=== PATIENT | female | born 1985 | race Caucasian/White ===

== ENCOUNTER 2019-12-07 12:05 | Outpatient (REF) | payer OTHER, SELFPAY ==
[2019-12-07 13:13] LABS: CDIFF Ag Negative (Negative); CDIFF Internal ctrl Dots and bkg OK (V); CDiff Toxin Negative (Negative)
[2019-12-13 00:02] LABS: Fecal Fat Qualitative Normal (Normal)
[2019-12-13 20:41] LABS: Calprotectin, Fecal <5 mcg/g
== END 2019-12-07 12:06 | disposition home or self-care (01) ==
LOC: HO.LNP 12:05
PROVIDERS: Visit Provider Internal Medicine Gastroenterology
DX: K52.9 Noninfective gastroenteritis and colitis, unspecified (principal); R19.7 Diarrhea, unspecified
CPT/HCPCS: 82705; 83993; 87045; 87046; 87324; 87449

== ENCOUNTER 2019-12-10 07:54 | Outpatient (REF) | payer OTHER, SELFPAY ==
[2019-12-11 16:12] LABS: IgA 171 mg/dL (47-310); IgG 707 mg/dL (600-1640); IgM 103 mg/dL (50-300)
[2019-12-14 17:52] LABS: Histamine Plasma <1.5 ng/mL (< OR = 1.8)
== END 2019-12-10 07:55 | disposition home or self-care (01) ==
LOC: HO.LAB 07:54
PROVIDERS: PCP Physician Assistant; Visit Provider Internal Medicine Gastroenterology
DX: K52.9 Noninfective gastroenteritis and colitis, unspecified (principal)
CPT/HCPCS: 36415; 82784; 82785; 83088; 83520; 86003

== ENCOUNTER → 2020-01-04 08:50 | Outpatient (BNVA) | payer OTHER, SELFPAY | PROVIDERS: PCP Physician Assistant; Referring Provider Nurse Practitioner Family; Visit Provider Internal Medicine Gastroenterology | DX: R19.7 Diarrhea, unspecified (principal); R68.81 Early satiety; N80.9 Endometriosis, unspecified | CPT/HCPCS: 99212 ==

== ENCOUNTER → 2020-01-15 11:49 | Outpatient (BNVA) | payer OTHER, SELFPAY | PROVIDERS: PCP Physician Assistant; Referring Provider Physician Assistant; Visit Provider Internal Medicine Gastroenterology | DX: R19.7 Diarrhea, unspecified (principal); R68.81 Early satiety; N80.9 Endometriosis, unspecified | CPT/HCPCS: 99212 ==

== ENCOUNTER 2020-01-18 09:26 | Outpatient (REF) | payer OTHER, SELFPAY | END 2020-01-18 09:27 | disposition home or self-care (01) | LOC: HO.WFDLDS 09:26 | PROVIDERS: Internal Medicine Gastroenterology; Visit Provider Internal Medicine | DX: Z20.828 Contact with and (suspected) exposure to other viral communicable diseases (principal) | CPT/HCPCS: C9803; U0003 ==

== ENCOUNTER 2020-01-22 14:06 | Outpatient (REF) | payer OTHER, SELFPAY ==
--- NOTE | 2020-01-22 | US_ITS ---
EXAMINATION: US PELVIS ULTRASOUND CLINICAL INFORMATION: Endometriosis. N80.9. Prior hysterectomy. Age 34. COMPARISON: Pelvic ultrasound 02/06/2019, CT abdomen and pelvis with contrast 12/02/2019; CT abdomen and pelvis noncontrast 10/29/2019. TECHNIQUE: Ultrasound of the pelvis is performed using both transabdominal and transvaginal transducers along with Doppler. Transvaginal imaging is performed due to inadequate visualization transabdominally. Durable Medical Equipment Technician notes significant left lower quadrant pain while scanning transabdominal and transvaginal. FINDINGS: Uterus: Surgically absent. Adnexa: Both ovaries are visualized and are normal in size. There is normal color flow to the adnexa. There is no ovarian torsion. No hyperemia. No visible vascular pelvic congestion. There is no pelvic ascites or fluid collection. Right ovary measures 3.2 x 1.7 x 2.5 cm. Volume 5.3 mL. There is a dominant follicle measuring 1.4 x 1.2 cm. There is a nonspecific exophytic nodule on ultrasound. Surface measuring only 0.6 x 0.6 cm and showing no associated color flow. There is no correlate on CT and finding is of doubtful significance. Otherwise no right adnexal mass or fluid collection. Left ovary measures 2.6 x 1.2 x 1.4 cm. Volume 2.3 mL. No left adnexal mass or fluid collection. US/US transvaginal IMPRESSION: 1. Uterus: Surgically absent. 2. Ovaries: Normal in size. Small nonspecific exophytic nodule on right, under 1 cm, without correlate on recent CT, doubtful significance. No fluid collection or ascites.
--- NOTE | 2020-01-22 14:13 | US_ITS ---
EXAMINATION: US PELVIS ULTRASOUND CLINICAL INFORMATION: Endometriosis. N80.9. Prior hysterectomy. Age 34. COMPARISON: Pelvic ultrasound 02/06/2019, CT abdomen and pelvis with contrast 12/02/2019; CT abdomen and pelvis noncontrast 10/29/2019. TECHNIQUE: Ultrasound of the pelvis is performed using both transabdominal and transvaginal transducers along with Doppler. Transvaginal imaging is performed due to inadequate visualization transabdominally. Brass Finisher notes significant left lower quadrant pain while scanning transabdominal and transvaginal. FINDINGS: Uterus: Surgically absent. Adnexa: Both ovaries are visualized and are normal in size. There is normal color flow to the adnexa. There is no ovarian torsion. No hyperemia. No visible vascular pelvic congestion. There is no pelvic ascites or fluid collection. Right ovary measures 3.2 x 1.7 x 2.5 cm. Volume 5.3 mL. There is a dominant follicle measuring 1.4 x 1.2 cm. There is a nonspecific exophytic nodule on ultrasound. Surface measuring only 0.6 x 0.6 cm and showing no associated color flow. There is no correlate on CT and finding is of doubtful significance. Otherwise no right adnexal mass or fluid collection. Left ovary measures 2.6 x 1.2 x 1.4 cm. Volume 2.3 mL. No left adnexal mass or fluid collection. US/US pelvic complete IMPRESSION: 1. Uterus: Surgically absent. 2. Ovaries: Normal in size. Small nonspecific exophytic nodule on right, under 1 cm, without correlate on recent CT, doubtful significance. No fluid collection or ascites.
[2020-01-25 04:07] LABS: Calcitonin <2 pg/mL (<=5)
== END 2020-01-22 14:07 | disposition home or self-care (01) ==
LOC: HO.US 14:06
PROVIDERS: PCP Internal Medicine; Visit Provider Internal Medicine Gastroenterology
DX: N80.9 Endometriosis, unspecified (principal); R19.7 Diarrhea, unspecified; R68.81 Early satiety; Z90.710 Acquired absence of both cervix and uterus
CPT/HCPCS: 76830; 76856; 82308; 82943; 84307; 84586

== ENCOUNTER → 2020-02-26 07:59 | Outpatient (REF) | payer OTHER, SELFPAY ==
--- NOTE | 2020-02-26 08:02 | NM_ITS ---
EXAMINATION: RADIONUCLIDE SOLID FOOD GASTRIC EMPTYING 4-HOUR STUDY CLINICAL INFORMATION: Early satiety. COMPARISON: No previous gastric emptying study is available for comparison. TECHNIQUE: A standard meal consisting of 4 oz of Egg Beaters brand tagged with 850 microcuries Tc-99m Sulfur Colloid, 8 oz water and 2 slices of toast with jelly was administered orally to the patient. Images were obtained using a dual head gamma camera in the anterior and posterior projections over of the stomach immediately post ingestion and at hourly intervals up to 3 hours post ingestion. Images were not obtained at 4 hours due to the minimal retention at 3 hours. The anterior and posterior counts at each time interval were averaged using the geometric mean and expressed as percentage of the immediate post ingestion counts. FINDINGS: There is good visualization of activity in the stomach immediately post ingestion. As the study progresses, there is good clearance of activity from the stomach and visualization of progressively increasing small bowel activity. By the end of the study, there is almost no retention noted in the stomach. Retention in the stomach at each time interval was: 1 hour 25% (normal 37%-90%) 2 hours 5% (normal 30%-60%) 3 hours 3% 4 hours (Not Obtained) (normal 0%-10%) NM/NM gastric emptying study IMPRESSION: No abnormal retention of solid food is present. Gastric emptying of solid food is more rapid than normal, a finding of uncertain clinical significance.
== END ==
LOC: HO.NUCMED 07:59
PROVIDERS: PCP Internal Medicine; Visit Provider Internal Medicine Gastroenterology
DX: R68.81 Early satiety (principal); R19.7 Diarrhea, unspecified
CPT/HCPCS: 78264; A9541

== ENCOUNTER 2020-03-04 08:08 | Emergency (ER) | payer OTHER, SELFPAY ==
[2020-03-04 08:37] VITALS: BP 150/87; PULSE 98; RESP 18; TEMP 36.8; O2SAT 98; BMI 30.9
[2020-03-04 11:52] LABS: Basophils Percent Auto 0.3 % (0-2); Eosinophils Absolute Auto 0.1 X10*3/uL (0.0-0.4); Eosinophils Percent Auto 0.8 % (0-4); Hematocrit 40.7 % (37-47); Hemoglobin 14.1 g/dl (12.0-16.0); Imm Gran Abs Auto 0.02 X10*3/uL (0.00-0.03); Imm Gran Pct Auto 0.2 % (0.0-0.4); Lymphocytes Absolute Auto 3.4 X10*3/uL (1.2-4.9); Lymphocytes Percent Auto 37.2 % (20-40); Mean Corpuscular HGB Conc 34.6 g/dl (31.0-35.0); Mean Corpuscular Hemoglobin 30.9 pg (27.0-33.0); Mean Corpuscular Volume 89.3 fL (80-98); Mean Platelet Volume 9.3 fL (9.4-12.3); Monocytes Absolute Auto 0.5 X10*3/uL (0.1-1.2); Monocytes Percent Auto 5.8 % (2-11); Neutrophils Absolute Auto 5.1 X10*3/uL (2.0-8.3); Neutrophils Percent Auto 55.7 % (45-73); Platelet Count 269 X10*3/uL (160-400); Red Blood Count 4.56 X10*6/uL (4.20-5.50); Red Cell Distribution Width 14.4 % (11.0-16.0); White Blood Count 9.1 X10*3/uL (4.8-10.8)
[2020-03-04 11:53] LABS: MANUAL DIFF FLAG NO
[2020-03-04 12:22] LABS: Alanine Aminotransferase 67 U/L (0-31); Albumin Level 4.5 g/dL (3.5-5.0); Alkaline Phosphatase 101 U/L (39-117); Anion Gap 17 (12-20); Aspartate Amino Transferase 75 U/L (5-31); Bilirubin Total 0.9 mg/dL (0.0-1.0); Blood Urea Nitrogen 8 mg/dL (9-16); Calcium 8.7 mg/dL (8.4-10.2); Carbon Dioxide 20 mmol/L (22-29); Chloride 105 mmol/L (96-108); Creatinine Clr Calc Pharmacy 119.8; Estimated Glomerular Filt Rate > 60; Glucose Random 92 mg/dL (60-115); Sodium 138 mmol/L (135-145); Total Protein 7.2 g/dL (6.5-8.0)
--- NOTE | 2020-03-04 14:21 | ED.ABDPAIN ---
HPI - Abdominal Pain General Chief Complaint: Abdominal Pain Stated Complaint: abd pain Time Seen by Provider: 03/04/20 14:06 History of Present Illness HPI narrative: Patient with prior history of colitis comes here complaining of 4 days of copious diarrhea abdominal pain nausea and crampy intermittent abdominal pain relieved with a bowel movement. It she has not been eating as it upsets her stomach but she has been able to drink fluids She is not dizzy or weak she has had no blood or black tarry stools, no fever no chills Related Data Previous Rx's Medication Instructions Recorded ciprofloxacin HCl 500 mg tablet 500 mg PO BID 14 Days #28 tab 01/15/20 hyoscyamine sulfate 0.125 mg 0.125 mg SUBLINGUAL BID-QID PRN 01/15/20 sublingual tablet #30 tab ondansetron 4 mg disintegrating 4 mg PO Q8H PRN #30 tab 01/22/20 tablet colesevelam 625 mg tablet 1,250 mg PO BID #60 tab 02/06/20 diphenoxylate-atropine 2.5 1 tab PO TID #30 tab 03/03/20 mg-0.025 mg tablet levofloxacin 500 mg PO DAILY 7 Days #7 tab 03/04/20 metronidazole [Flagyl] 500 mg PO BID 7 Days #14 tab 03/04/20 oxycodone-acetaminophen [Percocet] 1 tab PO Q6H PRN #20 tab 03/04/20 Allergies Allergy/AdvReac Type Severity Reaction Status Date / Time NSAIDS (Non-Steroidal Allergy Severe BRONCHOSPAS Unverified 11/22/19 15:34 Anti-Inflamma M [NSAIDS (NON-STEROIDAL ANTI-INFLAMMA] aspirin [ASA] Allergy Unknown SHORTNESS Unverified 11/22/19 15:34 OF BREATH ketorolac [From TORADOL] Allergy Unknown BRONCIAL Unverified 11/22/19 15:34 SPASM vancomycin [VANCOMYCIN] Allergy Unknown RASH Unverified 11/22/19 15:34 gabapentin [From NEURONTIN] AdvReac Unknown TINGLING Unverified 11/22/19 15:34 IN L ARM Bencort Allergy Unknown Uncoded 10/31/19 00:00 NSAIDS Allergy Unknown ASTHMA Uncoded 10/01/19 00:00 TORADAL Allergy Unknown Uncoded 10/31/19 00:00 Toradol Allergy Unknown bronchospas Uncoded 10/01/19 00:00 m Review of Systems Review of Systems Positive for abdominal pain nausea and copious diarrhea No fever no chills no dizziness no weakness no headache no neck pain no chest pain no shortness of breath no vomiting no bloody stool no black tarry stool no leg swelling no calf pain or swelling no rashes Yes all other systems are reviewed and are negative Physical Exam Vital Signs: Vital Signs: Last Vital Signs Temp 98.5 F 03/04/20 14:58 Pulse 85 03/04/20 16:33 Resp 18 03/04/20 16:33 BP 140/87 H 03/04/20 16:33 Pulse Ox 98 03/04/20 16:33 Body Mass Index 30.9 Patient is A&O x3, cooperative, uncomfortable The eyes are not pale or yellow The pharynx mucous membranes are moist Neck is supple Chest is clear to auscultation bilaterally with full symmetric equal breath sounds The heart rate and rhythm regular no murmurs The abdomen was nontender no rebound no guarding Extremities no edema no calf tenderness or swelling Skin no rash Neuro no focal deficit Course Course Course Narrative: Patient was hydrated and treated with analgesics and nausea medicine and felt very improved The case was discussed with her quality assurance representative Dr. Grijalva who has her scheduled for an MRI tomorrow for further evaluation of her abdomen, he agreed with the plan that if patient tolerates p.o. afebrile pain controlled that we could start antibiotics and she is suitable for discharge The patient was discharged feeling significantly improved and antibiotics were started MDM - Abdominal Pain Lab Data Attestation: I reviewed the patient's lab results. Result diagrams: 03/04/20 11:34 03/04/20 11:34 Labs: Lab Results 03/04/20 03/04/20 03/04/20 Range/Units 11:34 11:34 11:34 WBC 9.1 (4.8-10.8) X10*3/uL RBC 4.56 (4.20-5.50) X10*6/uL Hgb 14.1 (12.0-16.0) g/dl Hct 40.7 (37-47) % MCV 89.3 (80-98) fL MCH 30.9 (27.0-33.0) pg MCHC 34.6 (31.0-35.0) g/dl RDW 14.4 (11.0-16.0) % Plt Count 269 (160-400) X10*3/uL MPV 9.3 L (9.4-12.3) fL Immature Gran % (Auto) 0.2 (0.0-0.4) % Neut % (Auto) 55.7 (45-73) % Lymph % (Auto) 37.2 (20-40) % Boyd % (Auto) 5.8 (2-11) % Eos % (Auto) 0.8 (0-4) % Baso % (Auto) 0.3 (0-2) % Lymph # (Auto) 3.4 (1.2-4.9) X10*3/uL Boyd # (Auto) 0.5 (0.1-1.2) X10*3/uL Eos # (Auto) 0.1 (0.0-0.4) X10*3/uL Baso # (Auto) 0.0 (0.0-0.2) X10*3/uL Abs Immat Gran (auto) 0.02 (0.00-0.03) X10*3/uL Absolute Neuts (auto) 5.1 (2.0-8.3) X10*3/uL Absolute Nucleated RBC 0.000 (0.0-0.012) X10*3/uL Nucleated RBC % (auto) 0.0 (0.0-0.2) /100WBC ESR (0-20) MM/HR Hold Blue Top SEE NOTE Sodium 138 (135-145) mmol/L Potassium 4.0 (3.3-5.1) mmol/l Chloride 105 (96-108) mmol/L Carbon Dioxide 20 L (22-29) mmol/L Anion Gap 17 (12-20) BUN 8 L (9-16) mg/dL Creatinine 0.66 (0.5-1.4) mg/dL Estim Creat Clear Calc 119.8 Estimated GFR > 60 Random Glucose 92 (60-115) mg/dL Calcium 8.7 (8.4-10.2) mg/dL Total Bilirubin 0.9 (0.0-1.0) mg/dL AST 75 H (5-31) U/L ALT 67 H (0-31) U/L Alkaline Phosphatase 101 (39-117) U/L C-Reactive Protein 0.02 (< or = 0.50) mg/dL Total Protein 7.2 (6.5-8.0) g/dL Albumin 4.5 (3.5-5.0) g/dL 03/04/20 Range/Units 15:07 WBC (4.8-10.8) X10*3/uL RBC (4.20-5.50) X10*6/uL Hgb (12.0-16.0) g/dl Hct (37-47) % MCV (80-98) fL MCH (27.0-33.0) pg MCHC (31.0-35.0) g/dl RDW (11.0-16.0) % Plt Count (160-400) X10*3/uL MPV (9.4-12.3) fL Immature Gran % (Auto) (0.0-0.4) % Neut % (Auto) (45-73) % Lymph % (Auto) (20-40) % Boyd % (Auto) (2-11) % Eos % (Auto) (0-4) % Baso % (Auto) (0-2) % Lymph # (Auto) (1.2-4.9) X10*3/uL Boyd # (Auto) (0.1-1.2) X10*3/uL Eos # (Auto) (0.0-0.4) X10*3/uL Baso # (Auto) (0.0-0.2) X10*3/uL Abs Immat Gran (auto) (0.00-0.03) X10*3/uL Absolute Neuts (auto) (2.0-8.3) X10*3/uL Absolute Nucleated RBC (0.0-0.012) X10*3/uL Nucleated RBC % (auto) (0.0-0.2) /100WBC ESR 2 (0-20) MM/HR Hold Blue Top Sodium (135-145) mmol/L Potassium (3.3-5.1) mmol/l Chloride (96-108) mmol/L Carbon Dioxide (22-29) mmol/L Anion Gap (12-20) BUN (9-16) mg/dL Creatinine (0.5-1.4) mg/dL Estim Creat Clear Calc Estimated GFR Random Glucose (60-115) mg/dL Calcium (8.4-10.2) mg/dL Total Bilirubin (0.0-1.0) mg/dL AST (5-31) U/L ALT (0-31) U/L Alkaline Phosphatase (39-117) U/L C-Reactive Protein (< or = 0.50) mg/dL Total Protein (6.5-8.0) g/dL Albumin (3.5-5.0) g/dL Discharge Plan Discharge Clinical Impression: Colitis Patient Disposition: Home, Self-Care Additional Instructions: We are starting antibiotics for colitis We spoke to Dr. Delong in who agrees with the plan and expect you to get the MRI as scheduled tomorrow Follow with him and his office Return to ER any worse condition any concerns Prescriptions: New levofloxacin 500 mg tablet 500 mg PO DAILY 7 Days Qty: 7 RF: 0 metronidazole [Flagyl] 500 mg tablet 500 mg PO BID 7 Days Qty: 14 RF: 0 oxycodone-acetaminophen [Percocet] 5-325 mg tablet 1 tab PO Q6H PRN (Reason: pain) Qty: 20 RF: 0 No Action ondansetron 4 mg tablet,disintegrating 4 mg PO Q8H PRN (Reason: nausea and vomiting) Qty: 30 RF: 1 colesevelam [WelChol] 625 mg tablet 1,250 mg PO BID Qty: 60 RF: 3 hyoscyamine sulfate [Levsin/SL] 0.125 mg tablet, sublingual 0.125 mg sublingual BID-QID PRN (Reason: dyspepsia) Qty: 30 RF: 2 ciprofloxacin HCl 500 mg tablet 500 mg PO BID 14 Days Qty: 28 RF: 0 diphenoxylate-atropine [Lomotil] 2.5-0.025 mg tablet 1 tab PO TID Qty: 30 RF: 0 Stand Alone Forms: Work/School Release [facility] Past Medical History Attestation statement: The following information was validated with the patient. [facility] Narrative: Patient has history of multiple episodes of colitis and is followed by GI Dr. Sierra Surgical History History of appendectomy History of colonoscopy History of hysterectomy Hx of endoscopy Family History Family History (Updated 01/04/20 @ 08:54 by Katie Gagnon CMA) Father No problems noted. Mother No problems noted. Social History Social History (Updated 01/04/20 @ 08:54 by Katie Gagnon CMA) Alcohol intake: current Alcohol intake frequency: holidays/special occasions only Smoking Status: Current every day smoker Tobacco Type: Cigarette Cigarettes Per Day: 5 Advance Directives: No Advance Directives Information Provided: Yes
[2020-03-04 14:57] VITALS: RESP 18
[2020-03-04] MEDS: Morphine Sulfate 4 MG/ML CARTRIDGE IVPUSH ×2 (14:57→16:37)
[2020-03-04] MEDS: ondansetron HCL 4 MG/2 ML VIAL IVPUSH ×2 (14:57)
[2020-03-04] MEDS: Famotidine/PF 20 MG/2 ML VIAL IVPUSH (14:57)
[2020-03-04 14:58] VITALS: BP 145/85; PULSE 97; RESP 18; TEMP 36.9; O2SAT 97
[2020-03-04] MEDS: 0.9 % Sodium Chloride 1,000 ML 999 ML IVCONT (14:58)
[2020-03-04 15:20] LABS: C Reactive Protein 0.02 mg/dL (< or = 0.50)
[2020-03-04] MEDS: metroNIDAZOLE 500 MG TABLET PO (15:27)
[2020-03-04] MEDS: levoFLOXacin 500 MG TABLET PO (15:28)
[2020-03-04 15:57] LABS: Erythrocyte Sedimentation Rate 2 MM/HR (0-20)
[2020-03-04 16:33] VITALS: BP 140/87; PULSE 85; RESP 18; O2SAT 98
== END 2020-03-04 16:57 | disposition home or self-care (01) ==
PROVIDERS: Physician Assistant Medical; Emergency Provider Emergency Medicine Emergency Medical Services; PCP Physician Assistant
DX: K52.9 Noninfective gastroenteritis and colitis, unspecified (principal); F17.210 Nicotine dependence, cigarettes, uncomplicated; Z71.6 Tobacco abuse counseling; Z79.899 Other long term (current) drug therapy
CPT/HCPCS: 36415; 80053; 85025; 85652; 86140; 96361; 96374; 96375; 96376; 99284; J2270; J2405

== ENCOUNTER 2020-03-05 08:54 | Outpatient (REF) | payer OTHER, SELFPAY ==
--- NOTE | 2020-03-05 10:18 | MR_ITS ---
EXAMINATION: MR ABDOMEN WITHOUT AND WITH CONTRAST MR PELVIS WITHOUT AND WITH CONTRAST CLINICAL INFORMATION: R19.7 - Diarrhea, unspecified; assess for Crohn's COMPARISON: Radionuclide gastric emptying study 02/26/2020, ultrasound pelvis 01/22/2020, CT abdomen and pelvis with contrast 12/02/2019 and 11/09/2019. TECHNIQUE: MR abdomen and MR pelvis are performed without and with use of 8.5 mL intravenous Gadavist gadolinium contrast. Imaging is performed in 3 planes. Patient had 1.5 L of oral Breeza prior to imaging. FINDINGS: LUNG BASES: The visualized lung bases are unremarkable. LIVER, GALLBLADDER, AND BILIARY TREE: The liver is normal in size and smooth in contour. The parenchyma areas homogeneous in signal. There is mild signal loss on out of phase imaging consistent with mild hepatic steatosis. There is no focal hepatic parenchymal lesion or intrahepatic ductal dilatation. The gallbladder is unremarkable with no evidence of gallbladder wall thickening, or obvious pericholecystic inflammatory changes. PANCREAS: Unremarkable. SPLEEN: Normal. ADRENAL GLANDS: Normal. KIDNEYS AND URETERS: The kidneys are normal in size, shape, and enhance symmetrically. No hydronephrosis. No perinephric stranding. GASTROINTESTINAL TRACT: There is no bowel obstruction or focal inflammatory changes in the bowel or adjacent mesentery. There is been prior appendectomy. There is no bowel wall thickening, bowel wall T2 signal, or abnormal enhancement. There is no ascites or fluid collection. ABDOMINAL WALL: No significant hernia is appreciated. LYMPH NODES: No lymphadenopathy. VASCULAR: Unremarkable. PELVIS: Prior hysterectomy. There is incidental dominant follicle left ovary measuring 1.6 cm. No pelvic ascites. OSSEOUS STRUCTURES: Normal marrow signal. No sacroiliitis. MR/MR abdomen wo/w con IMPRESSION: 1. No inflammatory changes in bowel or mesentery. No bowel wall thickening or abnormal enhancement. 2. Mild hepatic steatosis.
== END 2020-03-05 08:55 | disposition home or self-care (01) ==
LOC: HO.MRI 08:54
PROVIDERS: Visit Provider Internal Medicine Gastroenterology
DX: K52.9 Noninfective gastroenteritis and colitis, unspecified (principal); R19.7 Diarrhea, unspecified; R10.9 Unspecified abdominal pain
CPT/HCPCS: 72197; 74183; A9585

== ENCOUNTER → 2020-06-30 08:33 | Outpatient (BNVA) | payer OTHER, SELFPAY | PROVIDERS: PCP Physician Assistant; Visit Provider Internal Medicine Gastroenterology ==

== ENCOUNTER 2020-06-30 15:00 | Emergency (ER) | payer OTHER, SELFPAY ==
[2020-06-30 15:15] VITALS: BP 116/68; PULSE 102; RESP 18; TEMP 37.2; O2SAT 96; BMI 31.8
== END 2020-06-30 17:00 | disposition left against medical advice (07) ==
PROVIDERS: Emergency Provider Emergency Medicine; PCP Physician Assistant
DX: K52.9 Noninfective gastroenteritis and colitis, unspecified (principal)
CPT/HCPCS: 99282

== ENCOUNTER → 2020-07-21 08:26 | Outpatient (BNVA) | payer OTHER, SELFPAY | PROVIDERS: PCP Physician Assistant; Visit Provider Internal Medicine Gastroenterology ==

== ENCOUNTER 2020-07-24 17:01 | Inpatient (IN) | payer OTHER, SELFPAY ==
[2020-07-24 17:04] VITALS: BP 144/82; PULSE 115; RESP 18; TEMP 36.7; O2SAT 97; BMI 31.8
[2020-07-24 17:39] VITALS: BP 134/81; PULSE 105; RESP 17; TEMP 36.9; O2SAT 98
--- NOTE | 2020-07-24 17:43 | ED_ITS ---
HPI - Abdominal Pain General Chief Complaint: Abdominal Pain Stated Complaint: Abdominal pain Time Seen by Provider: 07/24/20 21:10 Source: patient Mode of arrival: ambulatory Limitations: no limitations History of Present Illness HPI narrative: [age] year female past medical history of recently diagnosed Crohn's presents with abdominal pain, and anal leakage. States that she was seen at [facility] [address] scan show Crohn's exacerbation with colitis. She was seen by Gastroenterology, , was diagnosed with Crohn's last week and had a capsule endoscopy 4 days ago. She has had multiple visits to the emergency department over the past month for abdominal pain, cramping and diarrhea she does not report any chest pain or pressure, palpitations, shortness of breath, no fevers, chills, nausea, vomiting, constipation, dysuria, hematuria, melena, hematochezia, edema, sick contacts, or any other concerning symptoms. She has not started any medications for her Crohn's diagnosis. MD elicited complaint: abdominal pain Pertinent past history: other (Crohn's) Onset (ago): day(s) (Several) Pain Consistency: constant Location: diffuse Severity: severe Quality: cramping, stabbing and aching Exacerbating factors: eating, bowel movement and movement Relieving factors: nothing Context: history of similar episodes Associated symptoms: nausea, vomiting, diarrhea and other (Anal leakage) Related Data Patient : No Home Medications Medication Instructions Recorded Confirmed budesonide 3 cap PO DAILY 07/24/20 07/24/20 dextroamphetamine-amphetamine 1 cap PO QAM 07/24/20 07/24/20 dextroamphetamine-amphetamine 10 mg PO DAILY 07/24/20 07/24/20 prednisone 1 tab PO BID 07/24/20 07/24/20 Allergies Allergy/AdvReac Type Severity Reaction Status Date / Time NSAIDS (Non-Steroidal Allergy Severe BRONCHOSPAS Verified 06/30/20 15:15 Anti-Inflamma M [NSAIDS (NON-STEROIDAL ANTI-INFLAMMA] aspirin [ASA] Allergy Unknown SHORTNESS Verified 06/30/20 15:15 OF BREATH ketorolac [From TORADOL] Allergy Unknown BRONCIAL Verified 06/30/20 15:15 SPASM vancomycin [VANCOMYCIN] Allergy Unknown RASH Verified 06/30/20 15:15 gabapentin [From NEURONTIN] AdvReac Unknown TINGLING Verified 06/30/20 15:15 IN L ARM Denny Allergy Unknown unknown Uncoded 05/19/20 11:33 Review of Systems Review of Systems Constitutional: No Weight loss, No Fever, No Chills, No Night Sweats, No Fatigue, No Malaise ENT/Mouth: No Hearing loss, No Ear Pain, No Nasal Congestion, No Sinus Pain, No Hoarseness, No sore throat, No Rhinorrhea, No Swallowing Difficulty Eyes: No Eye Pain, No Swelling, No Redness, No Foreign Body, No Discharge, No Vision Changes Cardiovascular: No Chest Pain, No SOB, No Dyspnea on Exertion, No Orthopnea, No Edema, No Palpitations Respiratory: No Cough, No Sputum, No Wheezing, No Smoke Exposure, No Dyspnea Gastrointestinal: Positive Nausea, no Vomiting, positive anal leakage, positive abdominal Pain, No Hematochezia, No Melena Genitourinary: no irregular bleeding, No Dysuria, No Urinary Frequency, No Hematuria, No Urinary Incontinence, No Urgency, No Flank Pain, No Urinary Flow Changes, No Hesitancy Musculoskeletal: No joint pain, No Myalgias, No Joint Swelling Skin: No Skin Lesions, No rash Neuro: No Weakness, No Numbness, No Paresthesias, No Loss of Consciousness, No Dizziness, No Headache Psych: No Anxiety/Panic, No Depression, No SI/HI/AH/VH, No Social Issues Heme/Lymph: No Bruising, No Bleeding,No Lymphadenopathy Endocrine: No Polyuria, No Polydipsia, No Temperature Intolerance Yes all other systems are reviewed and are negative Physical Exam Vital Signs: Vital Signs: Last Vital Signs Temp 98.5 F 07/24/20 17:39 Pulse 77 07/24/20 23:51 Resp 16 07/24/20 23:51 BP 144/79 H 07/24/20 23:51 Pulse Ox 99 07/24/20 23:51 Body Mass Index 31.8 Appearance: Alert. Oriented X3. Moderate distress. Eyes: Pupils equal, round and reactive to light. ENT: Pharynx normal. Neck: Normal inspection. Neck supple. CVS: Normal heart rate and rhythm. Pulses normal. Respiratory: No respiratory distress. Breath sounds normal. Abdomen: Soft and diffusely tender. Skin: Skin warm and dry. Normal skin color. Normal skin turgor. Extremities: Moves all extremities against resistance, gait well balanced and well coordinated. Neuro: No motor deficit. No sensory deficit. Cranial nerves 2-12 intact. No focal neural deficits. Course Course Course Narrative: 35-year-old female presents with Crohn's flare. I did start ceftriaxone and Flagyl, 4 mg of morphine, and a L of 9 [address] saline[address] Had a CT scan of the abdomen 2 days ago which indicated mild diffuse colonic wall thickening with mucosal hyperemia and mild surrounding fat stranding, no evidence of obstruction perforation or abscess. There are areas of intramural fat deposition in the colon, similar to prior exams. Mildly prominent fluid- filled loops of the jejunum in the left upper quadrant measuring up to 3 cm in diameter but without wall thickening or adjacent fat stranding. This may be due to reactive ileus, it is improved in appearance from prior study. Impression findings for acute on chronic colitis the appearance is similar to the prior study no evidence of obstruction abscess or perforation. Do not have access to prior studies, patient did bring in CT scan documentation from [facility] which was extraordinarily helpful. Patient does not want a repeat CT scan due to unnecessary radiation exposure. I did discuss this case with Dr. Devlin, he suggest starting p.o. steroids. Patient is unable to tolerate p.o. steroids, states that every time she takes them she has severe joint pain and swelling. Discussion with hospitalist regarding plan of care, plan is to admit for Crohn's flare, referral to Dr. Sierra/GI. Patient verbalized understanding of and agrees to plan of care to admit. Consultations Consultation #1: Teofilo MDM - Abdominal Pain Differential Diagnosis Differential diagnosis: Likely abdominal pain Differential diagnosis narrative:: Colitis, Crohn's flare Medical Records Attestation: I reviewed the patient's medical records. Lab Data Attestation: I reviewed the patient's lab results. Result diagrams: 07/24/20 18:44 07/24/20 18:44 Labs: Lab Results 07/24/20 07/24/20 07/24/20 Range/Units 18:44 18:44 18:44 WBC 8.4 (4.8-10.8) X10*3/uL RBC 4.20 (4.20-5.50) X10*6/uL Hgb 12.9 (12.0-16.0) g/dl Hct 37.4 (37-47) % MCV 89.0 (80-98) fL MCH 30.7 (27.0-33.0) pg MCHC 34.5 (31.0-35.0) g/dl RDW 13.2 (11.0-16.0) % Plt Count 299 (160-400) X10*3/uL MPV 9.4 (9.4-12.3) fL Immature Gran % (Auto) 0.1 (0.0-0.4) % Neut % (Auto) 72.7 (45-73) % Lymph % (Auto) 21.9 (20-40) % [place] % (Auto) 4.6 (2-11) % Eos % (Auto) 0.5 (0-4) % Baso % (Auto) 0.2 (0-2) % Lymph # (Auto) 1.8 (1.2-4.9) X10*3/uL [place] # (Auto) 0.4 (0.1-1.2) X10*3/uL Eos # (Auto) 0.0 (0.0-0.4) X10*3/uL Baso # (Auto) 0.0 (0.0-0.2) X10*3/uL Abs Immat Gran (auto) 0.01 (0.00-0.03) X10*3/uL Absolute Neuts (auto) 6.1 (2.0-8.3) X10*3/uL Absolute Nucleated RBC 0.000 (0.0-0.012) X10*3/uL Nucleated RBC % (auto) 0.0 (0.0-0.2) /100WBC PT 10.1 L (10.8-13.0) SEC INR 0.9 (0.9-1.1) APTT 31.6 (24.1-38.0) SEC Sodium 140 (135-145) mmol/L Potassium 4.1 (3.3-5.1) mmol/L Chloride 109 H (96-108) mmol/L Carbon Dioxide 21 L (22-29) mmol/L Anion Gap 14 (12-20) BUN 4 L (9-16) mg/dL Creatinine 0.75 (0.5-1.4) mg/dL Estim Creat Clear Calc 105.9 Estimated GFR > 60 Random Glucose 101 (60-115) mg/dL Lactic Acid (0.5-2.0) mmol/L Calcium 9.3 D (8.4-10.2) mg/dL Total Bilirubin 0.2 (0.0-1.0) mg/dL Direct Bilirubin < 0.2 (0.0-0.5) mg/dL AST 38 H D (5-31) U/L ALT 31 (0-31) U/L Alkaline Phosphatase 101 (39-117) U/L Total Protein 6.9 (6.5-8.0) g/dL Albumin 4.4 (3.5-5.0) g/dL Lipase 21 (8-78) U/L COVID-19 (ROGELIO) (Negative) COVID-19 Clin Com 07/24/20 07/24/20 Range/Units 18:44 22:22 WBC (4.8-10.8) X10*3/uL RBC (4.20-5.50) X10*6/uL Hgb (12.0-16.0) g/dl Hct (37-47) % MCV (80-98) fL MCH (27.0-33.0) pg MCHC (31.0-35.0) g/dl RDW (11.0-16.0) % Plt Count (160-400) X10*3/uL MPV (9.4-12.3) fL Immature Gran % (Auto) (0.0-0.4) % Neut % (Auto) (45-73) % Lymph % (Auto) (20-40) % [place] % (Auto) (2-11) % Eos % (Auto) (0-4) % Baso % (Auto) (0-2) % Lymph # (Auto) (1.2-4.9) X10*3/uL [place] # (Auto) (0.1-1.2) X10*3/uL Eos # (Auto) (0.0-0.4) X10*3/uL Baso # (Auto) (0.0-0.2) X10*3/uL Abs Immat Gran (auto) (0.00-0.03) X10*3/uL Absolute Neuts (auto) (2.0-8.3) X10*3/uL Absolute Nucleated RBC (0.0-0.012) X10*3/uL Nucleated RBC % (auto) (0.0-0.2) /100WBC PT (10.8-13.0) SEC INR (0.9-1.1) APTT (24.1-38.0) SEC Sodium (135-145) mmol/L Potassium (3.3-5.1) mmol/L Chloride (96-108) mmol/L Carbon Dioxide (22-29) mmol/L Anion Gap (12-20) BUN (9-16) mg/dL Creatinine (0.5-1.4) mg/dL Estim Creat Clear Calc Estimated GFR Random Glucose (60-115) mg/dL Lactic Acid 1.5 (0.5-2.0) mmol/L Calcium (8.4-10.2) mg/dL Total Bilirubin (0.0-1.0) mg/dL Direct Bilirubin (0.0-0.5) mg/dL AST (5-31) U/L ALT (0-31) U/L Alkaline Phosphatase (39-117) U/L Total Protein (6.5-8.0) g/dL Albumin (3.5-5.0) g/dL Lipase (8-78) U/L COVID-19 (ROGELIO) Negative (Negative) COVID-19 Clin Com See Note Critical Care Time Critical Care Time Critical Care Time: Yes Total Critical Care Time: 45 Attestation: I have personally provided critical care time exclusive of time spent on separ ately billable procedures. Time includes review of laboratory data, radiology results, discussion with consultants, and monitoring for potential decompensation. Interventions were performed as documented. Discharge Plan Discharge Clinical Impression: Crohn's colitis Qualifiers: Digestive disease complication type: without complication Qualified Code(s): K50.10 - Crohn's disease of large intestine without complications Patient Disposition: Admitted As Inpatient [facility] Past Medical History Attestation statement: The following information was validated with the patient. Source: unable to obtain Medical History Acute Crohn's disease Surgical History History of appendectomy History of colonoscopy History of hysterectomy Hx of endoscopy Family History Family History Father No problems noted. Mother Thyroid cancer Stomach cancer Family/Other Diabetes Social History Social History Alcohol intake: current Alcohol intake frequency: holidays/special occasions only Smoking Status: Current every day smoker Tobacco Type: Cigarette Cigarettes Per Day: 5 Advance Directives: No Advance Directives Information Provided: No Patient : No
[2020-07-24 18:52] LABS: MANUAL DIFF FLAG NO
[2020-07-24 18:53] LABS: Basophils Percent Auto 0.2 % (0-2); Eosinophils Percent Auto 0.5 % (0-4); Hematocrit 37.4 % (37-47); Hemoglobin 12.9 g/dl (12.0-16.0); Imm Gran Abs Auto 0.01 X10*3/uL (0.00-0.03); Imm Gran Pct Auto 0.1 % (0.0-0.4); Lymphocytes Absolute Auto 1.8 X10*3/uL (1.2-4.9); Lymphocytes Percent Auto 21.9 % (20-40); Mean Corpuscular HGB Conc 34.5 g/dl (31.0-35.0); Mean Corpuscular Hemoglobin 30.7 pg (27.0-33.0); Mean Platelet Volume 9.4 fL (9.4-12.3); Monocytes Absolute Auto 0.4 X10*3/uL (0.1-1.2); Monocytes Percent Auto 4.6 % (2-11); Neutrophils Absolute Auto 6.1 X10*3/uL (2.0-8.3); Neutrophils Percent Auto 72.7 % (45-73); Platelet Count 299 X10*3/uL (160-400); Red Cell Distribution Width 13.2 % (11.0-16.0); White Blood Count 8.4 X10*3/uL (4.8-10.8)
[2020-07-24 19:03] LABS: INTERNATIONAL NORM RATIO 0.9 (0.9-1.1); Prothrombin Time 10.1 SEC (10.8-13.0)
[2020-07-24 19:05] LABS: Partial Thromboplastin Time 31.6 SEC (24.1-38.0)
[2020-07-24 19:13] LABS: Lactic Acid 1.5 mmol/L (0.5-2.0)
[2020-07-24 19:20] LABS: Alanine Aminotransferase 31 U/L (0-31); Albumin Level 4.4 g/dL (3.5-5.0); Alkaline Phosphatase 101 U/L (39-117); Anion Gap 14 (12-20); Aspartate Amino Transferase 38 U/L (5-31); Bilirubin Direct < 0.2 mg/dL (0.0-0.5); Bilirubin Total 0.2 mg/dL (0.0-1.0); Blood Urea Nitrogen 4 mg/dL (9-16); Calcium 9.3 mg/dL (8.4-10.2); Carbon Dioxide 21 mmol/L (22-29); Chloride 109 mmol/L (96-108); Creatinine Clr Calc Pharmacy 105.9; Estimated Glomerular Filt Rate > 60; Glucose Random 101 mg/dL (60-115); Lipase 21 U/L (8-78); Potassium 4.1 mmol/L (3.3-5.1); Sodium 140 mmol/L (135-145); Total Protein 6.9 g/dL (6.5-8.0)
[2020-07-24 20:48] VITALS: BP 137/83; PULSE 95; RESP 16; O2SAT 97
[2020-07-24] MEDS: 0.9 % Sodium Chloride 1,000 ML 999 ML IV (20:52)
[2020-07-24] MEDS: Morphine Sulfate 4 MG/ML CARTRIDGE IVPUSH ×2 (20:52→23:34)
[2020-07-24] MEDS: ondansetron HCL 4 MG/2 ML VIAL IVPUSH (20:52)
[2020-07-24] MEDS: cefTRIAXone sodium 1 GM in 0.9 % Sodium Chloride 50 ML IV (20:52)
[2020-07-24] MEDS: metroNIDAZOLE/NS 500 MG/100 ML PIGGYBACK 100 MG IV (20:53)
[2020-07-24 22:41] LABS: COVID-19 Test Negative (Negative)
--- NOTE | 2020-07-24 23:32 | P.HPHOSP_ITS ---
History of Present Illness Date of Service: 07/24/20 Chief Complaint: abdominal pain, diarrhea This is a 35-year-old female with a recently diagnosed Crohn's disease, who presents to the hospital with complaints of persistent abdominal pain, and diarrhea. Patient reports that she has been having diarrhea as well as abdominal pain for the past month, has been following up with the die maker trim Dr. Sierra, and was recently diagnosed with Crohn's disease about a week ago. Patient reports that she was started on a steroid this morning but only took 1 dose but her symptoms were so severe that she had to come to the ED. She reports constant watery diarrhea all day long, abdominal cramping that is mostly left lower quadrant, 8/10, nonradiating, associated with nausea with no vomiting. She has no fever or chills, no chest pain, no shortness of breath, no cough, no headache or change in vision. No dizziness. No urinary symptoms and no lower extremity edema.denies any blood in her watery diarrhea, On arrival to the ED patient hemodynamically stable with no significant abnormal vitals except for heart rate of 115 that normalized. Satting 97% on room air labs are significant for WBC count 8.4, hemoglobin of 12.9, CMP significant for elevated AST of 38 otherwise unremarkable, COVID-19 negative. Past medical history as below and confirmed as patient Review of Systems Review of Systems: Yes all other systems are reviewed and are negative [facility] Medical History Acute Crohn's disease Family History Father No problems noted. Mother Thyroid cancer Stomach cancer Family/Other Diabetes Surgical History History of appendectomy History of colonoscopy History of hysterectomy Hx of endoscopy Social History Household Members: None Housing: Condominium Do you presently have visiting nurse or other home services: No Alcohol intake: current Alcohol intake frequency: holidays/special occasions only Smoking Status: Current every day smoker Tobacco Type: Cigarette Cigarettes Per Day: 4 Years Smoked: 20 Smoked in Last 30 Days: Yes Patient Interested in Nicotine Replacement: No Patient Given Instructions on How to Stop Smoking: No Second Hand Smoke Exposure: No Use of substances other than those prescribed or required for medical reasons: No Currently Displaying Signs/Symptoms of Drug Intoxication Withdrawal: No Any prior treatment program specific to substance use: No Have you been hit, kicked, punched, or otherwise hurt by someone within the past year? If so, by whom?: No Do you feel safe in your current relationship?: No Is there a partner from a previous relationship who is making you feel unsafe now?: No Are you made to feel afraid or neglected: No Advance Directives: No Advance Directives Information Provided: No Do you have thoughts of harming others: None Do you have a plan to hurt others: No Plan Recently lost weight without trying: No Nutrition Risks: No Nutritional Risk Patient : No : No Poor oral hygiene: No Meds Allergies Allergy/AdvReac Type Severity Reaction Status Date / Time NSAIDS (Non-Steroidal Allergy Severe BRONCHOSPAS Verified 06/30/20 15:15 Anti-Inflamma M [NSAIDS (NON-STEROIDAL ANTI-INFLAMMA] aspirin [ASA] Allergy Unknown SHORTNESS Verified 06/30/20 15:15 OF BREATH ketorolac [From TORADOL] Allergy Unknown BRONCIAL Verified 06/30/20 15:15 SPASM vancomycin [VANCOMYCIN] Allergy Unknown RASH Verified 06/30/20 15:15 gabapentin [From NEURONTIN] AdvReac Unknown TINGLING Verified 06/30/20 15:15 IN L ARM Bencort Allergy Unknown unknown Uncoded 05/19/20 11:33 Home Medications Medication Instructions Recorded Confirmed Last Taken Type budesonide 3 cap PO DAILY 07/24/20 07/24/20 Unknown History dextroamphetamine-amphetamine 1 cap PO QAM 07/24/20 07/24/20 Unknown History dextroamphetamine-amphetamine 10 mg PO DAILY 07/24/20 07/24/20 Unknown History prednisone 1 tab PO BID 07/24/20 07/24/20 Unknown History Physical Exam Vital Signs and Narrative: Vital Signs: Last Vital Signs Temp 98.5 F 07/24/20 17:39 Pulse 95 07/24/20 20:48 Resp 16 07/24/20 20:48 BP 137/83 07/24/20 20:48 Pulse Ox 97 07/24/20 20:48 Body Mass Index 31.8 Const: General: cooperative and no acute distress Orientation/consciousness: patient oriented x3 Eyes: General: appearance normal, both eyes and all related structures Pupils: Equal, round and reactive pupils present Resp: Effort & Inspection: normal respiratory effort and able to speak in complete sentences Cardio: Rate: regular rate Rhythm: regular rhythm GI: Other: abdominal tenderness, no rebound of guarding Palpation (GI): Soft to palpation Auscultation: normal bowel sounds Skin: General skin exam: no rashes or lesions noted Neuro: General: patient oriented x3 Cranial nerves: Yes Equal, round and r eactive pupils present Cognition (Neuro): normal cognition Extrem: General: Yes normal to inspection and Yes no pedal edema Results Labs CBC and Chem 7: 07/24/20 18:44 07/24/20 18:44 Labs: Laboratory Results - last 24 hr 07/24/20 07/24/20 07/24/20 18:44 18:44 18:44 MCV 89.0 MCH 30.7 MCHC 34.5 RDW 13.2 Plt Count 299 MPV 9.4 Immature Gran % (Auto) 0.1 Neut % (Auto) 72.7 Lymph % (Auto) 21.9 [place] % (Auto) 4.6 Eos % (Auto) 0.5 Baso % (Auto) 0.2 Lymph # (Auto) 1.8 [place] # (Auto) 0.4 Eos # (Auto) 0.0 Baso # (Auto) 0.0 Abs Immat Gran (auto) 0.01 Absolute Neuts (auto) 6.1 Absolute Nucleated RBC 0.000 Nucleated RBC % (auto) 0.0 PT 10.1 L INR 0.9 APTT 31.6 Anion Gap 14 Estim Creat Clear Calc 105.9 Estimated GFR > 60 Random Glucose 101 Lactic Acid Calcium 9.3 D Total Bilirubin 0.2 Direct Bilirubin < 0.2 AST 38 H D ALT 31 Alkaline Phosphatase 101 Total Protein 6.9 Albumin 4.4 Lipase 21 COVID-19 (ROGELIO) COVID-19 Clin Com 07/24/20 07/24/20 18:44 22:22 MCV MCH MCHC RDW Plt Count MPV Immature Gran % (Auto) Neut % (Auto) Lymph % (Auto) [place] % (Auto) Eos % (Auto) Baso % (Auto) Lymph # (Auto) [place] # (Auto) Eos # (Auto) Baso # (Auto) Abs Immat Gran (auto) Absolute Neuts (auto) Absolute Nucleated RBC Nucleated RBC % (auto) PT INR APTT Anion Gap Estim Creat Clear Calc Estimated GFR Random Glucose Lactic Acid 1.5 Calcium Total Bilirubin Direct Bilirubin AST ALT Alkaline Phosphatase Total Protein Albumin Lipase COVID-19 (ROGELIO) Negative COVID-19 Clin Com See Note Assessment and Plan (1) Crohn's colitis: Qualifiers: Digestive disease complication type: without complication Qualified Code(s): K50.10 - Crohn's disease of large intestine without complications Status: Acute (2) Diarrhea: Status: Acute This is a 35-year-old female who was recently diagnosed with Crohn's disease presents to the hospital with worsening symptoms # diarrhea - secondary to Crohn's colitis - patient was started on producing night but only had a chance to take 1 dose with her symptoms being persistent - no evidence of dehydration - will treat underlying Crohn's flare with Solu-Medrol -IV fluids # Crohn's colitis - underwent workup by Dr. Sierra and found to have Crohn's colitis - at this times having a flare - will start her on IV Solu-Medrol - consult GI DVT prophylaxis: lovenox
[2020-07-24] MEDS: methylPREDNISolone Sod Succ 1,000 MG in 0.9 % Sodium Chloride 50 ML 66 MG IV (23:34)
[2020-07-24 23:51] VITALS: BP 144/79; PULSE 77; RESP 16; O2SAT 99
--- NOTE | 2020-07-25 02:29 | PC.NURSE ---
report given to rn, pt ready for transport.
[2020-07-25 03:24] VITALS: BP 138/63; PULSE 87; RESP 18; TEMP 36.9; O2SAT 97
[2020-07-25] MEDS: 0.9 % Sodium Chloride Flush 3 ML SYRINGE IVFLUSH ×4 (03:42→22:48)
[2020-07-25] MEDS: Morphine Sulfate 4 MG/ML CARTRIDGE IVPUSH ×4 (05:00→22:48)
[2020-07-25 06:17] LABS: Basophils Percent Auto 0.1 % (0-2); Hematocrit 37.4 % (37-47); Hemoglobin 12.5 g/dl (12.0-16.0); Imm Gran Abs Auto 0.06 X10*3/uL (0.00-0.03); Imm Gran Pct Auto 0.5 % (0.0-0.4); Lymphocytes Absolute Auto 0.9 X10*3/uL (1.2-4.9); Lymphocytes Percent Auto 7.5 % (20-40); MANUAL DIFF FLAG SCAN; Mean Corpuscular HGB Conc 33.4 g/dl (31.0-35.0); Mean Corpuscular Hemoglobin 30.3 pg (27.0-33.0); Mean Corpuscular Volume 90.8 fL (80-98); Monocytes Absolute Auto 0.1 X10*3/uL (0.1-1.2); Monocytes Percent Auto 0.9 % (2-11); Neutrophils Absolute Auto 10.3 X10*3/uL (2.0-8.3); Platelet Count 283 X10*3/uL (160-400); Red Blood Count 4.12 X10*6/uL (4.20-5.50); Red Cell Distribution Width 13.3 % (11.0-16.0); SCAN SMEAR FLAG 1; White Blood Count 11.3 X10*3/uL (4.8-10.8)
[2020-07-25 06:39] LABS: SLIDE REVIEW VERIFIED
[2020-07-25 06:46] LABS: Anion Gap 14 (12-20); Blood Urea Nitrogen 7 mg/dL (9-16); Calcium 9.1 mg/dL (8.4-10.2); Carbon Dioxide 21 mmol/L (22-29); Chloride 108 mmol/L (96-108); Creatinine Clr Calc Pharmacy 113.5; Estimated Glomerular Filt Rate > 60; Glucose Random 151 mg/dL (60-115); Potassium 4.4 mmol/L (3.3-5.1); Sodium 139 mmol/L (135-145)
[2020-07-25 07:57] VITALS: BP 141/83; PULSE 72; RESP 20; TEMP 36.3; O2SAT 97
--- NOTE | 2020-07-25 09:08 | MHC.CM.PN ---
PT REPORTS SHE LIVES ALONE AND IS INDEPENDENT WITH ALL CARE, PT WORKS AND DRIVES. PT HAS NO SERVICES AND NO DME. PT CONFIRMS HER PCP IS YOUSUF GUZMAN AND SHE COMPLETED A HCP TODAY NAMING HER MOTHER, AMY AMARO, HER AGENT. CURRENT DC PLAN IS HOME WITH ON SERVICES PTS CAR IS IN THE LOT, SHE WILL DRIVE HERSELF HOME AT DC
[2020-07-25 11:34] VITALS: BP 140/90; PULSE 73; RESP 20; TEMP 36.7; O2SAT 98
[2020-07-25] MEDS: methylPREDNISolone Sod Succ 40 MG/ML VIAL IVPUSH (11:55)
--- NOTE | 2020-07-25 13:08 | P.CNGI_ITS ---
History of Present Illness Data of Consult Service Date: 07/25/20 Requesting physician: Coreen Red Primary Care Provider: Kike Irby PA-C HPI Reason for consult: crohns flare 35-year-old female w hx of endometriosis, ADHD with suspected Crohn's disease, who I am seeing for assessment for abdominal pain. She has been having recurring attacks on and off for a long while of diarrhea with diffuse abdominal pain with several presentations to ED dept at [facility] and [facility] Current attack has been ongoing for 1 month with constant watery diarrhea all day long, abdominal cramping in left lower quadrant, 8/10 in severity, nonradiating, associated with nausea but no vomiting. I had tried her on pred 40 mg for 1 week and she was also on abx from [place] after Ct there revealed acute on chronic colitis, suspicious IBD, fluid filled loops of jejunum LUQ I then switched her to budesonide with plan for entyvio which is pending, she was developing fluid retention with prednisone which she didn't like She has no fever or chills, no chest pain, no shortness of breath, no cough, no headache or change in vision. No dizziness. No urinary symptoms and no lower extremity edema.denies any blood in her watery diarrhea, OTHER DATA: LABS: tryptase,histamine neg, Ig were nml, new onset anemia (hysterectomy), no periods celiac neg stools incl calprotectin, c diff , neg, neg gastrin level Endoscopy: Colonoscopy done--tubular adeoma removed, duodenitis noted capsule endoscopy--normal, but rapid emptying noted IMaging: CT scan 10/29/19 ---Chronic changes of the ascending colon demonstrating submucosal fat--unchanged since prior CAT scan of 2015. nonspecific however, can be seen as sequela of prior inflammatory bowel disease. 01/24--pelvic us--small ovary cyst, hysterectomy GES 02/23--rapid gastric emptying Mre--no small bowel inflammation, mild fatty liver Review of Systems Review of Systems: Constitutional: No Weight loss, No Fever, No Chills, No Night Sweats, No Fatigue, No Malaise ENT/Mouth: No Hearing loss, No Ear Pain, No Nasal Congestion, No Sinus Pain, No Hoarseness, No sore throat, No Rhinorrhea, No Swallowing Difficulty Eyes: No Eye Pain, No Swelling, No Redness, No Foreign Body, No Discharge, No Vision Changes Cardiovascular: No Chest Pain, No SOB, No Dyspnea on Exertion, No Orthopnea, No Edema, No Palpitations Respiratory: No Cough, No Sputum, No Wheezing, No Smoke Exposure, No Dyspnea Gastrointestinal: Positive Nausea, no Vomiting, positive anal leakage, positive abdominal Pain, No Hematochezia, No Melena Genitourinary: no irregular bleeding, No Dysuria, No Urinary Frequency, No Hematuria, No Urinary Incontinence, No Urgency, No Flank Pain, No Urinary Flow Changes, No Hesitancy Musculoskeletal: No joint pain, No Myalgias, No Joint Swelling Skin: No Skin Lesions, No rash Neuro: No Weakness, No Numbness, No Paresthesias, No Loss of Consciousness, No Dizziness, No Headache Psych: No Anxiety/Panic, No Depression, No SI/HI/AH/VH, No Social Issues Heme/Lymph: No Bruising, No Bleeding,No Lymphadenopathy Endocrine: No Polyuria, No Polydipsia, No Temperature Intolerance Yes all other systems are reviewed and are negative [facility] Past Medical History Medical History Acute Crohn's disease Family History Family History Father No problems noted. Mother Thyroid cancer Stomach cancer Family/Other Diabetes Surgical History Surgical History History of appendectomy History of colonoscopy History of hysterectomy Hx of endoscopy Social History Social History Household Members: None Housing: Condominium Do you presently have visiting nurse or other home services: No Alcohol intake: current Alcohol intake frequency: holidays/special occasions only Smoking Status: Current every day smoker Tobacco Type: Cigarette Cigarettes Per Day: 4 Years Smoked: 20 Smoked in Last 30 Days: Yes Patient Interested in Nicotine Replacement: No Patient Given Instructions on How to Stop Smoking: No Second Hand Smoke Exposure: No Use of substances other than those prescribed or required for medical reasons: No Currently Displaying Signs/Symptoms of Drug Intoxication Withdrawal: No Any prior treatment program specific to substance use: No Have you been hit, kicked, punched, or otherwise hurt by someone within the past year? If so, by whom?: No Do you feel safe in your current relationship?: No Is there a partner from a previous relationship who is making you feel unsafe n ow?: No Are you made to feel afraid or neglected: No Advance Directives: No Advance Directives Information Provided: No Do you have thoughts of harming others: None Do you have a plan to hurt others: No Plan Recently lost weight without trying: No Nutrition Risks: No Nutritional Risk Patient : No : No Poor oral hygiene: No service: No Current occupational status: employed Meds Allergies Allergy/AdvReac Type Severity Reaction Status Date / Time NSAIDS (Non-Steroidal Allergy Severe BRONCHOSPAS Verified 06/30/20 15:15 Anti-Inflamma M [NSAIDS (NON-STEROIDAL ANTI-INFLAMMA] aspirin [ASA] Allergy Unknown SHORTNESS Verified 06/30/20 15:15 OF BREATH ketorolac [From TORADOL] Allergy Unknown BRONCIAL Verified 06/30/20 15:15 SPASM vancomycin [VANCOMYCIN] Allergy Unknown RASH Verified 06/30/20 15:15 gabapentin [From NEURONTIN] AdvReac Unknown TINGLING Verified 06/30/20 15:15 IN L ARM Bencort Allergy Unknown unknown Uncoded 05/19/20 11:33 Active Medications: Current Medications Generic Name Dose Route Start Last Admin Trade Name Freq PRN Reason Stop Dose Admin Acetaminophen 650 mg 07/25/20 03:29 Acetaminophen 325 Mg Tablet PO Q6H PRN Pain, Mild (Pain Scale 1-3) Methylprednisolone Sodium Succinate 40 mg 07/25/20 11:00 07/25/20 11:55 Methylprednisolone Sod Succ 40 Mg/Ml Vial IVPUSH 40 mg Q12H BRADY Administration Morphine Sulfate 4 mg 07/25/20 04:07 07/25/20 11:55 Morphine Sulfate 4 Mg/Ml Cartridge IVPUSH 4 mg Q6H PRN Administration Pain, Severe (Pain Scale 7-10) Ondansetron HCl 4 mg 07/25/20 03:29 Ondansetron Hcl 4 Mg/2 Ml Vial IVPUSH Q8H PRN Nausea and Vomiting Sodium Chloride 3 ml 07/25/20 03:29 07/25/20 07:40 0.9 % Sodium Chloride Flush 3 Ml Syringe IVFLUSH 3 ml QSHIFT RBADY Administration Home Medications Medication Instructions Recorded Confirmed Last Taken Type budesonide 3 cap PO DAILY 07/24/20 07/24/20 Unknown History dextroamphetamine-amphetamine 1 cap PO QAM 07/24/20 07/24/20 Unknown History dextroamphetamine-amphetamine 10 mg PO DAILY 07/24/20 07/24/20 Unknown History prednisone 1 tab PO BID 07/24/20 07/24/20 Unknown History hydroxyzine HCl 1 tab PO Q8H PRN 07/25/20 07/25/20 Unknown History Physical Exam Vital Signs: Vital Signs: Last Vital Signs Temp 98.0 F 07/25/20 11:34 Pulse 73 07/25/20 11:34 Resp 20 07/25/20 11:34 BP 140/90 H 07/25/20 11:34 Pulse Ox 98 07/25/20 11:34 Body Mass Index 31.8 Const: General: cooperative and no acute distress Orientatio n/consciousness: patient oriented x3 Eyes: General: appearance normal, both eyes and all related structures Pupils: Equal, round and reactive pupils present Resp: Effort & Inspection: normal respiratory effort and able to speak in complete sentences Cardio: Rate: regular rate Rhythm: regular rhythm GI: Other: abdominal tenderness, no rebound of guarding Palpation (GI): Soft to palpation Auscultation: normal bowel sounds Skin: General skin exam: no rashes or lesions noted Neuro: General: patient oriented x3 Cranial nerves: Yes Equal, round and reactive pupils present Cognition (Neuro): normal cognition Extrem: General: Yes normal to inspection and Yes no pedal edema Psych: Appearance: grossly normal Results Labs CBC & Chem 7: 07/25/20 05:32 07/25/20 05:32 Labs: Short CBC 07/24/20 07/25/20 Range/Units 18:44 05:32 WBC 8.4 11.3 H (4.8-10.8) X10*3/uL Hgb 12.9 12.5 (12.0-16.0) g/dl Hct 37.4 37.4 (37-47) % Plt Count 299 283 (160-400) X10*3/uL BMP 07/24/20 07/25/20 18:44 05:32 Sodium 140 139 Potassium 4.1 4.4 Chloride 109 H 108 Carbon Dioxide 21 L 21 L BUN 4 L 7 L D Creatinine 0.75 0.70 Calcium 9.3 D 9.1 Liver Function 07/24/20 Range/Units 18:44 Total Bilirubin 0.2 (0.0-1.0) mg/dL Direct Bilirubin < 0.2 (0.0-0.5) mg/dL AST 38 H D (5-31) U/L ALT 31 (0-31) U/L Alkaline Phosphatase 101 (39-117) U/L Albumin 4.4 (3.5-5.0) g/dL Assessment and Plan (1) IBD (inflammatory bowel disease): Status: Acute (2) Crohn's colitis: Qualifiers: Digestive disease complication type: without complication Qualified Code(s): K50.10 - Crohn's disease of large intestine without complications Status: Acute 1/ appears to have relapsing and remitting crohns disease, with different areas of inflammation in time and space involving both small bowel and large bowel. She has rapid emptying and motility which limited the capsule study. PLAN: 1/ Cont solumderol 20 mg q8h for 48 hrs, then transition to PO prednisone 40 mg with long taper over 2-4 weeks 2/ in meantime my office if working on getting entyvio 3/ add low dose lasix due to fluid retention 4/ recheck c diff 5/ check TB spot and hep serologies (I placed the orders) Procedures Date of Service Date of Service: 07/25/20
[2020-07-25 15:58] VITALS: BP 131/83; PULSE 88; RESP 19; TEMP 36.4; O2SAT 98
[2020-07-25 16:37] LABS: C Reactive Protein 0.14 mg/dL (< or = 0.50)
--- NOTE | 2020-07-25 16:47 | PC.NURSE ---
pt reports severe abdominal pain, was slightly diaophoretic. She was medicated with PRN medication, reports relief and is resting quietly. She states pain was severe after her meal, she had eaten late lunch
--- NOTE | 2020-07-25 18:13 | HO.PM.IMPN ---
Subjective Subjective Date of Service: 07/25/20 Interval History: Crohn disease flare Review of Systems patient still has abdominal pain and diarrhea but seems improving as per patient Physical Exam Vital Signs: Vital Signs: Last Vital Signs Temp 97.6 F 07/25/20 15:58 Pulse 88 07/25/20 15:58 Resp 19 07/25/20 15:58 BP 131/83 07/25/20 15:58 Pulse Ox 98 07/25/20 15:58 Body Mass Index 31.8 physical exam: Cvs: [id number], [id number] , no murmur res: clear to auscultation ,no rhonchii or wheezing abd: no rebound or guarding ,somewhat mild difuse tenderness, bs present. ext pulses present , no cyanosis neuro: axo3 , nonfocal. Objective Data Current Medications Generic Name Dose Route Start Last Admin Trade Name Freq PRN Reason Stop Dose Admin Acetaminophen 650 mg 07/25/20 03:29 Acetaminophen 325 Mg Tablet PO Q6H PRN Pain, Mild (Pain Scale 1-3) Methylprednisolone Sodium Succinate 40 mg 07/25/20 11:00 07/25/20 11:55 Methylprednisolone Sod Succ 40 Mg/Ml Vial IVPUSH 40 mg Q12H BRADY Administration Morphine Sulfate 4 mg 07/25/20 04:07 07/25/20 15:42 Morphine Sulfate 4 Mg/Ml Cartridge IVPUSH 4 mg Q6H PRN Administration Pain, Severe (Pain Scale 7-10) Ondansetron HCl 4 mg 07/25/20 03:29 Ondansetron Hcl 4 Mg/2 Ml Vial IVPUSH Q8H PRN Nausea and Vomiting Sodium Chloride 3 ml 07/25/20 03:29 07/25/20 15:43 0.9 % Sodium Chloride Flush 3 Ml Syringe IVFLUSH 3 ml QSHIFT BRADY Administration Labs CBC & Chem 7: 07/25/20 05:32 07/25/20 05:32 Assessment and Plan (1) Crohn's colitis: Status: Acute Assessment and Plan: 35-year-old female who was recently diagnosed with Crohn's disease presents to the hospital with worsening symptoms 1. Crohn disease flare:: Still has abdominal pain anddiarrhea - secondary to Crohn's colitis - patient was started on producing night but only had a chance to take 1 dose with her symptoms being persistent continue IV Solu-Medrol, will moniter 1-2 days p.o. prednisone alsos 2. Crohn's colitis - underwent workup by Dr. Sierra and found to have Crohn's colitis - at this times having a flare - will start her on IV Solu-Medrol d/w Dr Sierra
[2020-07-25] MEDS: methylPREDNISolone Sod Succ 40 MG/ML VIAL 20 MG IVPUSH (18:36)
[2020-07-25 19:25] VITALS: BP 140/72; PULSE 97; RESP 20; TEMP 36.4; O2SAT 96
[2020-07-25 23:23] VITALS: BP 121/66; PULSE 96; RESP 18; TEMP 36.2; O2SAT 97
[2020-07-26] VITALS (9 sets, daily range): BP systolic 138–168; BP diastolic 66–89; PULSE 58–89; RESP 18–20; TEMP 36.2–36.8; O2SAT 95–98
[2020-07-26] MEDS: methylPREDNISolone Sod Succ 40 MG/ML VIAL 20 MG IVPUSH ×3 (04:23→17:47)
[2020-07-26] MEDS: Morphine Sulfate 4 MG/ML CARTRIDGE IVPUSH ×4 (04:52→23:35)
--- NOTE | 2020-07-26 08:31 | HO.PM.IMPN ---
Subjective Subjective Date of Service: 07/26/20 Interval History: crohn dis flare Review of Systems Patient says abdominal pain seems to be much improving, also diarrhea also improving Denies denies any nausea vomiting or fever chills Physical Exam Vital Signs: Vital Signs: Last Vital Signs Temp 98.0 F 07/26/20 03:38 Pulse 83 07/26/20 03:38 Resp 18 07/26/20 04:52 BP 138/66 07/26/20 03:38 Pulse Ox 97 07/26/20 03:38 Body Mass Index 31.8 Physical exam: Cvs: [id number], [id number] , no murmur res: clear to auscultation ,no rhonchii or wheezing abd: no rebound or guarding ,nt, bs present. ext pulses present , no cyanosis neuro: axo3 , nonfocal. Objective Data Current Medications Generic Name Dose Route Start Last Admin Trade Name Freq PRN Reason Stop Dose Admin Acetaminophen 650 mg 07/25/20 03:29 Acetaminophen 325 Mg Tablet PO Q6H PRN Pain, Mild (Pain Scale 1-3) Methylprednisolone Sodium Succinate 20 mg 07/25/20 18:16 07/26/20 04:23 Methylprednisolone Sod Succ 40 Mg/Ml Vial IVPUSH 20 mg Q8H BRADY Administration Morphine Sulfate 4 mg 07/25/20 04:07 07/26/20 04:52 Morphine Sulfate 4 Mg/Ml Cartridge IVPUSH 4 mg Q6H PRN Administration Pain, Severe (Pain Scale 7-10) Ondansetron HCl 4 mg 07/25/20 03:29 Ondansetron Hcl 4 Mg/2 Ml Vial IVPUSH Q8H PRN Nausea and Vomiting Sodium Chloride 3 ml 07/25/20 03:29 07/25/20 22:48 0.9 % Sodium Chloride Flush 3 Ml Syringe IVFLUSH 3 ml QSHIFT BRADY Administration Labs CBC & Chem 7: 07/25/20 05:32 07/25/20 05:32 Microbiology Microbiology Results: Microbiology 07/24/20 18:44 Blood - Venous Blood Culture - Preliminary No growth after 24 hours. 07/24/20 18:44 Blood - Venous Blood Culture - Preliminary No growth after 24 hours. Assessment and Plan (1) Diarrhea: Status: Acute (2) Crohn's colitis: Status: Acute Assessment and Plan: 35-year-old female who was recently diagnosed with Crohn's disease presents to the hospital with worsening symptoms 1. Crohn disease flare:: Still has abdominal pain anddiarrhea - secondary to Crohn's colitis - patient was started on producing night but only had a chance to take 1 dose with her symptoms being persistent continue IV Solu-Medrol, moniter 1 more day, switch p.o. prednisone taper for 3 weeks upon discharge. 2. Crohn's colitis - underwent workup by Dr. Sierra and found to have Crohn's colitis - at this times having a flare - will start her on IV Solu-Medrol d/w Dr Sierra
[2020-07-26] MEDS: 0.9 % Sodium Chloride Flush 3 ML SYRINGE IVFLUSH ×3 (09:50→23:35)
[2020-07-26 11:57] LABS: CDIFF Ag Positive (Negative); CDIFF Internal ctrl Dots and bkg OK (V); CDiff Toxin Negative (Negative)
[2020-07-26 12:26] LABS: CDiff Gene PCR NEGATIVE (Negative)
[2020-07-26] MEDS: ondansetron HCL 4 MG/2 ML VIAL IVPUSH (17:44)
[2020-07-27 03:47] VITALS: BP 124/71; PULSE 75; RESP 18; TEMP 36.9; O2SAT 98
[2020-07-27] MEDS: methylPREDNISolone Sod Succ 40 MG/ML VIAL 20 MG IVPUSH (03:55)
[2020-07-27 06:49] VITALS: RESP 20
[2020-07-27] MEDS: Morphine Sulfate 4 MG/ML CARTRIDGE IVPUSH (06:49)
[2020-07-27 08:00] VITALS: BP 141/93; PULSE 92; RESP 20; TEMP 37.1; O2SAT 98
[2020-07-27] MEDS: Furosemide 20 MG/2 ML VIAL IVPUSH (11:31)
[2020-07-27] MEDS: 0.9 % Sodium Chloride Flush 3 ML SYRINGE IVFLUSH (11:32)
--- NOTE | 2020-07-27 13:46 | PM.GIPN ---
Subjective Subjective Date of Service: 07/27/20 Interval History: patient has no abdo pain, nausea and vomiting resolved, now main c/o fluid retention and achiness due to that no fevers Critical Care Time (minutes): 15 Physical Exam Vital Signs: Vital Signs: Last Vital Signs Temp 98.7 F 07/27/20 08:00 Pulse 92 07/27/20 08:00 Resp 20 07/27/20 08:00 BP 141/93 H 07/27/20 08:00 Pulse Ox 98 07/27/20 08:00 Body Mass Index 31.8 EXAM: GENERAL: The patient is weepy VITAL SIGNS:see workflow HEENT: Nonicteric sclerae, PERRLA, EOMI. Oropharynx clear. Moist mucous membranes. Conjunctivae appear well perfused. No thyroid mass. CHEST: Chest wall is nontender. HEART: Regular rate and rhythm without murmurs. LUNGS: Clear to auscultation bilaterally. ABDOMEN: Soft, positive bowel sounds, nontender, no organomegaly.no flank tenderness SKIN: No rash, no excessive bruising, petechiae, or purpura. some swelling of arms and legs NEUROLOGIC: Cranial nerves II-XII intact without motor/sensory deficit. Psych: Speech and movement: Psychomotor agitation in speech present Objective Data Labs CBC & Chem 7: 07/25/20 05:32 07/25/20 05:32 Microbiology Microbiology Results: Microbiology 07/24/20 18:44 Blood - Venous Blood Culture - Preliminary No growth after 48 hours. 07/24/20 18:44 Blood - Venous Blood Culture - Preliminary No growth after 48 hours. Progress Note: A&P Assessment and plan (1) Crohn's colitis: Status: Acute (2) Acute Crohn's disease: Status: Acute (3) IBD (inflammatory bowel disease): Status: Acute Assessment and Plan: 1/ stop IV solumedrol and give lasix 40 mg, if sympomts persist then stop prednisonde and change to budeosnide which she already has at home otherwise taper down on prednisone, can consider sending her on low dose diuretic if e reponds well Fall Risk Details Current Medications: Current Medications Generic Name Dose Route Start Last Admin Trade Name Freq PRN Reason Stop Dose Admin Acetaminophen 650 mg 07/25/20 03:29 Acetaminophen 325 Mg Tablet PO Q6H PRN Pain, Mild (Pain Scale 1-3) Methylprednisolone Sodium Succinate 20 mg 07/25/20 18:16 07/27/20 11:32 Methylprednisolone Sod Succ 40 Mg/Ml Vial IVPUSH Not Given Q8H BRADY Morphine Sulfate 4 mg 07/25/20 04:07 07/27/20 06:49 Morphine Sulfate 4 Mg/Ml Cartridge IVPUSH 4 mg Q6H PRN Administration Pain, Severe (Pain Scale 7-10) Ondansetron HCl 4 mg 07/25/20 03:29 07/26/20 17:44 Ondansetron Hcl 4 Mg/2 Ml Vial IVPUSH 4 mg Q8H PRN Administration Nausea and Vomiting Sodium Chloride 3 ml 07/25/20 03:29 07/27/20 11:32 0.9 % Sodium Chloride Flush 3 Ml Syringe IVFLUSH 3 ml QSHIFT BRADY Administration Time Spent With Patient Time: Total time spent is greater than 50% in coordination of care (as documented) at patient's floor/unit and/or counseling patient: Time with patient: 15 - 24 minutes Procedures Date of Service Date of Service: 07/27/20
--- NOTE | 2020-07-27 13:56 | P.DS_ITS ---
DS: Providers Provider Date of Service: 07/27/20 Date of admission: 07/24/20 23:17 Primary care physician: Kike Irby PA-C Consults: 07/25/20 03:29 Consult to Gastroenterology Routine Consulting Provider: Marin Devlin Reason for consultation: Crohn flare Has provider been notified: No DS: Diagnosis Discharge Diagnosis (1) Diarrhea: Status: Acute (2) Crohn's colitis: Status: Acute DS: Medications Discharge Medications Home Medications: Home Medications Medication Instructions Recorded Confirmed budesonide 3 cap PO DAILY 07/24/20 07/24/20 dextroamphetamine-amphetamine 1 cap PO QAM 07/24/20 07/24/20 dextroamphetamine-amphetamine 10 mg PO DAILY 07/24/20 07/24/20 prednisone 1 tab PO BID 07/24/20 07/24/20 hydroxyzine HCl 1 tab PO Q8H PRN 07/25/20 07/25/20 Previous Rx's Medication Instructions Recorded furosemide [Lasix] 20 mg PO .daily PRN #30 tab 07/27/20 DS: Summary Hospital Course Hospital Course: History of presenting illness Chief Complaint: abdominal pain, diarrhea This is a 35-year-old female with a recently diagnosed Crohn's disease, who presents to the hospital with complaints of persistent abdominal pain, and diarrhea. Patient reports that she has been having diarrhea as well as abdominal pain for the past month, has been following up with the [employer] supervisor Dr. Sierra, and was recently diagnosed with Crohn's disease about a week ago. Patient reports that she was started on a steroid this morning but only took 1 dose but her symptoms were so severe that she had to come to the ED. She reports constant watery diarrhea all day long, abdominal cramping that is mostly left lower quadrant, 8/10, nonradiating, associated with nausea with no vomiting. She has no fever or chills, no chest pain, no shortness of breath, no cough, no headache or change in vision. No dizziness. No urinary symptoms and no lower extremity edema.denies any blood in her watery diarrhea, On arrival to the ED patient hemodynamically stable with no significant abnormal vitals except for heart rate of 115 that normalized. Satting 97% on room air labs are significant for WBC count 8.4, hemoglobin of 12.9, CMP significant for elevated AST of 38 otherwise unremarkable, COVID-19 negative. Hospital course 35-year-old female recently diagnosed with Crohn's disease presents to the hospital with worsening symptoms of abdominal pain and diarrhea being followed by Gastroenterology And diagnosed to have relapsing and remitting Crohn's disease with different areas or inflammation involving small and large bowel patient treated with IV Solu Medrol for 2 days Her abdominal pain and diarrhea has improved, patient now transition to prednisone 40 mg daily with 4 weeks tapering dose, but patient complained of lower extremity discomfort after use of steroids therefore be given Lasix with concern for fluid overload, patient's symptoms improved but however she is concerned about recurrent episodes of lower extremity pain with steroid, Recommended patient to use Lasix 20 mg daily if noted to have fluid retention and leg discomfort on as needed basis, and if she remains intolerant of prednisone she has been recommended to use by mouth budesonide , GI is arranging for Entyvio, T spot and hepatitis panel is pending, patient recommended to follow up with Gastroenterology in next 1-2 weeks Time Spent with Patient Time attestation: Total time spent providing and/or coordinating discharge services: Discharge coordination time: Greater than 30 minutes Quality: Stroke Does the patient have a stroke diagnosis?: No Physical Exam Vital Signs: Vital Signs: Last Vital Signs Temp 98.7 F 07/27/20 08:00 Pulse 92 07/27/20 08:00 Resp 20 07/27/20 08:00 BP 141/93 H 07/27/20 08:00 Pulse Ox 98 07/27/20 08:00 Body Mass Index 31.8 General resting comfortably no acute distress. Neck supple no JVD. CVS regular rate rhythm, Respiratory lungs clear to auscultation, no respiratory distress Gastrointestinal abdomen soft, nontender, bowel sounds audible, no guarding , no rigidity. Extremities no pitting edema. Good range of motion both ankles and knees, no redness no swelling noted. Neuro nonfocal Skin no rash DS: Data Data Completed and Pending Labs on day of discharge: Preliminary micro results at discharge 07/24/20 18:44 Blood Culture - Preliminary Blood - Venous No growth after 48 hours. 07/24/20 18:44 Blood Culture - Preliminary Blood - Venous No growth after 48 hours. Discharge Plan Discharge Patient Disposition: Home, Self-Care Discharge Diagnosis: Crohn's colitis Referrals: Kike Irby PA-C [Primary Care Provider] - 1 Week Discharge Medications: New furosemide [Lasix] 20 mg tablet 20 mg PO .daily PRN Qty: 30 RF: 0 Continued prednisone 20 mg tablet 1 tab PO BID RF: 0 dextroamphetamine-amphetamine 10 mg tablet 10 mg PO DAILY RF: 0 dextroamphetamine-amphetamine 20 mg capsule,extended release 24hr 1 cap PO QAM RF: 0 budesonide 3 mg capsule,delayed,extend.release 3 cap PO DAILY RF: 0 hydroxyzine HCl 10 mg tablet 1 tab PO Q8H PRN (Reason: anxiety) RF: 0 Discharge Orders: Discharge Order (Routine); Ordered 07/27/20 Ordered By: Todd Key Diet: low fat, low cholesterol Activity on Discharge: As tolerated Stand Alone Forms: Patient Portal Discharge page Other Ambulatory Orders: Basic Metabolic Panel (Routine) Timeframe: [id number] Facility: [facility] - Location: Laboratory Ordered By: Todd Key Care Plan Goals: Follow diet as previously tolerated for Crohn's disease, take prednisone as directed and if unable to tolerate prednisone take budesonide. Take Lasix once a day 20 mg for bloating or fluid retention.check bmp in 1 week. Health Concerns: Crohn's colitis, take prednisone 40 mg daily for 1 week, then take prednisone 30 mg daily for 1 week,than 20mg daily for 1 week, than 10mg daily for 1 week, if you can not tolerate prednisone then take budesonide as previously prescribed, if you noted to have bloating or fluid retention then take Lasix 20 mg daily as needed with any questions call Dr. Grijalva, you have prescriptions for both prednisone and budesonide. Plan of Treatment: Outpatient follow-up with Gastroenterology in 1-2 weeks, outpatient follow-up with PCP in 1 week Assessment: As per discharge summary
--- NOTE | 2020-07-27 14:10 | MHC.CM.PN ---
PT CLEARED FOR DC HOME TODAY WITH NO SERVICES. PT WILL DRIVE HERSELF HOME, CAR [facility]
[2020-07-28 08:44] LABS: Hepatitis B Surface Antigen Negative (Negative)
[2020-07-28 08:49] LABS: HBS Num1 170.58 mIU/mL (0-7.99); HBc Num1 0.04 S/CO (0.00-0.79); Hepatitis B Core Antibody Nonreactive (Nonreactive); ~HepC Num1 0.07 S/CO (0.00-0.79); ~Hepatitis B Surface Antibody REACTIVE (Nonreactive); ~Hepatitis C Antibody Nonreactive (Nonreactive)
[2020-07-28 16:51] LABS: TS Negative Control Passed; TS Panel A 1; TS Panel B 0; TS Positive Control Passed; TSpotTB Negative (SeeBelow)
== END 2020-07-27 14:52 | disposition home or self-care (01) | DRG 245 ==
LOC: HO.ED 21:33 → HO.EDOVER 23:27 → HO.IMC 07-25 00:31
PROVIDERS: Internal Medicine Gastroenterology; Nurse Practitioner Family; Admitting Provider Internal Medicine; Emergency Provider Emergency Medicine; PCP Physician Assistant; Visit Provider Hospitalist
DX: K50.10 Crohn's disease of large intestine without complications (principal); F17.210 Nicotine dependence, cigarettes, uncomplicated; F90.9 Attention-deficit hyperactivity disorder, unspecified type; Z71.6 Tobacco abuse counseling; Z20.822 Contact with and (suspected) exposure to COVID-19; Z88.6 Allergy status to analgesic agent; Z79.52 Long term (current) use of systemic steroids; Z79.899 Other long term (current) drug therapy
CPT/HCPCS: 36415; 80048; 80053; 80076; 83605; 83690; 85025; 85610; 85730; 86140; 86481; 86704; 86706; 86803; 87040; 87324; 87340; 87449; 87493; 87635; 96365; 96367; 96368; 96375; 99285; 99291; J0696; J1940; J2270; J2405; J2920; J2930

== ENCOUNTER 2020-08-05 18:41 | Emergency (ER) | payer OTHER, SELFPAY ==
[2020-08-05 18:48] VITALS: BP 153/90; PULSE 136; RESP 22; TEMP 35.9; O2SAT 99; BMI 32.9
--- NOTE | 2020-08-05 21:19 | ED.GENADULT ---
HPI - General Adult General Chief complaint: Allergic Reaction Stated complaint: allergic reaction to meds Time Seen by Provider: 08/05/20 21:05 Source: patient Mode of arrival: ambulatory Limitations: no limitations History of Present Illness HPI narrative: Patient comes emergency room complaining of bilateral knee and ankles pain. Patient states that she was discharged on July 27 from this hospital after being treated for a consistent survey white. One day prior to discharge, patient started complaining joint pain in her knees and ankles with no swelling, erythema, or history of trauma. Patient refused to get any prednisone, therefore she was treated with oral budesonide. For joint pain she was prescribed Lasix 20 mg daily for the concern of fluid retention. Patient states that the pain has been getting worse. Related Data Home Medications Medication Instructions Recorded Confirmed budesonide 3 cap PO DAILY 07/24/20 07/24/20 dextroamphetamine-amphetamine 1 cap PO QAM 07/24/20 07/24/20 dextroamphetamine-amphetamine 10 mg PO DAILY 07/24/20 07/24/20 prednisone 1 tab PO BID 07/24/20 07/24/20 hydroxyzine HCl 1 tab PO Q8H PRN 07/25/20 07/25/20 Previous Rx's Medication Instructions Recorded furosemide [Lasix] 20 mg PO .daily PRN #30 tab 07/27/20 vedolizumab 300 mg intravenous 300 mg IV DIRECTED 14 Days #1 ea 07/30/20 solution tramadol 50 mg PO TID PRN #10 tab 08/05/20 Allergies Allergy/AdvReac Type Severity Reaction Status Date / Time NSAIDS (Non-Steroidal Allergy Severe BRONCHOSPAS Verified 08/05/20 18:47 Anti-Inflamma M [NSAIDS (NON-STEROIDAL ANTI-INFLAMMA] aspirin [ASA] Allergy Unknown SHORTNESS Verified 08/05/20 18:47 OF BREATH ketorolac [From TORADOL] Allergy Unknown BRONCIAL Verified 08/05/20 18:47 SPASM vancomycin [VANCOMYCIN] Allergy Unknown RASH Verified 08/05/20 18:47 gabapentin [From NEURONTIN] AdvReac Unknown TINGLING Verified 08/05/20 18:47 IN L ARM budesonide AdvReac Muscle Pain Verified 08/05/20 18:48 Bencort Allergy Unknown unknown Uncoded 05/19/20 11:33 Review of Systems Review of Systems: Constitutional : No Weight loss, No Fever, No Chills, No Night Sweats, No Fatigue, No Malaise ENT/Mouth : No Hearing loss, No Ear Pain, No Nasal Congestion, No Sinus Pain, No Hoarseness, No sore throat, No Rhinorrhea, No Swallowing Difficulty Eyes: No Eye Pain, No Swelling, No Redness, No Foreign Body, No Discharge, No Vision Changes Cardiovascular : No Chest Pain, No SOB, No Dyspnea on Exertion, No Orthopnea, No Edema, No Palpitations Respiratory : No Cough, No Sputum, No Wheezing, No Smoke Exposure, No Dyspnea Gastrointestinal : No Nausea, No Vomiting, No Diarrhea, No Constipation, No abdominal Pain, No Hematochezia, No Melena Genitourinary : no irregular bleeding, No Dysuria, No Urinary Frequency, No Hematuria, No Urinary Incontinence, No Urgency, No Flank Pain, No Urinary Flow Changes, No Hesitancy Musculoskeletal : Complaining of knee pain and ankle pain bilaterally No Myalgias, No Joint Swelling Skin : No Skin Lesions, No rash Neuro : No Weakness, No Numbness, No Paresthesias, No Loss of Consciousness, No Dizziness, No Headache Psych : No Anxiety/Panic, No Depression, No SI/HI/AH/VH, No Social Issues, Heme/Lymph: No Bruising, No Bleeding,No Lymphadenopathy Endocrine : No Polyuria, No Polydipsia, No Temperature Intolerance [facility] Past Medical History Medical History Acute Crohn's disease Surgical History History of appendectomy History of colonoscopy History of hysterectomy Hx of endoscopy Family History Family History Father No problems noted. Mother Thyroid cancer Stomach cancer Family/Other Diabetes Social History Social History Household Members: None Housing: Condominium Do you presently have visiting nurse or other home services: No Alcohol intake: current Alcohol intake frequency: holidays/special occasions only Cigarettes Per Day: 4 Years Smoked: 20 Second Hand Smoke Exposure: No Advance Directives: No Advance Directives Information Provided: Yes Patient : No service: No Current occupational status: employed Physical Exam Vital Signs: Vital Signs: Last Vital Signs Temp 98 F 08/05/20 21:38 Pulse 100 08/05/20 21:38 Resp 16 08/05/20 22:03 BP 130/89 08/05/20 21:38 Pulse Ox 97 08/05/20 21:38 Body Mass Index 32.9 Appearance: Alert. Oriented X3. No acute distress. Eyes: Pupils equal, round and reactive to light. ENT: Pharynx normal. Neck: Normal inspection. Neck supple. No lymph nodes noted. No crepitus CVS: Normal heart rate and rhythm. Pulses normal. Normal S1 and S2 Respiratory: No respiratory distress. Breath sounds normal. No Wheezing. No rales Abdomen: Soft and nontender. No rigidity. No distention. good BS x4 Skin: Skin warm and dry. Normal skin color. Normal skin turgor. Extremities: No lower extremity edema. Patient is able to flex and extend ankles and knees. Patient states it hurts. Patient has no erythema, no swelling, no signs of joint effusions. Patient is ambulatory Neuro: Oriented X 3. No motor deficit. No sensory deficit. Moving all extermities. No slurred speech. Course Course Course Narrative: Patient's white blood cell count is 11.6, expected to be elevated secondary to continued use of budesonide p.o. ESR and CRP are within normal limits Unfortunately, patient is allergic to NSAIDs, Toradol. I discussed with the patient that she will likely benefit from a rheumatology consult. Patient states that after the morphine she started feeling better, she still has residual pain. Patient has an order for blood work tomorrow, patient states that her industrial psychology teacher Dr. Sierra will see her in the next couple of weeks. Medical Decision Making Lab Data Result diagrams: 08/05/20 22:02 08/05/20 22:02 Labs: Lab Results 08/05/20 08/05/20 08/05/20 Range/Units 22:02 22:02 22:02 WBC 11.6 H (4.8-10.8) X10*3/uL RBC 4.46 (4.20-5.50) X10*6/uL Hgb 13.5 (12.0-16.0) g/dl Hct 39.1 (37-47) % MCV 87.7 (80-98) fL MCH 30.3 (27.0-33.0) pg MCHC 34.5 (31.0-35.0) g/dl RDW 14.2 (11.0-16.0) % Plt Count 326 (160-400) X10*3/uL MPV 9.0 L (9.4-12.3) fL Immature Gran % (Auto) 0.3 (0.0-0.4) % Neut % (Auto) 45.0 (45-73) % Lymph % (Auto) 48.8 H (20-40) % [place] % (Auto) 4.7 (2-11) % Eos % (Auto) 0.9 (0-4) % Baso % (Auto) 0.3 (0-2) % Lymph # (Auto) 5.7 H (1.2-4.9) X10*3/uL [place] # (Auto) 0.5 (0.1-1.2) X10*3/uL Eos # (Auto) 0.1 (0.0-0.4) X10*3/uL Baso # (Auto) 0.0 (0.0-0.2) X10*3/uL Abs Immat Gran (auto) 0.03 (0.00-0.03) X10*3/uL Absolute Neuts (auto) 5.2 (2.0-8.3) X10*3/uL Absolute Nucleated RBC 0.000 (0.0-0.012) X10*3/uL Nucleated RBC % (auto) 0.0 (0.0-0.2) /100WBC Smear Tech's Comments VERIFIED ESR 2 (0-20) MM/HR Sodium 142 (135-145) mmol/L Potassium 3.8 (3.3-5.1) mmol/L Chloride 107 (96-108) mmol/L Carbon Dioxide 22 (22-29) mmol/L Anion Gap 17 (12-20) BUN 5 L (9-16) mg/dL Creatinine 0.69 (0.5-1.4) mg/dL Estim Creat Clear Calc 112.6 Estimated GFR > 60 Random Glucose 96 D (60-115) mg/dL Calcium 9.2 (8.4-10.2) mg/dL Total Bilirubin 0.4 (0.0-1.0) mg/dL Direct Bilirubin 0.2 (0.0-0.5) mg/dL AST 97 H (5-31) U/L ALT 66 H (0-31) U/L Alkaline Phosphatase 105 (39-117) U/L C-Reactive Protein 0.46 (< or = 0.50) mg/dL Total Protein 6.9 (6.5-8.0) g/dL Albumin 4.3 (3.5-5.0) g/dL Discharge Plan Discharge Clinical Impression: Joint pain Qualifiers: Joint pain location: unspecified Qualified Code(s): M25.50 - Pain in unspecified joint Patient Disposition: Home, Self-Care Instructions: Arthralgia (ED) Additional Instructions: Please follow-up with your primary care physician tomorrow. If you have any worsening or new symptoms, please return to the emergency room or call 911 Prescriptions: New tramadol 50 mg tablet 50 mg PO TID PRN (Reason: pain) Qty: 10 RF: 0 No Action Entyvio 300 mg recon soln 300 mg IV DIRECTED 14 Days Qty: 1 RF: 9 prednisone 20 mg tablet 1 tab PO BID RF: 0 dextroamphetamine-amphetamine 10 mg tablet 10 mg PO DAILY RF: 0 dextroamphetamine-amphetamine 20 mg capsule,extended release 24hr 1 cap PO QAM RF: 0 budesonide 3 mg capsule,delayed,extend.release 3 cap PO DAILY RF: 0 hydroxyzine HCl 10 mg tablet 1 tab PO Q8H PRN (Reason: anxiety) RF: 0 furosemide [Lasix] 20 mg tablet 20 mg PO .daily PRN Qty: 30 RF: 0
[2020-08-05 21:38] VITALS: BP 130/89; PULSE 100; RESP 20; TEMP 36.6; O2SAT 97
[2020-08-05 22:03] VITALS: RESP 16
[2020-08-05] MEDS: Morphine Sulfate 4 MG/ML CARTRIDGE IVPUSH (22:03)
[2020-08-05 22:09] LABS: Basophils Percent Auto 0.3 % (0-2); Eosinophils Absolute Auto 0.1 X10*3/uL (0.0-0.4); Eosinophils Percent Auto 0.9 % (0-4); Hematocrit 39.1 % (37-47); Hemoglobin 13.5 g/dl (12.0-16.0); Imm Gran Abs Auto 0.03 X10*3/uL (0.00-0.03); Imm Gran Pct Auto 0.3 % (0.0-0.4); Lymphocytes Absolute Auto 5.7 X10*3/uL (1.2-4.9); Lymphocytes Percent Auto 48.8 % (20-40); MANUAL DIFF FLAG SCAN; Mean Corpuscular HGB Conc 34.5 g/dl (31.0-35.0); Mean Corpuscular Hemoglobin 30.3 pg (27.0-33.0); Mean Corpuscular Volume 87.7 fL (80-98); Monocytes Absolute Auto 0.5 X10*3/uL (0.1-1.2); Monocytes Percent Auto 4.7 % (2-11); Neutrophils Absolute Auto 5.2 X10*3/uL (2.0-8.3); Platelet Count 326 X10*3/uL (160-400); Red Blood Count 4.46 X10*6/uL (4.20-5.50); Red Cell Distribution Width 14.2 % (11.0-16.0); SCAN SMEAR FLAG 1; White Blood Count 11.6 X10*3/uL (4.8-10.8)
[2020-08-05 22:26] LABS: SLIDE REVIEW VERIFIED
[2020-08-05 22:46] LABS: Alanine Aminotransferase 66 U/L (0-31); Albumin Level 4.3 g/dL (3.5-5.0); Alkaline Phosphatase 105 U/L (39-117); Anion Gap 17 (12-20); Aspartate Amino Transferase 97 U/L (5-31); Bilirubin Direct 0.2 mg/dL (0.0-0.5); Bilirubin Total 0.4 mg/dL (0.0-1.0); Blood Urea Nitrogen 5 mg/dL (9-16); C Reactive Protein 0.46 mg/dL (< or = 0.50); Calcium 9.2 mg/dL (8.4-10.2); Carbon Dioxide 22 mmol/L (22-29); Chloride 107 mmol/L (96-108); Creatinine Clr Calc Pharmacy 112.6; Estimated Glomerular Filt Rate > 60; Glucose Random 96 mg/dL (60-115); Potassium 3.8 mmol/L (3.3-5.1); Sodium 142 mmol/L (135-145); Total Protein 6.9 g/dL (6.5-8.0)
[2020-08-05 22:47] LABS: Erythrocyte Sedimentation Rate 2 MM/HR (0-20)
== END 2020-08-05 23:20 | disposition home or self-care (01) ==
PROVIDERS: Emergency Provider Emergency Medicine; PCP Physician Assistant
DX: M25.562 Pain in left knee (principal); M25.561 Pain in right knee; M25.50 Pain in unspecified joint; M25.572 Pain in left ankle and joints of left foot; M25.571 Pain in right ankle and joints of right foot; F17.210 Nicotine dependence, cigarettes, uncomplicated; Z71.6 Tobacco abuse counseling; Z79.899 Other long term (current) drug therapy
CPT/HCPCS: 36415; 80048; 80076; 85025; 85652; 86140; 96374; 99284; J2270

== ENCOUNTER 2020-08-18 13:33 | Outpatient (REF) | payer OTHER, SELFPAY | END 2020-08-18 13:34 | disposition home or self-care (01) | LOC: HO.MDS 13:33 | PROVIDERS: PCP Physician Assistant; Visit Provider Internal Medicine Gastroenterology | DX: K50.10 Crohn's disease of large intestine without complications (principal) | CPT/HCPCS: 96365; J3380 ==

== ENCOUNTER 2020-08-29 10:19 | Inpatient (IN) | payer OTHER, SELFPAY ==
[2020-08-29] VITALS (7 sets, daily range): BP systolic 134–153; BP diastolic 73–91; PULSE 85–114; RESP 16–20; TEMP 36.4–37; O2SAT 96–99; BMI 32.9
--- NOTE | ~2020-08-29 | CT_ITS ---
EXAMINATION: CT ABDOMEN AND PELVIS WITH CONTRAST CLINICAL INFORMATION: History of Crohn's disease. Nausea and vomiting and abdominal pain. COMPARISON: Previous CT of the abdomen and pelvis November 2019 and MR of the abdomen and pelvis February 2020 TECHNIQUE: Multidetector volumetric images were obtained from the superior aspect of the liver through the pubic symphysis following administration 85 mL of Omnipaque 350 intravenous contrast. Sagittal and coronal reformatted images were obtained on the technologist's workstation. Oral contrast: Yes This CT examination was performed using dose optimization techniques as appropriate, variously including the following: *Automated exposure control *Adjustment of mA and/or kV according to patient size (this includes techniques or standardized protocols for targeted exams where dose is matched to indication/reason for exam; i.e. extremities or head) *Use of iterative reconstruction technique DLP: 705 mGy-cm FINDINGS: LUNG BASES: The visualized lung bases are unremarkable. LIVER, GALLBLADDER, AND BILIARY TREE: The liver is slightly low in attenuation probably representing fatty infiltration. Liver is upper normal in size, right lobe measuring 18 cm in length. No focal hepatic lesion or biliary ductal dilatation is present. The gallbladder is unremarkable with no evidence of radiopaque gallstones, gallbladder wall thickening, or obvious pericholecystic inflammatory changes. PANCREAS: Unremarkable. SPLEEN: Unremarkable. ADRENAL GLANDS: Unremarkable. KIDNEYS AND URETERS: The kidneys are normal in size, shape, and attenuation. No hydronephrosis, hydroureter, or calculi seen. No perinephric stranding. BLADDER: Not optimally distended GASTROINTESTINAL TRACT: There is fatty infiltration of the wall of the colon. This is a nonspecific finding but can be seen with old inflammatory colitis. No evidence of acute or active colitis or enteritis is seen. The small and large bowel is otherwise normal. The appendix has been removed. The stomach is normal. ABDOMINAL WALL: There is a small umbilical hernia containing fat. LYMPH NODES: Normal. VASCULAR: Unremarkable. PELVIC VISCERA: The uterus is been removed. No pelvic mass is seen. OSSEOUS STRUCTURES: Unremarkable. CT/CT abdomen pelvis w con IMPRESSION: Fatty infiltration of the wall of the colon similar to previous exam, question sequela of old inflammatory colitis. No evidence of active colitis or enteritis.
[2020-08-29] MEDS: 0.9 % Sodium Chloride 1,000 ML 999 ML IVCONT (10:51)
[2020-08-29] MEDS: ondansetron HCL 4 MG/2 ML VIAL IVPUSH (10:51)
[2020-08-29] MEDS: Morphine Sulfate 4 MG/ML CARTRIDGE IVPUSH ×2 (10:57→13:50)
--- NOTE | 2020-08-29 11:13 | ED.ABDPAIN ---
HPI - Abdominal Pain General Chief Complaint: Abdominal Pain Stated Complaint: nausea Time Seen by Provider: 08/29/20 10:26 Source: patient Mode of arrival: ambulatory Limitations: no limitations History of Present Illness HPI narrative: 35-year-old female with a past medical history of Crohn's disease, IBS, endometriosis, fatty liver disease on alcoholic, ADHD and anxiety presenting to the ED with complaints of nausea/vomiting/diarrhea with left lower quadrant abdominal pain over the past few days worse today. Reports she cannot take steroids due to she has an adverse reaction to it. She recently had her vedolizumab dose. Denies any fevers, headaches, chest pain, shortness of breath, radiation of the abdominal pain, hematuria, dysuria, bloody emesis, black or bloody stools, constipation, recent travel or sick contacts or possible bad food exposure or any other symptoms complaints or concerns at this time. MD elicited complaint: abdominal pain Pertinent past history: other (Crohn's disease) Onset (ago): day(s) (Past few days worse today) Pain Consistency: constant Location: LLQ Severity: severe Pain scale (0-10): 10 Quality: aching Radiation: none Migration to: no migration Exacerbating factors: nothing Relieving factors: nothing Associated symptoms: nausea, vomiting and diarrhea Related Data Home Medications Medication Instructions Recorded Confirmed dextroamphetamine-amphetamine 10 mg PO DAILY 07/24/20 08/29/20 hydroxyzine HCl 1 tab PO Q8H PRN 07/25/20 08/29/20 furosemide [Lasix] 20 mg PO DAILY PRN 08/29/20 08/29/20 tramadol 1 tab PO DAILY PRN 08/29/20 08/29/20 vedolizumab [Entyvio] 300 mg IV Q8W 08/29/20 08/29/20 Previous Rx's Medication Instructions Recorded dextroamphetamine-amphetamine ER 1 cap PO QAM 30 Days #30 cap 08/11/20 20 mg 24hr capsule,extend release budesonide 3 mg 9 mg PO DAILY #90 cap 08/18/20 capsule,delayed,extended release oxycodone 5 mg tablet 5 mg PO Q8H PRN 4 Days #12 tab 08/25/20 Allergies Allergy/AdvReac Type Severity Reaction Status Date / Time NSAIDS (Non-Steroidal Allergy Severe BRONCHOSPAS Verified 08/19/20 13:06 Anti-Inflamma M [NSAIDS (NON-STEROIDAL ANTI-INFLAMMA] aspirin [ASA] Allergy Unknown SHORTNESS Verified 08/19/20 13:06 OF BREATH ketorolac [From TORADOL] Allergy Unknown BRONCIAL Verified 08/19/20 13:06 SPASM vancomycin [VANCOMYCIN] Allergy Unknown RASH Verified 08/19/20 13:06 gabapentin [From NEURONTIN] AdvReac Unknown TINGLING Verified 08/19/20 13:06 IN L ARM budesonide AdvReac Muscle Pain Verified 08/19/20 13:06 Bencort Allergy Unknown unknown Uncoded 05/19/20 11:33 Review of Systems Review of Systems Constitutional : No Weight loss, No Fever, No Chills, No Night Sweats, No Fatigue, NoMalaise ENT/Mouth: No ear pain, No sore throat, No Difficulty swallowing Cardiovascular : No Chest Pain, No SOB, No Dyspnea on Exertion, No Orthopnea, NoEdema, No Palpitations Respiratory : No Cough, No Sputum, No Wheezing, No Dyspnea Gastrointestinal : Positive nausea/vomiting/diarrhea/abdominal pain in the left lower quadrant, No blood streaked emesis, No coffee-ground emesis, No gross hematemesis, No blood streak stool, No gross hematochezia, No Melena Genitourinary : No irregular bleeding, No Dysuria, No Urinary Frequency, No Hematuria,No Urinary Incontinence, No Urgency, No Flank Pain Musculoskeletal : No joint pain, No Myalgias, No Joint Swelling Skin : No Skin Lesions, No rash Neuro : No Weakness, No Numbness, No Paresthesias, No Loss of Consciousness, NoDizziness, No Headache Psych : No Social Issues, Heme/Lymph: No Bruising, No Bleeding,No Lymphadenopathy Endocrine : No Polyuria, No Polydipsia, No Temperature Intolerance Yes all other systems are reviewed and are negative Physical Exam Vital Signs: Vital Signs: Last Vital Signs Pulse 88 08/29/20 14:04 Resp 17 08/29/20 14:04 BP 134/78 08/29/20 14:04 Pulse Ox 98 08/29/20 14:04 Body Mass Index 32.9 vital signs have been reviewed as normal and appeared to be correct. Blood pressure normal. Heart rate tachycardic at 114. Respiration rate normal. Temperature normal. Oxygen saturation normal. Appearance: Alert. Oriented X3. No acute distress. Head: Normal external exam. Normocephalic. Eyes: PERRLA. EOMI. Conjunctiva and sclera normal. Eyelids normal. ENT: Pharynx normal. Uvula midline. Moist mucous membranes. Neck: Normal inspection. Neck supple. FROM. No adenopathy. No meningeal signs. CVS: Normal heart rate and rhythm. Heart sound normal. No murmurs noted. Pulses normal throughout. Respiratory: No respiratory distress. Painless inspiration. Breath sounds normal. No wheezes/rales/rhonchi noted. Chest nontender. No accessory muscle usage noted or decreased air movement noted. Abdomen: Soft and moderate tenderness to palpation to left mid abdomen/left lower quadrant with guarding. Nondistended. No rigidity. Bowel sounds normal in all 4 quadrants. No distention noted. No organomegaly noted. No visible injury noted. No rebound tenderness. Negative Rovsing sign. Negative obturator's sign. Negative psoas sign. Negative Lerma sign. Back: No CVA tenderness. Full range of motion noted. Skin: Skin warm and dry. Normal skin color. Normal skin turgor. No rashes/lesions/lacerations noted. Extremities: Extremities exhibit normal range of motion. Extremities nontender. Neuro: Oriented X 3. No motor deficit. No sensory deficit. Reflexes normal. Normal steady gait. Course Course Course Narrative: 10:30am - 35-year-old female with a past medical history of Crohn's disease, IBS, endometriosis, fatty liver disease on alcoholic, ADHD and anxiety presenting to the ED with complaints of nausea/vomiting/diarrhea with left lower quadrant abdominal pain over the past few days worse today. Reports she cannot take steroids due to she has an adverse reaction to it. She recently had her vedolizumab dose. Plan: Labs, blood cultures, lactic acid, UA. Provide a L of IV fluids, 4 mg of Zofran and 4 mg of morphine then re-evaluate. Reevaluation(s) Reevaluation #1: - patient had an elevated lactic acid at 3.3. AST/ALT mildly 41/41 although improved when compared to prior otherwise all other labs are within normal limits. And 2 hour follow-up lactic acid went to 1.9 after the 30mg/kg for ideal body weight of IV fluids. - UA within normal limits no evidence of UTI. Patient negative for COVID. - CT scan abdomen pelvis with IV contrast reveals chronic changes no acute processes were noted. - although will admit for pain management/nausea vomiting. I spoke to Dr. Owen and he is admitting at this time. Patient also understands agrees with this plan. Time: 14:50 [facility] - Abdominal Pain Medical Records Attestation: I reviewed the patient's medical records. Lab Data Attestation: I reviewed the patient's lab results. Result diagrams: 08/29/20 10:37 08/29/20 10:37 Labs: Lab Results 08/29/20 08/29/20 08/29/20 Range/Units 10:37 10:37 10:37 WBC 6.2 (4.8-10.8) X10*3/uL RBC 4.42 (4.20-5.50) X10*6/uL Hgb 13.3 (12.0-16.0) g/dl Hct 39.2 (37-47) % MCV 88.7 (80-98) fL MCH 30.1 (27.0-33.0) pg MCHC 33.9 (31.0-35.0) g/dl RDW 13.6 (11.0-16.0) % Plt Count 368 (160-400) X10*3/uL MPV 9.4 (9.4-12.3) fL Immature Gran % (Auto) 0.3 (0.0-0.4) % Neut % (Auto) 48.4 (45-73) % Lymph % (Auto) 42.1 H (20-40) % [place] % (Auto) 7.4 (2-11) % Eos % (Auto) 1.3 (0-4) % Baso % (Auto) 0.5 (0-2) % Lymph # (Auto) 2.6 (1.2-4.9) X10*3/uL [place] # (Auto) 0.5 (0.1-1.2) X10*3/uL Eos # (Auto) 0.1 (0.0-0.4) X10*3/uL Baso # (Auto) 0.0 (0.0-0.2) X10*3/uL Abs Immat Gran (auto) 0.02 (0.00-0.03) X10*3/uL Absolute Neuts (auto) 3.0 (2.0-8.3) X10*3/uL Absolute Nucleated RBC 0.000 (0.0-0.012) X10*3/uL Nucleated RBC % (auto) 0.0 (0.0-0.2) /100WBC PT 11.7 (10.8-13.0) SEC INR 1.0 (0.9-1.1) Sodium (135-145) mmol/L Potassium (3.3-5.1) mmol/L Chloride (96-108) mmol/L Carbon Dioxide (22-29) mmol/L Anion Gap (12-20) BUN (9-16) mg/dL Creatinine (0.5-1.4) mg/dL Estim Creat Clear Calc Estimated GFR Random Glucose (60-115) mg/dL Lactic Acid (0.5-2.0) mmol/L Lactic Acid Fup @ 2Hr (0.5-2.0) mmol/L Calcium (8.4-10.2) mg/dL Magnesium (1.6-2.6) mg/dL Total Bilirubin (0.0-1.0) mg/dL AST (5-31) U/L ALT (0-31) U/L Alkaline Phosphatase (39-117) U/L Total Protein (6.5-8.0) g/dL Albumin (3.5-5.0) g/dL Beta HCG, Quant mIU/mL Urine Color Urine Appearance Urine pH (5.0-8.0) Ur Specific [place] (1.005-1.025) Urine Protein (NEG-TRACE) MG/DL Urine Glucose (UA) (NEG) MG/DL Urine Ketones (NEG) MG/DL Urine Blood (NEG) Urine Nitrite (NEG) Ur Leukocyte Esterase (NEG) Urine RBC (0) /HPF Urine WBC (0-4) /HPF Ur Squamous Epith Cells /LPF Urine Bacteria /LPF Urine Mucus /LPF COVID-19 (ROGELIO) Negative (Negative) COVID-19 Clin Com See Note 08/29/20 08/29/20 08/29/20 Range/Units 10:37 10:37 10:54 WBC (4.8-10.8) X10*3/uL RBC (4.20-5.50) X10*6/uL Hgb (12.0-16.0) g/dl Hct (37-47) % MCV (80-98) fL MCH (27.0-33.0) pg MCHC (31.0-35.0) g/dl RDW (11.0-16.0) % Plt Count (160-400) X10*3/uL MPV (9.4-12.3) fL Immature Gran % (Auto) (0.0-0.4) % Neut % (Auto) (45-73) % Lymph % (Auto) (20-40) % [place] % (Auto) (2-11) % Eos % (Auto) (0-4) % Baso % (Auto) (0-2) % Lymph # (Auto) (1.2-4.9) X10*3/uL [place] # (Auto) (0.1-1.2) X10*3/uL Eos # (Auto) (0.0-0.4) X10*3/uL Baso # (Auto) (0.0-0.2) X10*3/uL Abs Immat Gran (auto) (0.00-0.03) X10*3/uL Absolute Neuts (auto) (2.0-8.3) X10*3/uL Absolute Nucleated RBC (0.0-0.012) X10*3/uL Nucleated RBC % (auto) (0.0-0.2) /100WBC PT (10.8-13.0) SEC INR (0.9-1.1) Sodium 141 (135-145) mmol/L Potassium 3.8 (3.3-5.1) mmol/L Chloride 109 H (96-108) mmol/L Carbon Dioxide 23 (22-29) mmol/L Anion Gap 13 (12-20) BUN 6 L (9-16) mg/dL Creatinine 0.68 (0.5-1.4) mg/dL Estim Creat Clear Calc 114.3 Estimated GFR > 60 Random Glucose 86 (60-115) mg/dL Lactic Acid 3.3 H* (0.5-2.0) mmol/L Lactic Acid Fup @ 2Hr (0.5-2.0) mmol/L Calcium 8.9 (8.4-10.2) mg/dL Magnesium 1.8 (1.6-2.6) mg/dL Total Bilirubin 0.4 (0.0-1.0) mg/dL AST 41 H D (5-31) U/L ALT 41 H (0-31) U/L Alkaline Phosphatase 110 (39-117) U/L Total Protein 6.5 (6.5-8.0) g/dL Albumin 4.2 (3.5-5.0) g/dL Beta HCG, Quant < 2 mIU/mL Urine Color YELLOW Urine Appearance CLEAR Urine pH 6.0 (5.0-8.0) Ur Specific [place] >= 1.030 H (1.005-1.025) Urine Protein NEG (NEG-TRACE) MG/DL Urine Glucose (UA) NEG (NEG) MG/DL Urine Ketones NEG (NEG) MG/DL Urine Blood 1+ H (NEG) Urine Nitrite NEG (NEG) Ur Leukocyte Esterase NEG (NEG) Urine RBC 1-4 (0) /HPF Urine WBC 0 (0-4) /HPF Ur Squamous Epith Cells TRACE /LPF Urine Bacteria NONE /LPF Urine Mucus 2+ /LPF COVID-19 (ROGELIO) (Negative) COVID-19 Clin Com 08/29/20 Range/Units 13:41 WBC (4.8-10.8) X10*3/uL RBC (4.20-5.50) X10*6/uL Hgb (12.0-16.0) g/dl Hct (37-47) % MCV (80-98) fL MCH (27.0-33.0) pg MCHC (31.0-35.0) g/dl RDW (11.0-16.0) % Plt Count (160-400) X10*3/uL MPV (9.4-12.3) fL Immature Gran % (Auto) (0.0-0.4) % Neut % (Auto) (45-73) % Lymph % (Auto) (20-40) % [place] % (Auto) (2-11) % Eos % (Auto) (0-4) % Baso % (Auto) (0-2) % Lymph # (Auto) (1.2-4.9) X10*3/uL [place] # (Auto) (0.1-1.2) X10*3/uL Eos # (Auto) (0.0-0.4) X10*3/uL Baso # (Auto) (0.0-0.2) X10*3/uL Abs Immat Gran (auto) (0.00-0.03) X10*3/uL Absolute Neuts (auto) (2.0-8.3) X10*3/uL Absolute Nucleated RBC (0.0-0.012) X10*3/uL Nucleated RBC % (auto) (0.0-0.2) /100WBC PT (10.8-13.0) SEC INR (0.9-1.1) Sodium (135-145) mmol/L Potassium (3.3-5.1) mmol/L Chloride (96-108) mmol/L Carbon Dioxide (22-29) mmol/L Anion Gap (12-20) BUN (9-16) mg/dL Creatinine (0.5-1.4) mg/dL Estim Creat Clear Calc Estimated GFR Random Glucose (60-115) mg/dL Lactic Acid (0.5-2.0) mmol/L Lactic Acid Fup @ 2Hr 1.9 (0.5-2.0) mmol/L Calcium (8.4-10.2) mg/dL Magnesium (1.6-2.6) mg/dL Total Bilirubin (0.0-1.0) mg/dL AST (5-31) U/L ALT (0-31) U/L Alkaline Phosphatase (39-117) U/L Total Protein (6.5-8.0) g/dL Albumin (3.5-5.0) g/dL Beta HCG, Quant mIU/mL Urine Color Urine Appearance Urine pH (5.0-8.0) Ur Specific [place] (1.005-1.025) Urine Protein (NEG-TRACE) MG/DL Urine Glucose (UA) (NEG) MG/DL Urine Ketones (NEG) MG/DL Urine Blood (NEG) Urine Nitrite (NEG) Ur Leukocyte Esterase (NEG) Urine RBC (0) /HPF Urine WBC (0-4) /HPF Ur Squamous Epith Cells /LPF Urine Bacteria /LPF Urine Mucus /LPF COVID-19 (ROGELIO) (Negative) COVID-19 Clin Com Imaging Data CT scan abdomen pelvis with IV contrast: Attestation: I personally reviewed and interpreted this imaging study as follows: Radiologist's impression: FINDINGS: LUNG BASES: The visualized lung bases are unremarkable. LIVER, GALLBLADDER, AND BILIARY TREE: The liver is slightly low in attenuation probably representing fatty infiltration. Liver is upper normal in size, right lobe measuring 18 cm in length. No focal hepatic lesion or biliary ductal dilatation is present. The gallbladder is unremarkable with no evidence of radiopaque gallstones, gallbladder wall thickening, or obvious pericholecystic inflammatory changes. PANCREAS: Unremarkable. SPLEEN: Unremarkable. ADRENAL GLANDS: Unremarkable. KIDNEYS AND URETERS: The kidneys are normal in size, shape, and attenuation. No hydronephrosis, hydroureter, or calculi seen. No perinephric stranding. BLADDER: Not optimally distended GASTROINTESTINAL TRACT: There is fatty infiltration of the wall of the colon. This is a nonspecific finding but can be seen with old inflammatory colitis. No evidence of acute or active colitis or enteritis is seen. The small and large bowel is otherwise normal. The appendix has been removed. The stomach is normal. ABDOMINAL WALL: There is a small umbilical hernia containing fat. LYMPH NODES: Normal. VASCULAR: Unremarkable. PELVIC VISCERA: The uterus is been removed. No pelvic mass is seen. OSSEOUS STRUCTURES: Unremarkable. CT/CT abdomen pelvis w con IMPRESSION: Fatty infiltration of the wall of the colon similar to previous exam, question sequela of old inflammatory colitis. No evidence of active colitis or enteritis. Discharge Plan Discharge Clinical Impression: Nausea & vomiting, Abdominal pain, Diarrhea Patient Disposition: Admitted As Inpatient Prescriptions: No Action dextroamphetamine-amphetamine 20 mg capsule,extended release 24hr 1 cap PO QAM 30 Days Qty: 30 RF: 0 budesonide 3 mg capsule,delayed,extend.release 9 mg PO DAILY Qty: 90 RF: 1 oxycodone 5 mg tablet 5 mg PO Q8H PRN (Reason: pain) 4 Days Qty: 12 RF: 0 dextroamphetamine-amphetamine 10 mg tablet 10 mg PO DAILY RF: 0 hydroxyzine HCl 10 mg tablet 1 tab PO Q8H PRN (Reason: anxiety) RF: 0 tramadol 100 mg tablet extended release 24 hr 1 tab PO DAILY PRN (Reason: Pain) RF: 0 furosemide [Lasix] 20 mg tablet 20 mg PO DAILY PRN (Reason: EDEMA) RF: 0 Entyvio 300 mg recon soln 300 mg IV Q8W RF: 0 PMFSH Past Medical History Attestation statement: The following information was validated with the patient. Medical History Acute Crohn's disease Asthma Crohn's colitis Diarrhea Screening for diabetes mellitus (DM) Screening for hypothyroidism Screening for hypothyroidism TMJ (dislocation of temporomandibular joint) Surgical History History of appendectomy History of colonoscopy History of hysterectomy Hx of endoscopy Family History Family History Father No problems noted. Mother Thyroid cancer Stomach cancer Family/Other Diabetes Social History Social History Household Members: None Housing: Condominium Do you presently have visiting nurse or other home services: No Alcohol intake: current Alcohol intake frequency: a few times a week Patient Tobacco Use Status: Current everyday Tobacco user Cigarettes Per Day: 4 Years Smoked: 20 Second Hand Smoke Exposure: Yes Use of substances other than those prescribed or required for medical reasons: No Advance Directives: Yes Advance Directives Information Provided: Yes Advance Directives on File: No Patient : No service: No Current occupational status: employed
[2020-08-29 11:20] LABS: MANUAL DIFF FLAG NO
[2020-08-29 11:28] LABS: Basophils Percent Auto 0.5 % (0-2); Eosinophils Absolute Auto 0.1 X10*3/uL (0.0-0.4); Eosinophils Percent Auto 1.3 % (0-4); Hematocrit 39.2 % (37-47); Hemoglobin 13.3 g/dl (12.0-16.0); Imm Gran Abs Auto 0.02 X10*3/uL (0.00-0.03); Imm Gran Pct Auto 0.3 % (0.0-0.4); Lymphocytes Absolute Auto 2.6 X10*3/uL (1.2-4.9); Lymphocytes Percent Auto 42.1 % (20-40); Mean Corpuscular HGB Conc 33.9 g/dl (31.0-35.0); Mean Corpuscular Hemoglobin 30.1 pg (27.0-33.0); Mean Corpuscular Volume 88.7 fL (80-98); Mean Platelet Volume 9.4 fL (9.4-12.3); Monocytes Absolute Auto 0.5 X10*3/uL (0.1-1.2); Monocytes Percent Auto 7.4 % (2-11); Neutrophils Percent Auto 48.4 % (45-73); Platelet Count 368 X10*3/uL (160-400); Red Blood Count 4.42 X10*6/uL (4.20-5.50); Red Cell Distribution Width 13.6 % (11.0-16.0); White Blood Count 6.2 X10*3/uL (4.8-10.8)
[2020-08-29 11:30] LABS: Prothrombin Time 11.7 SEC (10.8-13.0)
[2020-08-29 11:47] LABS: Lactic Acid 3.3 mmol/L (0.5-2.0)
[2020-08-29 11:49] LABS: COVID-19 Test Negative (Negative); IDNOW Serial# 9DD0AD1C
[2020-08-29 11:51] LABS: Alanine Aminotransferase 41 U/L (0-31); Albumin Level 4.2 g/dL (3.5-5.0); Alkaline Phosphatase 110 U/L (39-117); Anion Gap 13 (12-20); Aspartate Amino Transferase 41 U/L (5-31); Bilirubin Total 0.4 mg/dL (0.0-1.0); Blood Urea Nitrogen 6 mg/dL (9-16); Calcium 8.9 mg/dL (8.4-10.2); Carbon Dioxide 23 mmol/L (22-29); Chloride 109 mmol/L (96-108); Creatinine Clr Calc Pharmacy 114.3; Estimated Glomerular Filt Rate > 60; Glucose Random 86 mg/dL (60-115); Magnesium 1.8 mg/dL (1.6-2.6); Potassium 3.8 mmol/L (3.3-5.1); Sodium 141 mmol/L (135-145); Total Protein 6.5 g/dL (6.5-8.0)
[2020-08-29 11:58] LABS: HCG Quantitative < 2 mIU/mL
[2020-08-29] MEDS: Piperacillin Sodium/Tazobactam 3.375 GM in 0.9 % Sodium Chloride 50 ML IV (12:23)
[2020-08-29 12:36] LABS: Glucose Urine UA NEG (NEG); Leukocyte Esterase Urine NEG (NEG); Nitrite Urine NEG (NEG); Specific Gravity - Urine >= 1.030 (1.005-1.025); Urine Blood 1+ (NEG); Urine Ketones NEG (NEG); Urine Protein NEG (NEG-TRACE)
[2020-08-29 12:37] LABS: Appearance Urine CLEAR; Color Urine YELLOW
[2020-08-29 12:50] LABS: Mucus Urine 2+ /LPF; Squamous Epithelial Cell Urine TRACE /LPF; WBC Urine 0 /HPF (0-4)
[2020-08-29] MEDS: iohexoL 350 MG/ML 100 ML INFUS..BTL IV (12:52)
[2020-08-29 13:18] LABS: Reflex Lactate? Lactic Acid Added
--- NOTE | 2020-08-29 14:05 | PC.NURSE ---
nad, watching show, pain 06/14
[2020-08-29 14:14] LABS: ~Lactic Acid-LAB USE ONLY 1.9 mmol/L (0.5-2.0)
--- NOTE | 2020-08-29 14:45 | P.HPHOSP_ITS ---
History of Present Illness Date of Service: 08/29/20 Chief Complaint: llq pain 35F presented with 2 days LLQ pain and diarrhea. Patient was recently diagnosed with Crohn's disease on entyvio, she reports occasional flares over the past year. denies fever, chills, blood in stool. she reports joint swelling and art hralgias with prior steroid use. in ED CT showed Fatty infiltration of the wall of the colon similar to previous exam (2019), question sequela of old inflammatory colitis. No evidence of active colitis or enteritis. Review of Systems Review of Systems: Constitutional: Denies fever, denies Chills Eyes: denies blurry vision ENT: denies sore throat CVS: denies chest pain Respiratory: Denies dyspnea GI:abdominal pain : denies dysuria MSK: denies neck pain Skin: denies rash Neuro: denies specific motor weakness Psych: denies suicidal ideation Endocrine: denies heat/cold intoleratnce Hematologic: denies easy bleeding Allergy: denies hives [facility] Medical History Acute Crohn's disease Asthma Crohn's colitis Diarrhea Screening for diabetes mellitus (DM) Screening for hypothyroidism Screening for hypothyroidism TMJ (dislocation of temporomandibular joint) Family History Father No problems noted. Mother Thyroid cancer Stomach cancer Family/Other Diabetes Family history: reviewed and not pertinent Surgical History History of appendectomy History of colonoscopy History of hysterectomy Hx of endoscopy Social History Household Members: None Housing: Condominium Do you presently have visiting nurse or other home services: No Alcohol intake: current Alcohol intake frequency: a few times a week Patient Tobacco Use Status: Current everyday Tobacco user Cigarettes Per Day: 4 Years Smoked: 20 Second Hand Smoke Exposure: Yes Use of substances other than those prescribed or required for medical reasons: No Advance Directives: Yes Advance Directives Information Provided: Yes Advance Directives on File: No Patient : No service: No Current occupational status: employed Meds Allergies Allergy/AdvReac Type Severity Reaction Status Date / Time NSAIDS (Non-Steroidal Allergy Severe BRONCHOSPAS Verified 08/19/20 13:06 Anti-Inflamma M [NSAIDS (NON-STEROIDAL ANTI-INFLAMMA] aspirin [ASA] Allergy Unknown SHORTNESS Verified 08/19/20 13:06 OF BREATH ketorolac [From TORADOL] Allergy Unknown BRONCIAL Verified 08/19/20 13:06 SPASM vancomycin [VANCOMYCIN] Allergy Unknown RASH Verified 08/19/20 13:06 gabapentin [From NEURONTIN] AdvReac Unknown TINGLING Verified 08/19/20 13:06 IN L ARM budesonide AdvReac Muscle Pain Verified 08/19/20 13:06 Bencort Allergy Unknown unknown Uncoded 05/19/20 11:33 Active Medications: Current Medications Generic Name Dose Route Start Last Admin Trade Name Freq PRN Reason Stop Dose Admin Pharmacy Consult 1 each 08/29/20 14:25 Consult Rx Perform Med Rec MISCELLANE ONCE PRN Consult order Home Medications Medication Instructions Recorded Confirmed Last Taken Type dextroamphetamine-amphetamine 10 mg PO DAILY 07/24/20 08/29/20 Unknown History hydroxyzine HCl 1 tab PO Q8H PRN 07/25/20 08/29/20 Unknown History vedolizumab [Entyvio] 300 mg IV Q8W 08/29/20 08/29/20 Unknown History Physical Exam Vital Signs and Narrative: Vital Signs: Last Vital Signs Pulse 88 08/29/20 14:04 Resp 17 08/29/20 14:04 BP 134/78 08/29/20 14:04 Pulse Ox 98 08/29/20 14:04 Body Mass Index 32.9 General: no acute distress HEENT: atraumatic Neck: normal to visual inspection CVS: S1, S2, RRR Resp: CTA bilateral Chest: non tender GI: soft, llq tender, non distended : no CVA tenderness Skin: no rashes Extremities: no edema Neuro: Oriented X3, grossly intact Psych: cooperative Results Labs CBC and Chem 7: 08/29/20 10:37 08/29/20 10:37 Labs: Laboratory Results - last 24 hr 08/29/20 08/29/20 08/29/20 10:37 10:37 10:37 MCV 88.7 MCH 30.1 MCHC 33.9 RDW 13.6 Plt Count 368 MPV 9.4 Immature Gran % (Auto) 0.3 Neut % (Auto) 48.4 Lymph % (Auto) 42.1 H [place] % (Auto) 7.4 Eos % (Auto) 1.3 Baso % (Auto) 0.5 Lymph # (Auto) 2.6 [place] # (Auto) 0.5 Eos # (Auto) 0.1 Baso # (Auto) 0.0 Abs Immat Gran (auto) 0.02 Absolute Neuts (auto) 3.0 Absolute Nucleated RBC 0.000 Nucleated RBC % (auto) 0.0 PT 11.7 INR 1.0 Anion Gap Estim Creat Clear Calc Estimated GFR Random Glucose Lactic Acid Lactic Acid Fup @ 2Hr Calcium Magnesium Total Bilirubin AST ALT Alkaline Phosphatase Total Protein Albumin Beta HCG, Quant Urine Color Urine Appearance Urine pH Ur Specific [place] Urine Protein Urine Glucose (UA) Urine Ketones Urine Blood Urine Nitrite Ur Leukocyte Esterase Urine RBC Urine WBC Ur Squamous Epith Cells Urine Bacteria Urine Mucus COVID-19 (ROGELIO) Negative COVID-19 Clin Com See Note 08/29/20 08/29/20 08/29/20 10:37 10:37 10:54 MCV MCH MCHC RDW Plt Count MPV Immature Gran % (Auto) Neut % (Auto) Lymph % (Auto) [place] % (Auto) Eos % (Auto) Baso % (Auto) Lymph # (Auto) [place] # (Auto) Eos # (Auto) Baso # (Auto) Abs Immat Gran (auto) Absolute Neuts (auto) Absolute Nucleated RBC Nucleated RBC % (auto) PT INR Anion Gap 13 Estim Creat Clear Calc 114.3 Estimated GFR > 60 Random Glucose 86 Lactic Acid 3.3 H* Lactic Acid Fup @ 2Hr Calcium 8.9 Magnesium 1.8 Total Bilirubin 0.4 AST 41 H D ALT 41 H Alkaline Phosphatase 110 Total Protein 6.5 Albumin 4.2 Beta HCG, Quant < 2 Urine Color YELLOW Urine Appearance CLEAR Urine pH 6.0 Ur Specific [place] >= 1.030 H Urine Protein NEG Urine Glucose (UA) NEG Urine Ketones NEG Urine Blood 1+ H Urine Nitrite NEG Ur Leukocyte Esterase NEG Urine RBC 1-4 Urine WBC 0 Ur Squamous Epith Cells TRACE Urine Bacteria NONE Urine Mucus 2+ COVID-19 (ROGELIO) COVID-19 Clin Com 08/29/20 13:41 MCV MCH MCHC RDW Plt Count MPV Immature Gran % (Auto) Neut % (Auto) Lymph % (Auto) [place] % (Auto) Eos % (Auto) Baso % (Auto) Lymph # (Auto) [place] # (Auto) Eos # (Auto) Baso # (Auto) Abs Immat Gran (auto) Absolute Neuts (auto) Absolute Nucleated RBC Nucleated RBC % (auto) PT INR Anion Gap Estim Creat Clear Calc Estimated GFR Random Glucose Lactic Acid Lactic Acid Fup @ 2Hr 1.9 Calcium Magnesium Total Bilirubin AST ALT Alkaline Phosphatase Total Protein Albumin Beta HCG, Quant Urine Color Urine Appearance Urine pH Ur Specific [place] Urine Protein Urine Glucose (UA) Urine Ketones Urine Blood Urine Nitrite Ur Leukocyte Esterase Urine RBC Urine WBC Ur Squamous Epith Cells Urine Bacteria Urine Mucus COVID-19 (ROGELIO) COVID-19 Clin Com Imaging Radiologist's Impressions: Impressions Abdomen/Pelvis CT 08/29/20 10:30 IMPRESSION: Fatty infiltration of the wall of the colon similar to previous exam, question sequela of old inflammatory colitis. No evidence of active colitis or enteritis. Assessment and Plan (1) Abdominal pain: Status: Acute 35F presented with abdominal pain crohns flare pain control gi eval steatohepatitis weight loss ADHD adderal Quality Stroke Does the patient have a stroke diagnosis?: No VTE Prior VTE?: No VTE Risk Level:: Medical - low VTE Device Contraindication: N/A - Device Ordered VTE Drug Contraindication: N/A - Med Ordered
--- NOTE | 2020-08-29 14:53 | PHA.MEDREC ---
Pharmacy Consult ? Medication Reconciliation Pharmacy has completed the medication reconciliation. No remarkable issues requiring a provider's attention. Amanda Peña, ShiamD
[2020-08-29] MEDS: Morphine Sulfate 2 MG/ML CARTRIDGE IVPUSH ×2 (17:57→21:12)
[2020-08-29] MEDS: Sodium Chloride 0.45 % 1,000 ML 80 ML IVCONT (18:00)
[2020-08-29] MEDS: hydrOXYzine HCL 10 MG TABLET PO (21:12)
[2020-08-30] MEDS: Morphine Sulfate 2 MG/ML CARTRIDGE IVPUSH ×7 (01:09→23:46)
[2020-08-30] MEDS: Sodium Chloride 0.45 % 1,000 ML 80 ML IVCONT ×2 (04:40→15:19)
[2020-08-30 07:06] LABS: Hematocrit 34.3 % (37-47); Hemoglobin 11.4 g/dl (12.0-16.0); Mean Corpuscular HGB Conc 33.2 g/dl (31.0-35.0); Mean Corpuscular Hemoglobin 30.1 pg (27.0-33.0); Mean Corpuscular Volume 90.5 fL (80-98); Mean Platelet Volume 9.5 fL (9.4-12.3); Platelet Count 267 X10*3/uL (160-400); Red Blood Count 3.79 X10*6/uL (4.20-5.50); Red Cell Distribution Width 13.6 % (11.0-16.0); White Blood Count 6.6 X10*3/uL (4.8-10.8)
[2020-08-30 07:26] LABS: Anion Gap 12 (12-20); Blood Urea Nitrogen 4 mg/dL (9-16); Carbon Dioxide 19 mmol/L (22-29); Chloride 109 mmol/L (96-108); Creatinine Clr Calc Pharmacy 129.5; Estimated Glomerular Filt Rate > 60; Glucose Random 89 mg/dL (60-115); Potassium 3.4 mmol/L (3.3-5.1); Sodium 137 mmol/L (135-145)
[2020-08-30 07:33] LABS: C Reactive Protein 0.26 mg/dL (< or = 0.50)
[2020-08-30 07:41] VITALS: BP 122/79; PULSE 95; RESP 18; TEMP 36.7; O2SAT 97
[2020-08-30] MEDS: Amphetamine Mixed Salts 10 MG TABLET PO (08:07)
--- NOTE | 2020-08-30 10:00 | P.PNIM_ITS ---
Subjective Subjective Date of Service: 08/30/20 Interval History: still with pain and diarrhea, not tolerating breakfast, had sandwich for dinner yesterday Cardiovascular Cardiovascular: Reports no additional cardiovascular complaints Gastrointestinal Gastrointestinal: Reports no additional gastrointestinal complaints Physical Exam Vital Signs: Vital Signs: Last Vital Signs Temp 98.0 F 08/30/20 07:41 Pulse 95 08/30/20 07:41 Resp 18 08/30/20 07:41 BP 122/79 08/30/20 07:41 Pulse Ox 97 08/30/20 07:41 Body Mass Index 32.9 General: AO X 3, no acute distress Resp: CTA bilateral CVS: S1,S2,RRR GI: soft, LLQ tender, non distended Neuro: motor grossly intact Psych: appropriate affect Objective Data Current Medications Generic Name Dose Route Start Last Admin Trade Name Freq PRN Reason Stop Dose Admin Amphetamine/Dextroamphetamine 10 mg 08/30/20 09:00 08/30/20 08:07 Amphetamine Mixed Salts 10 Mg Tablet PO 10 mg DAILY BRADY Administration Furosemide 20 mg 08/29/20 17:28 Furosemide 20 Mg Tablet PO DAILY PRN Edema Protocol Hydroxyzine HCl 10 mg 08/29/20 17:28 08/29/20 21:12 Hydroxyzine Hcl 10 Mg Tablet PO 10 mg Q8H PRN Administration anxiety Sodium Chloride 1,000 mls @ 80 mls/hr 08/29/20 17:28 08/30/20 04:40 IVCONT 80 mls/hr .[id number] BRADY Administration Morphine Sulfate 2 mg 08/29/20 17:28 08/30/20 08:08 Morphine Sulfate 2 Mg/Ml Cartridge IVPUSH 2 mg Q3H PRN Administration pain Non-Formulary Medication 9 mg 08/30/20 09:00 Budesonide PO DAILY BRADY Non-Formulary Medication 1 cap 08/30/20 09:00 Dextroamphetamine-Amphetamine PO DAILY BRADY Oxycodone HCl 5 mg 08/29/20 17:28 Oxycodone Hcl Immed Release 5 Mg Tablet PO Q8H PRN pain Pharmacy Consult 1 each 08/29/20 14:25 Consult Rx Perform Med Rec MISCELLANE ONCE PRN Consult order Sodium Chloride 3 ml 08/29/20 17:28 08/30/20 08:12 0.9 % Sodium Chloride Flush 3 Ml Syringe IVFLUSH Not Given QSHIFT [facility] Vedolizumab 300 mg 08/29/20 17:28 Vedolizumab 300 Mg/5 Ml Vial IV Q8W [facility] Labs CBC & Chem 7: 08/30/20 06:41 08/30/20 06:41 Labs: Laboratory Results - last 24 hr 08/29/20 08/29/20 08/29/20 10:37 10:37 10:37 WBC 6.2 RBC 4.42 Hgb 13.3 Hct 39.2 MCV 88.7 MCH 30.1 MCHC 33.9 RDW 13.6 Plt Count 368 MPV 9.4 Immature Gran % (Auto) 0.3 Neut % (Auto) 48.4 Lymph % (Auto) 42.1 H [place] % (Auto) 7.4 Eos % (Auto) 1.3 Baso % (Auto) 0.5 Lymph # (Auto) 2.6 [place] # (Auto) 0.5 Eos # (Auto) 0.1 Baso # (Auto) 0.0 Abs Immat Gran (auto) 0.02 Absolute Neuts (auto) 3.0 Absolute Nucleated RBC 0.000 Nucleated RBC % (auto) 0.0 PT 11.7 INR 1.0 Sodium Potassium Chloride Carbon Dioxide Anion Gap BUN Creatinine Estim Creat Clear Calc Estimated GFR Random Glucose Lactic Acid Lactic Acid Fup @ 2Hr Calcium Magnesium Total Bilirubin AST ALT Alkaline Phosphatase C-Reactive Protein Total Protein Albumin Beta HCG, Quant Urine Color Urine Appearance Urine pH Ur Specific [place] Urine Protein Urine Glucose (UA) Urine Ketones Urine Blood Urine Nitrite Ur Leukocyte Esterase Urine RBC Urine WBC Ur Squamous Epith Cells Urine Bacteria Urine Mucus COVID-19 (ROGELIO) Negative COVID-19 Clin Com See Note 08/29/20 08/29/20 08/29/20 10:37 10:37 10:54 WBC RBC Hgb Hct MCV MCH MCHC RDW Plt Count MPV Immature Gran % (Auto) Neut % (Auto) Lymph % (Auto) [place] % (Auto) Eos % (Auto) Baso % (Auto) Lymph # (Auto) [place] # (Auto) Eos # (Auto) Baso # (Auto) Abs Immat Gran (auto) Absolute Neuts (auto) Absolute Nucleated RBC Nucleated RBC % (auto) PT INR Sodium 141 Potassium 3.8 Chloride 109 H Carbon Dioxide 23 Anion Gap 13 BUN 6 L Creatinine 0.68 Estim Creat Clear Calc 114.3 Estimated GFR > 60 Random Glucose 86 Lactic Acid 3.3 H* Lactic Acid Fup @ 2Hr Calcium 8.9 Magnesium 1.8 Total Bilirubin 0.4 AST 41 H D ALT 41 H Alkaline Phosphatase 110 C-Reactive Protein Total Protein 6.5 Albumin 4.2 Beta HCG, Quant < 2 Urine Color YELLOW Urine Appearance CLEAR Urine pH 6.0 Ur Specific [place] >= 1.030 H Urine Protein NEG Urine Glucose (UA) NEG Urine Ketones NEG Urine Blood 1+ H Urine Nitrite NEG Ur Leukocyte Esterase NEG Urine RBC 1-4 Urine WBC 0 Ur Squamous Epith Cells TRACE Urine Bacteria NONE Urine Mucus 2+ COVID-19 (ROGELIO) COVID-19 [employer] Com 08/29/20 08/30/20 08/30/20 13:41 06:41 06:41 WBC 6.6 RBC 3.79 L Hgb 11.4 L Hct 34.3 L MCV 90.5 MCH 30.1 MCHC 33.2 RDW 13.6 Plt Count 267 D MPV 9.5 Immature Gran % (Auto) Neut % (Auto) Lymph % (Auto) [place] % (Auto) Eos % (Auto) Baso % (Auto) Lymph # (Auto) [place] # (Auto) Eos # (Auto) Baso # (Auto) Abs Immat Gran (auto) Absolute Neuts (auto) Absolute Nucleated RBC 0.000 Nucleated RBC % (auto) 0.0 PT INR Sodium 137 Potassium 3.4 Chloride 109 H Carbon Dioxide 19 L Anion Gap 12 BUN 4 L Creatinine 0.60 Estim Creat Clear Calc 129.5 Estimated GFR > 60 Random Glucose 89 Lactic Acid Lactic Acid Fup @ 2Hr 1.9 Calcium 8.0 L D Magnesium Total Bilirubin AST ALT Alkaline Phosphatase C-Reactive Protein Total Protein Albumin Beta HCG, Quant Urine Color Urine Appearance Urine pH Ur Specific [place] Urine Protein Urine Glucose (UA) Urine Ketones Urine Blood Urine Nitrite Ur Leukocyte Esterase Urine RBC Urine WBC Ur Squamous Epith Cells Urine Bacteria Urine Mucus COVID-19 (ROGELIO) COVID-19 [employer] Com 08/30/20 06:41 WBC RBC Hgb Hct MCV MCH MCHC RDW Plt Count MPV Immature Gran % (Auto) Neut % (Auto) Lymph % (Auto) [place] % (Auto) Eos % (Auto) Baso % (Auto) Lymph # (Auto) [place] # (Auto) Eos # (Auto) Baso # (Auto) Abs Immat Gran (auto) Absolute Neuts (auto) Absolute Nucleated RBC Nucleated RBC % (auto) PT INR Sodium Potassium Chloride Carbon Dioxide Anion Gap BUN Creatinine Estim Creat Clear Calc Estimated GFR Random Glucose Lactic Acid Lactic Acid Fup @ 2Hr Calcium Magnesium Total Bilirubin AST ALT Alkaline Phosphatase C-Reactive Protein 0.26 Total Protein Albumin Beta HCG, Quant Urine Color Urine Appearance Urine pH Ur Specific [place] Urine Protein Urine Glucose (UA) Urine Ketones Urine Blood Urine Nitrite Ur Leukocyte Esterase Urine RBC Urine WBC Ur Squamous Epith Cells Urine Bacteria Urine Mucus COVID-19 (ROGELIO) COVID-19 Clin Com Quality Stroke Does the patient have a stroke diagnosis?: No VTE Prior VTE?: No VTE Risk Level:: Medical - low VTE Device Contraindication: Treatment Not Indicated VTE Drug Contraindication: Treatment Not Indicated Assessment and Plan (1) Abdominal pain: Status: Acute Assessment and Plan: 35F presented with abdominal pain crohns flare still with pain and diarrhea continue morphine gi eval steatohepatitis weight loss ADHD adderal
--- NOTE | 2020-08-30 11:36 | MHC.CM.PN ---
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 i offered make referral to cares team and she declined at this time . she reported her pcp cesario bundy is prescribing her adhd and anxiety medications and she is followed by [facility] services she has just received her first doae of entyvno and will have scheduled dose on Tuesday at the gi physicians office. she has not received any covid vaccinations nor has she had covid she denies any financial difficulties in obtaining any of her medications and uses the [facility] on [address] she is independent in all adls and mobility , she has no vna /no dme servcies in the home discharge plan home no services pcp cesario bundy patient to call for post hospital discharge follow up follow up with [facility] gi physician 'transportation family/friends has health care proxy copy requested
--- NOTE | 2020-08-30 14:18 | CONS_ITS ---
DATE OF SERVICE: 08/30/2020 REFERRING PHYSICIAN: Ruben Steele MD REASON FOR CONSULTATION: Crohn disease. HISTORY OF PRESENT ILLNESS: The patient is a pleasant 35-year-old woman, who was admitted to the hospital after presenting to the emergency room yesterday with complaints of abdominal pain. She has a history of ibd, crohn, disease. Records from her outpatient gi provider are unavailable. She had been on prednisone, but this was stopped because of side effects of lower extremity swelling and pain. She was previously evaluated with upper endoscopy and colonoscopy in November of 2019. Colonoscopy showed a small tubular adenoma, but no colitis and stomach biopsies showed inactive duodenitis and no H pylori. She has also had a capsule endoscopy, but those records are not available for review today. PAST MEDICAL HISTORY: 1. Asthma. 2. TMJ problems. 3. ADHD. 4. Endometriosis. 5. Endoscopy and colonoscopy as above. 6. Capsule endoscopy described as normal in previous consultation notes. CURRENT MEDICATIONS: Her current medication list is reviewed in the chart. ALLERGIES: THERE ARE MULTIPLE MEDICATION ALLERGIES REVIEWED. FAMILY HISTORY: This is reviewed with the patient and is noncontributory. SOCIAL HISTORY: There is no current substance abuse. REVIEW OF SYSTEMS: SKIN: No pruritus. HEENT: Negative. CARDIOPULMONARY: She denies shortness of breath or chest pain. GASTROINTESTINAL: As above. GENITOURINARY: Negative. NEUROPSYCHIATRIC: Negative. PHYSICAL EXAMINATION: GENERAL: Shows a pleasant female, who is tearful. VITAL SIGNS: Reviewed in the electronic medical record and are stable. SKIN: Anicteric. HEENT: Shows no scleral icterus. NECK: Without lymphadenopathy or thyromegaly. LUNGS: Clear. HEART: Shows regular rate and rhythm. S1, S2. No murmur. ABDOMEN: Soft without focal masses. There is some mild tenderness to palpation along the left side, where she has been having some cramping recently. EXTREMITIES: Without edema. LABORATORY DATA: Reviewed and shows a white count of 6.6. IMPRESSION: Abdominal pain with diarrhea in the setting of diagnosis of Crohn disease. At this point, I would recommend obtaining stool studies for further evaluation. If these are negative, she can use antidiarrheals to slow down her stool frequency. For her complaints of left-sided abdominal pain, I have prescribed dicyclomine to see if this helps her symptoms. I did discuss with her IV steroids, which she would like to avoid based on her previous side effects including lower extremity pain and edema. Thanks for asking me to see her. I will follow her in the hospital with you. MD TREVOR Parham/JULIETTE / [id number] MTDD
[2020-08-30 15:31] VITALS: BP 148/86; PULSE 78; RESP 20; TEMP 36.1; O2SAT 98
[2020-08-30] MEDS: Dicyclomine HCl 10 MG CAPSULE PO (16:25)
[2020-08-30 19:12] LABS: Leukocytes Stool Qualitative NEGATIVE (NEGATIVE)
[2020-08-30 19:47] LABS: CDiff Gene PCR NEGATIVE (Negative)
[2020-08-30] MEDS: hydrOXYzine HCL 10 MG TABLET PO (20:47)
[2020-08-30 23:55] VITALS: BP 138/98; PULSE 74; RESP 18; TEMP 36.5; O2SAT 97
--- NOTE | 2020-08-31 01:45 | P.EN_ITS ---
Event Note Date of Service: 08/31/20 Event Note: Bacteremia: blood Cx growing GNR; pending final results; s/w Ceftr iaxone
[2020-08-31] MEDS: cefTRIAXone sodium 1 GM in 0.9 % Sodium Chloride 50 ML IV ×2 (02:25→20:47)
[2020-08-31] MEDS: Morphine Sulfate 2 MG/ML CARTRIDGE IVPUSH ×6 (02:55→23:52)
[2020-08-31] MEDS: Sodium Chloride 0.45 % 1,000 ML 80 ML IVCONT (02:55)
[2020-08-31] MEDS: Dicyclomine HCl 10 MG CAPSULE PO ×3 (07:54→16:25)
[2020-08-31] MEDS: Loperamide HCl 2 MG CAPSULE PO ×3 (07:54→23:52)
[2020-08-31] MEDS: Amphetamine Mixed Salts 10 MG TABLET PO (07:55)
[2020-08-31 08:00] VITALS: BP 147/90; PULSE 109; RESP 18; TEMP 36.2; O2SAT 99
--- NOTE | 2020-08-31 08:44 | P.PNIM_ITS ---
Subjective Subjective Date of Service: 08/31/20 Interval History: abd pain, diarrhea Cardiovascular Cardiovascular: Reports no additional cardiovascular complaints Gastrointestinal Gastrointestinal: Reports no additional gastrointestinal complaints Physical Exam Vital Signs: Vital Signs: Last Vital Signs Temp 97.1 F 08/31/20 08:00 Pulse 109 H 08/31/20 08:00 Resp 18 08/31/20 08:00 BP 147/90 H 08/31/20 08:00 Pulse Ox 99 08/31/20 08:00 Body Mass Index 32.9 General: AO X 3, no acute distress Resp: CTA bilateral CVS: S1,S2,RRR GI: soft, LLQ tender, non distended Neuro: motor grossly intact Psych: appropriate affect Objective Data Current Medications Generic Name Dose Route Start Last Admin Trade Name Freq PRN Reason Stop Dose Admin Amphetamine/Dextroamphetamine 10 mg 08/30/20 09:00 08/31/20 07:55 Amphetamine Mixed Salts 10 Mg Tablet PO 10 mg DAILY BRADY Administration Dicyclomine HCl 10 mg 08/30/20 16:30 08/31/20 07:54 Dicyclomine Hcl 10 Mg Capsule PO 10 mg TIDAC BRADY Administration Furosemide 20 mg 08/29/20 17:28 Furosemide 20 Mg Tablet PO DAILY PRN Edema Protocol Hydroxyzine HCl 10 mg 08/29/20 17:28 08/30/20 20:47 Hydroxyzine Hcl 10 Mg Tablet PO 10 mg Q8H PRN Administration anxiety Sodium Chloride 1,000 mls @ 80 mls/hr 08/29/20 17:28 08/31/20 02:55 IVCONT 80 mls/hr .[id number] BRADY Administration Ceftriaxone Sodium 1 gm/ 50 mls @ 100 mls/hr 08/31/20 22:00 Sodium Chloride IV Q24H BRADY Loperamide HCl 2 mg 08/31/20 07:18 08/31/20 07:54 Loperamide Hcl 2 Mg Capsule PO 2 mg Q6H PRN Administration diarrhea Morphine Sulfate 2 mg 08/29/20 17:28 08/31/20 06:31 Morphine Sulfate 2 Mg/Ml Cartridge IVPUSH 2 mg Q3H PRN Administration pain Non-Formulary Medication 9 mg 08/30/20 09:00 Budesonide PO DAILY BRADY Non-Formulary Medication 1 cap 08/30/20 09:00 Dextroamphetamine-Amphetamine PO DAILY BRADY Oxycodone HCl 5 mg 08/29/20 17:28 Oxycodone Hcl Immed Release 5 Mg Tablet PO Q8H PRN pain Pharmacy Consult 1 each 08/29/20 14:25 Consult Rx Perform Med Rec MISCELLANE ONCE PRN Consult order Sodium Chloride 3 ml 08/29/20 17:28 08/31/20 07:55 0.9 % Sodium Chloride Flush 3 Ml Syringe IVFLUSH Not Given QSHIFT [facility] Vedolizumab 300 mg 08/29/20 17:28 Vedolizumab 300 Mg/5 Ml Vial IV Q8W [facility] Labs CBC & Chem 7: 08/30/20 06:41 08/30/20 06:41 Labs: Laboratory Results - last 24 hr 08/30/20 08/30/20 16:25 16:25 Stool Leukocytes, Qual NEGATIVE C. difficile Tox B Gene NEGATIVE Microbiology Microbiology Results: Microbiology 08/30/20 16:25 Stool Culture - Preliminary Stool Culture in progress. 08/29/20 10:54 Blood Culture - Preliminary Blood - Venous 08/29/20 10:54 Blood Culture - Preliminary Blood - Venous No growth after 24 hours. Quality Stroke Does the patient have a stroke diagnosis?: No VTE Prior VTE?: No VTE Risk Level:: Medical - low VTE Device Contraindication: Treatment Not Indicated VTE Drug Contraindication: Treatment Not Indicated Assessment and Plan (1) Abdominal pain: Status: Acute Assessment and Plan: 35F presented with abdominal pain, now with gnr in blood crohns flare with GNR bacteremia ceftriaxone follow up cultures cdif negative - imodium continue morphine gi following steatohepatitis weight loss ADHD adderal
[2020-08-31] MEDS: hydrOXYzine HCL 10 MG TABLET PO (11:22)
[2020-08-31] MEDS: ondansetron HCL 4 MG/2 ML VIAL IVPUSH (11:37)
--- NOTE | 2020-08-31 15:18 | MHC.CM.PN ---
NURSE REVIT DRAFTER NOTE ELECTRONIC MEDICAL RECORD REVIEWED ALONG WITH CASE DISCUSSED WITH STAFF NURSE , PATIENT ADMITTED WITH DIAGNOSIS OF CHRONS FLARE AND NOW FOUND TO HAVE GRAM NEGATIVE BACTREMIA PER DOCUMENTATION PLAN OF CARE CONTINUE TO FOLLOW THE CULTURES ,AND ALL LABS, C-DIFF REPORTED NEGATIVE AND GIVE IMODIUM FOR DIARRHEA. IV [facility] GASTROENTEROLOGY FOLLOWING DISCHARGE PLAN HOME NO SERVICES AT THIS TIME
[2020-08-31 15:23] VITALS: BP 140/88; PULSE 83; RESP 20; TEMP 36.1; O2SAT 99
[2020-08-31] MEDS: 0.9 % Sodium Chloride Flush 3 ML SYRINGE IVFLUSH ×2 (16:25→23:42)
[2020-08-31] MEDS: oxyCODONE HCl Immed Release 5 MG TABLET PO (16:33)
[2020-08-31 23:57] VITALS: BP 142/98; PULSE 77; RESP 18; TEMP 36.1; O2SAT 99
[2020-09-01] VITALS (7 sets, daily range): BP systolic 129–143; BP diastolic 78–99; PULSE 72–95; RESP 18–20; TEMP 36.1–36.3; O2SAT 97–98
[2020-09-01] MEDS: Morphine Sulfate 2 MG/ML CARTRIDGE IVPUSH ×4 (06:36→18:29)
[2020-09-01 07:42] LABS: Hematocrit 34.2 % (37-47); Hemoglobin 11.6 g/dl (12.0-16.0); Mean Corpuscular HGB Conc 33.9 g/dl (31.0-35.0); Mean Corpuscular Hemoglobin 30.4 pg (27.0-33.0); Mean Corpuscular Volume 89.8 fL (80-98); Mean Platelet Volume 9.7 fL (9.4-12.3); Platelet Count 266 X10*3/uL (160-400); Red Blood Count 3.81 X10*6/uL (4.20-5.50); Red Cell Distribution Width 13.3 % (11.0-16.0); White Blood Count 6.8 X10*3/uL (4.8-10.8)
[2020-09-01] MEDS: 0.9 % Sodium Chloride Flush 3 ML SYRINGE IVFLUSH ×3 (08:25→22:01)
[2020-09-01] MEDS: Dicyclomine HCl 10 MG CAPSULE PO ×3 (08:25→16:17)
[2020-09-01] MEDS: Amphetamine Mixed Salts 10 MG TABLET PO (08:25)
[2020-09-01] MEDS: Loperamide HCl 2 MG CAPSULE PO ×2 (08:28→14:39)
[2020-09-01 08:50] LABS: Blood Urea Nitrogen 7 mg/dL (9-16); Calcium 8.5 mg/dL (8.4-10.2); Creatinine Clr Calc Pharmacy 127.4; Estimated Glomerular Filt Rate > 60; Glucose Fasting 86 mg/dL (60-99)
[2020-09-01 09:15] LABS: Anion Gap 11 (12-20); Carbon Dioxide 24 mmol/L (22-29); Chloride 108 mmol/L (96-108); Potassium 4.2 mmol/L (3.3-5.1); Sodium 139 mmol/L (135-145)
--- NOTE | 2020-09-01 11:55 | P.PNIM_ITS ---
Subjective Subjective Date of Service: 09/01/20 Interval History: still with diarrhea Cardiovascular Cardiovascular: Reports no additional cardiovascular complaints Gastrointestinal Gastrointestinal: Reports no additional gastrointestinal complaints Physical Exam Vital Signs: Vital Signs: Last Vital Signs Temp 97.3 F 09/01/20 07:59 Pulse 95 09/01/20 07:59 Resp 18 09/01/20 07:59 BP 129/78 09/01/20 07:59 Pulse Ox 98 09/01/20 07:59 Body Mass Index 32.9 General: AO X 3, no acute distress Resp: CTA bilateral CVS: S1,S2,RRR GI: soft, non tender, non distended Neuro: motor grossly intact Psych: appropriate affect Objective Data Current Medications Generic Name Dose Route Start Last Admin Trade Name Freq PRN Reason Stop Dose Admin Amphetamine/Dextroamphetamine 10 mg 08/30/20 09:00 09/01/20 08:25 Amphetamine Mixed Salts 10 Mg Tablet PO 10 mg DAILY BRADY Administration Dicyclomine HCl 10 mg 08/30/20 16:30 09/01/20 08:25 Dicyclomine Hcl 10 Mg Capsule PO 10 mg TIDAC BRADY Administration Furosemide 20 mg 08/29/20 17:28 Furosemide 20 Mg Tablet PO DAILY PRN Edema Protocol Hydroxyzine HCl 10 mg 08/29/20 17:28 08/31/20 11:22 Hydroxyzine Hcl 10 Mg Tablet PO 10 mg Q8H PRN Administration anxiety Ceftriaxone Sodium 1 gm/ 50 mls @ 100 mls/hr 08/31/20 22:00 08/31/20 21:44 Sodium Chloride IV Infused Q24H BRADY Infusion Loperamide HCl 2 mg 08/31/20 07:18 09/01/20 08:28 Loperamide Hcl 2 Mg Capsule PO 2 mg Q6H PRN Administration diarrhea Morphine Sulfate 2 mg 08/29/20 17:28 09/01/20 10:31 Morphine Sulfate 2 Mg/Ml Cartridge IVPUSH 2 mg Q3H PRN Administration pain Non-Formulary Medication 9 mg 08/30/20 09:00 Budesonide PO DAILY BRADY Non-Formulary Medication 1 cap 08/30/20 09:00 Dextroamphetamine-Amphetamine PO DAILY BRADY Ondansetron HCl 4 mg 08/31/20 11:28 08/31/20 11:37 Ondansetron Hcl 4 Mg/2 Ml Vial IVPUSH 4 mg Q6H PRN Administration nausea Oxycodone HCl 5 mg 08/29/20 17:28 08/31/20 16:33 Oxycodone Hcl Immed Release 5 Mg Tablet PO 5 mg Q8H PRN Administration pain Pharmacy Consult 1 each 08/29/20 14:25 Consult Rx Perform Med Rec MISCELLANE ONCE PRN Consult order Sodium Chloride 3 ml 08/29/20 17:28 09/01/20 08:25 0.9 % Sodium Chloride Flush 3 Ml Syringe IVFLUSH 3 ml QSHIFT BRADY Administration Vedolizumab 300 mg 08/29/20 17:28 Vedolizumab 300 Mg/5 Ml Vial IV Q8W [facility] Labs CBC & Chem 7: 09/01/20 07:00 09/01/20 07:00 Labs: Laboratory Results - last 24 hr 09/01/20 09/01/20 07:00 07:00 WBC 6.8 RBC 3.81 L Hgb 11.6 L Hct 34.2 L MCV 89.8 MCH 30.4 MCHC 33.9 RDW 13.3 Plt Count 266 MPV 9.7 Absolute Nucleated RBC 0.000 Nucleated RBC % (auto) 0.0 Sodium 139 Potassium 4.2 D Chloride 108 Carbon Dioxide 24 Anion Gap 11 L BUN 7 L D Creatinine 0.61 Estim Creat Clear Calc 127.4 Estimated GFR > 60 Fasting Glucose 86 Calcium 8.5 D Microbiology Microbiology Results: Microbiology 08/29/20 10:54 Blood Culture - Preliminary Blood - Venous Gram negative fernanda 08/30/20 16:25 Stool Culture - Preliminary Stool Normal so far. 08/29/20 10:54 Blood Culture - Preliminary Blood - Venous No growth after 48 hours. Quality Stroke Does the patient have a stroke diagnosis?: No VTE Prior VTE?: No VTE Risk Level:: Medical - low VTE Device Contraindication: Treatment Not Indicated VTE Drug Contraindication: Treatment Not Indicated Assessment and Plan (1) Abdominal pain: Status: Acute Assessment and Plan: 35F presented with abdominal pain, now with gnr in blood crohns flare with GNR bacteremia ceftriaxone follow up cultures, ID cdif negative - imodium continue morphine gi following hold off on entyvio for now steatohepatitis weight loss ADHD adderal
--- NOTE | 2020-09-01 12:14 | P.PNGI_ITS ---
Subjective Subjective Date of Service: 09/01/20 Interval History: seems more relaxed today abdomen soft but occ pain left lwoer side no vomiting passing gas BC x 1 pos for GNR c/o diarrhea Critical Care Time (minutes): 15 Physical Exam Vital Signs: Vital Signs: Last Vital Signs Temp 97.3 F 09/01/20 07:59 Pulse 95 09/01/20 07:59 Resp 18 09/01/20 07:59 BP 129/78 09/01/20 07:59 Pulse Ox 98 09/01/20 07:59 Body Mass Index 32.9 EXAM: GENERAL: The patient is well developed and nontoxic, obese VITAL SIGNS:see workflow HEENT: Nonicteric sclerae, PERRLA, EOMI. Oropharynx clear. Moist mucous membranes. Conjunctivae appear well perfused. No thyroid mass. CHEST: Chest wall is nontender. HEART: Regular rate and rhythm without murmurs. LUNGS: Clear to auscultation bilaterally. ABDOMEN: Soft, positive bowel sounds, nontender, no organomegaly.no flank tenderness SKIN: No rash, no excessive bruising, petechiae, or purpura. NEUROLOGIC: Cranial nerves II-XII intact without motor/sensory deficit. Psych--appropriate affect Objective Data Labs CBC & Chem 7: 09/01/20 07:00 09/01/20 07:00 Labs: Laboratory Results - last 24 hr 09/01/20 09/01/20 07:00 07:00 WBC 6.8 RBC 3.81 L Hgb 11.6 L Hct 34.2 L MCV 89.8 MCH 30.4 MCHC 33.9 RDW 13.3 Plt Count 266 MPV 9.7 Absolute Nucleated RBC 0.000 Nucleated RBC % (auto) 0.0 Sodium 139 Potassium 4.2 D Chloride 108 Carbon Dioxide 24 Anion Gap 11 L BUN 7 L D Creatinine 0.61 Estim Creat Clear Calc 127.4 Estimated GFR > 60 Fasting Glucose 86 Calcium 8.5 D Microbiology Microbiology Results: Microbiology 08/29/20 10:54 Blood - Venous Blood Culture - Preliminary Gram negative fernanda 08/30/20 16:25 Stool Stool Culture - Preliminary Normal so far. 08/29/20 10:54 Blood - Venous Blood Culture - Preliminary No growth after 48 hours. Progress Note: A&P Assessment and plan (1) IBD (inflammatory bowel disease): Status: Acute Assessment and Plan: 1/ Chronic recurrent abdominal pain with prior imaging revealing different areas of bowel inflammation with presumptive dx of remitting and relapsing crohns disease. She just commenced enyvio and now presented again with abdo pain and BC with GNR. She has ongoing diarrhea, intolerant to steroids PLAN: 1/ Await culture results, will hold on entyvio for 1-2 weeks. Entyvio can increase risk of enteric infections so maybe related to this presentation 2/ meantime can use lomotil or imodium for diarrhea symptoms. Fall Risk Details Current Medications: Current Medications Generic Name Dose Route Start Last Admin Trade Name Freq PRN Reason Stop Dose Admin Amphetamine/Dextroamphetamine 10 mg 08/30/20 09:00 09/01/20 08:25 Amphetamine Mixed Salts 10 Mg Tablet PO 10 mg DAILY BRADY Administration Dicyclomine HCl 10 mg 08/30/20 16:30 09/01/20 08:25 Dicyclomine Hcl 10 Mg Capsule PO 10 mg TIDAC BRADY Administration Furosemide 20 mg 08/29/20 17:28 Furosemide 20 Mg Tablet PO DAILY PRN Edema Protocol Hydroxyzine HCl 10 mg 08/29/20 17:28 08/31/20 11:22 Hydroxyzine Hcl 10 Mg Tablet PO 10 mg Q8H PRN Administration anxiety Ceftriaxone Sodium 1 gm/ 50 mls @ 100 mls/hr 08/31/20 22:00 08/31/20 21:44 Sodium Chloride IV Infused Q24H BRADY Infusion Loperamide HCl 2 mg 08/31/20 07:18 09/01/20 08:28 Loperamide Hcl 2 Mg Capsule PO 2 mg Q6H PRN Administration diarrhea Morphine Sulfate 2 mg 08/29/20 17:28 09/01/20 10:31 Morphine Sulfate 2 Mg/Ml Cartridge IVPUSH 2 mg Q3H PRN Administration pain Non-Formulary Medication 9 mg 08/30/20 09:00 Budesonide PO DAILY BRADY Non-Formulary Medication 1 cap 08/30/20 09:00 Dextroamphetamine-Amphetamine PO DAILY BRADY Ondansetron HCl 4 mg 08/31/20 11:28 08/31/20 11:37 Ondansetron Hcl 4 Mg/2 Ml Vial IVPUSH 4 mg Q6H PRN Administration nausea Oxycodone HCl 5 mg 08/29/20 17:28 08/31/20 16:33 Oxycodone Hcl Immed Release 5 Mg Tablet PO 5 mg Q8H PRN Administration pain Pharmacy Consult 1 each 08/29/20 14:25 Consult Rx Perform Med Rec MISCELLANE ONCE PRN Consult order Sodium Chloride 3 ml 08/29/20 17:28 09/01/20 08:25 0.9 % Sodium Chloride Flush 3 Ml Syringe IVFLUSH 3 ml QSHIFT BRADY Administration Vedolizumab 300 mg 08/29/20 17:28 Vedolizumab 300 Mg/5 Ml Vial IV Q8W [facility] Time Spent With Patient Time: Total time spent is greater than 50% in coordination of care (as documented) at patient's floor/unit and/or counseling patient: Time with patient: 15 - 24 minutes Procedures Date of Service Date of Service: 09/01/20 Quality Stroke Does the patient have a stroke diagnosis?: No VTE Prior VTE?: No VTE Risk Level:: Medical - low VTE Device Contraindication: Treatment Not Indicated VTE Drug Contraindication: Treatment Not Indicated
[2020-09-01] MEDS: oxyCODONE HCl Immed Release 5 MG TABLET PO ×2 (12:19→22:00)
--- NOTE | 2020-09-01 12:26 | W.PM.IDCN ---
History of Present Illness Data of Consult Service Date: 09/01/20 Requesting physician: Ruben Steele Primary Care Provider: JONATHAN Pineda Reason for consult: bacteremia She presents with LLQ pain 7/10 as well as cramps and diarrhea for three days. She has Crohns disease and feels like exacerbation She is concerned about Entyvio restart,wants to. Review of Systems Review of Systems: Yes all other systems are reviewed and are negative PMFSH Past Medical History Medical History Acute Crohn's disease Asthma Crohn's colitis Diarrhea Screening for diabetes mellitus (DM) Screening for hypothyroidism Screening for hypothyroidism TMJ (dislocation of temporomandibular joint) Family History Family History Father No problems noted. Mother Thyroid cancer Stomach cancer Family/Other Diabetes Family history: reviewed and not pertinent Surgical History Surgical History History of appendectomy History of colonoscopy History of hysterectomy Hx of endoscopy Social History Social History Household Members: None Housing: Condominium Do you presently have visiting nurse or other home services: No Alcohol intake: current Alcohol intake frequency: a few times a week Patient Tobacco Use Status: Current everyday Tobacco user Tobacco use type: Cigarette Cigarettes Per Day: 1 Years Smoked: 20 Smoked in Last 30 Days: Yes e-Cigarette/Vaping Use: Currently Using Patient Interested in Nicotine Replacement: No Patient Given Instructions on How to Stop Smoking: Yes Date Education Initiated: 08/29/20 Second Hand Smoke Exposure: No Use of substances other than those prescribed or required for medical reasons: No Currently Displaying Signs/Symptoms of Drug Intoxication Withdrawal: No Have you been hit, kicked, punched, or otherwise hurt by someone within the past year? If so, by whom?: No Do you feel safe in your current relationship?: No Current Relationship Is there a partner from a previous relationship who is making you feel unsafe now?: No Are you made to feel afraid or neglected: No Advance Directives: Yes Advance Directives Information Provided: Yes Advance Directives on File: No Advance Directives Date on File: 08/29/20 Do you have thoughts of harming others: None Do you have a plan to hurt others: No Plan Recently lost weight without trying: No How much weight loss: Not applicable Eating poorly because of decreased appetite: No Nutrition screen score: 0 Nutrition Risks: No Nutritional Risk Patient : No : No Poor oral hygiene: No service: No Current occupational status: employed Meds Allergies Allergy/AdvReac Type Severity Reaction Status Date / Time NSAIDS (Non-Steroidal Allergy Severe BRONCHOSPAS Verified 08/19/20 13:06 Anti-Inflamma M [NSAIDS (NON-STEROIDAL ANTI-INFLAMMA] aspirin [ASA] Allergy Unknown SHORTNESS Verified 08/19/20 13:06 OF BREATH ketorolac [From TORADOL] Allergy Unknown BRONCIAL Verified 08/19/20 13:06 SPASM vancomycin [VANCOMYCIN] Allergy Unknown RASH Verified 08/19/20 13:06 gabapentin [From NEURONTIN] AdvReac Unknown TINGLING Verified 08/19/20 13:06 IN L ARM budesonide AdvReac Muscle Pain Verified 08/19/20 13:06 Bencort Allergy Unknown unknown Uncoded 05/19/20 11:33 Active Medications: Current Medications Generic Name Dose Route Start Last Admin Trade Name Freq PRN Reason Stop Dose Admin Amphetamine/Dextroamphetamine 10 mg 08/30/20 09:00 09/01/20 08:25 Amphetamine Mixed Salts 10 Mg Tablet PO 10 mg DAILY BRADY Administration Dicyclomine HCl 10 mg 08/30/20 16:30 09/01/20 12:14 Dicyclomine Hcl 10 Mg Capsule PO 10 mg TIDAC BRADY Administration Furosemide 20 mg 08/29/20 17:28 Furosemide 20 Mg Tablet PO DAILY PRN Edema Protocol Hydroxyzine HCl 10 mg 08/29/20 17:28 08/31/20 11:22 Hydroxyzine Hcl 10 Mg Tablet PO 10 mg Q8H PRN Administration anxiety Ceftriaxone Sodium 1 gm/ 50 mls @ 100 mls/hr 08/31/20 22:00 08/31/20 21:44 Sodium Chloride IV Infused Q24H BRADY Infusion Loperamide HCl 2 mg 08/31/20 07:18 09/01/20 08:28 Loperamide Hcl 2 Mg Capsule PO 2 mg Q6H PRN Administration diarrhea Morphine Sulfate 2 mg 08/29/20 17:28 09/01/20 10:31 Morphine Sulfate 2 Mg/Ml Cartridge IVPUSH 2 mg Q3H PRN Administration pain Non-Formulary Medication 9 mg 08/30/20 09:00 Budesonide PO DAILY [facility] Non-Formulary Medication 1 cap 08/30/20 09:00 Dextroamphetamine-Amphetamine PO DAILY [facility] Ondansetron HCl 4 mg 08/31/20 11:28 08/31/20 11:37 Ondansetron Hcl 4 Mg/2 Ml Vial IVPUSH 4 mg Q6H PRN Administration nausea Oxycodone HCl 5 mg 08/29/20 17:28 09/01/20 12:19 Oxycodone Hcl Immed Release 5 Mg Tablet PO 5 mg Q8H PRN Administration pain Pharmacy Consult 1 each 08/29/20 14:25 Consult Rx Perform Med Rec MISCELLANE ONCE PRN Consult order Sodium Chloride 3 ml 08/29/20 17:28 09/01/20 08:25 0.9 % Sodium Chloride Flush 3 Ml Syringe IVFLUSH 3 ml QSHIFT [facility] Administration Vedolizumab 300 mg 08/29/20 17:28 Vedolizumab 300 Mg/5 Ml Vial IV Q8W [facility] Home Medications Medication Instructions Recorded Confirmed Last Taken Type hydroxyzine HCl 1 tab PO BEDTIME PRN 07/25/20 08/29/20 Unknown History vedolizumab [Entyvio] 300 mg IV Q2W 08/29/20 08/29/20 08/17/20 History Physical Exam Vital Signs: Vital Signs: Last Vital Signs Temp 97.3 F 09/01/20 07:59 Pulse 95 09/01/20 07:59 Resp 18 09/01/20 07:59 BP 129/78 09/01/20 07:59 Pulse Ox 98 09/01/20 07:59 Body Mass Index 32.9 Const: General: cooperative HENMT: Head: Yes normal to inspection Mouth: Normal oral and palatal mucosa present Resp: Effort & Inspection: normal respiratory effort Cardio: Rate: regular rate Rhythm: regular rhythm GI: Palpation (GI): Soft to palpation and Tenderness to palpation present (GI) in the LLQ Results Labs CBC & Chem 7: 09/01/20 07:00 09/01/20 07:00 Labs: Short CBC 09/01/20 Range/Units 07:00 WBC 6.8 (4.8-10.8) X10*3/uL Hgb 11.6 L (12.0-16.0) g/dl Hct 34.2 L (37-47) % Plt Count 266 (160-400) X10*3/uL BMP 09/01/20 07:00 Sodium 139 Potassium 4.2 D Chloride 108 Carbon Dioxide 24 BUN 7 L D Creatinine 0.61 Calcium 8.5 D Microbiology Microbiology Results: Microbiology 08/29/20 10:54 Blood - Venous Blood Culture - Preliminary Gram negative fernanda 08/30/20 16:25 Stool Stool Culture - Preliminary Normal so far. 08/29/20 10:54 Blood - Venous Blood Culture - Preliminary No growth after 48 hours. Assessment and Plan (1) Abdominal pain: Status: Acute Concern over bacteremia May be contaminant versus real This may be Crohns exacerbation Suggest Continue Ceftriaxone or Levaquin until blood culture ID If ID is problematic ,may be more likely contaminant and will hold antibiotics based on results (2) Nausea & vomiting: Status: Acute
--- NOTE | 2020-09-01 13:38 | MHC.CM.PN ---
EMR REVIEWED, STILL AWAITING FINAL BLOOD CULTURE RESULTS TO DETERMINE ABX TX FRO BACTEREMIA, NO PLAN FOR D/C TODAY, CM WILL CONT TO MONITOR D/C NEEDS.
[2020-09-01] MEDS: HYDROmorphone HCl 0.5 MG/0.5 ML SYRINGE IVPUSH (19:43)
[2020-09-01] MEDS: cefTRIAXone sodium 1 GM in 0.9 % Sodium Chloride 50 ML IV (22:01)
[2020-09-02 00:42] VITALS: RESP 18
[2020-09-02] MEDS: Morphine Sulfate 2 MG/ML CARTRIDGE IVPUSH ×2 (00:42→06:33)
[2020-09-02] MEDS: hydrOXYzine HCL 10 MG TABLET PO (00:42)
[2020-09-02 06:33] VITALS: RESP 18
[2020-09-02 08:00] VITALS: BP 132/79; PULSE 73; RESP 18; TEMP 37.3; O2SAT 100
[2020-09-02] MEDS: Amphetamine Mixed Salts 10 MG TABLET PO (08:28)
[2020-09-02] MEDS: Dicyclomine HCl 10 MG CAPSULE PO (08:28)
[2020-09-02] MEDS: 0.9 % Sodium Chloride Flush 3 ML SYRINGE IVFLUSH (08:29)
--- NOTE | 2020-09-02 09:20 | PM.DS ---
DS: Providers Provider Date of Service: 09/02/20 Date of admission: 08/29/20 14:43 Primary care physician: Kike Irby PA-C Consults: 08/29/20 17:28 Consult to Gastroenterology Routine Consulting Provider: Marin Devlin Reason for consultation: crohns flare 09/01/20 09:12 Consult to Infectious Diseases Routine Consulting Provider: Milagro Camacho Reason for consultation: GNR bacteremia, ?GI source DS: Diagnosis Discharge Diagnosis (1) IBD (inflammatory bowel disease): Status: Acute DS: Medications Discharge Medications Home Medications: Home Medications Medication Instructions Recorded Confirmed hydroxyzine HCl 1 tab PO BEDTIME PRN 07/25/20 08/29/20 Entyvio 300 mg IV Q2W 08/29/20 08/29/20 Previous Rx's Medication Instructions Recorded budesonide 3 mg 9 mg PO DAILY #90 cap 08/18/20 capsule,delayed,extended release dextroamphetamine-amphetamine 10 10 mg PO DAILY 30 Days #30 tab 08/30/20 mg tablet dextroamphetamine-amphetamine ER 1 cap PO QAM 30 Days #30 cap 08/30/20 20 mg 24hr capsule,extend release oxycodone 5 mg tablet 5 mg PO Q8H PRN 4 Days #12 tab 08/30/20 dicyclomine 10 mg PO TIDAC #90 cap 09/02/20 levofloxacin 500 mg PO DAILY #10 tab 09/02/20 DS: Summary Hospital Course Hospital Course: patient was admitted for crohns flare. she was treated with morphine, bentyl, and imodium, IV steroids were not given due to previous adverse reaction. cdif was negative, blood cultures grew sphongomonous paucimobolis. ID recommended 10 days levaquin. patient has had some improvement in symptoms and will be discharged home on bentyl and levaquin. she will follow up with GI- Dr. Schmid to reschedule Entyvio dose. Time Spent with Patient Time attestation: Total time spent providing and/or coordinating discharge services: Discharge coordination time: Greater than 30 minutes Quality: Stroke Does the patient have a stroke diagnosis?: No Physical Exam Vital Signs: Vital Signs: Last Vital Signs Temp 99.2 F 09/02/20 08:00 Pulse 73 09/02/20 08:00 Resp 18 09/02/20 08:00 BP 132/79 09/02/20 08:00 Pulse Ox 100 09/02/20 08:00 Body Mass Index 32.9 General: AO X 3, no acute distress Resp: CTA bilateral CVS: S1,S2,RRR GI: soft, non tender, non distended Neuro: motor grossly intact Psych: appropriate affect DS: Data Data Completed and Pending Labs on day of discharge: Preliminary micro results at discharge 08/29/20 10:54 Blood Culture - Preliminary Blood - Venous Gram negative fernanda 08/29/20 10:54 Blood Culture - Preliminary Blood - Venous No growth after 48 hours. Discharge Plan Discharge Patient Disposition: Home, Self-Care Discharge Diagnosis: crohns flare Referrals: Kike Irby PA-C [Primary Care Provider] - 1 Week Discharge Medications: New dicyclomine 10 mg Capsule 10 mg PO TIDAC Qty: 90 RF: 0 levofloxacin 500 mg tablet 500 mg PO DAILY Qty: 10 RF: 0 Continued budesonide 3 mg capsule,delayed,extend.release 9 mg PO DAILY Qty: 90 RF: 1 oxycodone 5 mg tablet 5 mg PO Q8H PRN (Reason: pain) 4 Days Qty: 12 RF: 0 dextroamphetamine-amphetamine 10 mg tablet 10 mg PO DAILY 30 Days Qty: 30 RF: 0 dextroamphetamine-amphetamine 20 mg capsule,extended release 24hr 1 cap PO QAM 30 Days Qty: 30 RF: 0 hydroxyzine HCl 10 mg tablet 1 tab PO BEDTIME PRN (Reason: Sleep) RF: 0 Entyvio 300 mg recon soln 300 mg IV Q2W RF: 0 Discharge Orders: Discharge Order (Routine); Ordered 09/02/20 Ordered By: Ruben Steele Diet: advance to usual diet Activity on Discharge: As tolerated Stand Alone Forms: Patient Portal Discharge page Care Plan Goals: recovery Health Concerns: crohns, sphingomonous paucimobolis in blood Plan of Treatment: gustavo, 10 days of levngoc, follow up with dr schmid Assessment: see above
--- NOTE | 2020-09-02 10:14 | MHC.CM.PN ---
NURSE ASBESTOS REMOVER NOTE PATIENT IS BEING DISCHARGED HOME TODAY WITH ORAL ANTIBIOTICS, NO SERVICES PCP INSTRUCTED HER TO CALL HER PC FOR [facility] DISCHARGE FOLLOW UP TRANSPORTATION FAMILY
== END 2020-09-02 10:51 | disposition home or self-care (01) | DRG 245 ==
LOC: HO.ED 14:52 → HO.EDOVER 15:33 → HO.S3 16:07
PROVIDERS: Internal Medicine Gastroenterology; Physician Assistant Medical; Admitting Provider Internal Medicine; Emergency Provider Emergency Medicine; PCP Physician Assistant; Visit Provider Internal Medicine
DX: K50.90 Crohn's disease, unspecified, without complications (principal); R78.81 Bacteremia; K75.81 Nonalcoholic steatohepatitis (NASH); F17.210 Nicotine dependence, cigarettes, uncomplicated; F90.9 Attention-deficit hyperactivity disorder, unspecified type; Z20.822 Contact with and (suspected) exposure to COVID-19; Z71.6 Tobacco abuse counseling; Z88.6 Allergy status to analgesic agent; Z79.899 Other long term (current) drug therapy
CPT/HCPCS: 36415; 74177; 80048; 80053; 81001; 83605; 83735; 84702; 85025; 85027; 85610; 86140; 87040; 87045; 87046; 87077; 87205; 87493; 87635; 89055; 99284; J0696; J1170; J2270; J2405; J2543; Q9967

== ENCOUNTER 2020-12-17 12:21 | Emergency (ER) | payer OTHER, SELFPAY ==
--- NOTE | ~2020-12-17 | XR_ITS ---
EXAMINATION: XR CHEST CLINICAL INFORMATION: Shortness of breath. Covid positive. COMPARISON: Previous chest x-ray March 2013 TECHNIQUE: Frontal view of the chest was obtained. FINDINGS: No significant abnormality is noted involving the heart, lungs, mediastinum, bony thorax or soft tissues. XR/XR chest 1V IMPRESSION: Unremarkable examination.
[2020-12-17 13:09] VITALS: O2SAT 98
[2020-12-17 13:39] VITALS: BP 165/94; PULSE 90; RESP 18; TEMP 38; O2SAT 100; BMI 28.3
--- NOTE | 2020-12-17 13:51 | ED_ITS ---
HPI - URI/Sore Throat General Chief Complaint: Upper Respiratory Symptoms Stated Complaint: Covid + Time Seen by Provider: 12/17/20 13:21 Source: patient Mode of arrival: ambulatory Limitations: no limitations History of Present Illness HPI Narrative: 35-year-old female who was tested positive for COVID-1 today presents to the ER with congestion, dry cough, intermittent fevers and chills, and diffuse body aches. She reports being tested positive at [facility] urgent care earlier this morning. She was advised to come to the emergency room if her symptoms worsen. This initially got home her symptoms worsened. She reports everything from her head down to her toenails hurts. She has a terrible headache. She has not taken any medication for her pains. She has a dry cough but no shortness of breath or dyspnea on exertion. She has no nausea or vomiting. She has been tolerating p.o. well. She lives at home alone. She reports her worst symptom is her diffuse body aches. Her symptoms started yesterday. MD elicited complaint: fever, cough, nasal congestion and other (body aches) Onset (ago): day(s) (1) Consistency: constant Severity: severe Able to tolerate fluids by mouth: Yes Exacerbating factors: exertion Relieving factors: nothing Associated symptoms: fever, chills, myalgias, headache, nasal congestion and cough Treatments prior to arrival: none Related Data Home Medications Medication Instructions Recorded Confirmed vedolizumab 300 mg intravenous 300 mg IV Q2W 08/29/20 12/10/20 solution (Entyvio) Previous Rx's Medication Instructions Recorded dicyclomine 10 mg capsule 10 mg PO TIDAC #90 cap 09/02/20 ondansetron 4 mg disintegrating 4 mg PO Q8H PRN #14 tab 09/03/20 tablet cyclobenzaprine 10 mg tablet 10 mg PO TID PRN 10 Days #30 tab 10/24/20 hydroxyzine HCl 10 mg tablet 10 mg PO Q8H PRN #90 tab 11/20/20 dextroamphetamine-amphetamine 10 10 mg PO DAILY 30 Days #30 tab 11/24/20 mg tablet dextroamphetamine-amphetamine ER 1 cap PO QAM 30 Days #30 cap 11/24/20 20 mg 24hr capsule,extend release tramadol 50 mg tablet 50 mg PO BID 5 Days #10 tab 11/24/20 quetiapine 25 mg tablet (Seroquel) 25 mg PO BEDTIME 30 Days #30 tab 12/10/20 sertraline 50 mg tablet (Zoloft) 50 mg PO DAILY 30 Days #30 tab 12/10/20 Allergies Allergy/AdvReac Type Severity Reaction Status Date / Time NSAIDS (Non-Steroidal Allergy Severe BRONCHOSPAS Verified 12/17/20 13:32 Anti-Inflamma M [NSAIDS (NON-STEROIDAL ANTI-INFLAMMA] aspirin [ASA] Allergy Unknown SHORTNESS Verified 12/17/20 13:32 OF BREATH ketorolac [From TORADOL] Allergy Unknown BRONCIAL Verified 12/17/20 13:32 SPASM vancomycin [VANCOMYCIN] Allergy Unknown RASH Verified 12/17/20 13:32 gabapentin [From NEURONTIN] AdvReac Unknown TINGLING Verified 12/17/20 13:32 IN L ARM budesonide AdvReac Muscle Pain Verified 12/17/20 13:32 Bencort Allergy Unknown unknown Uncoded 05/19/20 11:33 Review of Systems Review of Systems: Constitutional: + Fever, + Chills ENT/Mouth: + sore throat, + Rhinorrhea, No Swallowing Difficulty Cardiovascular: + Chest Pain, No SOB, No Orthopnea, No Edema Respiratory: + Cough, No Sputum, No Wheezing, No dyspnea Gastrointestinal: No Nausea, No Vomiting, No Diarrhea, No abdominal Pain Musculoskeletal: + joint pain, + Myalgias Skin: No Skin Lesions, No rash Neuro: No Weakness, No Numbness, No Dizziness, No Headache Psych: + Anxiety/Panic, No Depression Heme/Lymph: No Bruising, No Lymphadenopathy PMFSH Past Medical History Medical History Acute Crohn's disease Asthma Crohn's colitis Diarrhea Screening for diabetes mellitus (DM) Screening for hypothyroidism Screening for hypothyroidism TMJ (dislocation of temporomandibular joint) Surgical History History of appendectomy History of colonoscopy History of hysterectomy Hx of endoscopy Family History Family History Father Mental health disorder Mother Thyroid cancer Stomach cancer Substance use disorder Mental health disorder Family/Other Diabetes Social History Social History Household Members: None Housing: Condominium Do you presently have visiting nurse or other home services: No Alcohol intake: current Alcohol intake frequency: a few times a week Patient Tobacco Use Status: Current everyday Tobacco user Tobacco use type: Cigarette Cigarettes Per Day: 1 Years Smoked: 20 e-Cigarette/Vaping Use: Currently Using Second Hand Smoke Exposure: No Advance Directives: Yes Advance Directives on File: Yes Advance Directives Date on File: 08/29/20 Patient : No service: No Current occupational status: employed Physical Exam Vital Signs: Vital Signs: Last Vital Signs Temp 100.4 F 12/17/20 13:39 Pulse 90 12/17/20 13:39 Resp 18 12/17/20 13:39 BP 165/94 H 12/17/20 13:39 Pulse Ox 100 12/17/20 13:39 Body Mass Index 28.3 Appearance: Alert. Oriented X3. Curled up in a ball on the recliner. Eyes: Normal external inspection. ENT: Pharynx normal. Neck: Normal inspection. Neck supple. CVS: Normal heart rate and rhythm. Pulses normal. Respiratory: No respiratory distress. Breath sounds normal. Skin: Skin warm and dry. Normal skin color. Normal skin turgor. No rashes. Extremities: No lower extremity edema. Neuro: Oriented X 3. Nonfocal. Course Course Course Narrative: 35-year-old female presents with COVID symptoms after being diagnosed with COVID today. She has minimal shortness of breath and no difficulty breathing. Her vital signs are normal. Her oxygen saturation is 100%. Her lung sounds are clear. She has not taken anything for her diffuse body aches. She reports being allergic to Motrin, Tylenol has been ordered. Chest x-ray has been ordered. Reevaluation(s) Reevaluation #1: Chest x-ray is clear. Patient was counseled on symptomatic management and warning signs and symptoms return to the ER for urgent evaluation. She is stable for discharge home for self quarantine. Discharge Plan Discharge Clinical Impression: COVID-19 Patient Disposition: Home, Self-Care Instructions: Covid-19 Viral Syndrome and Novel Coronavirus (ED) Hey/Ath Additional Instructions: You were found to be COVID-19 POSITIVE today. Your chest x-ray and oxygen levels were normal. Rest. Drink plenty of fluids. Do not go out in public for the next 10 days. Take over the counter cold/flu medications as needed for your symptoms. Take Tylenol as needed for fevers and body aches. 975 mg every 6 hours. Follow up with your doctor this week. If you shortness of breath worsens , if you develop difficulty breathing or any other concerning symptom come back to the ER for further evaluation. Prescriptions: No Action ondansetron 4 mg tablet,disintegrating 4 mg PO Q8H PRN (Reason: nausea and vomiting) Qty: 14 RF: 0 hydroxyzine HCl 10 mg tablet 10 mg PO Q8H PRN (Reason: for anxiety) Qty: 90 RF: 2 tramadol 50 mg tablet 50 mg PO BID 5 Days Qty: 10 RF: 0 dextroamphetamine-amphetamine 10 mg tablet 10 mg PO DAILY 30 Days Qty: 30 RF: 0 dextroamphetamine-amphetamine 20 mg capsule,extended release 24hr 1 cap PO QAM 30 Days Qty: 30 RF: 0 Entyvio 300 mg recon soln 300 mg IV Q2W RF: 0 dicyclomine 10 mg Capsule 10 mg PO TIDAC Qty: 90 RF: 0 sertraline [Zoloft] 50 mg tablet 50 mg PO DAILY 30 Days Qty: 30 RF: 3 quetiapine [Seroquel] 25 mg tablet 25 mg PO BEDTIME 30 Days Qty: 30 RF: 0 cyclobenzaprine 10 mg tablet 10 mg PO TID PRN (Reason: muscle spasm) 10 Days Qty: 30 RF: 0 Stand Alone Forms: Work/School Release
== END 2020-12-17 15:00 | disposition home or self-care (01) ==
PROVIDERS: Emergency Provider Internal Medicine; PCP Physician Assistant
DX: U07.1 COVID-19 (principal); J45.909 Unspecified asthma, uncomplicated
CPT/HCPCS: 71045; 99283

== ENCOUNTER 2021-02-09 11:08 | Emergency (ER) | payer OTHER, SELFPAY ==
--- NOTE | ~2021-02-09 | CT_ITS ---
EXAMINATION: CT ABDOMEN AND PELVIS WITH CONTRAST CLINICAL INFORMATION: Diarrhea, history of Crohn's COMPARISON: 08/29/2020 CT abdomen pelvis TECHNIQUE: Multidetector volumetric images were obtained from the superior aspect of the liver through the pubic symphysis following administration 85 mL of Omnipaque 350 intravenous contrast. Sagittal and coronal reformatted images were obtained on the technologist's workstation. Oral contrast: No This CT examination was performed using dose optimization techniques as appropriate, variously including the following: *Automated exposure control *Adjustment of mA and/or kV according to patient size (this includes techniques or standardized protocols for targeted exams where dose is matched to indication/reason for exam; i.e. extremities or head) *Use of iterative reconstruction technique DLP: 556 mGy-cm FINDINGS: LUNG BASES: The visualized lung bases are unremarkable. LIVER, GALLBLADDER, AND BILIARY TREE: The liver is normal in size, shape, and attenuation. No focal hepatic lesion or biliary ductal dilatation is present. The gallbladder is unremarkable with no evidence of radiopaque gallstones, gallbladder wall thickening, or obvious pericholecystic inflammatory changes. PANCREAS: Unremarkable. SPLEEN: Unremarkable. ADRENAL GLANDS: Unremarkable. KIDNEYS AND URETERS: The kidneys are normal in size, shape, and attenuation. No hydronephrosis, hydroureter, or calculi seen. No perinephric stranding. BLADDER: Unremarkable. GASTROINTESTINAL TRACT: Terminal ileum is decompressed with limits evaluation for wall thickening however this is no jody hyperenhancement. Otherwise, no jody bowel wall thickening. No fistula or abscess. Surgical clips in the region of the appendix. ABDOMINAL WALL: Unremarkable LYMPH NODES: Unremarkable VASCULAR: Unremarkable. PELVIC VISCERA: Unremarkable. OSSEOUS STRUCTURES: Unremarkable. CT/CT abdomen pelvis w con IMPRESSION: Terminal ileum is decompressed with limits evaluation for wall thickening however this is no jody hyperenhancement. Otherwise, no jody bowel wall thickening. No fistula or abscess.
--- NOTE | 2021-02-09 13:05 | PC.NURSE ---
PT NOT IN WR AT 1245. CAME BACK IN FROM OUTSIDE
[2021-02-09 13:45] VITALS: BP 129/79; PULSE 92; RESP 18; O2SAT 96; BMI 29.2
--- NOTE | 2021-02-09 15:28 | ED_ITS ---
HPI - Abdominal Pain General Chief Complaint: Abdominal Pain Stated Complaint: Crohns flare Time Seen by Provider: 02/09/21 15:28 Source: patient Mode of arrival: ambulatory Limitations: no limitations History of Present Illness HPI narrative: patient is known to have Crohns disease, today have constant diarrhea with nausea. Not bloody. MD elicited complaint: abdominal pain Pertinent past history: other (crohns) Onset (ago): day(s) Pain Consistency: constant Associated symptoms: nausea, vomiting and diarrhea Related Data Home Medications Medication Instructions Recorded Confirmed vedolizumab 300 mg intravenous 300 mg IV Q2W 08/29/20 02/04/21 solution (Entyvio) Previous Rx's Medication Instructions Recorded dicyclomine 10 mg capsule 10 mg PO TIDAC #90 cap 09/02/20 sertraline 50 mg tablet (Zoloft) 50 mg PO DAILY 30 Days #30 tab 12/10/20 albuterol sulfate 90 mcg/actuation 1 inh INHALATION QID 30 Days #8.5 g 12/18/20 aerosol inhaler (Ventolin HFA) [id number]-[id number] 1 tab PO Q6H PRN 3 Days #12 tab 12/18/20 50 mg-325 mg-40 mg tablet dextroamphetamine-amphetamine 10 10 mg PO DAILY 30 Days #30 tab 01/20/21 mg tablet (Adderall) dextroamphetamine-amphetamine ER 20 mg PO DAILY 30 Days #30 cap 01/22/21 20 mg 24hr capsule,extend release (Adderall XR) loperamide 2 mg tablet 2 mg PO Q6H PRN #20 tab 02/09/21 ondansetron 4 mg disintegrating 4 mg PO Q8H PRN #14 tab 02/09/21 tablet tramadol 50 mg tablet 50 mg PO BID 5 Days #10 tab 02/09/21 Allergies Allergy/AdvReac Type Severity Reaction Status Date / Time NSAIDS (Non-Steroidal Allergy Severe BRONCHOSPAS Verified 02/04/21 14:38 Anti-Inflamma M [NSAIDS (NON-STEROIDAL ANTI-INFLAMMA] aspirin [ASA] Allergy Unknown SHORTNESS Verified 02/04/21 14:38 OF BREATH ketorolac [From TORADOL] Allergy Unknown BRONCIAL Verified 02/04/21 14:38 SPASM vancomycin [VANCOMYCIN] Allergy Unknown RASH Verified 02/04/21 14:38 gabapentin [From NEURONTIN] AdvReac Unknown TINGLING Verified 02/04/21 14:38 IN L ARM budesonide AdvReac Muscle Pain Verified 02/04/21 14:38 Bencort Allergy Unknown unknown Uncoded 05/19/20 11:33 Review of Systems Constitutional: Reports no additional constitutional complaints Eyes: Reports no additional eye complaints Denies dizziness Cardiovascular: Reports no additional cardiovascular complaints Respiratory: Reports as per HPI Gastrointestinal: Reports no additional gastrointestinal complaints Genitourinary: Reports no additional female genitourinary complaints Musculoskeletal: Reports no additional musculoskeletal complaints Skin/Breast: Denies rash Reports system reviewed and no additional complaints, except as documented, Denies dizziness and Denies Sensory deficit (Neuro) Psychiatric: Denies anxiety Physical Exam Vital Signs: Vital Signs: Last Vital Signs Temp 99.1 F 02/09/21 18:15 Pulse 84 02/09/21 18:15 Resp 20 02/09/21 18:15 BP 138/86 02/09/21 18:15 Pulse Ox 100 02/09/21 18:15 BMI result Body Mass Index 29.2 Const: General: healthy appearing Nutritional Appearance: average body habitus Orientation/consciousness: oriented to person and patient oriented x3 Limitations: no limitations HENMT: Head: Yes normal to inspection Ears: external ears normal General nose exam: Normal external nose present Mouth: Normal oral and palatal mucosa present and oropharynx normal Throat: Yes posterior oropharynx normal Eyes: General: appearance normal, both eyes and all related structures Neck: Other: supple Neck: Yes normal visual inspection Chest: Chest palpation & inspection: normal inspection of the chest Resp: Auscultation: clear to auscultation bilaterally Cardio: Jugular venous distension: no JVD Rate: regular rate Rhythm: regular rhythm Heart sounds: S1 normal heart sound present and S2 normal heart sound present GI: Inspection: Yes normal to inspection Palpation (GI): Soft to palpation, nontender and No hepatosplenomegaly present Auscultation: normal bowel sounds : General: Yes no CVA tenderness Back/Spine/Pelvis: Back: no CVA tenderness Skin: General skin exam: no rashes or lesions noted Neuro: General: oriented to person and patient oriented x3 Cranial nerves: Yes CN's II-XII intact bilaterally Motor exam (neuro): 5/5 motor strength present throughout Sensory Exam: No Sensory deficit (Neuro) Extrem: General: Yes normal to inspection Psych: Appearance: grossly normal Course Reevaluation(s) Reevaluation #1: No CT evidence of inflammation, no WBC count, will dc home on antidiarrheals Time: 19:18 MDM - Abdominal Pain Lab Data Result diagrams: 02/09/21 16:30 02/09/21 16:30 Labs: Lab Results 02/09/21 02/09/21 02/09/21 Range/Units 16:30 16:30 16:30 WBC 9.8 (4.8-10.8) X10*3/uL RBC 4.48 (4.20-5.50) X10*6/uL Hgb 13.3 (12.0-16.0) g/dl Hct 39.2 (37.0-47.0) % MCV 87.5 (80.0-98.0) fL MCH 29.7 (27.0-33.0) pg MCHC 33.9 (31.0-35.0) g/dl RDW 15.0 (11.0-16.0) % Plt Count 320 (160-400) X10*3/uL MPV 9.4 (9.4-12.3) fL Immature Gran % (Auto) 0.3 (0.0-0.4) % Neut % (Auto) 56.4 (45-73) % Lymph % (Auto) 36.2 (20-40) % [place] % (Auto) 5.8 (2-11) % Eos % (Auto) 1.1 (0-4) % Baso % (Auto) 0.2 (0-2) % Lymph # (Auto) 3.5 (1.2-4.9) X10*3/uL [place] # (Auto) 0.6 (0.1-1.2) X10*3/uL Eos # (Auto) 0.1 (0.0-0.4) X10*3/uL Baso # (Auto) 0.0 (0.0-0.2) X10*3/uL Abs Immat Gran (auto) 0.03 (0.00-0.03) X10*3/uL Absolute Neuts (auto) 5.5 (2.0-8.3) x10*3/uL Absolute Nucleated RBC 0.000 (0.0-0.012) X10*3/uL Nucleated RBC % (auto) 0.0 (0.0-0.2) /100WBC Sodium 138 (135-145) mmol/L Potassium 3.8 (3.3-5.1) mmol/L Chloride 105 (96-108) mmol/L Carbon Dioxide 24 (22-29) mmol/L Anion Gap 13 (12-20) BUN 5 L (9-16) mg/dL Creatinine 0.65 (0.5-1.4) mg/dL Estim Creat Clear Calc 117.0 Estimated GFR > 60 Random Glucose 86 (60-115) mg/dL Calcium 9.4 D (8.4-10.2) mg/dL Total Bilirubin 0.8 (0.0-1.0) mg/dL Direct Bilirubin 0.3 (0.0-0.5) mg/dL AST 22 D (5-31) U/L ALT 34 H (0-31) U/L Alkaline Phosphatase 88 (39-117) U/L Total Protein 6.8 (6.5-8.0) g/dL Albumin 4.3 (3.5-5.0) g/dL Urine Color YELLOW Urine Appearance CLEAR Urine pH 6.0 (5.0-8.0) Ur Specific [place] <= 1.005 (1.005-1.025) Urine Protein NEG (NEG-TRACE) MG/DL Urine Glucose (UA) NEG (NEG) MG/DL Urine Ketones NEG (NEG) MG/DL Urine Blood 1+ H (NEG) Urine Nitrite NEG (NEG) Ur Leukocyte Esterase NEG (NEG) Urine RBC 1-4 (0) /HPF Urine WBC 0-2 (0-4) /HPF Ur Squamous Epith Cells 1+ /LPF Urine Bacteria TRACE /LPF Discharge Plan Discharge Clinical Impression: IBS (irritable bowel syndrome) Qualifiers: Irritable bowel syndrome type: with diarrhea Qualified Code(s): K58.0 - Irritable bowel syndrome with diarrhea Diarrhea Qualifiers: Diarrhea type: unspecified type Qualified Code(s): R19.7 - Diarrhea, unspecified Patient Disposition: Home, Self-Care Instructions: Irritable Bowel Syndrome (ED), Acute Diarrhea (ED) Prescriptions: New loperamide 2 mg tablet 2 mg PO Q6H PRN (Reason: loose stool) Qty: 20 RF: 0 No Action albuterol sulfate [Ventolin HFA] 90 mcg/actuation HFA aerosol inhaler 1 inh inhalation QID 30 Days Qty: 8.5 RF: 0 doaeltfuwd-vpjfzqxwuddbs-viht 50-325-40 mg tablet 1 tab PO Q6H PRN (Reason: pain) 3 Days Qty: 12 RF: 0 dextroamphetamine-amphetamine [Adderall] 10 mg tablet 10 mg PO DAILY 30 Days Qty: 30 RF: 0 dextroamphetamine-amphetamine [Adderall XR] 20 mg capsule,extended release 24hr 20 mg PO DAILY 30 Days Qty: 30 RF: 0 ondansetron 4 mg tablet,disintegrating 4 mg PO Q8H PRN (Reason: nausea and vomiting) Qty: 14 RF: 0 tramadol 50 mg tablet 50 mg PO BID 5 Days Qty: 10 RF: 0 Entyvio 300 mg recon soln 300 mg IV Q2W RF: 0 dicyclomine 10 mg Capsule 10 mg PO TIDAC Qty: 90 RF: 0 sertraline [Zoloft] 50 mg tablet 50 mg PO DAILY 30 Days Qty: 30 RF: 3 Referrals: Kike Irby PA-C [Primary Care Provider] - 5 days [facility] Past Medical History Medical History Acute Crohn's disease Asthma Crohn's colitis Diarrhea Screening for diabetes mellitus (DM) Screening for hypothyroidism Screening for hypothyroidism TMJ (dislocation of temporomandibular joint) Surgical History History of appendectomy History of colonoscopy History of hysterectomy Hx of endoscopy Family History Family History Father Mental health disorder Mother Thyroid cancer Stomach cancer Substance use disorder Mental health disorder Family/Other Diabetes Social History Social History Household Members: None Housing: Condominium Do you presently have visiting nurse or other home services: No Alcohol intake: current Alcohol intake frequency: holidays/special occasions only Patient Tobacco Use Status: Current everyday Tobacco user Tobacco use type: Cigarette Cigarettes Per Day: 1 Years Smoked: 20 e-Cigarette/Vaping Use: Currently Using Second Hand Smoke Exposure: No Advance Directives: Yes Advance Directives on File: Yes Advance Directives Date on File: 08/28/20 service: No Current occupational status: employed
[2021-02-09 16:37] LABS: MANUAL DIFF FLAG NO
[2021-02-09 16:40] LABS: Basophils Percent Auto 0.2 % (0-2); Eosinophils Absolute Auto 0.1 X10*3/uL (0.0-0.4); Eosinophils Percent Auto 1.1 % (0-4); Hematocrit 39.2 % (37.0-47.0); Hemoglobin 13.3 g/dl (12.0-16.0); Imm Gran Abs Auto 0.03 X10*3/uL (0.00-0.03); Imm Gran Pct Auto 0.3 % (0.0-0.4); Lymphocytes Absolute Auto 3.5 X10*3/uL (1.2-4.9); Lymphocytes Percent Auto 36.2 % (20-40); Mean Corpuscular HGB Conc 33.9 g/dl (31.0-35.0); Mean Corpuscular Hemoglobin 29.7 pg (27.0-33.0); Mean Corpuscular Volume 87.5 fL (80.0-98.0); Mean Platelet Volume 9.4 fL (9.4-12.3); Monocytes Absolute Auto 0.6 X10*3/uL (0.1-1.2); Monocytes Percent Auto 5.8 % (2-11); Neutrophils Absolute Auto 5.5 x10*3/uL (2.0-8.3); Neutrophils Percent Auto 56.4 % (45-73); Platelet Count 320 X10*3/uL (160-400); Red Blood Count 4.48 X10*6/uL (4.20-5.50); White Blood Count 9.8 X10*3/uL (4.8-10.8)
[2021-02-09 16:41] LABS: Appearance Urine CLEAR; Color Urine YELLOW; Glucose Urine UA NEG (NEG); Leukocyte Esterase Urine NEG (NEG); Nitrite Urine NEG (NEG); Specific Gravity - Urine <= 1.005 (1.005-1.025); UACC Culture Trigger NO; Urine Blood 1+ (NEG); Urine Ketones NEG (NEG); Urine Protein NEG (NEG-TRACE)
[2021-02-09] MEDS: 0.9 % Sodium Chloride 1,000 ML 999 ML IVCONT ×2 (16:42→18:48)
[2021-02-09] MEDS: ondansetron HCL 4 MG/2 ML VIAL IVPUSH (16:42)
[2021-02-09 16:45] VITALS: BP 124/67; PULSE 80; RESP 16; O2SAT 100
[2021-02-09 16:50] LABS: Bacteria Urine TRACE /LPF; Squamous Epithelial Cell Urine 1+ /LPF; WBC Urine 0-2 /HPF (0-4)
[2021-02-09 16:58] LABS: Alanine Aminotransferase 34 U/L (0-31); Albumin Level 4.3 g/dL (3.5-5.0); Alkaline Phosphatase 88 U/L (39-117); Anion Gap 13 (12-20); Aspartate Amino Transferase 22 U/L (5-31); Bilirubin Direct 0.3 mg/dL (0.0-0.5); Bilirubin Total 0.8 mg/dL (0.0-1.0); Blood Urea Nitrogen 5 mg/dL (9-16); Calcium 9.4 mg/dL (8.4-10.2); Carbon Dioxide 24 mmol/L (22-29); Chloride 105 mmol/L (96-108); Estimated Glomerular Filt Rate > 60; Glucose Random 86 mg/dL (60-115); Potassium 3.8 mmol/L (3.3-5.1); Sodium 138 mmol/L (135-145); Total Protein 6.8 g/dL (6.5-8.0)
[2021-02-09] MEDS: iohexoL 350 MG/ML 100 ML INFUS..BTL IV (17:11)
[2021-02-09 18:15] VITALS: BP 138/86; PULSE 84; RESP 20; TEMP 37.3; O2SAT 100
== END 2021-02-09 19:27 | disposition home or self-care (01) ==
PROVIDERS: Emergency Provider Emergency Medicine; PCP Physician Assistant
DX: K58.0 Irritable bowel syndrome with diarrhea (principal); R19.7 Diarrhea, unspecified; R10.9 Unspecified abdominal pain
CPT/HCPCS: 36415; 74177; 80048; 80076; 81001; 85025; 96361; 96374; 99284; 99285; J2405; Q9967

== ENCOUNTER 2021-10-06 11:03 | Emergency (ER) | payer OTHER, SELFPAY ==
--- NOTE | ~2021-10-06 | CT_ITS ---
EXAMINATION: CT ABDOMEN AND PELVIS WITH CONTRAST CLINICAL INFORMATION: Left lower quadrant pain. Question abscess. Colitis. Crohn's. COMPARISON: 02/09/2021 TECHNIQUE: Multidetector volumetric images were obtained from the superior aspect of the liver through the pubic symphysis following administration 85 mL of Omnipaque 350 intravenous contrast. Sagittal and coronal reformatted images were obtained on the technologist's workstation. Oral contrast: No This CT examination was performed using dose optimization techniques as appropriate, variously including the following: *Automated exposure control *Adjustment of mA and/or kV according to patient size (this includes techniques or standardized protocols for targeted exams where dose is matched to indication/reason for exam; i.e. extremities or head) *Use of iterative reconstruction technique DLP: 731 mGy-cm FINDINGS: LUNG BASES: The visualized lung bases are unremarkable. LIVER, GALLBLADDER, AND BILIARY TREE: The liver is normal in size, shape, and attenuation. No focal hepatic lesion or biliary ductal dilatation is present. The gallbladder is unremarkable with no evidence of radiopaque gallstones, gallbladder wall thickening, or obvious pericholecystic inflammatory changes. PANCREAS: Unremarkable. SPLEEN: Unremarkable. ADRENAL GLANDS: Unremarkable. KIDNEYS AND URETERS: The kidneys are normal in size, shape, and attenuation. No hydronephrosis, hydroureter, or calculi seen. No perinephric stranding. BLADDER: Decompressed. No wall thickening or calcifications. GASTROINTESTINAL TRACT: Status post appendectomy. The stump of the appendix remains present. Stomach, small bowel, and colon are normal in caliber. Terminal ileum is normal in caliber without appreciable wall thickening or surrounding inflammatory change. No bowel wall thickening or surrounding inflammatory changes are identified. No intraperitoneal free fluid or free air. No fistulas are identified. ABDOMINAL WALL: No significant hernia is appreciated. LYMPH NODES: Normal. VASCULAR: Unremarkable. PELVIC VISCERA: Uterus is surgically absent. No adnexal lesions. OSSEOUS STRUCTURES: Mild degenerative disc disease is present in the lumbar spine. No acute osseous findings. SI joints are unremarkable. CT/CT abdomen pelvis w con IMPRESSION: No acute intra-abdominal or intrapelvic abnormalities. No evidence of active Crohn's disease. Fleischner guidelines were followed.
[2021-10-06 12:24] VITALS: BP 149/93; PULSE 91; RESP 16; TEMP 36.9; O2SAT 99; BMI 31.8
[2021-10-06 12:34] LABS: MANUAL DIFF FLAG NO
[2021-10-06 12:36] LABS: Basophils Percent Auto 0.4 % (0-2); Eosinophils Absolute Auto 0.1 X10*3/uL (0.0-0.4); Eosinophils Percent Auto 0.5 % (0-4); Hematocrit 38.6 % (37.0-47.0); Hemoglobin 13.1 g/dl (12.0-16.0); Imm Gran Abs Auto 0.02 X10*3/uL (0.00-0.03); Imm Gran Pct Auto 0.2 % (0.0-0.4); Lymphocytes Absolute Auto 3.4 X10*3/uL (1.2-4.9); Lymphocytes Percent Auto 32.2 % (20-40); Mean Corpuscular HGB Conc 33.9 g/dl (31.0-35.0); Mean Corpuscular Hemoglobin 28.9 pg (27.0-33.0); Mean Platelet Volume 8.5 fL (9.4-12.3); Monocytes Absolute Auto 0.7 X10*3/uL (0.1-1.2); Monocytes Percent Auto 6.2 % (2-11); Neutrophils Absolute Auto 6.3 x10*3/uL (2.0-8.3); Neutrophils Percent Auto 60.5 % (45-73); Platelet Count 379 X10*3/uL (160-400); Red Blood Count 4.54 X10*6/uL (4.20-5.50); Red Cell Distribution Width 13.7 % (11.0-16.0); White Blood Count 10.4 X10*3/uL (4.8-10.8)
[2021-10-06 12:53] LABS: Alanine Aminotransferase 22 U/L (0-31); Albumin Level 4.5 g/dL (3.5-5.0); Alkaline Phosphatase 83 U/L (39-117); Anion Gap 18 (12-20); Aspartate Amino Transferase 15 U/L (5-31); Bilirubin Total 0.5 mg/dL (0.0-1.0); Blood Urea Nitrogen 7 mg/dL (9-16); Calcium 9.5 mg/dL (8.4-10.2); Carbon Dioxide 19 mmol/L (22-29); Chloride 111 mmol/L (96-108); Creatinine Clr Calc Pharmacy 106.3; Estimated Glomerular Filt Rate > 60; Glucose Random 95 mg/dL (60-115); Potassium 3.9 mmol/L (3.3-5.1); Sodium 144 mmol/L (135-145); Total Protein 7.2 g/dL (6.5-8.0)
[2021-10-06 16:02] LABS: HCG Quantitative < 2 mIU/mL
--- NOTE | 2021-10-06 16:20 | ED_ITS ---
HPI - Abdominal Pain General Chief Complaint: Abdominal Pain Stated Complaint: Chron's flare up Time Seen by Provider: 10/06/21 15:38 Source: patient Mode of arrival: ambulatory Limitations: no limitations History of Present Illness HPI narrative: 36-year-old female history of Crohn's presents to ED for left lower quadrant pain, diarrhea, and vomiting. 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 Patient admits to stop taking her Crohn's disease medication for the past year and has been noncompliant. Patient denies any dysuria, hematuria, flank pain, vaginal bleeding, vaginal discharge, vaginal lesions, chest pain, shortness of breath, rectal bleeding, or vomiting blood. Patient denies any recent travel, recent travel outside the country, any new antibiotics, or any recent hospital admission. Related Data Home Medications Medication Instructions Recorded Confirmed vedolizumab 300 mg intravenous 300 mg IV Q2W 08/29/20 07/24/21 solution (Entyvio) Previous Rx's Medication Instructions Recorded dicyclomine 10 mg capsule 10 mg PO TIDAC #90 caps 09/02/20 albuterol sulfate 90 mcg/actuation 1 inh inhalation QID 30 days #8.5 12/18/20 aerosol inhaler (Ventolin HFA) grams qcmkvgndsz-tlncqvbbcoxwc-rtapqqsg 1 tab PO Q6H PRN pain 3 days #12 12/18/20 50 mg-325 mg-40 mg tablet tabs loperamide 2 mg tablet 2 mg PO Q6H PRN loose stool #20 02/09/21 tabs baclofen 10 mg tablet 10 mg PO BID 7 days #14 tabs 02/25/21 lamotrigine 25 mg tablet 25 mg PO DAILY 30 days #30 tabs 06/26/21 quetiapine 100 mg tablet 100 mg PO TID 30 days #90 tabs 08/13/21 dextroamphetamine-amphetamine 10 10 mg PO DAILY 30 days #30 tabs 08/24/21 mg tablet (Adderall) dextroamphetamine-amphetamine 10 10 mg PO DAILY 30 days #30 tabs 09/14/21 mg tablet (Adderall) dextroamphetamine-amphetamine ER 20 mg PO DAILY 30 days #30 caps 09/14/21 20 mg 24hr capsule,extend release (Adderall XR) tramadol 50 mg tablet 50 mg PO BID pain 5 days #10 tabs 09/29/21 ondansetron 4 mg disintegrating 4 mg PO Q8H PRN nausea and 10/01/21 tablet vomiting #14 tabs fluoxetine 40 mg capsule 40 mg PO DAILY #90 caps 10/02/21 quetiapine 200 mg tablet 200 mg PO BEDTIME #90 tabs 10/02/21 oxycodone 5 mg tablet 5 mg PO TID PRN pain 3 days #9 tabs 10/06/21 prednisone 20 mg tablet 40 mg PO DAILY 7 days #14 tabs 10/06/21 Allergies Allergy/AdvReac Type Severity Reaction Status Date / Time NSAIDS (Non-Steroidal Allergy Severe BRONCHOSPAS Verified 10/06/21 12:24 Anti-Inflamma M [NSAIDS (NON-STEROIDAL ANTI-INFLAMMA] aspirin [ASA] Allergy Unknown SHORTNESS Verified 10/06/21 12:24 OF BREATH ketorolac [From TORADOL] Allergy Unknown BRONCIAL Verified 10/06/21 12:24 SPASM vancomycin [VANCOMYCIN] Allergy Unknown RASH Verified 10/06/21 12:24 gabapentin [From NEURONTIN] AdvReac Unknown TINGLING Verified 10/06/21 12:24 IN L ARM budesonide AdvReac Muscle Pain Verified 10/06/21 12:24 Bencort Allergy Unknown unknown Uncoded 05/19/20 11:33 Review of Systems Review of Systems Left lower quadrant abdominal pain with diarrhea and vomiting [facility] Past Medical History Medical History (Updated 10/06/21 @ 20:00 by ADONAY Adams) Acute Crohn's disease Asthma Crohn's colitis Diarrhea Screening for diabetes mellitus (DM) Screening for hypothyroidism Screening for hypothyroidism TMJ (dislocation of temporomandibular joint) Surgical History History of appendectomy History of colonoscopy History of hysterectomy Hx of endoscopy Family History Family History Father Mental health disorder Mother Thyroid cancer Stomach cancer Substance use disorder Mental health disorder Family/Other Diabetes Social History Social History Household Members: None Housing: Condominium Do you presently have visiting nurse or other home services: No Alcohol intake: current Alcohol intake frequency: holidays/special occasions only Patient Tobacco Use Status: Current everyday Tobacco user Tobacco use type: Cigarette Cigarettes Per Day: 5 Years Smoked: 20 e-Cigarette/Vaping Use: Currently Using Second Hand Smoke Exposure: No Advance Directives: Yes Advance Directives on File: Yes Advance Directives Date on File: 08/28/20 service: No Current occupational status: employed Cognitive needs: No Hearing needs: No Vision needs: No Physical Exam ED Vital Signs: Vital Signs - 24 hr 10/06/21 12:24 Temperature 98.5 F Pulse Rate 91 Respiratory Rate 16 Blood Pressure 149/93 H Pulse Oximetry 99 BMI result Body Mass Index 31.8 Const General: cooperative, healthy appearing, comfortable, no acute distress, well developed, alert, awake and Physically active Orientation/consciousness: patient oriented x3 HENMT Head: Yes normal to inspection, Yes No palpable skull fracture present, Yes normocephalic, Yes atraumatic and No abrasion Eyes General: appearance normal, both eyes and all related structures Neck Neck: Yes normal visual inspection, Yes full ROM, Yes no lymphadenopathy, Yes no meningeal signs, Yes trachea midline, Yes supple, No anterior neck swelling and No tender Chest Chest palpation & inspection: normal inspection of the chest and normal palpation of entire chest wall Resp Effort & Inspection: normal respiratory effort and able to speak in complete sentences Auscultation: clear to auscultation bilaterally Cardio Jugular venous distension: no JVD Heart sounds: S1 normal heart sound present and S2 normal heart sound present GI Inspection: Yes normal to inspection and No abdominal wall ecchymosis Palpation (GI): Soft to palpation, not firm, Tenderness to palpation present ( GI) in the LLQ, no guarding and not rigid General: No CVA tenderness and Yes no CVA tenderness Back/Spine/Pelvis Back: no CVA tenderness, No CVA tenderness and No back tenderness Skin General skin exam: no rashes or lesions noted and elasticity normal Neuro General: patient oriented x3, gait normal, no meningeal signs and CN's II-XI intact bilaterally Cranial nerves: Yes CN's II-XII intact bilaterally Extrem General: Yes normal to inspection and Yes full ROM Psych Appearance: grossly normal, well kempt and not disheveled Course Course Course Narrative: Due to history of Crohn's with left lower quadrant abdominal pain and diarrhea. Will order IV steroids, fluids, Zofran, abdominal CT scan to check for abscess peritonitis. Vital signs are stable. Patient is not toxic appearing Reevaluation(s) Reevaluation #1: Patient labs are normal. Abdomen/CT scan negative for any intra/abdominal etiology. Negative for colitis/abscess. 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 Patient feels better after intervention Time: 19:55 Reevaluation #2: Patient: Manju Sanchez MR#: [id number] : 1985 Acct:[id number] Age/Sex: 36 / F ADM Date: 10/06/21 Loc: HO.ED Attending Dr: Ordering Physician: Sherman Zuniga Date of Service: 10/06/21 Procedure(s): CT abdomen pelvis w con Accession Number(s): [id number] cc: Sherman Zuniga~ EXAMINATION: CT ABDOMEN AND PELVIS WITH CONTRAST? CLINICAL INFORMATION: Left lower quadrant pain. Question abscess. Colitis. Crohn's.? COMPARISON: 02/09/2021? TECHNIQUE: Multidetector volumetric images were obtained from the superior aspect of the liver through the pubic symphysis following administration 85 mL of Omnipaque 350 intravenous contrast. Sagittal and coronal reformatted images were obtained on the technologist's workstation.? Oral contrast: No This CT examination was performed using dose optimization techniques as appropriate, variously including the following: *Automated exposure control *Adjustment of mA and/or kV according to patient size (this includes techniques or standardized protocols for targeted exams where dose is matched to indication/reason for exam; i.e. extremities or head) *Use of iterative reconstruction technique DLP: 731 mGy-cm FINDINGS: LUNG BASES: The visualized lung bases are unremarkable.? LIVER, GALLBLADDER, AND BILIARY TREE: The liver is normal in size, shape, and attenuation. No focal hepatic lesion or biliary ductal dilatation is present. The gallbladder is unremarkable with no evidence of radiopaque gallstones, gallbladder wall thickening, or obvious pericholecystic inflammatory changes.? PANCREAS: Unremarkable.? SPLEEN: Unremarkable.? ADRENAL GLANDS: Unremarkable.? KIDNEYS AND URETERS: The kidneys are normal in size, shape, and attenuation. No hydronephrosis, hydroureter, or calculi seen. No perinephric stranding. ? BLADDER: Decompressed. No wall thickening or calcifications. GASTROINTESTINAL TRACT: Status post appendectomy. The stump of the appendix remains present. Stomach, small bowel, and colon are normal in caliber. Terminal ileum is normal in caliber without appreciable wall thickening or surrounding inflammatory change. No bowel wall thickening or surrounding inflammatory changes are identified. No intraperitoneal free fluid or free air. No fistulas are identified. ABDOMINAL WALL: No significant hernia is appreciated.? LYMPH NODES: Normal. VASCULAR: Unremarkable. PELVIC VISCERA: Uterus is surgically absent. No adnexal lesions.? OSSEOUS STRUCTURES: Mild degenerative disc disease is present in the lumbar spine. No acute osseous findings. SI joints are unremarkable. CT/CT abdomen pelvis w con IMPRESSION: No acute intra-abdominal or intrapelvic abnormalities. No evidence of active Crohn's disease. ? Fleischner guidelines were followed. Dictated By: n Signed By: <Electronically signed by n in OV> 10/06/21 0718 DD/ 5126 TD/TT:? Provider Service Representative: ARCHANA MDM - Abdominal Pain MDM Narrative Medical decision making narrative: Abdominal pain. Chron's exacerbation Lab Data Result diagrams: 10/06/21 12:30 10/06/21 12:30 Labs: Lab Results 10/06/21 10/06/21 10/06/21 Range/Units 12:30 12:30 17:07 WBC 10.4 (4.8-10.8) X10*3/uL RBC 4.54 (4.20-5.50) X10*6/uL Hgb 13.1 (12.0-16.0) g/dl Hct 38.6 (37.0-47.0) % MCV 85.0 (80.0-98.0) fL MCH 28.9 (27.0-33.0) pg MCHC 33.9 (31.0-35.0) g/dl RDW 13.7 (11.0-16.0) % Plt Count 379 (160-400) X10*3/uL MPV 8.5 L (9.4-12.3) fL Immature Gran % (Auto) 0.2 (0.0-0.4) % Neut % (Auto) 60.5 (45-73) % Lymph % (Auto) 32.2 (20-40) % [place] % (Auto) 6.2 (2-11) % Eos % (Auto) 0.5 (0-4) % Baso % (Auto) 0.4 (0-2) % Lymph # (Auto) 3.4 (1.2-4.9) X10*3/uL [place] # (Auto) 0.7 (0.1-1.2) X10*3/uL Eos # (Auto) 0.1 (0.0-0.4) X10*3/uL Baso # (Auto) 0.0 (0.0-0.2) X10*3/uL Abs Immat Gran (auto) 0.02 (0.00-0.03) X10*3/uL Absolute Neuts (auto) 6.3 (2.0-8.3) x10*3/uL Absolute Nucleated RBC 0.000 (0.0-0.012) X10*3/uL Nucleated RBC % (auto) 0.0 (0.0-0.2) /100WBC Sodium 144 (135-145) mmol/L Potassium 3.9 (3.3-5.1) mmol/L Chloride 111 H (96-108) mmol/L Carbon Dioxide 19 L (22-29) mmol/L Anion Gap 18 (12-20) BUN 7 L (9-16) mg/dL Creatinine 0.74 (0.5-1.4) mg/dL Estim Creat Clear Calc 106.3 Estimated GFR > 60 Random Glucose 95 (60-115) mg/dL Calcium 9.5 (8.4-10.2) mg/dL Total Bilirubin 0.5 (0.0-1.0) mg/dL AST 15 (5-31) U/L ALT 22 (0-31) U/L Alkaline Phosphatase 83 (39-117) U/L Total Protein 7.2 (6.5-8.0) g/dL Albumin 4.5 (3.5-5.0) g/dL Beta HCG, Quant < 2 mIU/mL Urine Color YELLOW Urine Appearance HAZY Urine pH 6.0 (5.0-8.0) Ur Specific [place] >= 1.030 H (1.005-1.025) Urine Protein 1+ H (NEG-TRACE) MG/DL Urine Glucose (UA) NEG (NEG) MG/DL Urine Ketones NEG (NEG) MG/DL Urine Blood 1+ H (NEG) Urine Nitrite NEG (NEG) Ur Leukocyte Esterase NEG (NEG) Urine RBC 0-2 (0) /HPF Urine WBC 0 (0-4) /HPF Ur Squamous Epith Cells 3+ /LPF Urine Bacteria 1+ /LPF Discharge Plan Discharge Clinical Impression: Abdominal pain, IBD (inflammatory bowel disease), Crohn disease Patient Disposition: Home, Self-Care Instructions: Crohn Disease (ED), Abdominal Pain (ED) Additional Instructions: Although you're abdominal CT scan and labs came back normal you will discharged with steroids and treated as crohn's exacerbation due to history of crohns disease. Return to the ED immeidatley for worsening abdominal pain, blood in stool , vomitting blood, fever, chills, flank pain, dysuria, hematuria, or any other concerning symptoms. Prescriptions: New prednisone 20 mg tablet 40 mg PO DAILY 7 Days Qty: 14 0RF oxycodone 5 mg tablet 5 mg PO TID PRN (Reason: pain) 3 Days Qty: 9 0RF Rx Instructions: Partial Fill upon patient request. side effect is drowsiness. Do not take at work or while driving. No Action albuterol sulfate [Ventolin HFA] 90 mcg/actuation HFA aerosol inhaler 1 inh inhalation QID 30 Days Qty: 8.5 0RF ghkrkaclcm-nhmeuewxeuzfe-vzkq 50-325-40 mg tablet 1 tab PO Q6H PRN (Reason: pain) 3 Days Qty: 12 0RF baclofen 10 mg tablet 10 mg PO BID 7 Days Qty: 14 0RF lamotrigine 25 mg tablet 25 mg PO DAILY 30 Days Qty: 30 2RF quetiapine 100 mg tablet 100 mg PO TID 30 Days Qty: 90 2RF dextroamphetamine-amphetamine [Adderall] 10 mg tablet 10 mg PO DAILY 30 Days Qty: 30 0RF dextroamphetamine-amphetamine [Adderall XR] 20 mg capsule,extended release 24hr 20 mg PO DAILY 30 Days Qty: 30 0RF dextroamphetamine-amphetamine [Adderall] 10 mg tablet 10 mg PO DAILY 30 Days Qty: 30 0RF tramadol 50 mg tablet 50 mg PO BID 5 Days Qty: 10 0RF ondansetron 4 mg tablet,disintegrating 4 mg PO Q8H PRN (Reason: nausea and vomiting) Qty: 14 0RF quetiapine 200 mg tablet 200 mg PO BEDTIME Qty: 90 1RF fluoxetine 40 mg capsule 40 mg PO DAILY Qty: 90 1RF Entyvio 300 mg recon soln 300 mg IV Q2W Rx Instructions: NEXT DOSE 08/31/2020 dicyclomine 10 mg Capsule 10 mg PO TIDAC Qty: 90 0RF loperamide 2 mg tablet 2 mg PO Q6H PRN (Reason: loose stool) Qty: 20 0RF Referrals: Kaitlin Sierra MD [Physician] - (Crohn's exacerbation) Interventions: ED Discharge Assessment Last Done: 10/06/21 20:28 Discharge Date/Time: 10/06/21 20:29 Print Language: Djiboutian
[2021-10-06] MEDS: 0.9 % Sodium Chloride 1,000 ML 999 ML IV (17:03)
[2021-10-06] MEDS: Morphine Sulfate 4 MG/ML CARTRIDGE IVPUSH (17:19)
[2021-10-06] MEDS: ondansetron HCL 4 MG/2 ML VIAL IVPUSH ×2 (17:19→18:42)
[2021-10-06] MEDS: methylPREDNISolone Sod Succ 125 MG/2 ML VIAL IVPUSH (17:20)
[2021-10-06 17:25] LABS: Appearance Urine HAZY; Color Urine YELLOW; Glucose Urine UA NEG (NEG); Leukocyte Esterase Urine NEG (NEG); Nitrite Urine NEG (NEG); Specific Gravity - Urine >= 1.030 (1.005-1.025); UACC Culture Trigger NO; Urine Blood 1+ (NEG); Urine Ketones NEG (NEG); Urine Protein 1+ MG/DL (NEG-TRACE)
[2021-10-06 17:40] LABS: Bacteria Urine 1+ /LPF; Squamous Epithelial Cell Urine 3+ /LPF
[2021-10-06 17:41] LABS: RBC Urine 0-2 /HPF (0); WBC Urine 0 /HPF (0-4)
[2021-10-06] MEDS: iohexoL 350 MG/ML 100 ML INFUS..BTL IV (18:00)
== END 2021-10-06 20:29 | disposition home or self-care (01) ==
PROVIDERS: Physician Assistant; Emergency Provider Emergency Medicine; PCP Physician Assistant
DX: R10.32 Left lower quadrant pain (principal); K50.90 Crohn's disease, unspecified, without complications; F17.210 Nicotine dependence, cigarettes, uncomplicated
CPT/HCPCS: 36415; 74177; 80053; 81001; 84702; 85025; 96361; 96374; 96375; 96376; 99283; 99284; J2270; J2405; J2930; Q9967

== ENCOUNTER 2021-12-03 09:24 | Emergency (ER) | payer OTHER, SELFPAY ==
--- NOTE | ~2021-12-03 | US_ITS ---
EXAMINATION: US ABDOMEN LIMITED CLINICAL INFORMATION: Pain. COMPARISON: CT abdomen pelvis 10/06/2021 TECHNIQUE: Real-time imaging of the left upper quadrant abdominal viscera. FINDINGS: SPLEEN: Normal in size measuring 11.6 cm in diameter. LEFT KIDNEY: Punctate cortical echogenic focus without shadowing or twinkle may reflect a vascular reflector. No hydronephrosis. No definite renal calculi or focal parenchymal lesions. The kidney measures 10.1 cm in maximum dimension. FREE FLUID: None. Limited views of the left lower quadrant are unremarkable. US/US abdomen limited IMPRESSION: No acute findings to explain symptoms of pain. Punctate echogenic focus in the left kidney may reflect a vascular reflector.
[2021-12-03 09:46] VITALS: BP 140/88; PULSE 86; RESP 18; TEMP 36.2; O2SAT 94; BMI 31.8
[2021-12-03 10:05] LABS: MANUAL DIFF FLAG NO
[2021-12-03 10:13] LABS: Basophils Percent Auto 0.4 % (0-2); Eosinophils Absolute Auto 0.1 X10*3/uL (0.0-0.4); Eosinophils Percent Auto 0.6 % (0-4); Hematocrit 41.3 % (37.0-47.0); Hemoglobin 13.8 g/dl (12.0-16.0); Imm Gran Abs Auto 0.02 X10*3/uL (0.00-0.03); Imm Gran Pct Auto 0.2 % (0.0-0.4); Lymphocytes Absolute Auto 2.7 X10*3/uL (1.2-4.9); Mean Corpuscular HGB Conc 33.4 g/dl (31.0-35.0); Mean Corpuscular Hemoglobin 28.7 pg (27.0-33.0); Mean Corpuscular Volume 85.9 fL (80.0-98.0); Mean Platelet Volume 9.3 fL (9.4-12.3); Monocytes Absolute Auto 0.5 X10*3/uL (0.1-1.2); Monocytes Percent Auto 4.4 % (2-11); Neutrophils Absolute Auto 7.1 x10*3/uL (2.0-8.3); Neutrophils Percent Auto 68.4 % (45-73); Platelet Count 371 X10*3/uL (160-400); Red Blood Count 4.81 X10*6/uL (4.20-5.50); Red Cell Distribution Width 14.4 % (11.0-16.0); White Blood Count 10.3 X10*3/uL (4.8-10.8)
[2021-12-03] MEDS: Ondansetron ODT 4 MG TAB.RAPDIS TRANSLINGU (10:25)
[2021-12-03 10:32] LABS: Alanine Aminotransferase 28 U/L (0-31); Albumin Level 4.6 g/dL (3.5-5.0); Alkaline Phosphatase 76 U/L (39-117); Anion Gap 20 (12-20); Aspartate Amino Transferase 28 U/L (5-31); Bilirubin Direct 0.2 mg/dL (0.0-0.5); Bilirubin Total 0.2 mg/dL (0.0-1.0); Blood Urea Nitrogen 7 mg/dL (9-16); Calcium 9.2 mg/dL (8.4-10.2); Carbon Dioxide 18 mmol/L (22-29); Chloride 110 mmol/L (96-108); Estimated Glomerular Filt Rate > 60; Glucose Random 96 mg/dL (60-115); Potassium 4.4 mmol/L (3.3-5.1); Sodium 144 mmol/L (135-145); Total Protein 7.3 g/dL (6.5-8.0)
--- NOTE | 2021-12-03 13:01 | ED_ITS ---
HPI - Abdominal Pain General Chief Complaint: Abdominal Pain Stated Complaint: stomach pain Time Seen by Provider: 12/03/21 13:00 Source: patient and old records reviewed Mode of arrival: ambulatory Limitations: no limitations History of Present Illness HPI narrative: 36-year-old female with history of ADHD, depression, presumptive diagnosis of remitting and relapsing Crohn's disease, asthma, hx suicidal ideation who presents to the ER for evaluation of 3 days of profuse liquid diarrhea, left sided abdominal pain and vomiting. She feels like she may be having a flare of her Crohn's disase. Her disease was well controlled on Entyvio however she stopped following up with . his son and going to see him because she thought she was better. She called his office today and was unable to be seen until February, so she came to the ER for further evaluation. Patient reports she has had yellow liquid stool 15-20 times per day preceded by left-sided abdominal cramping. She has also had recurrence vomiting. There has not been any blood in her stool or her vomitus. She denies any fever or chills. She denies any known sick contacts. No urinary symptoms. MD elicited complaint: abdominal pain Pertinent past history: other (Inflammatory bowel disease) Onset (ago): day(s) (3) Pain Consistency: constant Location: LUQ and LLQ Severity: moderate Quality: cramping Radiation: none Migration to: no migration Exacerbating factors: nothing Relieving factors: nothing Context: history of similar episodes Associated symptoms: nausea, vomiting and diarrhea Related Data Home Medications Medication Instructions Recorded Confirmed vedolizumab 300 mg intravenous 300 mg IV Q2W 08/29/20 07/24/21 solution (Entyvio) Previous Rx's Medication Instructions Recorded dicyclomine 10 mg capsule 10 mg PO TIDAC #90 caps 09/02/20 albuterol sulfate 90 mcg/actuation 1 inh inhalation QID 30 days #8.5 12/18/20 aerosol inhaler (Ventolin HFA) grams fjietbjcci-pwexwhqwcbxuw-fsfcamki 1 tab PO Q6H PRN pain 3 days #12 12/18/20 50 mg-325 mg-40 mg tablet tabs loperamide 2 mg tablet 2 mg PO Q6H PRN loose stool #20 02/09/21 tabs baclofen 10 mg tablet 10 mg PO BID 7 days #14 tabs 02/25/21 lamotrigine 25 mg tablet 25 mg PO DAILY 30 days #30 tabs 06/26/21 fluoxetine 40 mg capsule 40 mg PO DAILY #90 caps 10/02/21 oxycodone 5 mg tablet 5 mg PO TID PRN pain 3 days #9 tabs 10/06/21 prednisone 20 mg tablet 40 mg PO DAILY 7 days #14 tabs 10/06/21 quetiapine 200 mg tablet 200 mg PO BEDTIME #90 tabs 10/15/21 acetaminophen 500 mg capsule 500 mg PO Q6H PRN pain (scale 10/26/21 score 7-10) 10 days #40 caps dextroamphetamine-amphetamine 10 10 mg PO DAILY 30 days #30 tabs 11/12/21 mg tablet (Adderall) dextroamphetamine-amphetamine ER 20 mg PO DAILY 30 days #30 caps 11/12/21 20 mg 24hr capsule,extend release (Adderall XR) quetiapine 100 mg tablet 100 mg PO TID 30 days #90 tabs 11/12/21 ondansetron 4 mg disintegrating 4 mg PO Q8H PRN nausea and 11/25/21 tablet vomiting #14 tabs tramadol 50 mg tablet 50 mg PO BID pain 5 days #10 tabs 11/25/21 dicyclomine 20 mg tablet 20 mg PO TID PRN stomach pain #14 12/03/21 tabs ondansetron 4 mg disintegrating 4 mg PO Q6H PRN nausea and 12/03/21 tablet vomiting #14 tabs prednisone 20 mg tablet 20 mg PO DAILY #7 tabs 12/03/21 prednisone 20 mg tablet 40 mg PO DAILY #14 tabs 12/03/21 Allergies Allergy/AdvReac Type Severity Reaction Status Date / Time NSAIDS (Non-Steroidal Allergy Severe BRONCHOSPAS Verified 10/06/21 12:24 Anti-Inflamma M [NSAIDS (NON-STEROIDAL ANTI-INFLAMMA] aspirin [ASA] Allergy Unknown SHORTNESS Verified 10/06/21 12:24 OF BREATH ketorolac [From TORADOL] Allergy Unknown BRONCIAL Verified 10/06/21 12:24 SPASM vancomycin [VANCOMYCIN] Allergy Unknown RASH Verified 10/06/21 12:24 gabapentin [From NEURONTIN] AdvReac Unknown TINGLING Verified 10/06/21 12:24 IN L ARM budesonide AdvReac Muscle Pain Verified 10/06/21 12:24 Bencort Allergy Unknown unknown Uncoded 05/19/20 11:33 Review of Systems Review of Systems Constitutional: No Fever, No Chills ENT/Mouth: No sore throat, No Rhinorrhea, No Swallowing Difficulty Cardiovascular: No Chest Pain, No SOB, No Orthopnea, No Edema Respiratory: No Cough, No Sputum, No Wheezing, No dyspnea Gastrointestinal: + Nausea, + Vomiting, +Diarrhea, + abdominal Pain, No Hematochezia, No Melena Genitourinary: No Dysuria, No Urinary Frequency, No Hematuria Musculoskeletal: No joint pain, No Myalgias Skin: No Skin Lesions, No rash Neuro: No Weakness, No Numbness, No Dizziness, No Headache Psych: No Anxiety/Panic, No Depression Heme/Lymph: No Bruising, No Lymphadenopathy Endocrine: No Polyuria, No Polydipsia [facility] Past Medical History Medical History (Updated 12/03/21 @ 16:56 by ADONAY Benavides) Acute Crohn's disease Asthma Crohn's colitis Diarrhea Screening for diabetes mellitus (DM) Screening for hypothyroidism Screening for hypothyroidism TMJ (dislocation of temporomandibular joint) Surgical History History of appendectomy History of colonoscopy History of hysterectomy Hx of endoscopy Family History Family History Father Mental health disorder Mother Thyroid cancer Stomach cancer Substance use disorder Mental health disorder Family/Other Diabetes Social History Social History Household Members: None Housing: Condominium Do you presently have visiting nurse or other home services: No Alcohol intake: current Alcohol intake frequency: does not drink Patient Tobacco Use Status: Current someday Tobacco user Tobacco use type: Cigarette Cigarettes Per Day: 5 Years Smoked: 20 e-Cigarette/Vaping Use: Currently Using Second Hand Smoke Exposure: No Use of substances other than those prescribed or required for medical reasons: No Advance Directives: Yes Advance Directives on File: Yes Advance Directives Date on File: 07/28/20 service: No Current occupational status: employed Cognitive needs: No Hearing needs: No Vision needs: No Physical Exam ED Vital Signs: Vital Signs - 24 hr 12/03/21 09:46 12/03/21 13:48 12/03/21 15:00 Temperature 97.1 F Pulse Rate 86 92 86 Respiratory Rate 18 16 16 Blood Pressure 140/88 H 150/86 H 152/87 H Pulse Oximetry 94 98 98 Oxygen Delivery Method Room Air Room Air Room Air 12/03/21 15:52 Temperature 98.3 F Pulse Rate 73 Respiratory Rate 16 Blood Pressure 125/72 Pulse Oximetry 99 Oxygen Delivery Method Room Air BMI result Body Mass Index 31.8 Appearance: Alert. Oriented X3. No acute distress. Eyes: Pupils equal, round and reactive to light. ENT: Pharynx normal. Neck: Normal inspection. Neck supple. CVS: Normal heart rate and rhythm. Pulses normal. Respiratory: No respiratory distress. Breath sounds normal. Abdomen: Soft wtih left sided tenderness and guarding, no rebound, normal +BS x4 Skin: Skin warm and dry. Normal skin color. Normal skin turgor. No rashes. Extremities: No lower extremity edema. Neuro: Oriented X 3. No motor deficit. No sensory deficit. Course Course Course Narrative: 36 yo female with history of inflammatory bowel disease now off of all medications due to noncompliance presents with 3 days of N/V/D and left sided abdominal pain. Labs are unremarkable. left sided abd tenderness noted, she reports it is chronic and flares up with her crohn's flares. she would like to hold off on CT scan today, last had one last month. will check stool studies, treat her nausea and provide IV hydration. will reasses. Reevaluation(s) Reevaluation #1: Dr. Sierra came to evaluate the patient. recommending abd U/S, if stools studies are negative will plan to give prednisone 40 x1 week followed by 20 mg x1 week then stop. he is going to arranage and outpatient MRI. patient agrees with plan. spoke with the lab and the stool studies will be back later today 5pm. C diff sample has not been sent yet, she is aware she needs to provide another sample for the lab. She has a history of C diff back in 2020. Reevaluation #2: Ultrasound with no acute findings. Will sign out to night provider pending C diff and GI PCR results. The patient given p.o. trial. Nausea improved after 2nd round of antiemetics. MDM - Abdominal Pain Lab Data Result diagrams: 12/03/21 09:55 12/03/21 09:55 Labs: Lab Results 12/03/21 12/03/21 12/03/21 Range/Units 09:55 09:55 13:43 WBC 10.3 (4.8-10.8) X10*3/uL RBC 4.81 (4.20-5.50) X10*6/uL Hgb 13.8 (12.0-16.0) g/dl Hct 41.3 (37.0-47.0) % MCV 85.9 (80.0-98.0) fL MCH 28.7 (27.0-33.0) pg MCHC 33.4 (31.0-35.0) g/dl RDW 14.4 (11.0-16.0) % Plt Count 371 (160-400) X10*3/uL MPV 9.3 L (9.4-12.3) fL Immature Gran % (Auto) 0.2 (0.0-0.4) % Neut % (Auto) 68.4 (45-73) % Lymph % (Auto) 26.0 (20-40) % [place] % (Auto) 4.4 (2-11) % Eos % (Auto) 0.6 (0-4) % Baso % (Auto) 0.4 (0-2) % Lymph # (Auto) 2.7 (1.2-4.9) X10*3/uL [place] # (Auto) 0.5 (0.1-1.2) X10*3/uL Eos # (Auto) 0.1 (0.0-0.4) X10*3/uL Baso # (Auto) 0.0 (0.0-0.2) X10*3/uL Abs Immat Gran (auto) 0.02 (0.00-0.03) X10*3/uL Absolute Neuts (auto) 7.1 (2.0-8.3) x10*3/uL Absolute Nucleated RBC 0.000 (0.0-0.012) X10*3/uL Nucleated RBC % (auto) 0.0 (0.0-0.2) /100WBC ESR 2 (0-20) MM/HR Sodium 144 (135-145) mmol/L Potassium 4.4 (3.3-5.1) mmol/L Chloride 110 H (96-108) mmol/L Carbon Dioxide 18 L (22-29) mmol/L Anion Gap 20 (12-20) BUN 7 L (9-16) mg/dL Creatinine 0.69 (0.5-1.4) mg/dL Estim Creat Clear Calc 114.0 Estimated GFR > 60 Random Glucose 96 (60-115) mg/dL Calcium 9.2 (8.4-10.2) mg/dL Total Bilirubin 0.2 (0.0-1.0) mg/dL Direct Bilirubin 0.2 (0.0-0.5) mg/dL AST 28 D (5-31) U/L ALT 28 (0-31) U/L Alkaline Phosphatase 76 (39-117) U/L C-Reactive Protein 0.07 (< or = 0.50) mg/dL Total Protein 7.3 (6.5-8.0) g/dL Albumin 4.6 (3.5-5.0) g/dL Discharge Plan Discharge Clinical Impression: IBD (inflammatory bowel disease) Patient Disposition: Home, Self-Care Instructions: Acute Nausea and Vomiting (ED), Acute Diarrhea (ED) Additional Instructions: Your lab workup today was unremarkable. Your ultrasound did not show any concerning findings. Dr. Sierra is recommending one week of prednisone 40 mg daily followed by 20 mg of prednisone for one week and then stop. He is going to arrange an outpatient MRI. Take the prescribed nausea medication as needed. If you develop new or worsening symptoms call 911 or come back to the ER for further evaluation. Prescriptions: New ondansetron 4 mg tablet,disintegrating 4 mg PO Q6H PRN (Reason: nausea and vomiting) Qty: 14 0RF prednisone 20 mg tablet 40 mg PO DAILY Qty: 14 0RF prednisone 20 mg tablet 20 mg PO DAILY Qty: 7 0RF dicyclomine 20 mg tablet 20 mg PO TID PRN (Reason: stomach pain) Qty: 14 0RF No Action albuterol sulfate [Ventolin HFA] 90 mcg/actuation HFA aerosol inhaler 1 inh inhalation QID 30 Days Qty: 8.5 0RF exkgdrbjvk-vfzcqrklbzjne-vaeu 50-325-40 mg tablet 1 tab PO Q6H PRN (Reason: pain) 3 Days Qty: 12 0RF baclofen 10 mg tablet 10 mg PO BID 7 Days Qty: 14 0RF lamotrigine 25 mg tablet 25 mg PO DAILY 30 Days Qty: 30 2RF fluoxetine 40 mg capsule 40 mg PO DAILY Qty: 90 1RF quetiapine 200 mg tablet 200 mg PO BEDTIME Qty: 90 1RF acetaminophen 500 mg capsule 500 mg PO Q6H PRN (Reason: pain (scale score 7-10)) 10 Days Qty: 40 0RF dextroamphetamine-amphetamine [Adderall] 10 mg tablet 10 mg PO DAILY 30 Days Qty: 30 0RF dextroamphetamine-amphetamine [Adderall XR] 20 mg capsule,extended release 24hr 20 mg PO DAILY 30 Days Qty: 30 0RF quetiapine 100 mg tablet 100 mg PO TID 30 Days Qty: 90 2RF tramadol 50 mg tablet 50 mg PO BID 5 Days Qty: 10 0RF ondansetron 4 mg tablet,disintegrating 4 mg PO Q8H PRN (Reason: nausea and vomiting) Qty: 14 3RF Entyvio 300 mg recon soln 300 mg IV Q2W Rx Instructions: NEXT DOSE 08/31/2020 dicyclomine 10 mg Capsule 10 mg PO TIDAC Qty: 90 0RF loperamide 2 mg tablet 2 mg PO Q6H PRN (Reason: loose stool) Qty: 20 0RF prednisone 20 mg tablet 40 mg PO DAILY 7 Days Qty: 14 0RF oxycodone 5 mg tablet 5 mg PO TID PRN (Reason: pain) 3 Days Qty: 9 0RF Rx Instructions: Partial Fill upon patient request. side effect is drowsiness. Do not take at work or while driving. Referrals: Kaitlin Sierra MD [Physician] - (crohn's)
[2021-12-03 13:39] LABS: C Reactive Protein 0.07 mg/dL (< or = 0.50)
[2021-12-03] MEDS: Morphine Sulfate 4 MG/ML CARTRIDGE IVPUSH (13:40)
[2021-12-03] MEDS: ondansetron HCL 4 MG/2 ML VIAL IVPUSH (13:40)
[2021-12-03] MEDS: Lactated Ringers 1,000 ML 999 ML IV (13:41)
[2021-12-03] MEDS: methylPREDNISolone Sod Succ 40 MG/ML VIAL IVPUSH (13:46)
[2021-12-03 13:48] VITALS: BP 150/86; PULSE 92; RESP 16; O2SAT 98
[2021-12-03 14:37] LABS: Erythrocyte Sedimentation Rate 2 MM/HR (0-20)
[2021-12-03] MEDS: Lidocaine 4 % Cream KIT 1 APPL TOPICAL (14:47)
[2021-12-03] MEDS: Metoclopramide HCl 10 MG/2 ML VIAL IVPUSH (14:47)
[2021-12-03] MEDS: diphenhydrAMINE HCL 50 MG/ML VIAL IVPUSH (14:47)
[2021-12-03 15:00] VITALS: BP 152/87; PULSE 86; RESP 16; O2SAT 98
[2021-12-03 15:52] VITALS: BP 125/72; PULSE 73; RESP 16; TEMP 36.8; O2SAT 99
[2021-12-03 17:16] LABS: Adenovirus F 40/41 Not Detected (Not Detect.); Astrovirus Not Detected (Not Detect.); Campylobacter Not Detected (Not Detect.); Cryptosporidium Not Detected (Not Detect.); Cyclospora cayetanensis Not Detected (Not Detect.); E. coli EAEC Not Detected (Not Detect.); E. coli EPEC Not Detected (Not Detect.); E. coli ETEC Not Detected (Not Detect.); E. coli STEC Not Detected (Not Detect.); Entamoeba histolytica Not Detected (Not Detect.); Giardia lamblia Not Detected (Not Detect.); Norovirus GI/GII Not Detected (Not Detect.); Plesiomonas shigelloides Not Detected (Not Detect.); Rotavirus A Not Detected (Not Detect.); Salmonella Not Detected (Not Detect.); Sapovirus Not Detected (Not Detect.); Shigella sp./EIEC Not Detected (Not Detect.); Vibrio Not Detected (Not Detect.); Vibrio Cholerae Not Detected (Not Detect.); Yersinia enterocolitica Not Detected (Not Detect.)
[2021-12-03 18:33] VITALS: BP 135/84; PULSE 77; RESP 16; TEMP 36.8; O2SAT 97
[2021-12-03 18:44] LABS: CDiff Gene PCR POSITIVE (Negative)
[2021-12-03] MEDS: metroNIDAZOLE 500 MG TABLET PO (19:29)
[2021-12-03 23:26] LABS: CDIFF Internal ctrl Dots and bkg OK (V); CDiff Toxin Negative (Negative)
[2021-12-07 22:11] LABS: Calprotectin, Fecal 7 mcg/g
== END 2021-12-03 19:57 | disposition home or self-care (01) ==
PROVIDERS: Physician Assistant; Emergency Provider Emergency Medicine; PCP Physician Assistant
DX: K58.0 Irritable bowel syndrome with diarrhea (principal); A04.71 Enterocolitis due to Clostridium difficile, recurrent; Z79.899 Other long term (current) drug therapy; Z88.1 Allergy status to other antibiotic agents
CPT/HCPCS: 36415; 76705; 80048; 80076; 83993; 85025; 85652; 86140; 87324; 87493; 87507; 96361; 96374; 96375; 99284; J1200; J2270; J2405; J2765; J2920

== ENCOUNTER 2022-01-22 19:02 | Inpatient (IN) | payer OTHER, SELFPAY ==
[2022-01-22 19:59] VITALS: BP 154/89; PULSE 107; RESP 16; TEMP 36.5; O2SAT 95; BMI 31.8
--- NOTE | 2022-01-22 20:02 | ED.PSYCH ---
HPI - Psych General Chief Complaint: Psychiatric Symptoms <ADONAY Crocker - Last Filed: 01/22/22 20:03> Stated Complaint: crisis <ADONAY Crocker - Last Filed: 01/22/22 20:03> Time Seen by Provider: 01/22/22 20:15 <ADONAY Crocker - Last Filed: 01/22/22 20:03> Source: patient <Melody Velasquez NP - Last Filed: 01/23/22 00:03> Mode of arrival: ambulatory <Melody Velasquez NP - Last Filed: 01/23/22 00:03> Limitations: no limitations <Melody Velasquez NP - Last Filed: 01/23/22 00:03> History of Present Illness HPI Narrative: 3-year-old female with a past medical history of Crohn's, asthma, diarrhea, presenting to the ED complaining of suicidal ideations x months. History of attempts in the past. NO hallucinations. Reports medication noncompliance. Denies EtOH/illicit drug use. No physical complaints. <Melody Velasquez NP - Last Filed: 01/23/22 00:03> 36-year-old female with a past medical history of Crohn's, asthma, diarrhea, presenting to the ED complaining of suicidal ideations x months. History of attempts in the past. NO hallucinations. Reports medication noncompliance. Denies EtOH/illicit drug use. No physical complaints. <Jerry Ochoa MD - Last Filed: 01/23/22 06:31> Related Data Home Medications: Home Medications Medication Instructions Recorded Confirmed vedolizumab 300 mg intravenous 300 mg IV Q2W 08/29/20 12/30/21 solution (Entyvio) Previous Rx's Medication Instructions Recorded albuterol sulfate 90 mcg/actuation 1 inh inhalation QID 30 days #8.5 12/18/20 aerosol inhaler (Ventolin HFA) grams loperamide 2 mg tablet 2 mg PO Q6H PRN loose stool #20 02/09/21 tabs lamotrigine 25 mg tablet 25 mg PO DAILY 30 days #30 tabs 06/26/21 quetiapine 200 mg tablet 200 mg PO BEDTIME #90 tabs 10/15/21 quetiapine 100 mg tablet 100 mg PO TID 30 days #90 tabs 11/12/21 ondansetron 4 mg disintegrating 4 mg PO Q8H PRN nausea and 11/25/21 tablet vomiting #14 tabs acetaminophen 500 mg capsule 500 mg PO Q6H PRN pain (scale 12/07/21 score 7-10) 10 days #40 caps dextroamphetamine-amphetamine 10 10 mg PO DAILY 30 days #30 tabs 12/30/21 mg tablet (Adderall) dextroamphetamine-amphetamine ER 20 mg PO DAILY 30 days #30 caps 12/30/21 20 mg 24hr capsule,extend release (Adderall XR) <ADONAY Crocker - Last Filed: 01/22/22 20:03> Allergies/Adverse Reactions: Allergies Allergy/AdvReac Type Severity Reaction Status Date / Time NSAIDS (Non-Steroidal Allergy Severe BRONCHOSPAS Verified 12/30/21 10:17 Anti-Inflamma M [NSAIDS (NON-STEROIDAL ANTI-INFLAMMA] aspirin [ASA] Allergy Unknown SHORTNESS Verified 12/30/21 10:17 OF BREATH ketorolac [From TORADOL] Allergy Unknown BRONCIAL Verified 12/30/21 10:17 SPASM vancomycin [VANCOMYCIN] Allergy Unknown RASH Verified 12/30/21 10:17 gabapentin [From NEURONTIN] AdvReac Unknown TINGLING Verified 12/30/21 10:17 IN L ARM budesonide AdvReac Muscle Pain Verified 12/30/21 10:17 Bencort Allergy Unknown unknown Uncoded 12/30/21 10:08 <ADONAY Crocker - Last Filed: 01/22/22 20:03> Review of Systems Review of Systems: Yes all other systems are reviewed and are negative <Melody Velasquez NP - Last Filed: 01/23/22 00:03> Constitutional: Constitutional: Reports no additional constitutional complaints, Denies body ache(s), Denies chills, Denies fever(s), Denies headache(s) and Denies weakness <Melody Velasquez NP - Last Filed: 01/23/22 00:03> Eyes: Eyes: Reports no additional eye complaints and Denies change in vision <Melody Velasquez NP - Last Filed: 01/23/22 00:03> ENT: Reports system reviewed and no additional complaints, except as documented, Denies dizziness, Denies headache(s), Denies nasal congestion, Denies nasal discharge and Denies neck pain <Melody Velasquez NP - Last Filed: 01/23/22 00:03> Cardiovascular: Cardiovascular: Reports no additional cardiovascular complaints, Denies chest pain, Denies leg edema and Denies dyspnea <Melody Velasquez NP - Last Filed: 01/23/22 00:03> Respiratory: Respiratory: Reports no additional respiratory complaints, Denies cough and Denies dyspnea <Melody Velasquez NP - Last Filed: 01/23/22 00:03> Gastrointestinal: Gastrointestinal: Reports no additional gastrointestinal complaints, Denies abdominal pain, Denies diarrhea, Denies nausea and Denies vomiting <Melody Velasquez NP - Last Filed: 01/23/22 00:03> Genitourinary: Genitourinary: Reports no additional female genitourinary complaints and Denies urinary incontinence <Melody Velasquez NP - Last Filed: 01/23/22 00:03> Musculoskeletal: Musculoskeletal: Reports no additional musculoskeletal complaints, Denies back pain, Denies arthralgias, Denies joint swelling, Denies neck pain, Denies numbness and Denies tingling <Melody Velasquez NP - Last Filed: 01/23/22 00:03> Integumentary/Breasts: Skin/Breast: Reports system reviewed and no additional complaints, except as docu and Denies rash <Melody Velasquez NP - Last Filed: 01/23/22 00:03> Neurologic: Reports system reviewed and no additional complaints, except as documented, Denies Abnormal speech present, Denies dizziness, Denies headache(s), Denies numbness, Denies tingling and Denies weakness <Melody Velasquez NP - Last Filed: 01/23/22 00:03> Psychiatric: Psychiatric: Denies depression, Denies homicidal ideation and Reports suicidal ideation <Melody Velasquez NP - Last Filed: 01/23/22 00:03> PMFSH Past Medical History Attestation statement: The following information was validated with the patient. <Melody Velasquez NP - Last Filed: 01/23/22 00:03> Source: old records reviewed and nursing notes reviewed <Melody Velasquez NP - Last Filed: 01/23/22 00:03> Medical History: Medical History Acute Crohn's disease Asthma Crohn's colitis Diarrhea Screening for diabetes mellitus (DM) Screening for hypothyroidism Screening for hypothyroidism TMJ (dislocation of temporomandibular joint) <ADONAY Crocker - Last Filed: 01/22/22 20:03> Surgical History: Surgical History History of appendectomy History of colonoscopy History of hysterectomy Hx of endoscopy <ADONAY Crocker - Last Filed: 01/22/22 20:03> Family History Family History: Family History Father Mental health disorder Mother Thyroid cancer Stomach cancer Substance use disorder Mental health disorder Family/Other Diabetes <ADONAY Crocker - Last Filed: 01/22/22 20:03> Social History Social History: Social History Household Members: None Housing: Condominium Do you presently have visiting nurse or other home services: No Alcohol intake: current Alcohol intake frequency: does not drink Patient Tobacco Use Status: Current someday Tobacco user Tobacco use type: Cigarette Cigarettes Per Day: 5 Years Smoked: 20 e-Cigarette/Vaping Use: Currently Using Second Hand Smoke Exposure: No Advance Directives: Yes Advance Directives on File: Yes Advance Directives Date on File: 07/28/20 service: No Current occupational status: employed Cognitive needs: No Hearing needs: No Vision needs: No <ADONAY Crocker - Last Filed: 01/22/22 20:03> Physical Exam Vital Signs: Vital Signs: Last Vital Signs Temp 97.9 F 01/23/22 06:37 Pulse 103 H 01/23/22 06:37 Resp 18 01/23/22 06:37 BP 130/91 H 01/23/22 06:37 Pulse Ox 98 01/23/22 06:37 O2 Del Method 01/23/22 06:37 BMI result Body Mass Index 31.8 <ADONAY Crocker - Last Filed: 01/22/22 20:03> Vital Signs: Last Vital Signs Temp 97.9 F 01/23/22 06:37 Pulse 103 H 01/23/22 06:37 Resp 18 01/23/22 06:37 BP 130/91 H 01/23/22 06:37 Pulse Ox 98 01/23/22 06:37 O2 Del Method 01/23/22 06:37 BMI result Body Mass Index 31.8 <Mleody Velasquez NP - Last Filed: 01/23/22 00:03> Vital Signs: Last Vital Signs Temp 97.9 F 01/23/22 06:37 Pulse 103 H 01/23/22 06:37 Resp 18 01/23/22 06:37 BP 130/91 H 01/23/22 06:37 Pulse Ox 98 01/23/22 06:37 O2 Del Method 01/23/22 06:37 BMI result Body Mass Index 31.8 <Jerry Ochoa MD - Last Filed: 01/23/22 06:31> Const: General: alert, awake and anxious <Melody Velasquez NP - Last Filed: 01/23/22 00:03> Orientation/consciousness: patient oriented x3 <Melody Velasquez NP - Last Filed: 01/23/22 00:03> Limitations: no limitations <Melody Velasquez NP - Last Filed: 01/23/22 00:03> HEENT: Head: Yes normal to inspection <Melody Velasquez NP - Last Filed: 01/23/22 00:03> Ears: hearing grossly normal bilaterally <Melody Velasquez NP - Last Filed: 01/23/22 00:03> General nose exam: Normal external nose present <Melody Velasquez NP - Last Filed: 01/23/22 00:03> Face and sinus: Yes normal facial exam <Melody Velasquez NP - Last Filed: 01/23/22 00:03> Mouth: Normal oral and palatal mucosa present <Melody Velasquez NP - Last Filed: 01/23/22 00:03> Throat: Yes posterior oropharynx normal <Melody Velasquez NP - Last Filed: 01/23/22 00:03> Eyes: General: appearance normal, both eyes and all related structures <Melody Velasquez NP - Last Filed: 01/23/22 00:03> Pupils: Equal, round and reactive pupils present <Melody Velasquez NP - Last Filed: 01/23/22 00:03> Neck: Neck: Yes normal visual inspection <Melody Velasquez NP - Last Filed: 01/23/22 00:03> Chest: Chest palpation & inspection: normal inspection of the chest <Melody Velasquez NP - Last Filed: 01/23/22 00:03> Resp: Effort & Inspection: normal respiratory effort <Melody Velasquez NP - Last Filed: 01/23/22 00:03> Auscultation: clear to auscultation bilaterally <Melody Velasquez NP - Last Filed: 01/23/22 00:03> Cardio: Rate: regular rate <Melody Velasquez NP - Last Filed: 01/23/22 00:03> Rhythm: regular rhythm <Melody Velasquez NP - Last Filed: 01/23/22 00:03> Peripheral pulses: Peripheral pulses 2+ throughout <Melody Velasquez NP - Last Filed: 01/23/22 00:03> GI: Inspection: Yes normal to inspection <Meloyd Velasquez NP - Last Filed: 01/23/22 00:03> Palpation (GI): Soft to palpation and nontender <Melody Velasquez NP - Last Filed: 01/23/22 00:03> Auscultation: normal bowel sounds <Melody Velasquez NP - Last Filed: 01/23/22 00:03> Back/Spine/Pelvis: Thoracic/Lumbar Spine: thoracic and lumbar spine normal to inspection <Melody Velasquez NP - Last Filed: 01/23/22 00:03> Skin: General skin exam: no rashes or lesions noted <Melody Velasquez NP - Last Filed: 01/23/22 00:03> Neuro: General: patient oriented x3, no focal motor deficits and normal sensation to monofilament <Melody Velasquez NP - Last Filed: 01/23/22 00:03> Cranial nerves: Yes CN's II-XII intact bilaterally and Yes Equal, round and reactive pupils present <Melody Velasquez NP - Last Filed: 01/23/22 00:03> Cognition (Neuro): normal cognition <Melody Velasquez NP - Last Filed: 01/23/22 00:03> Speech: No Abnormal speech present <Melody Velasquez NP - Last Filed: 01/23/22 00:03> Gait exam (Neuro): Normal gait present <Melody Velasquez NP - Last Filed: 01/23/22 00:03> Motor exam (neuro): 5/5 motor strength present throughout <Melody Velasquez NP - Last Filed: 01/23/22 00:03> Extrem: General: Yes normal to inspection <Melody Velasquez NP - Last Filed: 01/23/22 00:03> Course Course Course Narrative: RME--36-year-old female with a past medical history of Crohn's, asthma, diarrhea, presenting to the ED complaining of suicidal ideations times months. History of attempts in the past. Reports medication noncompliance. Denies EtOH/illicit drug use. Was recently discharged from [facility] for similar symptoms. CARPIO ordered in triage <ADONAY Crocker - Last Filed: 01/22/22 20:03> Reevaluation(s) Reevaluation #1: Reviewed labs. At this time patient is cleared to be seen by crisis. Patient placed in physician observation <Melody Velasquez NP - Last Filed: 01/23/22 00:03> Medications Administered Discontinued Medications Generic Name Dose Route Start Last Admin Trade Name Freq PRN Reason Stop Dose Admin Haloperidol 5 mg 01/22/22 20:40 01/22/22 21:01 Haloperidol 5 Mg Tablet PO 01/22/22 20:41 5 mg ONCE ONE Administration Lorazepam 2 mg 01/22/22 20:40 01/22/22 21:01 Lorazepam 1 Mg Tablet PO 01/22/22 20:41 2 mg ONCE ONE Administration Lorazepam 2 mg 01/23/22 10:04 01/23/22 10:11 Lorazepam 1 Mg Tablet PO 01/23/22 10:05 2 mg ONCE STA Administration <ADONAY Crocker - Last Filed: 01/22/22 20:03> Medications Administered Discontinued Medications Generic Name Dose Route Start Last Admin Trade Name Freq PRN Reason Stop Dose Admin Haloperidol 5 mg 01/22/22 20:40 01/22/22 21:01 Haloperidol 5 Mg Tablet PO 01/22/22 20:41 5 mg ONCE ONE Administration Lorazepam 2 mg 01/22/22 20:40 01/22/22 21:01 Lorazepam 1 Mg Tablet PO 01/22/22 20:41 2 mg ONCE ONE Administration Lorazepam 2 mg 01/23/22 10:04 01/23/22 10:11 Lorazepam 1 Mg Tablet PO 01/23/22 10:05 2 mg ONCE STA Administration <Melody Velasquez NP - Last Filed: 01/23/22 00:03> Medications Administered Discontinued Medications Generic Name Dose Route Start Last Admin Trade Name Freq PRN Reason Stop Dose Admin Haloperidol 5 mg 01/22/22 20:40 01/22/22 21:01 Haloperidol 5 Mg Tablet PO 01/22/22 20:41 5 mg ONCE ONE Administration Lorazepam 2 mg 01/22/22 20:40 01/22/22 21:01 Lorazepam 1 Mg Tablet PO 01/22/22 20:41 2 mg ONCE ONE Administration Lorazepam 2 mg 01/23/22 10:04 01/23/22 10:11 Lorazepam 1 Mg Tablet PO 01/23/22 10:05 2 mg ONCE STA Administration <Jerry Ochoa MD - Last Filed: 01/23/22 06:31> MDM - Psych MDM Narrative Medical decision making narrative: 36-year-old female with a past medical history of Crohn's, asthma, diarrhea, presenting to the ED complaining of suicidal ideations x months. History of attempts in the past. Reports medication noncompliance. Denies EtOH/illicit drug use. Was recently discharged from [facility] for similar symptoms. Will need labs, CARPIO, COVID screen, crisis eval Patient requesting medication for anxiety and agitation. She tells me that Haldol and Ativan help her. Will order p.o. <Melody Velasquez NP - Last Filed: 01/23/22 00:03> Medical Records Attestation: I reviewed the patient's medical records. <Melody Velasquez NP - Last Filed: 01/23/22 00:03> Lab Data Attestation: I reviewed the patient's lab results. <Melody Velasquez NP - Last Filed: 01/23/22 00:03> Result diagrams: : 01/22/22 20:43 01/22/22 20:43 <ADONAY Crocker - Last Filed: 01/22/22 20:03> Labs: Lab Results 01/22/22 01/22/22 01/22/22 Range/Units 20:10 20:12 20:12 WBC (4.8-10.8) X10*3/uL RBC (4.20-5.50) X10*6/uL Hgb (12.0-16.0) g/dl Hct (37.0-47.0) % MCV (80.0-98.0) fL MCH (27.0-33.0) pg MCHC (31.0-35.0) g/dl RDW (11.0-16.0) % Plt Count (160-400) X10*3/uL MPV (9.4-12.3) fL Immature Gran % (Auto) (0.0-0.4) % Neut % (Auto) (45-73) % Lymph % (Auto) (20-40) % Mcmullen % (Auto) (2-11) % Eos % (Auto) (0-4) % Baso % (Auto) (0-2) % Lymph # (Auto) (1.2-4.9) X10*3/uL Mcmullen # (Auto) (0.1-1.2) X10*3/uL Eos # (Auto) (0.0-0.4) X10*3/uL Baso # (Auto) (0.0-0.2) X10*3/uL Abs Immat Gran (auto) (0.00-0.03) X10*3/uL Absolute Neuts (auto) (2.0-8.3) x10*3/uL Absolute Nucleated RBC (0.0-0.012) X10*3/uL Nucleated RBC % (auto) (0.0-0.2) /100WBC Sodium (135-145) mmol/L Potassium (3.3-5.1) mmol/L Chloride (96-108) mmol/L Carbon Dioxide (22-29) mmol/L Anion Gap (12-20) BUN (9-16) mg/dL Creatinine (0.5-1.4) mg/dL Estim Creat Clear Calc Estimated GFR Random Glucose (60-115) mg/dL Calcium (8.4-10.2) mg/dL Total Bilirubin (0.0-1.0) mg/dL Direct Bilirubin (0.0-0.5) mg/dL AST (5-31) U/L ALT (0-31) U/L Alkaline Phosphatase (39-117) U/L Total Protein (6.5-8.0) g/dL Albumin (3.5-5.0) g/dL Urine Test NEGATIVE (NEGATIVE) Urine Opiates Screen Not Detected (Not Detect) Urine Fentanyl Screen Not Detected (Not Detect) Ur Barbiturates Screen Not Detected (Not Detect) Ur Phencyclidine Scrn Not Detected (Not Detect) Ur Amphetamines Screen Not Detected (Not Detect) U Benzodiazepines Scrn Not Detected (Not Detect) Urine Cocaine Screen Not Detected (Not Detect) U Marijuana (THC) Screen Not Detected (Not Detect) Ethyl Alcohol mg/dL COVID-19 (ROGELIO) Negative (Negative) COVID-19 Clin Com See Note 01/22/22 01/22/22 01/22/22 Range/Units 20:43 20:43 20:43 WBC 8.8 (4.8-10.8) X10*3/uL RBC 4.89 (4.20-5.50) X10*6/uL Hgb 13.7 (12.0-16.0) g/dl Hct 41.6 (37.0-47.0) % MCV 85.1 (80.0-98.0) fL MCH 28.0 (27.0-33.0) pg MCHC 32.9 (31.0-35.0) g/dl RDW 13.7 (11.0-16.0) % Plt Count 372 (160-400) X10*3/uL MPV 9.1 L (9.4-12.3) fL Immature Gran % (Auto) 0.1 (0.0-0.4) % Neut % (Auto) 35.5 L (45-73) % Lymph % (Auto) 54.8 H (20-40) % Mcmullen % (Auto) 6.5 (2-11) % Eos % (Auto) 2.6 (0-4) % Baso % (Auto) 0.5 (0-2) % Lymph # (Auto) 4.8 (1.2-4.9) X10*3/uL Mcmullen # (Auto) 0.6 (0.1-1.2) X10*3/uL Eos # (Auto) 0.2 (0.0-0.4) X10*3/uL Baso # (Auto) 0.0 (0.0-0.2) X10*3/uL Abs Immat Gran (auto) 0.01 (0.00-0.03) X10*3/uL Absolute Neuts (auto) 3.1 (2.0-8.3) x10*3/uL Absolute Nucleated RBC 0.000 (0.0-0.012) X10*3/uL Nucleated RBC % (auto) 0.0 (0.0-0.2) /100WBC Sodium 140 (135-145) mmol/L Potassium 4.4 (3.3-5.1) mmol/L Chloride 107 (96-108) mmol/L Carbon Dioxide 19 L (22-29) mmol/L Anion Gap 18 (12-20) BUN 7 L (9-16) mg/dL Creatinine 0.75 (0.5-1.4) mg/dL Estim Creat Clear Calc 104.9 Estimated GFR > 60 Random Glucose 95 (60-115) mg/dL Calcium 9.5 (8.4-10.2) mg/dL Total Bilirubin < 0.2 (0.0-1.0) mg/dL Direct Bilirubin < 0.2 (0.0-0.5) mg/dL AST 21 (5-31) U/L ALT 36 H (0-31) U/L Alkaline Phosphatase 86 (39-117) U/L Total Protein 7.4 (6.5-8.0) g/dL Albumin 4.5 (3.5-5.0) g/dL Urine Test (NEGATIVE) Urine Opiates Screen (Not Detect) Urine Fentanyl Screen (Not Detect) Ur Barbiturates Screen (Not Detect) Ur Phencyclidine Scrn (Not Detect) Ur Amphetamines Screen (Not Detect) U Benzodiazepines Scrn (Not Detect) Urine Cocaine Screen (Not Detect) U Marijuana (THC) Screen (Not Detect) Ethyl Alcohol 158 mg/dL COVID-19 (ROGELIO) (Negative) COVID-19 Clin Com <ADONAY Crocker - Last Filed: 01/22/22 20:03> Lab Results 01/22/22 01/22/22 01/22/22 Range/Units 20:10 20:12 20:12 WBC (4.8-10.8) X10*3/uL RBC (4.20-5.50) X10*6/uL Hgb (12.0-16.0) g/dl Hct (37.0-47.0) % MCV (80.0-98.0) fL MCH (27.0-33.0) pg MCHC (31.0-35.0) g/dl RDW (11.0-16.0) % Plt Count (160-400) X10*3/uL MPV (9.4-12.3) fL Immature Gran % (Auto) (0.0-0.4) % Neut % (Auto) (45-73) % Lymph % (Auto) (20-40) % Mcmullen % (Auto) (2-11) % Eos % (Auto) (0-4) % Baso % (Auto) (0-2) % Lymph # (Auto) (1.2-4.9) X10*3/uL Mcmullen # (Auto) (0.1-1.2) X10*3/uL Eos # (Auto) (0.0-0.4) X10*3/uL Baso # (Auto) (0.0-0.2) X10*3/uL Abs Immat Gran (auto) (0.00-0.03) X10*3/uL Absolute Neuts (auto) (2.0-8.3) x10*3/uL Absolute Nucleated RBC (0.0-0.012) X10*3/uL Nucleated RBC % (auto) (0.0-0.2) /100WBC Sodium (135-145) mmol/L Potassium (3.3-5.1) mmol/L Chloride (96-108) mmol/L Carbon Dioxide (22-29) mmol/L Anion Gap (12-20) BUN (9-16) mg/dL Creatinine (0.5-1.4) mg/dL Estim Creat Clear Calc Estimated GFR Random Glucose (60-115) mg/dL Calcium (8.4-10.2) mg/dL Total Bilirubin (0.0-1.0) mg/dL Direct Bilirubin (0.0-0.5) mg/dL AST (5-31) U/L ALT (0-31) U/L Alkaline Phosphatase (39-117) U/L Total Protein (6.5-8.0) g/dL Albumin (3.5-5.0) g/dL Urine Test NEGATIVE (NEGATIVE) Urine Opiates Screen Not Detected (Not Detect) Urine Fentanyl Screen Not Detected (Not Detect) Ur Barbiturates Screen Not Detected (Not Detect) Ur Phencyclidine Scrn Not Detected (Not Detect) Ur Amphetamines Screen Not Detected (Not Detect) U Benzodiazepines Scrn Not Detected (Not Detect) Urine Cocaine Screen Not Detected (Not Detect) U Marijuana (THC) Screen Not Detected (Not Detect) Ethyl Alcohol mg/dL COVID-19 (ROGELIO) Negative (Negative) COVID-19 Clin Com See Note 01/22/22 01/22/22 01/22/22 Range/Units 20:43 20:43 20:43 WBC 8.8 (4.8-10.8) X10*3/uL RBC 4.89 (4.20-5.50) X10*6/uL Hgb 13.7 (12.0-16.0) g/dl Hct 41.6 (37.0-47.0) % MCV 85.1 (80.0-98.0) fL MCH 28.0 (27.0-33.0) pg MCHC 32.9 (31.0-35.0) g/dl RDW 13.7 (11.0-16.0) % Plt Count 372 (160-400) X10*3/uL MPV 9.1 L (9.4-12.3) fL Immature Gran % (Auto) 0.1 (0.0-0.4) % Neut % (Auto) 35.5 L (45-73) % Lymph % (Auto) 54.8 H (20-40) % Mcmullen % (Auto) 6.5 (2-11) % Eos % (Auto) 2.6 (0-4) % Baso % (Auto) 0.5 (0-2) % Lymph # (Auto) 4.8 (1.2-4.9) X10*3/uL Mcmullen # (Auto) 0.6 (0.1-1.2) X10*3/uL Eos # (Auto) 0.2 (0.0-0.4) X10*3/uL Baso # (Auto) 0.0 (0.0-0.2) X10*3/uL Abs Immat Gran (auto) 0.01 (0.00-0.03) X10*3/uL Absolute Neuts (auto) 3.1 (2.0-8.3) x10*3/uL Absolute Nucleated RBC 0.000 (0.0-0.012) X10*3/uL Nucleated RBC % (auto) 0.0 (0.0-0.2) /100WBC Sodium 140 (135-145) mmol/L Potassium 4.4 (3.3-5.1) mmol/L Chloride 107 (96-108) mmol/L Carbon Dioxide 19 L (22-29) mmol/L Anion Gap 18 (12-20) BUN 7 L (9-16) mg/dL Creatinine 0.75 (0.5-1.4) mg/dL Estim Creat Clear Calc 104.9 Estimated GFR > 60 Random Glucose 95 (60-115) mg/dL Calcium 9.5 (8.4-10.2) mg/dL Total Bilirubin < 0.2 (0.0-1.0) mg/dL Direct Bilirubin < 0.2 (0.0-0.5) mg/dL AST 21 (5-31) U/L ALT 36 H (0-31) U/L Alkaline Phosphatase 86 (39-117) U/L Total Protein 7.4 (6.5-8.0) g/dL Albumin 4.5 (3.5-5.0) g/dL Urine Test (NEGATIVE) Urine Opiates Screen (Not Detect) Urine Fentanyl Screen (Not Detect) Ur Barbiturates Screen (Not Detect) Ur Phencyclidine Scrn (Not Detect) Ur Amphetamines Screen (Not Detect) U Benzodiazepines Scrn (Not Detect) Urine Cocaine Screen (Not Detect) U Marijuana (THC) Screen (Not Detect) Ethyl Alcohol 158 mg/dL COVID-19 (ROGELIO) (Negative) COVID-19 Clin Com <Melody Velasquez, BERT - Last Filed: 01/23/22 00:03> Lab Results 01/22/22 01/22/22 01/22/22 Range/Units 20:10 20:12 20:12 WBC (4.8-10.8) X10*3/uL RBC (4.20-5.50) X10*6/uL Hgb (12.0-16.0) g/dl Hct (37.0-47.0) % MCV (80.0-98.0) fL MCH (27.0-33.0) pg MCHC (31.0-35.0) g/dl RDW (11.0-16.0) % Plt Count (160-400) X10*3/uL MPV (9.4-12.3) fL Immature Gran % (Auto) (0.0-0.4) % Neut % (Auto) (45-73) % Lymph % (Auto) (20-40) % Mcmullen % (Auto) (2-11) % Eos % (Auto) (0-4) % Baso % (Auto) (0-2) % Lymph # (Auto) (1.2-4.9) X10*3/uL Mcmullen # (Auto) (0.1-1.2) X10*3/uL Eos # (Auto) (0.0-0.4) X10*3/uL Baso # (Auto) (0.0-0.2) X10*3/uL Abs Immat Gran (auto) (0.00-0.03) X10*3/uL Absolute Neuts (auto) (2.0-8.3) x10*3/uL Absolute Nucleated RBC (0.0-0.012) X10*3/uL Nucleated RBC % (auto) (0.0-0.2) /100WBC Sodium (135-145) mmol/L Potassium (3.3-5.1) mmol/L Chloride (96-108) mmol/L Carbon Dioxide (22-29) mmol/L Anion Gap (12-20) BUN (9-16) mg/dL Creatinine (0.5-1.4) mg/dL Estim Creat Clear Calc Estimated GFR Random Glucose (60-115) mg/dL Calcium (8.4-10.2) mg/dL Total Bilirubin (0.0-1.0) mg/dL Direct Bilirubin (0.0-0.5) mg/dL AST (5-31) U/L ALT (0-31) U/L Alkaline Phosphatase (39-117) U/L Total Protein (6.5-8.0) g/dL Albumin (3.5-5.0) g/dL Urine Test NEGATIVE (NEGATIVE) Urine Opiates Screen Not Detected (Not Detect) Urine Fentanyl Screen Not Detected (Not Detect) Ur Barbiturates Screen Not Detected (Not Detect) Ur Phencyclidine Scrn Not Detected (Not Detect) Ur Amphetamines Screen Not Detected (Not Detect) U Benzodiazepines Scrn Not Detected (Not Detect) Urine Cocaine Screen Not Detected (Not Detect) U Marijuana (THC) Screen Not Detected (Not Detect) Ethyl Alcohol mg/dL COVID-19 (ROGELIO) Negative (Negative) COVID-19 Clin Com See Note 01/22/22 01/22/22 01/22/22 Range/Units 20:43 20:43 20:43 WBC 8.8 (4.8-10.8) X10*3/uL RBC 4.89 (4.20-5.50) X10*6/uL Hgb 13.7 (12.0-16.0) g/dl Hct 41.6 (37.0-47.0) % MCV 85.1 (80.0-98.0) fL MCH 28.0 (27.0-33.0) pg MCHC 32.9 (31.0-35.0) g/dl RDW 13.7 (11.0-16.0) % Plt Count 372 (160-400) X10*3/uL MPV 9.1 L (9.4-12.3) fL Immature Gran % (Auto) 0.1 (0.0-0.4) % Neut % (Auto) 35.5 L (45-73) % Lymph % (Auto) 54.8 H (20-40) % Mcmullen % (Auto) 6.5 (2-11) % Eos % (Auto) 2.6 (0-4) % Baso % (Auto) 0.5 (0-2) % Lymph # (Auto) 4.8 (1.2-4.9) X10*3/uL Mcmullen # (Auto) 0.6 (0.1-1.2) X10*3/uL Eos # (Auto) 0.2 (0.0-0.4) X10*3/uL Baso # (Auto) 0.0 (0.0-0.2) X10*3/uL Abs Immat Gran (auto) 0.01 (0.00-0.03) X10*3/uL Absolute Neuts (auto) 3.1 (2.0-8.3) x10*3/uL Absolute Nucleated RBC 0.000 (0.0-0.012) X10*3/uL Nucleated RBC % (auto) 0.0 (0.0-0.2) /100WBC Sodium 140 (135-145) mmol/L Potassium 4.4 (3.3-5.1) mmol/L Chloride 107 (96-108) mmol/L Carbon Dioxide 19 L (22-29) mmol/L Anion Gap 18 (12-20) BUN 7 L (9-16) mg/dL Creatinine 0.75 (0.5-1.4) mg/dL Estim Creat Clear Calc 104.9 Estimated GFR > 60 Random Glucose 95 (60-115) mg/dL Calcium 9.5 (8.4-10.2) mg/dL Total Bilirubin < 0.2 (0.0-1.0) mg/dL Direct Bilirubin < 0.2 (0.0-0.5) mg/dL AST 21 (5-31) U/L ALT 36 H (0-31) U/L Alkaline Phosphatase 86 (39-117) U/L Total Protein 7.4 (6.5-8.0) g/dL Albumin 4.5 (3.5-5.0) g/dL Urine Test (NEGATIVE) Urine Opiates Screen (Not Detect) Urine Fentanyl Screen (Not Detect) Ur Barbiturates Screen (Not Detect) Ur Phencyclidine Scrn (Not Detect) Ur Amphetamines Screen (Not Detect) U Benzodiazepines Scrn (Not Detect) Urine Cocaine Screen (Not Detect) U Marijuana (THC) Screen (Not Detect) Ethyl Alcohol 158 mg/dL COVID-19 (ROGELIO) (Negative) COVID-19 Clin Com <Jerry Ochoa MD - Last Filed: 01/23/22 06:31> Discharge Plan Discharge Clinical Impression: Suicidal ideation, MDD (major depressive disorder), recurrent episode, moderate <ADONAY Crocker - Last Filed: 01/22/22 20:03> Patient Disposition: Still a Patient <ADONAY Crocker - Last Filed: 01/22/22 20:03> Prescriptions: No Action albuterol sulfate [Ventolin HFA] 90 mcg/actuation HFA aerosol inhaler 1 inh inhalation QID 30 Days Qty: 8.5 0RF lamotrigine 25 mg tablet 25 mg PO DAILY 30 Days Qty: 30 2RF quetiapine 200 mg tablet 200 mg PO BEDTIME Qty: 90 1RF quetiapine 100 mg tablet 100 mg PO TID 30 Days Qty: 90 2RF ondansetron 4 mg tablet,disintegrating 4 mg PO Q8H PRN (Reason: nausea and vomiting) Qty: 14 3RF acetaminophen 500 mg capsule 500 mg PO Q6H PRN (Reason: pain (scale score 7-10)) 10 Days Qty: 40 0RF Entyvio 300 mg recon soln 300 mg IV Q2W Rx Instructions: NEXT DOSE 08/31/2020 loperamide 2 mg tablet 2 mg PO Q6H PRN (Reason: loose stool) Qty: 20 0RF dextroamphetamine-amphetamine [Adderall] 10 mg tablet 10 mg PO DAILY 30 Days Qty: 30 0RF dextroamphetamine-amphetamine [Adderall XR] 20 mg capsule,extended release 24hr 20 mg PO DAILY 30 Days Qty: 30 0RF <ADONAY Crocker - Last Filed: 01/22/22 20:03> Interventions: [place]-Suicide Risk Severity Scale Last Done: 01/22/22 21:32 <ADONAY Crocker - Last Filed: 01/22/22 20:03>
[2022-01-22 20:28] LABS: Amphetamine Screen Urine Not Detected (Not Detect); Barbiturates, Urine Not Detected (Not Detect); Benzodiazepines Screen Urine Not Detected (Not Detect); Cannabinoid Screen Urine Not Detected (Not Detect); Cocaine Screen Urine Not Detected (Not Detect); Fentanyl, urine Not Detected (Not Detect); Opiate Screen Urine Not Detected (Not Detect); Phencyclidine Screen Urine Not Detected (Not Detect)
[2022-01-22 20:33] LABS: COVID-19 Test Negative (Negative)
[2022-01-22 20:48] LABS: MANUAL DIFF FLAG NO
[2022-01-22 20:49] LABS: Basophils Percent Auto 0.5 % (0-2); Eosinophils Absolute Auto 0.2 X10*3/uL (0.0-0.4); Eosinophils Percent Auto 2.6 % (0-4); Hematocrit 41.6 % (37.0-47.0); Hemoglobin 13.7 g/dl (12.0-16.0); Imm Gran Abs Auto 0.01 X10*3/uL (0.00-0.03); Imm Gran Pct Auto 0.1 % (0.0-0.4); Lymphocytes Absolute Auto 4.8 X10*3/uL (1.2-4.9); Lymphocytes Percent Auto 54.8 % (20-40); Mean Corpuscular HGB Conc 32.9 g/dl (31.0-35.0); Mean Corpuscular Volume 85.1 fL (80.0-98.0); Mean Platelet Volume 9.1 fL (9.4-12.3); Monocytes Absolute Auto 0.6 X10*3/uL (0.1-1.2); Monocytes Percent Auto 6.5 % (2-11); Neutrophils Absolute Auto 3.1 x10*3/uL (2.0-8.3); Neutrophils Percent Auto 35.5 % (45-73); Platelet Count 372 X10*3/uL (160-400); Red Blood Count 4.89 X10*6/uL (4.20-5.50); Red Cell Distribution Width 13.7 % (11.0-16.0); White Blood Count 8.8 X10*3/uL (4.8-10.8)
[2022-01-22] MEDS: LORazepam 1 MG TABLET 2 MG PO (21:01)
[2022-01-22] MEDS: HaloperidoL 5 MG TABLET PO (21:01)
--- NOTE | 2022-01-22 21:06 | PC.NURSE ---
Pt. sitting in bed. Pt. crying non-stop, states that nothing helps. She's tried everything and is just tired of dealing with it all. Pt. reports SI and high anxiety. Went over some breathing techniques with pt. and medicated per MAR.
[2022-01-22 22:04] LABS: UPreg QC Valid YES; Urine Pregnancy NEGATIVE (NEGATIVE)
[2022-01-22 22:32] LABS: Ethanol 158 mg/dL
[2022-01-22 22:36] LABS: Alanine Aminotransferase 36 U/L (0-31); Albumin Level 4.5 g/dL (3.5-5.0); Alkaline Phosphatase 86 U/L (39-117); Anion Gap 18 (12-20); Aspartate Amino Transferase 21 U/L (5-31); Bilirubin Direct < 0.2 mg/dL (0.0-0.5); Bilirubin Total < 0.2 mg/dL (0.0-1.0); Blood Urea Nitrogen 7 mg/dL (9-16); Calcium 9.5 mg/dL (8.4-10.2); Carbon Dioxide 19 mmol/L (22-29); Chloride 107 mmol/L (96-108); Creatinine Clr Calc Pharmacy 104.9; Estimated Glomerular Filt Rate > 60; Glucose Random 95 mg/dL (60-115); Potassium 4.4 mmol/L (3.3-5.1); Sodium 140 mmol/L (135-145); Total Protein 7.4 g/dL (6.5-8.0)
--- NOTE | 2022-01-22 23:53 | PC.NURSE ---
med rec attempted. patient reports she has not been taking any of her medications for quite a time.
--- NOTE | 2022-01-23 01:15 | PC.NURSE ---
patient sleeping, chest rise and fall equal and unlabored. tearful in the beginning of the shift. reassured she is in a safe space and will get the help she is looking for. [address] for safety
[2022-01-23 06:37] VITALS: BP 130/91; PULSE 103; RESP 18; TEMP 36.6; O2SAT 98
--- NOTE | 2022-01-23 08:40 | PC.NURSE ---
Report hayley from night rn, understood pt has been nonmed compliant with new meds after recent d/c from [facility]. Pt had etoh in system upon arrival but has been rhonda and cooperative and is awaiting n. pt currently sleeping with normal resps. pt has tolerated most of meal tray.
--- NOTE | 2022-01-23 09:41 | HO.SUDE ---
Patient is a 38 year-old woman who came to the ED following an accidental overdose on Fentanyl. She was seen by the CARE Team for VERONICA assessment in bed 13 int he main ED. She was alert, oriented, pleasant and easily engaged. 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 Patient has minimal supports due to her drug use, is homeless, unemployed, has no providers, has no phone. She is interested in detox but said she has to discuss this with her boyfriend and has all the information she needs to get into a program. Encouraged patient to return to the ED or [place] when she is ready. In addition, she is aware the local police can help get people into detoxes.
[2022-01-23] MEDS: LORazepam 1 MG TABLET 2 MG PO (10:11)
--- NOTE | 2022-01-23 14:24 | PC.NURSE ---
nurse to nurse given
[2022-01-23] MEDS: QUEtiapine Fumarate 100 MG TABLET PO (16:12)
[2022-01-23 18:00] VITALS: BP 133/90; PULSE 95; TEMP 36.3; O2SAT 98
[2022-01-23] MEDS: LORazepam 1 MG TABLET PO (18:23)
--- NOTE | 2022-01-23 19:04 | PC.ADMIT ---
pt is a 36 year old female who preseneted to [facility] ED with SI with intent and alcohol abuse. pt reported drinking alcohol to cope with anxiety. during admission, pt was so anxious, conventional underwriter had to stop the admission process 3 times. pt was given seroquel 100 mg and ativan 1 mg to calm down. pt answered all admission questions. pt reported SI during admission, so staff is checking on pt frequently. pt went to sleep after her admission process. pt reports having crohn disease and having trouble moving her bowels. start treatment plan and promote safety.
--- NOTE | 2022-01-23 19:09 | PC.NURSE ---
pt signed a 3 day, up Saturday 01/27
[2022-01-23] MEDS: QUEtiapine Fumarate 200 MG TABLET PO (20:33)
[2022-01-24 06:00] VITALS: BP 141/84; PULSE 116; RESP 18; TEMP 36.4; O2SAT 97
[2022-01-24 08:01] LABS: Alanine Aminotransferase 23 U/L (0-31); Albumin Level 3.9 g/dL (3.5-5.0); Alkaline Phosphatase 74 U/L (39-117); Anion Gap 15 (12-20); Aspartate Amino Transferase 14 U/L (5-31); Bilirubin Total 0.5 mg/dL (0.0-1.0); Blood Urea Nitrogen 13 mg/dL (9-16); Calcium 9.4 mg/dL (8.4-10.2); Carbon Dioxide 20 mmol/L (22-29); Chloride 107 mmol/L (96-108); Cholesterol 191 mg/dL; Creatinine Clr Calc Pharmacy 115.7; Estimated Glomerular Filt Rate > 60; Glucose Fasting 93 mg/dL (60-99); HDL Cholesterol 53 mg/dL; LDL Cholesterol Calculated 113 mg/dl; Potassium 4.5 mmol/L (3.3-5.1); Sodium 137 mmol/L (135-145); Total Protein 6.5 g/dL (6.5-8.0); Triglycerides 129 mg/dL
[2022-01-24] MEDS: QUEtiapine Fumarate 100 MG TABLET PO ×2 (08:18→16:05)
[2022-01-24] MEDS: Dextroamphetamine/Amphetamine XR 10 MG CAP.ER.24H 20 MG PO (08:18)
[2022-01-24] MEDS: hydrOXYzine HCL 25 MG TABLET PO (09:59)
--- NOTE | 2022-01-24 11:41 | HO.PSYADMNOT ---
[facility] Date of Service: 01/24/22 Chief Complaint: Depression Sources of Information: patient interviewed, chart reviewed and crisis/core team assessment reviewed HPI Subjective Notes: Mon Warning and 3 Day Medical Problems Affecting Mental Status: No Narrative: 36-year-old female self presented to the ED complaining of worsening suicidal thoughts over the last 2 weeks. Was discharged from [facility] approximately 2 weeks ago following a 4 day stay. Also reports an overdose attempt in August this year- sleeping pills and texted her mom. During that admission, felt that her mom had abandoned her and did not visit with her. Reports that her anxiety is extremely high and feeling depressed. Reports now feeling that the hospital is not the right place and signed a three-day notice. Reports that she needs help with ADLs, medication organization, preparing meals. Reports intermittent suicidal thoughts of overdosing. Feeling alone and isolated. Upset regarding 14-year-old daughter that spends time with patient's mom and daughter's biological father. Reports this has been the case for the past 2 years and reports that her daughter does not want to be near her. Also recently laid off from [employer] where she had been working for 5 years. Reports this was related to missing days at work due to depression anxiety. 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 Has been drinking more recently to cope. Last drink was 2 days ago. Prior to that none for approximately 3 weeks. Denies other substances. Sleep has been poor with nightmares. Does have a trauma history. Denies psychosis currently or in the past. Does describe both affective instability, but also clear periods of hypomania that can last up to 10 days where she has elated mood, poor sleep, more energy, impulsive spending. He Reports that when she was discharged from [facility], she did not continue medications as she difficulty organizing them and motivating herself to take them. Reports that she feels medications are needed and could be helpful but also I do not have the patience to wait for them to help . Was discharged from [facility] on Effexor, clonidine, Adderall and Seroquel. Has been on Adderall for years. Seroquel dose she has been on 100 mg 3 times per day and 300 mg at bedtime for 1 year. Does report is helpful but feels less so recently. Does not feel the clonidine has particularly helpful. Discussed medications and add prazosin 2 mg at bedtime. Will adjust Seroquel so 150 mg morning and afternoon, 100 mg at dinner time and 300 mg at bedtime. She is also interested in potential for visiting nurse services to help with medication management and community support. Past Psychiatric History: Reports 2 admissions to [facility] this year and was recently [place] for 4 days and discharged approximately 2 weeks ago. Was discharged on Effexor and clonidine. One overdose attempt in August this year with sleeping pills and texted her mom. Reports cutting herself 1 time over 1 year ago. Unsure if she has providers at [facility] and perhaps a ed case manager. ADHD and has been on stimulants for a long time. Has never been in rehab or detox. Does have a trauma history. Denies psychosis currently or in the past. Does describe both affective instability, but also clear periods of hypomania that can last up to 10 days where she has elated mood, poor sleep, more energy, impulsive spending. Past medications have included lithium, Lamictal, Wellbutrin, buspirone, Abilify, Effexor. Never on Remeron. Reports Seroquel has been helpful. Medical Evaluation Reviewed: Yes [facility] Medical History Acute Crohn's disease Asthma Crohn's colitis Diarrhea Screening for diabetes mellitus (DM) Screening for hypothyroidism Screening for hypothyroidism TMJ (dislocation of temporomandibular joint) Surgical History History of appendectomy History of colonoscopy History of hysterectomy Hx of endoscopy Family History: Substance use disorder Social History: Lives alone. Upset regarding 14-year-old daughter that spends time with patient's mom and daughter's biological father. Reports this has been the case for the past 2 years and reports that her daughter does not want to be near her. Also recently laid off from [employer] where she had been working for 5 years. Reports this was related to missing days at work due to depression anxiety. 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 No legal issues. Substance History: Uses alcohol to cope at times. Never been in rehab for detox. Trauma History: Yes Diagnostics Vital Signs (24Hr): Vital Signs - 24 hr 01/23/22 18:00 01/24/22 06:00 Temperature 97.3 F 97.6 F Pulse Rate 95 116 H Respiratory Rate 18 Blood Pressure 133/90 H 141/84 H Pulse Oximetry 98 97 Oxygen Delivery Method Room Air Room Air BMI result Body Mass Index 31.8 Labs Results: 01/22/22 20:43 01/24/22 07:26 Labs: Laboratory Results - last 48 hr 01/22/22 01/22/22 01/22/22 20:10 20:12 20:12 WBC RBC Hgb Hct MCV MCH MCHC RDW Plt Count MPV Immature Gran % (Auto) Neut % (Auto) Lymph % (Auto) [place] % (Auto) Eos % (Auto) Baso % (Auto) Lymph # (Auto) [place] # (Auto) Eos # (Auto) Baso # (Auto) Abs Immat Gran (auto) Absolute Neuts (auto) Absolute Nucleated RBC Nucleated RBC % (auto) Sodium Potassium Chloride Carbon Dioxide Anion Gap BUN Creatinine Estim Creat Clear Calc Estimated GFR Random Glucose Fasting Glucose Calcium Total Bilirubin Direct Bilirubin AST ALT Alkaline Phosphatase Total Protein Albumin Triglycerides Cholesterol LDL Cholesterol, Calc HDL Cholesterol Urine Test NEGATIVE Urine Opiates Screen Not Detected Urine Fentanyl Screen Not Detected Ur Barbiturates Screen Not Detected Ur Phencyclidine Scrn Not Detected Ur Amphetamines Screen Not Detected U Benzodiazepines Scrn Not Detected Urine Cocaine Screen Not Detected U Marijuana (THC) Screen Not Detected Ethyl Alcohol COVID-19 (ROGELIO) Negative COVID-19 Clin Com See Note 01/22/22 01/22/22 01/22/22 20:43 20:43 20:43 WBC 8.8 RBC 4.89 Hgb 13.7 Hct 41.6 MCV 85.1 MCH 28.0 MCHC 32.9 RDW 13.7 Plt Count 372 MPV 9.1 L Immature Gran % (Auto) 0.1 Neut % (Auto) 35.5 L Lymph % (Auto) 54.8 H [place] % (Auto) 6.5 Eos % (Auto) 2.6 Baso % (Auto) 0.5 Lymph # (Auto) 4.8 [place] # (Auto) 0.6 Eos # (Auto) 0.2 Baso # (Auto) 0.0 Abs Immat Gran (auto) 0.01 Absolute Neuts (auto) 3.1 Absolute Nucleated RBC 0.000 Nucleated RBC % (auto) 0.0 Sodium 140 Potassium 4.4 Chloride 107 Carbon Dioxide 19 L Anion Gap 18 BUN 7 L Creatinine 0.75 Estim Creat Clear Calc 104.9 Estimated GFR > 60 Random Glucose 95 Fasting Glucose Calcium 9.5 Total Bilirubin < 0.2 Direct Bilirubin < 0.2 AST 21 ALT 36 H Alkaline Phosphatase 86 Total Protein 7.4 Albumin 4.5 Triglycerides Cholesterol LDL Cholesterol, Calc HDL Cholesterol Urine Test Urine Opiates Screen Urine Fentanyl Screen Ur Barbiturates Screen Ur Phencyclidine Scrn Ur Amphetamines Screen U Benzodiazepines Scrn Urine Cocaine Screen U Marijuana (THC) Screen Ethyl Alcohol 158 COVID-19 (ROGELIO) COVID-[employer] 01/24/22 07:26 WBC RBC Hgb Hct MCV MCH MCHC RDW Plt Count MPV Immature Gran % (Auto) Neut % (Auto) Lymph % (Auto) [place] % (Auto) Eos % (Auto) Baso % (Auto) Lymph # (Auto) [place] # (Auto) Eos # (Auto) Baso # (Auto) Abs Immat Gran (auto) Absolute Neuts (auto) Absolute Nucleated RBC Nucleated RBC % (auto) Sodium 137 Potassium 4.5 Chloride 107 Carbon Dioxide 20 L Anion Gap 15 BUN 13 Creatinine 0.68 Estim Creat Clear Calc 115.7 Estimated GFR > 60 Random Glucose Fasting Glucose 93 Calcium 9.4 Total Bilirubin 0.5 Direct Bilirubin AST 14 ALT 23 Alkaline Phosphatase 74 Total Protein 6.5 Albumin 3.9 Triglycerides 129 Cholesterol 191 LDL Cholesterol, Calc 113 HDL Cholesterol 53 Urine Test Urine Opiates Screen Urine Fentanyl Screen Ur Barbiturates Screen Ur Phencyclidine Scrn Ur Amphetamines Screen U Benzodiazepines Scrn Urine Cocaine Screen U Marijuana (THC) Screen Ethyl Alcohol COVID-19 (ROGELIO) COVID-[employer] Meds/Allergies Meds Home Medications Medication Instructions Recorded Confirmed Type vedolizumab 300 mg intravenous 300 mg IV Q2W 08/29/20 12/30/21 History solution (Entyvio) Allergies Allergies Allergy/AdvReac Type Severity Reaction Status Date / Time NSAIDS (Non-Steroidal Allergy Severe BRONCHOSPAS Verified 12/30/21 10:17 Anti-Inflamma M [NSAIDS (NON-STEROIDAL ANTI-INFLAMMA] aspirin [ASA] Allergy Unknown SHORTNESS Verified 12/30/21 10:17 OF BREATH ketorolac [From TORADOL] Allergy Unknown BRONCIAL Verified 12/30/21 10:17 SPASM vancomycin [VANCOMYCIN] Allergy Unknown RASH Verified 12/30/21 10:17 gabapentin [From NEURONTIN] AdvReac Unknown TINGLING Verified 12/30/21 10:17 IN L ARM budesonide AdvReac Muscle Pain Verified 12/30/21 10:17 Bencort Allergy Unknown unknown Uncoded 12/30/21 10:08 Mental Status Exam Mental Status Exam Narrative: Pleasant. Engaged. Appropriately dressed. Tearful. Depressed and anxious. Intermittent SI. Denies current plans or intent. No HI. No agitation or psychosis. Insight and judgment okay Assessment & Plan Assessment & Plan (1) Bipolar disorder: Status: Acute Code(s): F31.9 - Bipolar disorder, unspecified Plan Presents with a history of bipolar disorder and PTSD. Also has history of affective instability. Submitted 3 day notice and mon warning given. Discussed medications and add prazosin 2 mg at bedtime. Will adjust Seroquel so 150 mg morning and afternoon, 100 mg at dinner time and 300 mg at bedtime. She is also interested in potential for visiting nurse services to help with medication management and community support. Patient educated on: diagnosis, medication risk/benefits and therapeutic strategies Informed Consent: understands Reason for continued inpatient stay Substantial Risk for: harm to self
[2022-01-24] MEDS: QUEtiapine Fumarate 50 MG TABLET 150 MG PO (11:46)
[2022-01-24 18:00] VITALS: BP 136/71; PULSE 113; RESP 16; TEMP 36; O2SAT 95
[2022-01-24] MEDS: QUEtiapine Fumarate 300 MG TABLET PO (19:51)
[2022-01-24] MEDS: traZODone HCL 50 MG TABLET PO (20:05)
[2022-01-25 07:55] VITALS: BP 145/86; PULSE 112; RESP 20; TEMP 36.4; O2SAT 97
[2022-01-25] MEDS: Dextroamphetamine/Amphetamine XR 10 MG CAP.ER.24H 20 MG PO (08:24)
[2022-01-25] MEDS: QUEtiapine Fumarate 50 MG TABLET 150 MG PO ×2 (08:24→13:02)
--- NOTE | 2022-01-25 10:29 | HO.PSYCHPN ---
Subjective Subjective Date of Service: 01/25/22 Reason For Visit: Depression Interim History: Patient reports that she is not suicidal at all. She said that over the weekend she was not actually suicidal at that time either, but had been drinking and feeling abandoned by her mother fell into familiar pattern, saying she was suicidal to get her mother's attention and get her to the hospital. Survey Superintendent and patient discussed her history and her complicated relationship with her mother in detail. Patient has felt marginalized by her mother most of her life and feels that she is the scapegoat for all the problems in the family. She struggles to challenge the negative labile she has been assigned and sometimes is successful, however often times she believes the labels as well, that she is always the problem, every thing is her fault... Discussed also the reasons patient has a pattern of not taking her medications on discharge and patient demonstrated considerable insight and considered, her medication non adherence is possibly an unconscious acceptance of her assigned roll of being dependent and always in crisis; patient went further and acknowledge that while she rejects this role, it is also a means for which she has garnered her mother's attention. Patient has never been in consistent extended therapy and she agrees that this is essential; she has also never done DBT therapy which she says will probably be very helpful and wants. Regarding medication, patient feels that Seroquel has been helpful and thinks that the increased dose over the weekend would be better served as a p.r.n.. She has also tried clonidine in the past and agrees to try it again. Regarding her diagnosis of bipolar disorder, patient doubts it and thinks it is more likely borderline personality disorder combined with PTSD and history of alcoholism. She says perhaps she had a 10 day manic episode but has no idea if this was during alcoholism and what were the other contributing factors. She does agree she is depressed and misses her daughter terribly. Patient reports poor response to SSRIs.; lithium and Lamictal made her nauseous. Mental Status Exam Mental Status Exam Narrative: Pt is alert and oriented; behavior is cooperative, friendly and calm; patient is not in distress; dressed in casual attire and adequately groomed; mood is described as depressed and affect congruent, tearful; eye contact appropriate; Speech is normal rate, volume and prosody and not pressured; no psychomotor agitation/retardation present; thought process is organized and goal directed; Thought content is on tx, dealing with relationship w/ mother; otherwise pertinent to relevant topics and without any delusional content, paranoid ideations or grandiosity; denies any SI/HI. There is no evidence of perceptual disturbance. Patients insight and judgment appear intact. Diagnostics Vital Signs (24Hr): Vital Signs - 24 hr 01/24/22 18:00 01/25/22 07:55 Temperature 96.8 F 97.6 F Pulse Rate 113 H 112 H Respiratory Rate 16 20 Blood Pressure 136/71 145/86 H Pulse Oximetry 95 97 Oxygen Delivery Method Room Air Room Air BMI result Body Mass Index 31.8 Labs Results: 01/22/22 20:43 01/24/22 07:26 Labs: Laboratory Results - last 48 hr 01/24/22 07:26 Sodium 137 Potassium 4.5 Chloride 107 Carbon Dioxide 20 L Anion Gap 15 BUN 13 Creatinine 0.68 Estim Creat Clear Calc 115.7 Estimated GFR > 60 Fasting Glucose 93 Calcium 9.4 Total Bilirubin 0.5 AST 14 ALT 23 Alkaline Phosphatase 74 Total Protein 6.5 Albumin 3.9 Triglycerides 129 Cholesterol 191 LDL Cholesterol, Calc 113 HDL Cholesterol 53 Medications Medications Current Medications Acetaminophen (Acetaminophen 325 Mg Tablet) 650 mg PO Q6H PRN PRN Reason: Headache/Pain Mild Scale (1-3) Al Hydroxide/Mg Hydroxide (Magnesium Hydrox/Alum Hydrox 30 Ml Oral.Susp) 30 ml PO Q6H PRN PRN Reason: Heartburn/Nausea Albuterol Sulfate (Albuterol Sulfate 90 Mcg 8 Gm Inhaler) 2 puff INHALE Q4H PRN PRN Reason: shortness of breath Amphetamine/Dextroamphetamine (Dextroamphetamine/Amphetamine Xr 10 Mg Cap.Er.24h) 20 mg PO DAILY [facility] Last Admin: 01/25/22 08:24 Dose: 20 mg Hydroxyzine HCl (Hydroxyzine Hcl 25 Mg Tablet) 25 mg PO Q6H PRN PRN Reason: Anxiety Last Admin: 01/24/22 09:59 Dose: 25 mg Magnesium Hydroxide (Milk Of Magnesia 30 Ml Oral.Susp) 30 ml PO DAILY PRN PRN Reason: Constipation Quetiapine Fumarate (Quetiapine Fumarate 100 Mg Tablet) 100 mg PO DAILY@1700 [facility] Last Admin: 01/24/22 16:05 Dose: 100 mg Quetiapine Fumarate (Quetiapine Fumarate 50 Mg Tablet) 150 mg PO BID@0900,1300 [facility] Last Admin: 01/25/22 08:24 Dose: 150 mg Quetiapine Fumarate (Quetiapine Fumarate 300 Mg Tablet) 300 mg PO BEDTIME [facility] Last Admin: 01/24/22 19:51 Dose: 300 mg Trazodone HCl (Trazodone Hcl 50 Mg Tablet) 50 mg PO BEDTIME PRN PRN Reason: Insomnia Last Admin: 01/24/22 20:05 Dose: 50 mg Allergies Allergies Allergy/AdvReac Type Severity Reaction Status Date / Time NSAIDS (Non-Steroidal Allergy Severe BRONCHOSPAS Verified 12/30/21 10:17 Anti-Inflamma M [NSAIDS (NON-STEROIDAL ANTI-INFLAMMA] aspirin [ASA] Allergy Unknown SHORTNESS Verified 12/30/21 10:17 OF BREATH ketorolac [From TORADOL] Allergy Unknown BRONCIAL Verified 12/30/21 10:17 SPASM vancomycin [VANCOMYCIN] Allergy Unknown RASH Verified 12/30/21 10:17 gabapentin [From NEURONTIN] AdvReac Unknown TINGLING Verified 12/30/21 10:17 IN L ARM budesonide AdvReac Muscle Pain Verified 12/30/21 10:17 Bencort Allergy Unknown unknown Uncoded 12/30/21 10:08 Assessment & Plan Assessment & Plan (1) Bipolar disorder: Status: Acute Code(s): F31.9 - Bipolar disorder, unspecified Plan Presents with a history of bipolar disorder and PTSD. Also has history of affective instability. Submitted 3 day notice and boyle warning given. 01/24 Discussed medications and add prazosin 2 mg at bedtime. Will adjust Seroquel so 150 mg morning and afternoon, 100 mg at dinner time and 300 mg at bedtime. She is also interested in potential for visiting nurse services to help with medication management and community support. 01/25 denies any SI; says weekend SI was more about getting mother's attention and denies any actual plan or intent. Patient remains depressed but ambivalent about medications. However she is open to therapy and very forthcoming in one-to-one discussions. Alcohol use was only 1 time this past Tuesday; otherwise has remained sober. Patient has 3 day notice pending; will continue to monitor however patient is likely safe and appropriate to continue treatment in the community. Plan: 3 day notice Q 15 minute checks Continue Seroquel 150 b.i.d. Continue Seroquel 300 mg q.h.s. Will make Seroquel 100 mg a p.r.n. (was added and scheduled over the weekend) Prazosin 2 mg started q.h.s. patient sleeps however with Seroquel and does not complain of nightmares; will further discuss the need for this Clonidine 0.1 mg Q 4 p.r.n. for anxiety Will try to get more handle on past medication trials Med trials: poor response to SSRIs.; though not confident therapeutic dose/duration. lithium made her nauseous. Lamictal made her nauseous. I spent minutes with the patient and/or on the patient floor today, greater than?50% of which was spent counseling/coordinating care. Patient educated on: diagnosis, medication risk/benefits, substance abuse and therapeutic strategies Informed Consent: understands Reason for contiued inpatient stay Substantial Risk for: stable for discharge
[2022-01-25] MEDS: Nicotine 14 MG PATCH.TD24 TRANSDERMA (13:02)
[2022-01-25] MEDS: Nicotine Polacrilex 2 MG GUM BUCCAL (17:52)
[2022-01-25] MEDS: QUEtiapine Fumarate 300 MG TABLET PO (20:08)
[2022-01-25] MEDS: traZODone HCL 50 MG TABLET PO (20:08)
[2022-01-25 20:10] VITALS: BP 132/94; PULSE 120; RESP 16; TEMP 36.3
[2022-01-26 06:00] VITALS: BP 132/80; PULSE 109; RESP 14; TEMP 36.8; O2SAT 98
[2022-01-26] MEDS: Dextroamphetamine/Amphetamine XR 10 MG CAP.ER.24H 20 MG PO (08:17)
[2022-01-26] MEDS: QUEtiapine Fumarate 50 MG TABLET 150 MG PO ×2 (08:17→12:56)
[2022-01-26] MEDS: Nicotine 14 MG PATCH.TD24 TRANSDERMA (08:17)
--- NOTE | 2022-01-26 10:06 | P.PNPSI_ITS ---
Subjective Subjective Date of Service: 01/26/22 Reason For Visit: Depression Interim History: no si; depression, but feeling better, more hopeful. had a good visit with her mother last night and then good visit with grandmother today. Pt working on getting perspective on relationship w/ her mother and with herself. Continues to agree to therapy once outpt. Would like to dc tomorrow, feeling safe, ready. Pt has plan to stay in [facility] for a month w/ her beloved grandmother to get s ome distance from local family. talked more about dx and some origins of borderline traits which resonated w/ patient. Mental Status Exam Mental Status Exam Narrative: Pt is alert and oriented; behavior is cooperative, friendly and calm; patient is not in distress; dressed in casual attire and adequately groomed; mood is described as good and affect brighter, more calm; eye contact appropriate; Speech is normal rate, volume and prosody and not pressured; no psychomotor agitation/retardation present; thought process is organized and goal directed; Thought content is on tx, dealing with relationship w/ mother; otherwise pertinent to relevant topics and without any delusional content, paranoid ideations or grandiosity; denies any SI/HI. There is no evidence of perceptual disturbance. Patients insight and judgment are intact. Diagnostics Vital Signs (24Hr): Vital Signs - 24 hr 01/25/22 20:10 01/26/22 06:00 Temperature 97.3 F 98.3 F Pulse Rate 120 H 109 H Respiratory Rate 16 14 Blood Pressure 132/94 H 132/80 Pulse Oximetry 98 Oxygen Delivery Method Room Air BMI result Body Mass Index 31.8 Labs Results: 01/22/22 20:43 01/24/22 07:26 Medications Medications Current Medications Acetaminophen (Acetaminophen 325 Mg Tablet) 650 mg PO Q6H PRN PRN Reason: Headache/Pain Mild Scale (1-3) Al Hydroxide/Mg Hydroxide (Magnesium Hydrox/Alum Hydrox 30 Ml Oral.Susp) 30 ml PO Q6H PRN PRN Reason: Heartburn/Nausea Albuterol Sulfate (Albuterol Sulfate 90 Mcg 8 Gm Inhaler) 2 puff INHALE Q4H PRN PRN Reason: shortness of breath Amphetamine/Dextroamphetamine (Dextroamphetamine/Amphetamine Xr 10 Mg Cap.Er.24h) 20 mg PO DAILY BRADY Last Admin: 01/26/22 08:17 Dose: 20 mg Clonidine HCl (Clonidine Hcl 0.1 Mg Tablet) 0.1 mg PO Q4H PRN; Protocol PRN Reason: anxiety Hydroxyzine HCl (Hydroxyzine Hcl 25 Mg Tablet) 25 mg PO Q6H PRN PRN Reason: Anxiety Last Admin: 01/24/22 09:59 Dose: 25 mg Magnesium Hydroxide (Milk Of Magnesia 30 Ml Oral.Susp) 30 ml PO DAILY PRN PRN Reason: Constipation Nicotine (Nicotine 14 Mg Patch.Td24) 14 mg TRANSDERMA DAILY [facility] Last Admin: 01/26/22 08:17 Dose: 14 mg Nicotine Polacrilex (Nicotine Polacrilex 2 Mg Gum) 2 mg BUCCAL Q2H PRN PRN Reason: Nicotine Cravings Last Admin: 01/25/22 17:52 Dose: 2 mg Quetiapine Fumarate (Quetiapine Fumarate 50 Mg Tablet) 150 mg PO BID@0900,1300 [facility] Last Admin: 01/26/22 08:17 Dose: 150 mg Quetiapine Fumarate (Quetiapine Fumarate 300 Mg Tablet) 300 mg PO BEDTIME [facility] Last Admin: 01/25/22 20:08 Dose: 300 mg Quetiapine Fumarate (Quetiapine Fumarate 100 Mg Tablet) 100 mg PO DAILY PRN PRN Reason: anxiety Trazodone HCl (Trazodone Hcl 50 Mg Tablet) 50 mg PO BEDTIME PRN PRN Reason: Insomnia Last Admin: 01/25/22 20:08 Dose: 50 mg Allergies Allergies Allergy/AdvReac Type Severity Reaction Status Date / Time NSAIDS (Non-Steroidal Allergy Severe BRONCHOSPAS Verified 12/30/21 10:17 Anti-Inflamma M [NSAIDS (NON-STEROIDAL ANTI-INFLAMMA] aspirin [ASA] Allergy Unknown SHORTNESS Verified 12/30/21 10:17 OF BREATH ketorolac [From TORADOL] Allergy Unknown BRONCIAL Verified 12/30/21 10:17 SPASM vancomycin [VANCOMYCIN] Allergy Unknown RASH Verified 12/30/21 10:17 gabapentin [From NEURONTIN] AdvReac Unknown TINGLING Verified 12/30/21 10:17 IN L ARM budesonide AdvReac Muscle Pain Verified 12/30/21 10:17 Bencort Allergy Unknown unknown Uncoded 12/30/21 10:08 Assessment & Plan Assessment & Plan (1) Bipolar disorder: Status: Acute Code(s): F31.9 - Bipolar disorder, unspecified Plan Presents with a history of bipolar disorder and PTSD. Also has history of affective instability. Submitted 3 day notice and boyle warning given. 01/24 Discussed medications and add prazosin 2 mg at bedtime. Will adjust Seroquel so 150 mg morning and afternoon, 100 mg at dinner time and 300 mg at bedtime. She is also interested in potential for visiting nurse services to help with medi cation management and community support. 01/25 denies any SI; says weekend SI was more about getting mother's attention and denies any actual plan or intent. Patient remains depressed but ambivalent about medications. However she is open to therapy and very forthcoming in one-to-one discussions. Alcohol use was only 1 time this past Tuesday; otherwise has remained sober. Patient has 3 day notice pending; will continue to monitor however patient is likely safe and appropriate to continue treatment in the community. 01/26 mood improved; no SI; working on perspective w/ mother; feels like she is more ready to embrace therapy than has been in long time. Patient wants discharge; 3 day notice coming due and pt is not in imminent risk for harm to self or others. Request for discharge honored. Plan: 3 day notice Q 15 minute checks Continue Seroquel 150 b.i.d. Continue Seroquel 300 mg q.h.s. Will make Seroquel 100 mg a p.r.n. (was added and scheduled over the weekend) Prazosin not started Clonidine 0.1mg at bedtime for insomnia Clonidine 0.1 mg Q 4 p.r.n. for anxiety Will try to get more handle on past medication trials Med trials: poor response to SSRIs.; though not confident therapeutic dose/duration. lithium made her nauseous. Lamictal made her nauseous. I spent minutes with the patient and/or on the patient floor today, greater than?50% of which was spent counseling/coordinating care. Patient educated on: diagnosis, medication risk/benefits and therapeutic strategies Informed Consent: understands Reason for contiued inpatient stay Substantial Risk for: stable for discharge
[2022-01-26 14:15] LABS: Influenza A PCR NEGATIVE (Negative); Influenza B PCR NEGATIVE (Negative); Resp Syncy Virus RNA Qual PCR NEGATIVE (Negative); SARS COV2 PCR INHOUSE NEGATIVE (Negative)
[2022-01-26] MEDS: QUEtiapine Fumarate 300 MG TABLET PO (18:53)
[2022-01-26] MEDS: cloNIDine HCL 0.1 MG TABLET PO (18:53)
[2022-01-26 18:55] VITALS: BP 135/88; PULSE 113
[2022-01-26] MEDS: traZODone HCL 50 MG TABLET PO ×2 (20:26→23:30)
[2022-01-27] MEDS: traZODone HCL 50 MG TABLET PO (03:46)
--- NOTE | 2022-01-27 03:49 | PC.NURSE ---
PRN Trazodone given 01/26 @ 23:28 was not documented. Scanned once error was noticed.
[2022-01-27 07:30] VITALS: BP 131/77; PULSE 104; TEMP 36.8; O2SAT 97
[2022-01-27] MEDS: Dextroamphetamine/Amphetamine XR 10 MG CAP.ER.24H 20 MG PO (08:14)
--- NOTE | 2022-01-27 08:22 | P.DS_ITS ---
DS: Providers Provider Date of Service: 01/27/22 Date of admission: 01/23/22 14:34 Date of discharge: 01/27/22 Primary care physician: Kike Irby PA-C Attending physician on admission: Amor Ray Attending physician on discharge: Ignacio Morillo DS: Diagnosis Discharge Diagnosis (1) Bipolar disorder: Status: Inactive DS: Medications Discharge Medications Home Medications: Home Medications Medication Instructions Recorded Confirmed vedolizumab 300 mg intravenous 300 mg IV Q2W 08/29/20 12/30/21 solution (Entyvio) Previous Rx's Medication Instructions Recorded dextroamphetamine-amphetamine ER 20 mg PO DAILY 30 days #30 caps 12/30/21 20 mg 24hr capsule,extend release (Adderall XR) albuterol sulfate 90 mcg/actuation 1 inh inhalation QID 30 days #8.5 01/26/22 aerosol inhaler (Ventolin HFA) grams clonidine HCl 0.1 mg tablet 0.1 mg PO TID PRN anxiety/insomnia 01/26/22 30 days #0 tabs nicotine (polacrilex) 2 mg gum 2 mg buccal Q2H PRN Nicotine 01/26/22 Cravings 30 days #100 ea quetiapine 100 mg tablet 150 mg PO BID 30 days #90 tabs 01/26/22 quetiapine 300 mg tablet 300 mg PO BEDTIME 30 days #30 tabs 01/26/22 trazodone 50 mg tablet See Rx Instructions .Route 01/26/22 .COMPLEX PRN Insomnia 30 days #60 tabs Mental Status Exam Mental Status Exam Narrative: Pt is alert and oriented; behavior is cooperative, friendly and calm; patient is not in distress; dressed in casual attire and adequately groomed; mood is described as good and affect brighter, more calm; eye contact appropriate; Speech is normal rate, volume and prosody and not pressured; no psychomotor agitation/retardation present; thought process is organized and goal directed; Thought content is on tx, dealing with relationship w/ mother; otherwise pertinent to relevant topics and without any delusional content, paranoid ideations or grandiosity; denies any SI/HI. There is no evidence of perceptual disturbance. Patients insight and judgment are intact. Data Data Completed and Pending Completed studies during hospitalization [Text1]: 01/22/22 01/22/22 01/22/22 20:10 20:12 20:12 WBC RBC Hgb Hct MCV MCH MCHC RDW Plt Count MPV Immature Gran % (Auto) Neut % (Auto) Lymph % (Auto) [place] % (Auto) Eos % (Auto) Baso % (Auto) Lymph # (Auto) [place] # (Auto) Eos # (Auto) Baso # (Auto) Abs Immat Gran (auto) Absolute Neuts (auto) Absolute Nucleated RBC Nucleated RBC % (auto) Sodium Potassium Chloride Carbon Dioxide Anion Gap BUN Creatinine Estim Creat Clear Calc Estimated GFR Random Glucose Fasting Glucose Calcium Total Bilirubin Direct Bilirubin AST ALT Alkaline Phosphatase Total Protein Albumin Triglycerides Cholesterol LDL Cholesterol, Calc HDL Cholesterol Urine Test NEGATIVE Urine Opiates Screen Not Detected Urine Fentanyl Screen Not Detected Ur Barbiturates Screen Not Detected Ur Phencyclidine Scrn Not Detected Ur Amphetamines Screen Not Detected U Benzodiazepines Scrn Not Detected Urine Cocaine Screen Not Detected U Marijuana (THC) Screen Not Detected Ethyl Alcohol COVID-19 (ROGELIO) Negative COVID-19 Clin Com See Note Influenza Type A (PCR) Influenza Type B (PCR) RSV RNA Qual (PCR) SARS-CoV-2 RNA (RT-PCR) 01/22/22 01/22/22 01/22/22 20:43 20:43 20:43 WBC 8.8 RBC 4.89 Hgb 13.7 Hct 41.6 MCV 85.1 MCH 28.0 MCHC 32.9 RDW 13.7 Plt Count 372 MPV 9.1 L Immature Gran % (Auto) 0.1 Neut % (Auto) 35.5 L Lymph % (Auto) 54.8 H [place] % (Auto) 6.5 Eos % (Auto) 2.6 Baso % (Auto) 0.5 Lymph # (Auto) 4.8 [place] # (Auto) 0.6 Eos # (Auto) 0.2 Baso # (Auto) 0.0 Abs Immat Gran (auto) 0.01 Absolute Neuts (auto) 3.1 Absolute Nucleated RBC 0.000 Nucleated RBC % (auto) 0.0 Sodium 140 Potassium 4.4 Chloride 107 Carbon Dioxide 19 L Anion Gap 18 BUN 7 L Creatinine 0.75 Estim Creat Clear Calc 104.9 Estimated GFR > 60 Random Glucose 95 Fasting Glucose Calcium 9.5 Total Bilirubin < 0.2 Direct Bilirubin < 0.2 AST 21 ALT 36 H Alkaline Phosphatase 86 Total Protein 7.4 Albumin 4.5 Triglycerides Cholesterol LDL Cholesterol, Calc HDL Cholesterol Urine Test Urine Opiates Screen Urine Fentanyl Screen Ur Barbiturates Screen Ur Phencyclidine Scrn Ur Amphetamines Screen U Benzodiazepines Scrn Urine Cocaine Screen U Marijuana (THC) Screen Ethyl Alcohol 158 COVID-19 ([facility]OGELIO) COVID-19 Clin Com Influenza Type A (PCR) Influenza Type B (PCR) RSV RNA Qual (PCR) SARS-CoV-2 RNA (RT-PCR) 01/24/22 01/26/22 07:26 13:00 WBC RBC Hgb Hct MCV MCH MCHC RDW Plt Count MPV Immature Gran % (Auto) Neut % (Auto) Lymph % (Auto) [place] % (Auto) Eos % (Auto) Baso % (Auto) Lymph # (Auto) [place] # (Auto) Eos # (Auto) Baso # (Auto) Abs Immat Gran (auto) Absolute Neuts (auto) Absolute Nucleated RBC Nucleated RBC % (auto) Sodium 137 Potassium 4.5 Chloride 107 Carbon Dioxide 20 L Anion Gap 15 BUN 13 Creatinine 0.68 Estim Creat Clear Calc 115.7 Estimated GFR > 60 Random Glucose Fasting Glucose 93 Calcium 9.4 Total Bilirubin 0.5 Direct Bilirubin AST 14 ALT 23 Alkaline Phosphatase 74 Total Protein 6.5 Albumin 3.9 Triglycerides 129 Cholesterol 191 LDL Cholesterol, Calc 113 HDL Cholesterol 53 Urine Test Urine Opiates Screen Urine Fentanyl Screen Ur Barbiturates Screen Ur Phencyclidine Scrn Ur Amphetamines Screen U Benzodiazepines Scrn Urine Cocaine Screen U Marijuana (THC) Screen Ethyl Alcohol COVID-19 ([facility]ELIO) COVID-19 Clin Com Influenza Type A (PCR) NEGATIVE Influenza Type B (PCR) NEGATIVE RSV RNA Qual (PCR) NEGATIVE SARS-CoV-2 RNA (RT-PCR) NEGATIVE DS: Summary Hospital Course Hospital Course: HPI: Presents with who carries dx of bipolar disorder and PTSD and presents for SI in face of relapse with alcohol for one day and ongoing struggles with relationships.? Also has history of affective instability.? Submitted 3 day notice and boyle warning given.? Hospital course: On admission, Patient reports chronic depression but adamantly denies any SI. And neither did she have any SI over this past weekend; rather, she explains she had been drinking and feeling abandoned by her mother, fell into familiar pattern, saying she was suicidal to get her mother's attention and get her to the hospital.?Patient was treated with Seroquel 150 mg b.i.d. and Seroquel 300 mg q.h.s. with some added as a p.r.n..? She was also treated with clonidine for anxiety and bedtime insomnia and Prazosin for nightmares all of which were effective. Throughout her stay she consistently denied any SI at all. ?She was engaged in treatment, going to groups and forthcoming in 1 on 1 sessions.? [place] Former and patient discussed her history and her complicated relationship with her mother in detail.? Patient has felt marginalized by her mother most of her life and feels that she is the scapegoat for all the problems in the family.? She struggles to challenge the negative labile she has been assigned and sometimes is successful, however often times she believes the labels as well, that she is always the problem, every thing is her fault...? Discussed also the reasons patient has a pattern of not taking her medications on discharge and patient demonstrated considerable insight and considered, her medication non adherence is possibly an unconscious acceptance of her assigned roll of being dependent and always in crisis; patient went further and acknowledge that while she rejects this role, it is also a means for which she has garnered her mother's attention.? Patient has never been in consistent extended therapy and she agrees that this is essential; she has also never done DBT therapy which she says will probably be very helpful and wants. Regarding her diagnosis of bipolar disorder, patient doubts it and thinks it is more likely borderline personality disorder combined with PTSD and history of alcoholism.? She says perhaps she had a 10 day manic episode but has no idea if this was during alcoholism and what were the other contributing factors.? She does agree she is depressed and misses her daughter terribly.? Patient continued to demonstrate good behavioral and impulse control throughout her time in the unit and was appropriate with peers and staff.? Patient had signed a 3 day notice which was coming due and wanted discharge, reporting she remains safe. She feels like she is more ready to embrace therapy than has been in long time and is also interested in potential for visiting nurse services to help with medication management and community support. Patient was not in imminent risk for harm to self or others. Request for discharge honored. hx of Med trials: poor response to SSRIs.; though not confident therapeutic dose/duration. lithium made her nauseous. Lamictal made her nauseous. Time spent discussing smoking cessation with patient: 3 to 10 minutes Status at Discharge Functional status at discharge: independent ambulation Overall status at discharge: patient is back to baseline Time Spent with Patient Time attestation: Total time spent providing and/or coordinating discharge services: Time spent: Less than 30 minutes Discharge Plan Discharge Anticipated Discharge Date/Time: 01/27/22 01:00 Patient Disposition: Home, Self-Care Discharge Diagnosis: Borderline personality Disorder; ptsd; r/o bipolar Referrals: [facility] [Other] - 02/25/22 11:00 am (Psychiatry Evaluation- Berta Red [facility] [Other] - 03/29/22 11:00 am (Medication Management-Berta Red ) [facility] [Outside] - 02/02/22 12:00 pm (Intake in Office- Giulia Liu) Kike Irby PA-C [Primary Care Provider] - 1 Week (office will notify pt. with follow-up appointment. ) Discharge Medications: New nicotine (polacrilex) 2 mg Gum 2 mg buccal Q2H PRN (Reason: Nicotine Cravings) 30 Days Qty: 100 0RF clonidine HCl 0.1 mg Tablet 0.1 mg PO TID PRN (Reason: anxiety/insomnia) 30 Days Qty: 0 0RF Protocol: Hold for SBP< HOLD for SBP < : 90 trazodone 50 mg Tablet See Rx Instructions .ROUTE .COMPLEX PRN (Reason: Insomnia) 30 Days Qty: 60 0RF Rx Instructions: take 1-2 tabs at bedtime for insomnia quetiapine 300 mg Tablet 300 mg PO BEDTIME 30 Days Qty: 30 0RF quetiapine 100 mg tablet 150 mg PO BID 30 Days Qty: 90 0RF Continued Entyvio 300 mg recon soln 300 mg IV Q2W Rx Instructions: NEXT DOSE 08/31/2020 albuterol sulfate [Ventolin HFA] 90 mcg/actuation HFA aerosol inhaler 1 inh inhalation QID 30 Days Qty: 8.5 0RF Discontinued lamotrigine 25 mg tablet 25 mg PO DAILY 30 Days Qty: 30 2RF quetiapine 200 mg tablet 200 mg PO BEDTIME Qty: 90 1RF quetiapine 100 mg tablet 100 mg PO TID 30 Days Qty: 90 2RF ondansetron 4 mg tablet,disintegrating 4 mg PO Q8H PRN (Reason: nausea and vomiting) Qty: 14 3RF acetaminophen 500 mg capsule 500 mg PO Q6H PRN (Reason: pain (scale score 7-10)) 10 Days Qty: 40 0RF loperamide 2 mg tablet 2 mg PO Q6H PRN (Reason: loose stool) Qty: 20 0RF dextroamphetamine-amphetamine [Adderall] 10 mg tablet 10 mg PO DAILY 30 Days Qty: 30 0RF No Action tramadol 50 mg tablet 50 mg PO BID PRN (Reason: pain) 4 Days Qty: 8 0RF dextroamphetamine-amphetamine [Adderall XR] 20 mg capsule,extended release 24hr 20 mg PO DAILY 30 Days Qty: 30 0RF dextroamphetamine-amphetamine [Adderall] 10 mg tablet 10 mg PO DAILY 30 Days Qty: 30 0RF Rx Instructions: Partial Fill upon patient request. ondansetron HCl 8 mg tablet 8 mg PO Q12H 7 Days Qty: 14 3RF Discharge Orders: Discharge Order (Routine); Ordered 01/27/22 Ordered By: gInacio Morillo Diet: Regular diet Activity on Discharge: As tolerated Stand Alone Forms: Patient Portal Discharge page, Community Support Care Plan Goals: Maintain mood and safe behaviors Take medications as prescribed Continue to pursue sobriety Practice coping skills Continue with outpatient providers and reach out to them as needed Health Concerns: Mood stability and behaviors Sobriety Chron's Disease Plan of Treatment: Follow up with your PCP, psychiatric provider and other outpatient providers regarding above concerns Take medications as prescribed Assessment: Risk assessment at time of discharge:? Patient was interviewed prior to discharge and found to be fully oriented and without any SI or HI. Patient has insight and demonstrates good judgment in terms of wanting to pursue treatment. Patient is not in imminent risk of harm to self or others and has a safety plan that includes presenting to the closest ER or calling 911 if feeling unsafe.? Patient has been observed closely by nursing and unit staff throughout admission; patient has not engaged in any behaviors that suggest dangerousness to self or others and has demonstrated appropriate behaviors and impulse control Discharge Date/Time: 01/27/22 11:32
== END 2022-01-27 11:32 | disposition home or self-care (01) | DRG 753 ==
LOC: HO.ED 01-23 06:29 → HO.PM5 01-23 14:38
PROVIDERS: Nurse Practitioner Family; Physician Assistant; Psychiatry & Neurology Psychiatry; Admitting Provider Psychiatry & Neurology Psychiatry; Emergency Provider Emergency Medicine Emergency Medical Services; PCP Physician Assistant; Visit Provider Psychiatry & Neurology Psychiatry
DX: F31.9 Bipolar disorder, unspecified (principal); R45.851 Suicidal ideations; F60.3 Borderline personality disorder; F43.10 Post-traumatic stress disorder, unspecified; F17.210 Nicotine dependence, cigarettes, uncomplicated; Z20.822 Contact with and (suspected) exposure to COVID-19; Z71.6 Tobacco abuse counseling; Z88.1 Allergy status to other antibiotic agents; Z88.6 Allergy status to analgesic agent; Z88.8 Allergy status to other drugs, medicaments and biological substances; Z79.899 Other long term (current) drug therapy
CPT/HCPCS: 0241U; 36415; 80048; 80053; 80061; 80076; 80307; 81025; 82077; 85025; 87635; 99285

== ENCOUNTER 2022-05-08 16:26 | Emergency (ER) | payer OTHER, SELFPAY ==
--- NOTE | ~2022-05-08 | CT_ITS ---
EXAMINATION: CT ABDOMEN AND PELVIS WITH CONTRAST CLINICAL INFORMATION: Left abdominal tenderness. History of Crohn's disease. COMPARISON: CT abdomen pelvis 05/08/2022 TECHNIQUE: Multidetector volumetric images were obtained from the superior aspect of the liver through the pubic symphysis following administration 85 mL of Omnipaque 350 intravenous contrast. Sagittal and coronal reformatted images were obtained on the technologist's workstation. Oral contrast: No This CT examination was performed using dose optimization techniques as appropriate, variously including the following: *Automated exposure control *Adjustment of mA and/or kV according to patient size (this includes techniques or standardized protocols for targeted exams where dose is matched to indication/reason for exam; i.e. extremities or head) *Use of iterative reconstruction technique DLP: 674 mGy-cm FINDINGS: LUNG BASES: The visualized lung bases are unremarkable. LIVER, GALLBLADDER, AND BILIARY TREE: The liver is normal in size, shape, and attenuation. No focal hepatic lesion or biliary ductal dilatation is present. The gallbladder is unremarkable with no evidence of radiopaque gallstones, gallbladder wall thickening, or obvious pericholecystic inflammatory changes. PANCREAS: Unremarkable. SPLEEN: Unremarkable. ADRENAL GLANDS: Unremarkable. KIDNEYS AND URETERS: The kidneys are normal in size, shape, and attenuation. No hydronephrosis, hydroureter, or calculi seen. No perinephric stranding. BLADDER: Unremarkable. GASTROINTESTINAL TRACT: Suture material is noted in association with the residual portions of the appendix similar findings noted on the comparison study of 10/06/2021 with with the base of the appendix remaining and demonstrate no inflammatory changes. Gas is noted within the lumen of the appendiceal base. No free intraperitoneal fluid or gas collections are identified. The terminal ileum is normal in appearance. No intestinal dilatation or mural thickening is visualized. No inflammatory changes of the small bowel mesentery or sigmoid mesentery are visualized. ABDOMINAL WALL: No significant hernia is appreciated. LYMPH NODES: Normal. VASCULAR: Unremarkable. PELVIC VISCERA: The uterus is absent. Low density rounded bilateral adnexal cysts measuring less than 2 cm in diameter present and are within expected limits of normal physiologic sized requiring no additional imaging follow-up. OSSEOUS STRUCTURES: No arthropathic changes of the sacroiliac joints. Mild multilevel Schmorl's node deformities of the visualized thoracic and lumbar vertebral bodies. CT/CT abdomen pelvis w IV con IMPRESSION: 1. No acute abnormalities identified. No free intraperitoneal fluid or gas collections. No inflammatory changes of the small bowel mesentery. Normal appearance of the terminal ileum. Status post appendectomy with retention of the base of the appendix, unchanged in appearance compared with 10/06/2021. 2. Status post hysterectomy.
[2022-05-08 16:32] VITALS: BP 159/101; PULSE 123; RESP 18; TEMP 36.8; O2SAT 97; BMI 31.8
--- NOTE | 2022-05-08 16:32 | ED.ABDPAIN ---
HPI - Abdominal Pain General Chief Complaint: Abdominal Pain <Amaya Wilder CNP - Last Filed: 05/08/22 16:36> Stated Complaint: lower abd pain <Amaya Wilder CNP - Last Filed: 05/08/22 16:36> Time Seen by Provider: 05/08/22 17:23 <Amaya Wilder CNP - Last Filed: 05/08/22 16:36> Source: patient <Jerry Ochoa MD - Last Filed: 05/08/22 21:28> Mode of arrival: ambulatory <Jerry Ochoa MD - Last Filed: 05/08/22 21:28> Limitations: no limitations <Jerry Ochoa MD - Last Filed: 05/08/22 21:28> History of Present Illness HPI narrative: Patient is a 37-year-old female presents emergency department concerns for a possible Crohn's flare. She is followed by Gastroenterology Dr. Sierra. She is experiencing left-sided abdominal pain liquid diarrhea, nausea without vomiting, poor PO intake. Began approximately 3 weeks ago, symptoms intermittently, has not seen GI, contacted her PCP who advised her to get in touch with GI. Over the past week symptoms have been worse, she finally came to the emergency department today for evaluation. patient states that she has frequent bowel movements 15-20 per day. She states that the bowel movements are now watery and cause a burning sensation. She states she feels lightheaded, dizzy, weak and is having palpitations. She is unable to eat food but she is able to drink fluid. She has associated nausea with no vomiting. She denied fevers, chills, bloody or dark stools, constipation, dysuria, urinary frequency/urgency/hesitancy. <Jerry Ochoa MD - Last Filed: 05/08/22 21:28> Related Data Home Medications: Home Medications Medication Instructions Recorded Confirmed vedolizumab 300 mg intravenous 300 mg IV Q2W 08/29/20 12/30/21 solution (Entyvio) Previous Rx's Medication Instructions Recorded albuterol sulfate 90 mcg/actuation 1 inh inhalation QID 30 days #8.5 01/26/22 aerosol inhaler (Ventolin HFA) grams clonidine HCl 0.1 mg tablet 0.1 mg PO TID PRN anxiety/insomnia 01/26/22 30 days #0 tabs nicotine (polacrilex) 2 mg gum 2 mg buccal Q2H PRN Nicotine 01/26/22 Cravings 30 days #100 ea quetiapine 100 mg tablet 150 mg PO BID 30 days #90 tabs 01/26/22 quetiapine 300 mg tablet 300 mg PO BEDTIME 30 days #30 tabs 01/26/22 trazodone 50 mg tablet See Rx Instructions .Route 01/26/22 .COMPLEX PRN Insomnia 30 days #60 tabs ondansetron HCl 8 mg tablet 8 mg PO Q12H 7 days #14 tabs 02/09/22 lisdexamfetamine 30 mg capsule 30 mg PO DAILY #30 caps 04/14/22 (Vyvanse) tramadol 50 mg tablet 50 mg PO BID PRN pain 4 days #8 05/07/22 tabs hydromorphone 2 mg tablet 2 mg PO Q4-6H PRN pain #10 tabs 05/08/22 (Dilaudid) prednisone 10 mg tablet 10 mg PO DIRECTED #40 tabs 05/08/22 <Amaya Wilder CNP - Last Filed: 05/08/22 16:36> Allergies/Adverse Reactions: Allergies Allergy/AdvReac Type Severity Reaction Status Date / Time NSAIDS (Non-Steroidal Allergy Severe BRONCHOSPAS Verified 05/08/22 16:32 Anti-Inflamma M [NSAIDS (NON-STEROIDAL ANTI-INFLAMMA] aspirin [ASA] Allergy Unknown SHORTNESS Verified 05/08/22 16:32 OF BREATH ketorolac [From TORADOL] Allergy Unknown BRONCIAL Verified 05/08/22 16:32 SPASM vancomycin [VANCOMYCIN] Allergy Unknown RASH Verified 05/08/22 16:32 gabapentin [From NEURONTIN] AdvReac Unknown TINGLING Verified 05/08/22 16:32 IN L ARM budesonide AdvReac Muscle Pain Verified 05/08/22 16:32 Bencort Allergy Unknown unknown Uncoded 05/08/22 16:32 <Amaya Wilder CNP - Last Filed: 05/08/22 16:36> Review of Systems Review of Systems Yes all other systems are reviewed and are negative <Jerry Ochoa MD - Last Filed: 05/08/22 21:28> [facility]LY [facility] Past Medical History Medical History: Medical History Acute Crohn's disease Asthma Bipolar disorder Crohn's colitis Diarrhea Screening for diabetes mellitus (DM) Screening for hypothyroidism Screening for hypothyroidism TMJ (dislocation of temporomandibular joint) <Amaya Wilder CNP - Last Filed: 05/08/22 16:36> Surgical History: Surgical History History of appendectomy History of colonoscopy History of hysterectomy Hx of endoscopy <Amaya Wilder CNP - Last Filed: 05/08/22 16:36> Family History Family History: Family History Father Mental health disorder Mother Thyroid cancer Stomach cancer Substance use disorder Mental health disorder Family/Other Diabetes <Amaya Wilder CNP - Last Filed: 05/08/22 16:36> Social History Social History: Social History Household Members: None Housing: Condominium Do you presently have visiting nurse or other home services: No Alcohol intake: current Alcohol intake frequency: does not drink Patient Tobacco Use Status: Current everyday Tobacco user Tobacco use type: Cigarette Cigarette Packs Per Day: 0.5 Cigarettes Per Day: 10.0 Years Smoked: 20 e-Cigarette/Vaping Use: Never Used Second Hand Smoke Exposure: No Advance Directives: Yes Advance Directives on File: Yes Advance Directives Date on File: 07/28/20 service: Yes Current occupational status: employed Sexual orientation: Straight/Heterosexual Cognitive needs: No Hearing needs: No Vision needs: No <Amaya Wilder CNP - Last Filed: 05/08/22 16:36> Physical Exam ED Vital Signs: Vital Signs - 24 hr 05/08/22 16:32 05/08/22 18:00 05/08/22 19:46 Temperature 98.2 F 98.6 F Pulse Rate 123 H 99 Respiratory Rate 18 18 20 Blood Pressure 159/101 H 133/78 Pulse Oximetry 97 97 Oxygen Delivery Method Room Air Room Air 05/08/22 19:59 Temperature Pulse Rate Respiratory Rate 16 Blood Pressure Pulse Oximetry Oxygen Delivery Method BMI result Body Mass Index 31.8 <Amaya Wilder CNP - Last Filed: 05/08/22 16:36> Vital Signs - 24 hr 05/08/22 16:32 05/08/22 18:00 05/08/22 19:46 Temperature 98.2 F 98.6 F Pulse Rate 123 H 99 Respiratory Rate 18 18 20 Blood Pressure 159/101 H 133/78 Pulse Oximetry 97 97 Oxygen Delivery Method Room Air Room Air 05/08/22 19:59 Temperature Pulse Rate Respiratory Rate 16 Blood Pressure Pulse Oximetry Oxygen Delivery Method BMI result Body Mass Index 31.8 <Jerry Ochoa MD - Last Filed: 05/08/22 21:28> Const Other: awake, alert, female patient, she is diaphoretic, she is pleasant, cooperative, answers all questions appropriately, elevated BMI 31.9. <Jerry Ochoa MD - Last Filed: 05/08/22 21:28> Orientation/consciousness: oriented to person and oriented to place <Jerry Ochoa MD - Last Filed: 05/08/22 21:28> HENMT Head: Yes normal to inspection, Yes normocephalic and Yes atraumatic <Jerry Ochoa MD - Last Filed: 05/08/22 21:28> Ears: external ears normal <Jerry Ochoa MD - Last Filed: 05/08/22 21:28> General nose exam: Normal external nose present <Jerry Ochoa MD - Last Filed: 05/08/22 21:28> Face and sinus: Yes normal facial exam <Jerry Ochoa MD - Last Filed: 05/08/22 21:28> Mouth: Normal oral and palatal mucosa present <Jerry Ochoa MD - Last Filed: 05/08/22 21:28> Throat: Yes posterior oropharynx normal <Jerry Ochoa MD - Last Filed: 05/08/22 21:28> Eyes General: appearance normal, both eyes and all related structures <Jerry Ochoa MD - Last Filed: 05/08/22 21:28> Pupils: Equal, round and reactive pupils present <MD Elysia Wilder Last Filed: 05/08/22 21:28> Neck Neck: Yes normal visual inspection, Yes no lymphadenopathy, Yes trachea midline and Yes supple <Jerry Ochoa MD - Last Filed: 05/08/22 21:28> Chest Chest palpation & inspection: normal inspection of the chest and normal palpation of entire chest wall <Jerry Ochoa MD - Last Filed: 05/08/22 21:28> Resp Effort & Inspection: normal respiratory effort and able to speak in complete sentences <MD Elysia Wilder Last Filed: 05/08/22 21:28> Auscultation: clear to auscultation bilaterally <MD Elysia Wilder Last Filed: 05/08/22 21:28> Cardio Rate: regular rate <Jerry Ochoa MD - Last Filed: 05/08/22 21:28> Rhythm: regular rhythm <MD Elysia Wilder Last Filed: 05/08/22 21:28> Heart sounds: S1 normal heart sound present, S2 normal heart sound present and no murmurs <Jerry Ochoa MD - Last Filed: 05/08/22 21:28> GI Inspection: Yes normal to inspection <MD Elysia Wilder Last Filed: 05/08/22 21:28> Palpation (GI): Soft to palpation, Tenderness to palpation present (GI) in the LLQ ( Moderate) and in the LUQ ( moderate) and no guarding <Jerry Ochoa MD - Last Filed: 05/08/22 21:28> Auscultation: normal bowel sounds <MD Elysia Wilder Last Filed: 05/08/22 21:28> General: Yes no CVA tenderness <MD Elysia Wilder Last Filed: 05/08/22 21:28> Back/Spine/Pelvis Back: no CVA tenderness <MD Elysia Wilder Last Filed: 05/08/22 21:28> Skin General skin exam: no rashes or lesions noted <Jerry Ochoa MD - Last Filed: 05/08/22 21:28> Neuro General: oriented to person and oriented to place <Jerry Ochoa MD - Last Filed: 05/08/22 21:28> Cranial nerves: Yes Equal, round and reactive pupils present <Jerry Ochoa MD - Last Filed: 05/08/22 21:28> Cognition (Neuro): normal cognition <Jerry Ochoa MD - Last Filed: 05/08/22 21:28> Motor exam (neuro): 5/5 motor strength present throughout <Jerry Ochoa MD - Last Filed: 05/08/22 21:28> Extrem General: Yes normal to inspection <Jerry Ochoa MD - Last Filed: 05/08/22 21:28> Psych Appearance: grossly normal <Jerry Ochoa MD - Last Filed: 05/08/22 21:28> Speech and movement: Normal speech and movement present <Jerry Ochoa MD - Last Filed: 05/08/22 21:28> Affect: normal affect <Jerry Ochoa MD - Last Filed: 05/08/22 21:28> Attitude: cooperative <Jerry Ochoa MD - Last Filed: 05/08/22 21:28> Course Course Course Narrative: This is an RME: Additional HPI, ROS, PE not included below will be deferred to primary provider. Patient is a 37-year-old female presents emergency department concerns for a possible Crohn's flare. She is followed by Gastroenterology Dr. Sierra. She is experiencing left-sided abdominal pain liquid diarrhea, nausea without vomiting, poor PO intake. Began approximately 3 weeks ago, symptoms intermittently, has not seen GI, contacted her PCP who advised her to get in touch with GI. Over the past week symptoms have been worse, she finally came to the emergency department today for evaluation. Denies fevers, chills, bloody or dark stools, constipation, dysuria, urinary frequency/urgency/hesitancy. PE: L ABD tenderness, pale, tahcycardic, diaphoretic, afebrile Plan: Labs, urinalysis, CT abdomen and pelvis <Amaya Wilder CNP - Last Filed: 05/08/22 16:36> This is an RME: Additional HPI, ROS, PE not included below will be deferred to primary provider. Patient is a 37-year-old female presents emergency department concerns for a possible Crohn's flare. She is followed by Gastroenterology Dr. Sierra. She is experiencing left-sided abdominal pain liquid diarrhea, nausea without vomiting, poor PO intake. Began approximately 3 weeks ago, symptoms intermittently, has not seen GI, contacted her PCP who advised her to get in touch with GI. Over the past week symptoms have been worse, she finally came to the emergency department today for evaluation. Denies fevers, chills, bloody or dark stools, constipation, dysuria, urinary frequency/urgency/hesitancy. PE: L ABD tenderness, pale, tahcycardic, diaphoretic, afebrile Plan: Labs, urinalysis, CT abdomen and pelvis <Jerry Ochoa MD - Last Filed: 05/08/22 21:28> Medical Decision Making Medical Decision Making MDM Narrative: Patient is a 37-year-old female presents emergency department concerns for a possible Crohn's flare. She is followed by Gastroenterology Dr. Sierra. She is experiencing left-sided abdominal pain liquid diarrhea, nausea without vomiting, poor PO intake. Began approximately 3 weeks ago, symptoms intermittently, has not seen GI, contacted her PCP who advised her to get in touch with GI. Over the past week symptoms have been worse, she finally came to the emergency department today for evaluation. patient states that she has frequent bowel movements 15-20 per day. She states that the bowel movements are now watery and cause a burning sensation. She states she feels lightheaded, dizzy, weak and is having palpitations. She is unable to eat food but she is able to drink fluid. She has associated nausea with no vomiting. She denied fevers, chills, bloody or dark stools, constipation, dysuria, urinary frequency/urgency/hesitancy. Plan: laboratory evaluation: CMP, COVID-19, influenza, urine test, CRP, C diff, lactic acid, urinalysis, ESR, GI panel, blood cultures x2. Radiology: CT scan abdomen pelvis with IV contrast Medications: Lactated Ringer's x1 L, Dilaudid 1 mg IV, Zofran 4 mg IV, Solu-Medrol 60 mg IV. 1944: The patient's laboratory evaluation [place] [address] but inflammatory markers were not elevated. The patient's CMP was also unremarkable. CT scan of the abdomen pelvis with IV contrast did not reveal any clear bowel obstruction, perforation or inflammatory process. The patient's presentation is most likely consistent with flare-up of microscopic flare-up of her Crohn disease. Patient got minimal relief for her 1st dose of Dilaudid therefore she was ordered to get Dilaudid 1 mg IV. I will also give the patient a 2nd L of LR IV. We will still need a stool sample for C diff and GI panel. 2114: The patient is feeling better, her pain is improved but is still present therefore she was given a 3rd dose of Dilaudid 1 mg IV The patient will be discharged home. She will be started on prednisone 40 mg once a day for a week and then decrease by 1 pill every 2 days. She was given a limited prescription for Dilaudid 2 mg pills, 1 pill every 4-6 hours as needed for pain. She states she has Zofran prescription at the pharmacy. 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 <Jerry Ochoa MD - Last Filed: 05/08/22 21:28> Differential Diagnosis differential diagnosis includes but is not limited to Crohn's flare-up, partial small-bowel obstruction, perforation, abscess, C diff, infectious diarrhea <Jerry Ochoa MD - Last Filed: 05/08/22 21:28> Lab Data MDM Lab Attestation statement: I reviewed the patient's lab results. <Jerry Ochoa MD - Last Filed: 05/08/22 21:28> my independent interpretation of his laboratory evaluation as follows: WBC elevated 16,500. CRP and ESR were normal. CMP normal Except for low bicarb of 20.. COVID-19 and influenza were negative. <Jerry Ochoa MD - Last Filed: 05/08/22 21:28> Result Diagrams: 05/08/22 17:20 05/08/22 17:20 <Amaya Wilder CNP - Last Filed: 05/08/22 16:36> Labs: Lab Results 05/08/22 05/08/22 05/08/22 Range/Units 17:20 17:20 17:20 WBC 16.5 H (4.8-10.8) X10*3/uL RBC 5.13 (4.20-5.50) X10*6/uL Hgb 14.7 (12.0-16.0) g/dl Hct 43.7 (37.0-47.0) % MCV 85.2 (80.0-98.0) fL MCH 28.7 (27.0-33.0) pg MCHC 33.6 (31.0-35.0) g/dl RDW 13.3 (11.0-16.0) % Plt Count 343 (160-400) X10*3/uL MPV 9.5 (9.4-12.3) fL Immature Gran % (Auto) 0.4 (0.0-0.4) % Neut % (Auto) 58.5 (45-73) % Lymph % (Auto) 33.9 (20-40) % [place] % (Auto) 5.2 (2-11) % Eos % (Auto) 1.8 (0-4) % Baso % (Auto) 0.2 (0-2) % Lymph # (Auto) 5.6 H (1.2-4.9) X10*3/uL [place] # (Auto) 0.9 (0.1-1.2) X10*3/uL Eos # (Auto) 0.3 (0.0-0.4) X10*3/uL Baso # (Auto) 0.0 (0.0-0.2) X10*3/uL Abs Immat Gran (auto) 0.06 H (0.00-0.03) X10*3/uL Absolute Neuts (auto) 9.7 H (2.0-8.3) x10*3/uL Absolute Nucleated RBC 0.000 (0.0-0.012) X10*3/uL Nucleated RBC % (auto) 0.0 (0.0-0.2) /100WBC ESR (0-20) MM/HR Sodium 139 (135-145) mmol/L Potassium 4.2 (3.3-5.1) mmol/L Chloride 109 H (96-108) mmol/L Carbon Dioxide 20 L (22-29) mmol/L Anion Gap 14 (12-20) BUN 9 (9-16) mg/dL Creatinine 0.71 (0.5-1.4) mg/dL Estim Creat Clear Calc 109.7 Estimated GFR > 60 Random Glucose 106 (60-115) mg/dL Lactic Acid 1.8 (0.5-2.0) mmol/L Calcium 9.5 (8.4-10.2) mg/dL Total Bilirubin 0.2 (0.0-1.0) mg/dL AST 15 (5-31) U/L ALT 21 (0-31) U/L Alkaline Phosphatase 85 (39-117) U/L C-Reactive Protein 0.23 (< or = 0.50) mg/dL Total Protein 7.1 (6.5-8.0) g/dL Albumin 4.4 (3.5-5.0) g/dL Urine Color Urine Appearance Urine pH (5.0-9.0) Ur Specific [place] (1.005-1.025) Urine Protein (Neg-Trace) mg/dL Urine Glucose (UA) (Negative) mg/dL Urine Ketones (Negative) mg/dL Urine Blood (Negative) Urine Nitrite (Negative) Ur Leukocyte Esterase (Negative) Urine RBC (0-2) /HPF Urine WBC (0-5) /HPF Ur Squamous Epith Cells (0-2) /HPF Urine Bacteria (None Seen) Hyaline Casts (0-2) /LPF Urine Test (NEGATIVE) COVID-19 (ROGELIO) (Negative) COVID-19 Clin Com Influenza Type A (EDVIN) (Negative) Influenza Type B (EDVIN) (Negative) Influenza A & B Note 05/08/22 05/08/22 05/08/22 Range/Units 17:20 17:22 17:22 WBC (4.8-10.8) X10*3/uL RBC (4.20-5.50) X10*6/uL Hgb (12.0-16.0) g/dl Hct (37.0-47.0) % MCV (80.0-98.0) fL MCH (27.0-33.0) pg MCHC (31.0-35.0) g/dl RDW (11.0-16.0) % Plt Count (160-400) X10*3/uL MPV (9.4-12.3) fL Immature Gran % (Auto) (0.0-0.4) % Neut % (Auto) (45-73) % Lymph % (Auto) (20-40) % [place] % (Auto) (2-11) % Eos % (Auto) (0-4) % Baso % (Auto) (0-2) % Lymph # (Auto) (1.2-4.9) X10*3/uL [place] # (Auto) (0.1-1.2) X10*3/uL Eos # (Auto) (0.0-0.4) X10*3/uL Baso # (Auto) (0.0-0.2) X10*3/uL Abs Immat Gran (auto) (0.00-0.03) X10*3/uL Absolute Neuts (auto) (2.0-8.3) x10*3/uL Absolute Nucleated RBC (0.0-0.012) X10*3/uL Nucleated RBC % (auto) (0.0-0.2) /100WBC ESR 3 (0-20) MM/HR Sodium (135-145) mmol/L Potassium (3.3-5.1) mmol/L Chloride (96-108) mmol/L Carbon Dioxide (22-29) mmol/L Anion Gap (12-20) BUN (9-16) mg/dL Creatinine (0.5-1.4) mg/dL Estim Creat Clear Calc Estimated GFR Random Glucose (60-115) mg/dL Lactic Acid (0.5-2.0) mmol/L Calcium (8.4-10.2) mg/dL Total Bilirubin (0.0-1.0) mg/dL AST (5-31) U/L ALT (0-31) U/L Alkaline Phosphatase (39-117) U/L C-Reactive Protein (< or = 0.50) mg/dL Total Protein (6.5-8.0) g/dL Albumin (3.5-5.0) g/dL Urine Color Urine Appearance Urine pH (5.0-9.0) Ur Specific [place] (1.005-1.025) Urine Protein (Neg-Trace) mg/dL Urine Glucose (UA) (Negative) mg/dL Urine Ketones (Negative) mg/dL Urine Blood (Negative) Urine Nitrite (Negative) Ur Leukocyte Esterase (Negative) Urine RBC (0-2) /HPF Urine WBC (0-5) /HPF Ur Squamous Epith Cells (0-2) /HPF Urine Bacteria (None Seen) Hyaline Casts (0-2) /LPF Urine Test (NEGATIVE) COVID-19 (ROGELIO) Negative (Negative) COVID-19 Clin Com See Note Influenza Type A (EDVIN) Negative (Negative) Influenza Type B (EDVIN) Negative (Negative) Influenza A & B Note See Note 05/08/22 05/08/22 Range/Units 17:22 17:22 WBC (4.8-10.8) X10*3/uL RBC (4.20-5.50) X10*6/uL Hgb (12.0-16.0) g/dl Hct (37.0-47.0) % MCV (80.0-98.0) fL MCH (27.0-33.0) pg MCHC (31.0-35.0) g/dl RDW (11.0-16.0) % Plt Count (160-400) X10*3/uL MPV (9.4-12.3) fL Immature Gran % (Auto) (0.0-0.4) % Neut % (Auto) (45-73) % Lymph % (Auto) (20-40) % [place] % (Auto) (2-11) % Eos % (Auto) (0-4) % Baso % (Auto) (0-2) % Lymph # (Auto) (1.2-4.9) X10*3/uL [place] # (Auto) (0.1-1.2) X10*3/uL Eos # (Auto) (0.0-0.4) X10*3/uL Baso # (Auto) (0.0-0.2) X10*3/uL Abs Immat Gran (auto) (0.00-0.03) X10*3/uL Absolute Neuts (auto) (2.0-8.3) x10*3/uL Absolute Nucleated RBC (0.0-0.012) X10*3/uL Nucleated RBC % (auto) (0.0-0.2) /100WBC ESR (0-20) MM/HR Sodium (135-145) mmol/L Potassium (3.3-5.1) mmol/L Chloride (96-108) mmol/L Carbon Dioxide (22-29) mmol/L Anion Gap (12-20) BUN (9-16) mg/dL Creatinine (0.5-1.4) mg/dL Estim Creat Clear Calc Estimated GFR Random Glucose (60-115) mg/dL Lactic Acid (0.5-2.0) mmol/L Calcium (8.4-10.2) mg/dL Total Bilirubin (0.0-1.0) mg/dL AST (5-31) U/L ALT (0-31) U/L Alkaline Phosphatase (39-117) U/L C-Reactive Protein (< or = 0.50) mg/dL Total Protein (6.5-8.0) g/dL Albumin (3.5-5.0) g/dL Urine Color Yellow Urine Appearance Clear Urine pH 6.5 (5.0-9.0) Ur Specific [place] 1.020 (1.005-1.025) Urine Protein Negative (Neg-Trace) mg/dL Urine Glucose (UA) Negative (Negative) mg/dL Urine Ketones Trace (Negative) mg/dL Urine Blood Moderate (2+) H (Negative) Urine Nitrite Negative (Negative) Ur Leukocyte Esterase Small (1+) H (Negative) Urine RBC 0-2 (0-2) /HPF Urine WBC 11-20 (0-5) /HPF Ur Squamous Epith Cells 3-5 (0-2) /HPF Urine Bacteria 2+ (None Seen) Hyaline Casts 0-2 (0-2) /LPF Urine Test NEGATIVE (NEGATIVE) COVID-19 (ROGELIO) (Negative) COVID-19 Clin Com Influenza Type A (EDVIN) (Negative) Influenza Type B (EDVIN) (Negative) Influenza A & B Note <Amaya Wilder, SALONI - Last Filed: 05/08/22 16:36> Lab Results 05/08/22 05/08/22 05/08/22 Range/Units 17:20 17:20 17:20 WBC 16.5 H (4.8-10.8) X10*3/uL RBC 5.13 (4.20-5.50) X10*6/uL Hgb 14.7 (12.0-16.0) g/dl Hct 43.7 (37.0-47.0) % MCV 85.2 (80.0-98.0) fL MCH 28.7 (27.0-33.0) pg MCHC 33.6 (31.0-35.0) g/dl RDW 13.3 (11.0-16.0) % Plt Count 343 (160-400) X10*3/uL MPV 9.5 (9.4-12.3) fL Immature Gran % (Auto) 0.4 (0.0-0.4) % Neut % (Auto) 58.5 (45-73) % Lymph % (Auto) 33.9 (20-40) % [place] % (Auto) 5.2 (2-11) % Eos % (Auto) 1.8 (0-4) % Baso % (Auto) 0.2 (0-2) % Lymph # (Auto) 5.6 H (1.2-4.9) X10*3/uL [place] # (Auto) 0.9 (0.1-1.2) X10*3/uL Eos # (Auto) 0.3 (0.0-0.4) X10*3/uL Baso # (Auto) 0.0 (0.0-0.2) X10*3/uL Abs Immat Gran (auto) 0.06 H (0.00-0.03) X10*3/uL Absolute Neuts (auto) 9.7 H (2.0-8.3) x10*3/uL Absolute Nucleated RBC 0.000 (0.0-0.012) X10*3/uL Nucleated RBC % (auto) 0.0 (0.0-0.2) /100WBC ESR (0-20) MM/HR Sodium 139 (135-145) mmol/L Potassium 4.2 (3.3-5.1) mmol/L Chloride 109 H (96-108) mmol/L Carbon Dioxide 20 L (22-29) mmol/L Anion Gap 14 (12-20) BUN 9 (9-16) mg/dL Creatinine 0.71 (0.5-1.4) mg/dL Estim Creat Clear Calc 109.7 Estimated GFR > 60 Random Glucose 106 (60-115) mg/dL Lactic Acid 1.8 (0.5-2.0) mmol/L Calcium 9.5 (8.4-10.2) mg/dL Total Bilirubin 0.2 (0.0-1.0) mg/dL AST 15 (5-31) U/L ALT 21 (0-31) U/L Alkaline Phosphatase 85 (39-117) U/L C-Reactive Protein 0.23 (< or = 0.50) mg/dL Total Protein 7.1 (6.5-8.0) g/dL Albumin 4.4 (3.5-5.0) g/dL Urine Color Urine Appearance Urine pH (5.0-9.0) Ur Specific [place] (1.005-1.025) Urine Protein (Neg-Trace) mg/dL Urine Glucose (UA) (Negative) mg/dL Urine Ketones (Negative) mg/dL Urine Blood (Negative) Urine Nitrite (Negative) Ur Leukocyte Esterase (Negative) Urine RBC (0-2) /HPF Urine WBC (0-5) /HPF Ur Squamous Epith Cells (0-2) /HPF Urine Bacteria (None Seen) Hyaline Casts (0-2) /LPF Urine Test (NEGATIVE) COVID-19 (ROGELIO) (Negative) COVID-19 Clin Com Influenza Type A (EDVIN) (Negative) Influenza Type B (EDVIN) (Negative) Influenza A & B Note 05/08/22 05/08/22 05/08/22 Range/Units 17:20 17:22 17:22 WBC (4.8-10.8) X10*3/uL RBC (4.20-5.50) X10*6/uL Hgb (12.0-16.0) g/dl Hct (37.0-47.0) % MCV (80.0-98.0) fL MCH (27.0-33.0) pg MCHC (31.0-35.0) g/dl RDW (11.0-16.0) % Plt Count (160-400) X10*3/uL MPV (9.4-12.3) fL Immature Gran % (Auto) (0.0-0.4) % Neut % (Auto) (45-73) % Lymph % (Auto) (20-40) % [place] % (Auto) (2-11) % Eos % (Auto) (0-4) % Baso % (Auto) (0-2) % Lymph # (Auto) (1.2-4.9) X10*3/uL [place] # (Auto) (0.1-1.2) X10*3/uL Eos # (Auto) (0.0-0.4) X10*3/uL Baso # (Auto) (0.0-0.2) X10*3/uL Abs Immat Gran (auto) (0.00-0.03) X10*3/uL Absolute Neuts (auto) (2.0-8.3) x10*3/uL Absolute Nucleated RBC (0.0-0.012) X10*3/uL Nucleated RBC % (auto) (0.0-0.2) /100WBC ESR 3 (0-20) MM/HR Sodium (135-145) mmol/L Potassium (3.3-5.1) mmol/L Chloride (96-108) mmol/L Carbon Dioxide (22-29) mmol/L Anion Gap (12-20) BUN (9-16) mg/dL Creatinine (0.5-1.4) mg/dL Estim Creat Clear Calc Estimated GFR Random Glucose (60-115) mg/dL Lactic Acid (0.5-2.0) mmol/L Calcium (8.4-10.2) mg/dL Total Bilirubin (0.0-1.0) mg/dL AST (5-31) U/L ALT (0-31) U/L Alkaline Phosphatase (39-117) U/L C-Reactive Protein (< or = 0.50) mg/dL Total Protein (6.5-8.0) g/dL Albumin (3.5-5.0) g/dL Urine Color Urine Appearance Urine pH (5.0-9.0) Ur Specific [place] (1.005-1.025) Urine Protein (Neg-Trace) mg/dL Urine Glucose (UA) (Negative) mg/dL Urine Ketones (Negative) mg/dL Urine Blood (Negative) Urine Nitrite (Negative) Ur Leukocyte Esterase (Negative) Urine RBC (0-2) /HPF Urine WBC (0-5) /HPF Ur Squamous Epith Cells (0-2) /HPF Urine Bacteria (None Seen) Hyaline Casts (0-2) /LPF Urine Test (NEGATIVE) COVID-19 (ROGELIO) Negative (Negative) COVID-19 Clin Com See Note Influenza Type A (EDVIN) Negative (Negative) Influenza Type B (EDVIN) Negative (Negative) Influenza A & B Note See Note 05/08/22 05/08/22 Range/Units 17:22 17:22 WBC (4.8-10.8) X10*3/uL RBC (4.20-5.50) X10*6/uL Hgb (12.0-16.0) g/dl Hct (37.0-47.0) % MCV (80.0-98.0) fL MCH (27.0-33.0) pg MCHC (31.0-35.0) g/dl RDW (11.0-16.0) % Plt Count (160-400) X10*3/uL MPV (9.4-12.3) fL Immature Gran % (Auto) (0.0-0.4) % Neut % (Auto) (45-73) % Lymph % (Auto) (20-40) % [place] % (Auto) (2-11) % Eos % (Auto) (0-4) % Baso % (Auto) (0-2) % Lymph # (Auto) (1.2-4.9) X10*3/uL [place] # (Auto) (0.1-1.2) X10*3/uL Eos # (Auto) (0.0-0.4) X10*3/uL Baso # (Auto) (0.0-0.2) X10*3/uL Abs Immat Gran (auto) (0.00-0.03) X10*3/uL Absolute Neuts (auto) (2.0-8.3) x10*3/uL Absolute Nucleated RBC (0.0-0.012) X10*3/uL Nucleated RBC % (auto) (0.0-0.2) /100WBC ESR (0-20) MM/HR Sodium (135-145) mmol/L Potassium (3.3-5.1) mmol/L Chloride (96-108) mmol/L Carbon Dioxide (22-29) mmol/L Anion Gap (12-20) BUN (9-16) mg/dL Creatinine (0.5-1.4) mg/dL Estim Creat Clear Calc Estimated GFR Random Glucose (60-115) mg/dL Lactic Acid (0.5-2.0) mmol/L Calcium (8.4-10.2) mg/dL Total Bilirubin (0.0-1.0) mg/dL AST (5-31) U/L ALT (0-31) U/L Alkaline Phosphatase (39-117) U/L C-Reactive Protein (< or = 0.50) mg/dL Total Protein (6.5-8.0) g/dL Albumin (3.5-5.0) g/dL Urine Color Yellow Urine Appearance Clear Urine pH 6.5 (5.0-9.0) Ur Specific [place] 1.020 (1.005-1.025) Urine Protein Negative (Neg-Trace) mg/dL Urine Glucose (UA) Negative (Negative) mg/dL Urine Ketones Trace (Negative) mg/dL Urine Blood Moderate (2+) H (Negative) Urine Nitrite Negative (Negative) Ur Leukocyte Esterase Small (1+) H (Negative) Urine RBC 0-2 (0-2) /HPF Urine WBC 11-20 (0-5) /HPF Ur Squamous Epith Cells 3-5 (0-2) /HPF Urine Bacteria 2+ (None Seen) Hyaline Casts 0-2 (0-2) /LPF Urine Test NEGATIVE (NEGATIVE) COVID-19 (ROGELIO) (Negative) COVID-19 Clin Com Influenza Type A (EDVIN) (Negative) Influenza Type B (EDVIN) (Negative) Influenza A & B Note <Jerry Ochoa MD - Last Filed: 05/08/22 21:28> Radiology Impression Discussion of test interpretation with radiology: I have reviewed the radiologist's reading. <Jerry Ochoa MD - Last Filed: 05/08/22 21:28> Radiologist Impression: CT abdomen pelvis w IV con IMPRESSION: 1. No acute abnormalities identified. No free intraperitoneal fluid or gas collections. No inflammatory changes of the small bowel mesentery. Normal appearance of the terminal ileum. Status post appendectomy with retention of the base of the appendix, unchanged in appearance compared with 10/06/2021. 2. Status post hysterectomy. Dictated By:Mac Patel MDSigned By:<Electronically signed by Mac Patel MD in [place]>05/08/22 191 <Jerry Ochoa MD - Last Filed: 05/08/22 21:28> Medications Administered Discontinued Medications Generic Name Dose Route Start Last Admin Trade Name Freq PRN Reason Stop Dose Admin Hydromorphone HCl 1 mg 05/08/22 17:35 05/08/22 18:00 Hydromorphone Hcl 1 Mg/Ml Syringe IVPUSH 05/08/22 17:36 1 mg ONCE STA Administration Protocol Hydromorphone HCl 1 mg 05/08/22 19:44 05/08/22 19:59 Hydromorphone Hcl 1 Mg/Ml Syringe IVPUSH 05/08/22 19:45 1 mg ONCE STA Administration Protocol Lactated Ringer's 1,000 mls @ 999 mls/hr 05/08/22 17:45 05/08/22 18:53 Lr IV 05/08/22 18:45 Infused .Q1H1M BRADY Infusion Lactated Ringer's 1,000 mls @ 999 mls/hr 05/08/22 19:45 05/08/22 19:59 Lr IV 05/08/22 20:45 999 mls/hr .Q1H1M BRADY Administration Iohexol 100 ml 05/08/22 18:24 05/08/22 18:32 Iohexol 350 Mg/Ml 100 Ml Infus..Btl IV 05/08/22 18:25 85 ml ONCE ONE Administration Methylprednisolone Sodium Succinate 60 mg 05/08/22 17:35 05/08/22 18:00 Methylprednisolone Sod Succ 125 Mg/2 Ml Vial IVPUSH 05/08/22 17:36 60 mg ONCE ONE Administration Ondansetron HCl 4 mg 05/08/22 17:35 05/08/22 18:00 Ondansetron Hcl 4 Mg/2 Ml Vial IVPUSH 05/08/22 17:36 4 mg ONCE ONE Administration <Amaya Wilder CNP - Last Filed: 05/08/22 16:36> Medications Administered Discontinued Medications Generic Name Dose Route Start Last Admin Trade Name Juan PRN Reason Stop Dose Admin Hydromorphone HCl 1 mg 05/08/22 17:35 05/08/22 18:00 Hydromorphone Hcl 1 Mg/Ml Syringe IVPUSH 05/08/22 17:36 1 mg ONCE STA Administration Protocol Hydromorphone HCl 1 mg 05/08/22 19:44 05/08/22 19:59 Hydromorphone Hcl 1 Mg/Ml Syringe IVPUSH 05/08/22 19:45 1 mg ONCE STA Administration Protocol Lactated Ringer's 1,000 mls @ 999 mls/hr 05/08/22 17:45 05/08/22 18:53 Lr IV 05/08/22 18:45 Infused .Q1H1M BRADY Infusion Lactated Ringer's 1,000 mls @ 999 mls/hr 05/08/22 19:45 05/08/22 19:59 Lr IV 05/08/22 20:45 999 mls/hr .Q1H1M BRADY Administration Iohexol 100 ml 05/08/22 18:24 05/08/22 18:32 Iohexol 350 Mg/Ml 100 Ml Infus..Btl IV 05/08/22 18:25 85 ml ONCE ONE Administration Methylprednisolone Sodium Succinate 60 mg 05/08/22 17:35 05/08/22 18:00 Methylprednisolone Sod Succ 125 Mg/2 Ml Vial IVPUSH 05/08/22 17:36 60 mg ONCE ONE Administration Ondansetron HCl 4 mg 05/08/22 17:35 05/08/22 18:00 Ondansetron Hcl 4 Mg/2 Ml Vial IVPUSH 05/08/22 17:36 4 mg ONCE ONE Administration <Jerry Ochoa MD - Last Filed: 05/08/22 21:28> Discharge Plan Discharge Clinical Impression: Exacerbation of Crohn's disease, Abdominal pain, Diarrhea, Acute dehydration <Amaya Wilder CNP - Last Filed: 05/08/22 16:36> Patient Disposition: Home, Self-Care <Amaya Wilder CNP - Last Filed: 05/08/22 16:36> Instructions: Crohn Disease (ED) <Amaya Wilder CNP - Last Filed: 05/08/22 16:36> Additional Instructions: Your blood work was unremarkable [place] [address]. Your blood chemistries were normal, you are not anemic. The 2 inflammatory markers, ESR and CRP were normal as well. The CT scan of the abdomen and pelvis without IV contrast did not reveal a clear cause for your abdominal pain and diarrhea, I suspect however that you are having flare-up of your Crohn disease. Take prednisone 10 mg pills, 4 pills once a day for 1 week, every 2 days decreased by 1 pill until you complete the prescription. Take Dilaudid (hydromorphone) 2 mg pills, 1 pill every 4-6 hours as needed for abdominal pain. This medication is a narcotic medication and if your concerned about addiction do not get this medication filled or ask the pharmacist for less pills than prescribed. Do not work or drive while taking this medication. Take the Zofran prescription as prescribed by your provider. You have a GI panel and C diff test of your stool. You should follow-up with your PCP or washing machine assembler to get these results. Follow-up with your washing machine assembler within 1-2 weeks Please return to the emergency department if your symptoms get worse or if you develop any symptoms that are concerning to you. <Amaya Wilder CNP - Last Filed: 05/08/22 16:36> Prescriptions: New hydromorphone [Dilaudid] 2 mg tablet 2 mg PO Q4-6H PRN (Reason: pain) Qty: 10 0RF Rx Instructions: Patient may request partial fill; Partial Fill upon patient request. prednisone 10 mg tablet 10 mg PO DIRECTED Qty: 40 0RF Rx Instructions: 4 pills daily x1 week, then 3 pills x2 days, 2 pills x2 days, 1 pill x2 days No Action ondansetron HCl 8 mg tablet 8 mg PO Q12H 7 Days Qty: 14 3RF Vyvanse 30 mg capsule 30 mg PO DAILY Qty: 30 0RF Rx Instructions: Partial Fill upon patient request. tramadol 50 mg tablet 50 mg PO BID PRN (Reason: pain) 4 Days Qty: 8 0RF Entyvio 300 mg recon soln 300 mg IV Q2W Rx Instructions: NEXT DOSE 08/31/2020 nicotine (polacrilex) 2 mg Gum 2 mg buccal Q2H PRN (Reason: Nicotine Cravings) 30 Days Qty: 100 0RF clonidine HCl 0.1 mg Tablet 0.1 mg PO TID PRN (Reason: anxiety/insomnia) 30 Days Qty: 0 0RF Protocol: Hold for SBP< HOLD for SBP < : 90 trazodone 50 mg Tablet See Rx Instructions .ROUTE .COMPLEX PRN (Reason: Insomnia) 30 Days Qty: 60 0RF Rx Instructions: take 1-2 tabs at bedtime for insomnia quetiapine 300 mg Tablet 300 mg PO BEDTIME 30 Days Qty: 30 0RF quetiapine 100 mg tablet 150 mg PO BID 30 Days Qty: 90 0RF albuterol sulfate [Ventolin HFA] 90 mcg/actuation HFA aerosol inhaler 1 inh inhalation QID 30 Days Qty: 8.5 0RF <Amaya Wilder CNP - Last Filed: 05/08/22 16:36> Referrals: Kaitlin Sierra MD [Physician] - 2 weeks ( increase LLQ ABD pain, frequent diarrhea, labs elevated WBC, normal CRP and ESR, CT abdomen pelvis IV contrast unremarkable. GI panel, C diff pending. Patient placed on tapering dose of prednisone and Dilaudid, needs follow-up.) <Amaya Wilder CNP - Last Filed: 05/08/22 16:36>
[2022-05-08 17:31] LABS: MANUAL DIFF FLAG NO
[2022-05-08 17:41] LABS: Basophils Percent Auto 0.2 % (0-2); Eosinophils Absolute Auto 0.3 X10*3/uL (0.0-0.4); Eosinophils Percent Auto 1.8 % (0-4); Hematocrit 43.7 % (37.0-47.0); Hemoglobin 14.7 g/dl (12.0-16.0); Imm Gran Abs Auto 0.06 X10*3/uL (0.00-0.03); Imm Gran Pct Auto 0.4 % (0.0-0.4); Lymphocytes Absolute Auto 5.6 X10*3/uL (1.2-4.9); Lymphocytes Percent Auto 33.9 % (20-40); Mean Corpuscular HGB Conc 33.6 g/dl (31.0-35.0); Mean Corpuscular Hemoglobin 28.7 pg (27.0-33.0); Mean Corpuscular Volume 85.2 fL (80.0-98.0); Mean Platelet Volume 9.5 fL (9.4-12.3); Monocytes Absolute Auto 0.9 X10*3/uL (0.1-1.2); Monocytes Percent Auto 5.2 % (2-11); Neutrophils Absolute Auto 9.7 x10*3/uL (2.0-8.3); Neutrophils Percent Auto 58.5 % (45-73); Platelet Count 343 X10*3/uL (160-400); Red Blood Count 5.13 X10*6/uL (4.20-5.50); Red Cell Distribution Width 13.3 % (11.0-16.0); SCAN SMEAR FLAG 1; White Blood Count 16.5 X10*3/uL (4.8-10.8)
[2022-05-08 17:41] LABS: Appearance Urine Clear; Color Urine Yellow; Glucose Urine UA Negative (Negative); Leukocyte Esterase Urine Small (1+) (Negative); Nitrite Urine Negative (Negative); PH 6.5 (5.0-9.0); UMIC TRIGGER UACC YES; Urine Blood Moderate (2+) (Negative); Urine Ketones Trace mg/dL (Negative); Urine Protein Negative (Neg-Trace)
[2022-05-08 17:46] LABS: Lactic Acid 1.8 mmol/L (0.5-2.0)
[2022-05-08 17:49] LABS: UPreg QC Valid YES; Urine Pregnancy NEGATIVE (NEGATIVE)
[2022-05-08 17:51] LABS: Alanine Aminotransferase 21 U/L (0-31); Albumin Level 4.4 g/dL (3.5-5.0); Alkaline Phosphatase 85 U/L (39-117); Anion Gap 14 (12-20); Aspartate Amino Transferase 15 U/L (5-31); Bilirubin Total 0.2 mg/dL (0.0-1.0); Blood Urea Nitrogen 9 mg/dL (9-16); C Reactive Protein 0.23 mg/dL (< or = 0.50); Calcium 9.5 mg/dL (8.4-10.2); Carbon Dioxide 20 mmol/L (22-29); Chloride 109 mmol/L (96-108); Creatinine Clr Calc Pharmacy 109.7; Estimated Glomerular Filt Rate > 60; Glucose Random 106 mg/dL (60-115); Potassium 4.2 mmol/L (3.3-5.1); Sodium 139 mmol/L (135-145); Total Protein 7.1 g/dL (6.5-8.0)
[2022-05-08] MEDS: Lactated Ringers 1,000 ML 999 ML IV ×2 (17:54→19:59)
[2022-05-08 17:56] LABS: COVID-19 Test Negative (Negative); IDNOW Serial# 16C4AD1C
[2022-05-08 17:57] LABS: Bacteria Urine 2+ (None Seen); Hyaline Casts Urine 0-2 /LPF (0-2); IDNOW Serial# BCCEAD1C; Influenza A Negative (Negative); Influenza B2 Negative (Negative); RBC Urine 0-2 /HPF (0-2); UACC Culture Trigger YES
[2022-05-08 18:00] VITALS: RESP 18
[2022-05-08] MEDS: methylPREDNISolone Sod Succ 125 MG/2 ML VIAL 60 MG IVPUSH (18:00)
[2022-05-08] MEDS: ondansetron HCL 4 MG/2 ML VIAL IVPUSH (18:00)
[2022-05-08] MEDS: HYDROmorphone HCl 1 MG/ML SYRINGE IVPUSH ×2 (18:00→19:59)
[2022-05-08 18:10] LABS: Erythrocyte Sedimentation Rate 3 MM/HR (0-20)
[2022-05-08] MEDS: iohexoL 350 MG/ML 100 ML INFUS..BTL IV (18:32)
[2022-05-08 19:46] VITALS: BP 133/78; PULSE 99; RESP 20; TEMP 37; O2SAT 97
[2022-05-08 19:59] VITALS: RESP 16
--- NOTE | 2022-05-08 20:14 | PC.NURSE ---
Pt JO x3 reports 7/10 left upper abdominal pain. Pt medicated per MAY.
[2022-05-09 09:50] LABS: Adenovirus F 40/41 Not Detected (Not Detect.); Campylobacter Not Detected (Not Detect.); Cryptosporidium Not Detected (Not Detect.); Cyclospora cayetanensis Not Detected (Not Detect.); E. coli EAEC Not Detected (Not Detect.); E. coli EPEC Not Detected (Not Detect.); E. coli ETEC Not Detected (Not Detect.); E. coli STEC Not Detected (Not Detect.); Entamoeba histolytica Not Detected (Not Detect.); Giardia lamblia Not Detected (Not Detect.); Plesiomonas shigelloides Not Detected (Not Detect.); Salmonella Not Detected (Not Detect.); Shigella sp./EIEC Not Detected (Not Detect.); Vibrio Not Detected (Not Detect.); Vibrio Cholerae Not Detected (Not Detect.); Yersinia enterocolitica Not Detected (Not Detect.)
[2022-05-09 09:51] LABS: Astrovirus Not Detected (Not Detect.); Norovirus GI/GII Not Detected (Not Detect.); Rotavirus A Not Detected (Not Detect.); Sapovirus Not Detected (Not Detect.)
== END 2022-05-08 21:41 | disposition home or self-care (01) ==
PROVIDERS: Nurse Practitioner Family; Emergency Provider Emergency Medicine Emergency Medical Services; PCP Physician Assistant
DX: K50.90 Crohn's disease, unspecified, without complications (principal); R10.9 Unspecified abdominal pain; R19.7 Diarrhea, unspecified; E86.0 Dehydration; Z20.822 Contact with and (suspected) exposure to COVID-19; F17.210 Nicotine dependence, cigarettes, uncomplicated; Z79.899 Other long term (current) drug therapy
CPT/HCPCS: 74177; 80053; 81001; 81025; 83605; 85025; 85652; 86140; 87040; 87086; 87088; 87186; 87502; 87507; 87635; 96361; 96374; 96375; 99284; J1170; J2405; J2930; Q9967

== ENCOUNTER 2022-05-11 08:57 | Emergency (ER) | payer OTHER, SELFPAY ==
[2022-05-11 10:12] VITALS: BP 165/84; PULSE 97; RESP 18; TEMP 36.6; O2SAT 97; BMI 31.8
[2022-05-11 10:25] LABS: MANUAL DIFF FLAG NO
[2022-05-11 10:31] LABS: Basophils Percent Auto 0.3 % (0-2); Eosinophils Absolute Auto 0.1 X10*3/uL (0.0-0.4); Eosinophils Percent Auto 1.2 % (0-4); Hematocrit 41.5 % (37.0-47.0); Hemoglobin 13.9 g/dl (12.0-16.0); Imm Gran Abs Auto 0.05 X10*3/uL (0.00-0.03); Imm Gran Pct Auto 0.4 % (0.0-0.4); Lymphocytes Absolute Auto 3.2 X10*3/uL (1.2-4.9); Lymphocytes Percent Auto 26.3 % (20-40); Mean Corpuscular HGB Conc 33.5 g/dl (31.0-35.0); Mean Corpuscular Hemoglobin 29.1 pg (27.0-33.0); Mean Corpuscular Volume 86.8 fL (80.0-98.0); Mean Platelet Volume 9.3 fL (9.4-12.3); Monocytes Absolute Auto 0.7 X10*3/uL (0.1-1.2); Monocytes Percent Auto 5.9 % (2-11); Neutrophils Percent Auto 65.9 % (45-73); Platelet Count 294 X10*3/uL (160-400); Red Blood Count 4.78 X10*6/uL (4.20-5.50); Red Cell Distribution Width 13.5 % (11.0-16.0); White Blood Count 12.1 X10*3/uL (4.8-10.8)
[2022-05-11 10:46] LABS: Alanine Aminotransferase 25 U/L (0-31); Albumin Level 4.2 g/dL (3.5-5.0); Alkaline Phosphatase 75 U/L (39-117); Anion Gap 13 (12-20); Aspartate Amino Transferase 20 U/L (5-31); Bilirubin Total 0.4 mg/dL (0.0-1.0); Blood Urea Nitrogen 4 mg/dL (9-16); Calcium 8.9 mg/dL (8.4-10.2); Carbon Dioxide 21 mmol/L (22-29); Chloride 108 mmol/L (96-108); Creatinine Clr Calc Pharmacy 136.7; Estimated Glomerular Filt Rate > 60; Glucose Random 101 mg/dL (60-115); Potassium 4.1 mmol/L (3.3-5.1); Sodium 138 mmol/L (135-145); Total Protein 6.8 g/dL (6.5-8.0)
--- NOTE | 2022-05-11 13:27 | ED_ITS ---
HPI - Recheck/Abnormal Lab/Rx General Chief Complaint: Abdominal Pain Stated Complaint: Abd pain seen here Tuesday Time Seen by Provider: 05/11/22 13:16 Source: patient Mode of arrival: ambulatory Limitations: no limitations History of Present Illness HPI narrative: 37-year-old female presents to the emergency department stating that she was sent in by her primary care doctor who told her that she had a bladder infection. Patient was seen here over the weekend for abdominal pain with questionable Crohn flare sent home on Dilaudid after having a negative CT scan and told to follow-up with gastroenterology. The patient has not followed with gastroenterology she called her primary care doctor stating that she has had some night sweats and fevers. On arrival here she denies any urinary symptoms stating she was told she has a UTI by her PCP and that they could not see her in the office. Patient looks well states she does not want to be here denies fever at this time normal vitals. I reviewed the recent culture is hamilton sensitive I will give keflex and send home. MD complaint: abnormal lab Related Data Home Medications Medication Instructions Recorded Confirmed vedolizumab 300 mg intravenous 300 mg IV Q2W 08/29/20 12/30/21 solution (Entyvio) Previous Rx's Medication Instructions Recorded albuterol sulfate 90 mcg/actuation 1 inh inhalation QID 30 days #8.5 01/26/22 aerosol inhaler (Ventolin HFA) grams clonidine HCl 0.1 mg tablet 0.1 mg PO TID PRN anxiety/insomnia 01/26/22 30 days #0 tabs nicotine (polacrilex) 2 mg gum 2 mg buccal Q2H PRN Nicotine 01/26/22 Cravings 30 days #100 ea quetiapine 100 mg tablet 150 mg PO BID 30 days #90 tabs 01/26/22 quetiapine 300 mg tablet 300 mg PO BEDTIME 30 days #30 tabs 01/26/22 trazodone 50 mg tablet See Rx Instructions .Route 01/26/22 .COMPLEX PRN Insomnia 30 days #60 tabs ondansetron HCl 8 mg tablet 8 mg PO Q12H 7 days #14 tabs 02/09/22 lisdexamfetamine 30 mg capsule 30 mg PO DAILY #30 caps 04/14/22 (Vyvanse) tramadol 50 mg tablet 50 mg PO BID PRN pain 4 days #8 05/07/22 tabs hydromorphone 2 mg tablet 2 mg PO Q4-6H PRN pain #10 tabs 05/08/22 (Dilaudid) prednisone 10 mg tablet 10 mg PO DIRECTED #40 tabs 05/08/22 nitrofurantoin macrocrystal 100 mg 100 mg PO BID 7 days #14 caps 05/10/22 capsule Allergies Allergy/AdvReac Type Severity Reaction Status Date / Time NSAIDS (Non-Steroidal Allergy Severe BRONCHOSPAS Verified 05/08/22 16:32 Anti-Inflamma M [NSAIDS (NON-STEROIDAL ANTI-INFLAMMA] aspirin [ASA] Allergy Unknown SHORTNESS Verified 05/08/22 16:32 OF BREATH ketorolac [From TORADOL] Allergy Unknown BRONCIAL Verified 05/08/22 16:32 SPASM vancomycin [VANCOMYCIN] Allergy Unknown RASH Verified 05/08/22 16:32 gabapentin [From NEURONTIN] AdvReac Unknown TINGLING Verified 05/08/22 16:32 IN L ARM budesonide AdvReac Muscle Pain Verified 05/08/22 16:32 Bencort Allergy Unknown unknown Uncoded 05/08/22 16:32 Review of Systems Review of Systems: Review of systems: General: Patient denies any fever chills recent illness or falls Musculoskeletal: Denies back pain or body aches or other injuries HEENT: denies headache, runny nose, ear pain Respiratory: denies shortness of breath, cough Cardiovascular: no chest pain or palpitations : denies dysuria, frequency Abdomen: no nausea vomiting denies abdominal pain Extremities: no swelling, no pain Skin: no diaphoresis Yes all other systems are reviewed and are negative PMFSH Past Medical History Medical History Acute Crohn's disease Asthma Bipolar disorder Crohn's colitis Diarrhea Screening for diabetes mellitus (DM) Screening for hypothyroidism Screening for hypothyroidism TMJ (dislocation of temporomandibular joint) Surgical History History of appendectomy History of colonoscopy History of hysterectomy Hx of endoscopy Family History Family History Father Mental health disorder Mother Thyroid cancer Stomach cancer Substance use disorder Mental health disorder Family/Other Diabetes Social History Social History Household Members: None Housing: Condominium Do you presently have visiting nurse or other home services: No Alcohol intake: current Alcohol intake frequency: does not drink Patient Tobacco Use Status: Current everyday Tobacco user Tobacco use type: Cigarette Cigarette Packs Per Day: 0.5 Cigarettes Per Day: 10.0 Years Smoked: 20 e-Cigarette/Vaping Use: Never Used Second Hand Smoke Exposure: No Advance Directives: Yes Advance Directives on File: Yes Advance Directives Date on File: 07/28/20 service: Yes Current occupational status: employed Sexual orientation: Straight/Heterosexual Cognitive needs: No Hearing needs: No Vision needs: No Physical Exam Vital Signs: Vital Signs: Last Vital Signs Temp 97.9 F 05/11/22 10:12 Pulse 97 05/11/22 10:12 Resp 18 05/11/22 10:12 BP 165/84 H 05/11/22 10:12 Pulse Ox 97 05/11/22 10:12 O2 Del Method 05/11/22 10:12 BMI result Body Mass Index 31.8 General: Well-appearing well-nourished in no signs of distress HEENT: Normocephalic atraumatic Neck: No signs of JVD, no masses no tenderness or lymphadenopathy Cardiovascular: Regular rate and rhythm Respiratory: Clear to auscultation bilaterally Abdomen: Soft nontender no masses no CVA tenderness Extremities: Normal pedal pulses no signs of edema Skin: Dry warm no rashes Back: No tenderness full ROM Medical Decision Making Medical Decision Making [facility] Narrative: Patient looks well i will give keflex and discharge home. Differential Diagnosis Differential Diagnoses: The differential diagnosis associated with the presentation includes Admission/Observation Consideration of admission/observation: Escalation of care including admission/observation considered Consult Healthcare Provider Management of the patient was discussed with: Hospitalist Lab Data MDM Lab Attestation statement: I reviewed the patient's lab results. 05/11/22 10:22 05/11/22 10:22 Labs: Lab Results 05/11/22 05/11/22 Range/Units 10:22 10:22 WBC 12.1 H (4.8-10.8) X10*3/uL RBC 4.78 (4.20-5.50) X10*6/uL Hgb 13.9 (12.0-16.0) g/dl Hct 41.5 (37.0-47.0) % MCV 86.8 (80.0-98.0) fL MCH 29.1 (27.0-33.0) pg MCHC 33.5 (31.0-35.0) g/dl RDW 13.5 (11.0-16.0) % Plt Count 294 (160-400) X10*3/uL MPV 9.3 L (9.4-12.3) fL Immature Gran % (Auto) 0.4 (0.0-0.4) % Neut % (Auto) 65.9 (45-73) % Lymph % (Auto) 26.3 (20-40) % [place] % (Auto) 5.9 (2-11) % Eos % (Auto) 1.2 (0-4) % Baso % (Auto) 0.3 (0-2) % Lymph # (Auto) 3.2 (1.2-4.9) X10*3/uL [place] # (Auto) 0.7 (0.1-1.2) X10*3/uL Eos # (Auto) 0.1 (0.0-0.4) X10*3/uL Baso # (Auto) 0.0 (0.0-0.2) X10*3/uL Abs Immat Gran (auto) 0.05 H (0.00-0.03) X10*3/uL Absolute Neuts (auto) 8.0 (2.0-8.3) x10*3/uL Absolute Nucleated RBC 0.000 (0.0-0.012) X10*3/uL Nucleated RBC % (auto) 0.0 (0.0-0.2) /100WBC Sodium 138 (135-145) mmol/L Potassium 4.1 (3.3-5.1) mmol/L Chloride 108 (96-108) mmol/L Carbon Dioxide 21 L (22-29) mmol/L Anion Gap 13 (12-20) BUN 4 L (9-16) mg/dL Creatinine 0.57 (0.5-1.4) mg/dL Estim Creat Clear Calc 136.7 Estimated GFR > 60 Random Glucose 101 (60-115) mg/dL Calcium 8.9 D (8.4-10.2) mg/dL Total Bilirubin 0.4 (0.0-1.0) mg/dL AST 20 (5-31) U/L ALT 25 (0-31) U/L Alkaline Phosphatase 75 (39-117) U/L Total Protein 6.8 (6.5-8.0) g/dL Albumin 4.2 (3.5-5.0) g/dL Discharge Plan Discharge Clinical Impression: Urinary tract infection Patient Disposition: Home, Self-Care Instructions: Urinary Tract Infection in Women (ED) Additional Instructions: Please call to follow up. If you have any other concerns please return to the ED. Prescriptions: No Action ondansetron HCl 8 mg tablet 8 mg PO Q12H 7 Days Qty: 14 3RF Vyvanse 30 mg capsule 30 mg PO DAILY Qty: 30 0RF Rx Instructions: Partial Fill upon patient request. tramadol 50 mg tablet 50 mg PO BID PRN (Reason: pain) 4 Days Qty: 8 0RF nitrofurantoin macrocrystal 100 mg capsule 100 mg PO BID 7 Days Qty: 14 0RF Rx Instructions: must administer with a meal/food Entyvio 300 mg recon soln 300 mg IV Q2W Rx Instructions: NEXT DOSE 08/31/2020 nicotine (polacrilex) 2 mg Gum 2 mg buccal Q2H PRN (Reason: Nicotine Cravings) 30 Days Qty: 100 0RF clonidine HCl 0.1 mg Tablet 0.1 mg PO TID PRN (Reason: anxiety/insomnia) 30 Days Qty: 0 0RF Protocol: Hold for SBP< HOLD for SBP < : 90 trazodone 50 mg Tablet See Rx Instructions .ROUTE .COMPLEX PRN (Reason: Insomnia) 30 Days Qty: 60 0RF Rx Instructions: take 1-2 tabs at bedtime for insomnia quetiapine 300 mg Tablet 300 mg PO BEDTIME 30 Days Qty: 30 0RF quetiapine 100 mg tablet 150 mg PO BID 30 Days Qty: 90 0RF albuterol sulfate [Ventolin HFA] 90 mcg/actuation HFA aerosol inhaler 1 inh inhalation QID 30 Days Qty: 8.5 0RF hydromorphone [Dilaudid] 2 mg tablet 2 mg PO Q4-6H PRN (Reason: pain) Qty: 10 0RF Rx Instructions: Patient may request partial fill; Partial Fill upon patient request. prednisone 10 mg tablet 10 mg PO DIRECTED Qty: 40 0RF Rx Instructions: 4 pills daily x1 week, then 3 pills x2 days, 2 pills x2 days, 1 pill x2 days
[2022-05-11 13:48] VITALS: BP 148/91; PULSE 94; RESP 20; TEMP 37; O2SAT 97
[2022-05-11] MEDS: cephALEXin 500 MG CAPSULE PO (13:51)
== END 2022-05-11 13:57 | disposition home or self-care (01) ==
PROVIDERS: Emergency Provider Student in an Organized Health Care Education/Training Program; PCP Physician Assistant
DX: N39.0 Urinary tract infection, site not specified (principal); Z79.899 Other long term (current) drug therapy
CPT/HCPCS: 36415; 80053; 85025; 99283; 99284

== ENCOUNTER 2022-08-15 20:25 | Inpatient (IN) | payer OTHER, SELFPAY ==
[2022-08-15 20:29] VITALS: BP 152/85; PULSE 103; RESP 20; TEMP 36.9; O2SAT 96; BMI 35.4
--- NOTE | 2022-08-15 20:29 | ED_ITS ---
HPI - General Adult General Chief complaint: Psychiatric Symptoms Stated complaint: Crisis Time Seen by Provider: 08/15/22 20:54 History of Present Illness HPI narrative: Seen by Dr. Sprague Related Data Previous Rx's Medication Instructions Recorded lisdexamfetamine 40 mg capsule 40 mg PO DAILY 30 days #30 caps 08/12/22 (Vyvanse) ondansetron HCl 8 mg tablet 8 mg PO Q12H 7 days #14 tabs 08/12/22 tramadol 50 mg tablet 50 mg PO BID pain 15 days #30 tabs 08/12/22 clomipramine 25 mg capsule 50 mg PO BEDTIME 30 days #60 caps 08/19/22 prazosin 1 mg capsule 2 mg PO BEDTIME 30 days #60 caps 08/19/22 quetiapine 100 mg tablet 100 mg PO TID 30 days #90 tabs 08/19/22 quetiapine 200 mg tablet 200 mg PO BEDTIME #0 tabs 08/19/22 trazodone 50 mg tablet 50 mg PO BEDTIME MRX1 PRN Insomnia 08/19/22 30 days #30 tabs Allergies Allergy/AdvReac Type Severity Reaction Status Date / Time NSAIDS (Non-Steroidal Allergy Severe BRONCHOSPAS Verified 08/12/22 15:56 Anti-Inflamma M [NSAIDS (NON-STEROIDAL ANTI-INFLAMMA] aspirin [ASA] Allergy Unknown SHORTNESS Verified 08/16/22 15:06 OF BREATH ketorolac [From TORADOL] Allergy Unknown BRONCIAL Verified 08/16/22 15:06 SPASM vancomycin [VANCOMYCIN] Allergy Unknown RASH Verified 08/16/22 15:06 gabapentin [From NEURONTIN] AdvReac Unknown TINGLING Verified 08/16/22 15:06 IN L ARM budesonide AdvReac Muscle Pain Verified 08/16/22 15:06 Bencort Allergy Unknown unknown Uncoded 08/16/22 15:06 [facility] Past Medical History Medical History Acute Crohn's disease Asthma Bipolar disorder Crohn's colitis Diarrhea Screening for diabetes mellitus (DM) Screening for hypothyroidism Screening for hypothyroidism TMJ (dislocation of temporomandibular joint) Surgical History History of appendectomy History of colonoscopy History of hysterectomy Hx of endoscopy Family History Family History Father Mental health disorder Mother Thyroid cancer Stomach cancer Substance use disorder Mental health disorder Family/Other Diabetes Social History Social History (Updated 08/12/22 @ 16:07 by Kike Irby PA-C) Household Members: None Housing: Condominium Do you presently have visiting nurse or other home services: No Alcohol intake: current Alcohol intake frequency: a few times a week Alcohol type: hard liquor Patient Tobacco Use Status: Current someday Tobacco user Tobacco use type: Cigarette Cigarettes Per Day: 0.5 Years Smoked: 20 e-Cigarette/Vaping Use: Never Used Second Hand Smoke Exposure: Yes Advance Directives Date on File: 07/28/20 service: No Current occupational status: employed Current occupation: [employer] Current occupational exposures/hazards: No Sexual orientation: Straight/Heterosexual Cognitive needs: No Hearing needs: No Vision needs: No Physical Exam ED Vital Signs: Vital Signs - 24 hr 08/15/22 20:29 08/15/22 21:56 08/16/22 06:41 Temperature 98.4 F 97.4 F 99.3 F Pulse Rate 103 H 98 88 Respiratory Rate 20 18 17 Blood Pressure 152/85 H 133/73 131/65 Pulse Oximetry 96 98 96 Oxygen Delivery Method Room Air Room Air Room Air 08/16/22 10:39 Temperature Pulse Rate 93 Respiratory Rate 20 Blood Pressure 134/91 H Pulse Oximetry 96 Oxygen Delivery Method Room Air BMI result Body Mass Index 35.4 Course Course Course Narrative: RME: 37 yold female presents to the ED for suicidal ideation. patient crying and depressed. patient presently has no plan. patient presently has no plan. patient depressed. labs ordeed. patient will go to POD. Reevaluation(s) Reevaluation #1: patient quite anxious... Will provide anxiolysis . Assumed care at 7 am today. No other active issues at this time. Time: 10:53 Medications Administered Discontinued Medications Generic Name Dose Route Start Last Admin Trade Name Freq PRN Reason Stop Dose Admin Clomipramine HCl 25 mg 08/17/22 21:00 08/18/22 21:10 Clomipramine Hcl 25 Mg Capsule PO 25 mg BEDTIME BRADY Administration Clomipramine HCl 50 mg 08/19/22 21:00 08/19/22 21:51 Clomipramine Hcl 25 Mg Capsule PO 50 mg BEDTIME BRADY Administration Hydroxyzine HCl 25 mg 08/16/22 16:52 08/19/22 15:25 Hydroxyzine Hcl 25 Mg Tablet PO 25 mg Q6H PRN Administration Anxiety Lorazepam 1 mg 08/15/22 22:22 08/15/22 22:26 Lorazepam 1 Mg Tablet PO 08/15/22 22:23 1 mg ONCE ONE Administration Lorazepam 1 mg 08/16/22 03:43 08/16/22 03:48 Lorazepam 1 Mg Tablet PO 08/16/22 03:44 1 mg ONCE ONE Administration Lorazepam 1 mg 08/16/22 10:53 08/16/22 11:11 Lorazepam 1 Mg Tablet PO 08/16/22 10:54 1 mg ONCE ONE Administration Lorazepam 1 mg 08/16/22 16:58 08/16/22 17:36 Lorazepam 1 Mg Tablet PO 08/16/22 16:59 1 mg ONCE ONE Administration Lorazepam 1 mg 08/18/22 19:41 08/18/22 20:00 Lorazepam 1 Mg Tablet PO 08/18/22 19:42 1 mg ONCE ONE Administration Lorazepam 1 mg 08/19/22 10:49 08/19/22 11:05 Lorazepam 1 Mg Tablet PO 08/19/22 10:50 1 mg ONCE ONE Administration Lorazepam 0.5 mg 08/19/22 15:10 08/19/22 15:25 Lorazepam 0.5 Mg Tablet PO 08/19/22 15:11 0.5 mg ONCE ONE Administration Nicotine Polacrilex 4 mg 08/16/22 16:52 08/17/22 18:39 Nicotine Polacrilex 2 Mg Gum BUCCAL 4 mg Q2H PRN Administration Nicotine Cravings Ondansetron HCl 4 mg 08/16/22 04:02 08/16/22 04:04 Ondansetron Odt 4 Mg Tab.Rapdis TRANSLINGU 08/16/22 04:03 4 mg ONCE ONE Administration Ondansetron HCl 8 mg 08/16/22 14:45 08/16/22 14:38 Ondansetron Odt 4 Mg Tab.Rapdis TRANSLINGU Not Given Q12H BRADY Prazosin HCl 1 mg 08/17/22 21:00 08/17/22 20:54 Prazosin Hcl 1 Mg Capsule PO 1 mg BEDTIME BRADY Administration Protocol Prazosin HCl 2 mg 08/18/22 21:00 08/19/22 21:51 Prazosin Hcl 1 Mg Capsule PO 2 mg BEDTIME BRADY Administration Protocol Quetiapine Fumarate 100 mg 08/16/22 17:00 08/20/22 08:35 Quetiapine Fumarate 100 Mg Tablet PO 100 mg TID BRADY Administration Quetiapine Fumarate 200 mg 08/17/22 21:00 08/19/22 21:52 Quetiapine Fumarate 200 Mg Tablet PO 200 mg BEDTIME BRADY Administration Tramadol HCl 50 mg 08/16/22 21:00 08/20/22 08:34 Tramadol Hcl 50 Mg Tablet PO 50 mg BID BRADY Administration Trazodone HCl 50 mg 08/16/22 16:52 08/19/22 22:00 Trazodone Hcl 50 Mg Tablet PO 50 mg BEDTIME MRX1 PRN Administration Insomnia Medical Decision Making Lab Data 08/15/22 21:49 08/15/22 21:49 Labs: Lab Results 08/15/22 08/15/22 08/15/22 Range/Units 21:15 21:15 21:16 WBC (4.8-10.8) X10*3/uL RBC (4.20-5.50) X10*6/uL Hgb (12.0-16.0) g/dl Hct (37.0-47.0) % MCV (80.0-98.0) fL MCH (27.0-33.0) pg MCHC (31.0-35.0) g/dl RDW (11.0-16.0) % Plt Count (160-400) X10*3/uL MPV (9.4-12.3) fL Immature Gran % (Auto) (0.0-0.4) % Neut % (Auto) (45-73) % Lymph % (Auto) (20-40) % [place] % (Auto) (2-11) % Eos % (Auto) (0-4) % Baso % (Auto) (0-2) % Lymph # (Auto) (1.2-4.9) X10*3/uL [place] # (Auto) (0.1-1.2) X10*3/uL Eos # (Auto) (0.0-0.4) X10*3/uL Baso # (Auto) (0.0-0.2) X10*3/uL Abs Immat Gran (auto) (0.00-0.03) X10*3/uL Absolute Neuts (auto) (2.0-8.3) x10*3/uL Absolute Nucleated RBC (0.0-0.012) X10*3/uL Nucleated RBC % (auto) (0.0-0.2) /100WBC Sodium (135-145) mmol/L Potassium (3.3-5.1) mmol/L Chloride (96-108) mmol/L Carbon Dioxide (22-29) mmol/L Anion Gap (12-20) BUN (9-16) mg/dL Creatinine (0.5-1.4) mg/dL Estim Creat Clear Calc Estimated GFR Random Glucose (60-115) mg/dL Calcium (8.4-10.2) mg/dL Total Bilirubin (0.0-1.0) mg/dL AST (5-31) U/L ALT (0-31) U/L Alkaline Phosphatase (39-117) U/L Total Protein (6.5-8.0) g/dL Albumin (3.5-5.0) g/dL Beta HCG, Quant mIU/mL Urine Color Yellow Urine Appearance Clear Urine pH 6.5 (5.0-9.0) Ur Specific [place] 1.015 (1.005-1.025) Urine Protein 30 (1+) H (Neg-Trace) mg/dL Urine Glucose (UA) Negative (Negative) mg/dL Urine Ketones Negative (Negative) mg/dL Urine Blood Moderate (2+) H (Negative) Urine Nitrite Negative (Negative) Ur Leukocyte Esterase Negative (Negative) Urine RBC 0-2 (0-2) /HPF Urine WBC 0-5 (0-5) /HPF Ur Squamous Epith Cells 3-5 (0-2) /HPF Urine Bacteria 1+ (None Seen) Hyaline Casts 0-2 (0-2) /LPF Urine Opiates Screen Not Detected (Not Detect) Urine Fentanyl Screen Not Detected (Not Detect) Ur Barbiturates Screen Not Detected (Not Detect) Ur Phencyclidine Scrn Not Detected (Not Detect) Ur Amphetamines Screen Not Detected (Not Detect) U Benzodiazepines Scrn Not Detected (Not Detect) Urine Cocaine Screen Not Detected (Not Detect) U Marijuana (THC) Screen Not Detected (Not Detect) Ethyl Alcohol mg/dL COVID-19 (ROGELIO) Negative (Negative) COVID-19 Clin Com See Note 08/15/22 08/15/22 Range/Units 21:49 21:49 WBC 6.8 (4.8-10.8) X10*3/uL RBC 4.44 (4.20-5.50) X10*6/uL Hgb 12.9 (12.0-16.0) g/dl Hct 38.9 (37.0-47.0) % MCV 87.6 (80.0-98.0) fL MCH 29.1 (27.0-33.0) pg MCHC 33.2 (31.0-35.0) g/dl RDW 14.2 (11.0-16.0) % Plt Count 287 (160-400) X10*3/uL MPV 9.8 (9.4-12.3) fL Immature Gran % (Auto) 0.1 (0.0-0.4) % Neut % (Auto) 36.6 L (45-73) % Lymph % (Auto) 54.2 H (20-40) % [place] % (Auto) 6.1 (2-11) % Eos % (Auto) 2.6 (0-4) % Baso % (Auto) 0.4 (0-2) % Lymph # (Auto) 3.7 (1.2-4.9) X10*3/uL [place] # (Auto) 0.4 (0.1-1.2) X10*3/uL Eos # (Auto) 0.2 (0.0-0.4) X10*3/uL Baso # (Auto) 0.0 (0.0-0.2) X10*3/uL Abs Immat Gran (auto) 0.01 (0.00-0.03) X10*3/uL Absolute Neuts (auto) 2.5 (2.0-8.3) x10*3/uL Absolute Nucleated RBC 0.000 (0.0-0.012) X10*3/uL Nucleated RBC % (auto) 0.0 (0.0-0.2) /100WBC Sodium 146 H (135-145) mmol/L Potassium 4.1 (3.3-5.1) mmol/L Chloride 114 H (96-108) mmol/L Carbon Dioxide 21 L (22-29) mmol/L Anion Gap 15 (12-20) BUN 7 L (9-16) mg/dL Creatinine 0.68 (0.5-1.4) mg/dL Estim Creat Clear Calc 121.0 Estimated GFR > 60 Random Glucose 104 (60-115) mg/dL Calcium 8.9 (8.4-10.2) mg/dL Total Bilirubin 0.2 (0.0-1.0) mg/dL AST 45 H (5-31) U/L ALT 43 H (0-31) U/L Alkaline Phosphatase 96 (39-117) U/L Total Protein 6.7 (6.5-8.0) g/dL Albumin 3.9 (3.5-5.0) g/dL Beta HCG, Quant < 2 mIU/mL Urine Color Urine Appearance Urine pH (5.0-9.0) Ur Specific [place] (1.005-1.025) Urine Protein (Neg-Trace) mg/dL Urine Glucose (UA) (Negative) mg/dL Urine Ketones (Negative) mg/dL Urine Blood (Negative) Urine Nitrite (Negative) Ur Leukocyte Esterase (Negative) Urine RBC (0-2) /HPF Urine WBC (0-5) /HPF Ur Squamous Epith Cells (0-2) /HPF Urine Bacteria (None Seen) Hyaline Casts (0-2) /LPF Urine Opiates Screen (Not Detect) Urine Fentanyl Screen (Not Detect) Ur Barbiturates Screen (Not Detect) Ur Phencyclidine Scrn (Not Detect) Ur Amphetamines Screen (Not Detect) U Benzodiazepines Scrn (Not Detect) Urine Cocaine Screen (Not Detect) U Marijuana (THC) Screen (Not Detect) Ethyl Alcohol 241 mg/dL COVID-19 (ROGELIO) (Negative) COVID-19 Clin Com Discharge Plan Discharge Clinical Impression: Alcohol intoxication, Suicidal ideation Patient Disposition: Still a Patient Interventions: [place]-Suicide Risk Severity Scale Last Done: 08/16/22 22:56 Admission Worksheet (ED) Last Done: 08/16/22 16:31 Discharge Date/Time: 08/16/22 16:34
[2022-08-15 21:55] LABS: MANUAL DIFF FLAG NO
[2022-08-15 21:56] VITALS: BP 133/73; PULSE 98; RESP 18; TEMP 36.3; O2SAT 98
[2022-08-15 21:57] LABS: Appearance Urine Clear; Color Urine Yellow; Glucose Urine UA Negative (Negative); Leukocyte Esterase Urine Negative (Negative); Nitrite Urine Negative (Negative); PH 6.5 (5.0-9.0); Specific Gravity - Urine 1.015 (1.005-1.025); UMIC TRIGGER UACC YES; Urine Blood Moderate (2+) (Negative); Urine Ketones Negative (Negative); Urine Protein 30 (1+) mg/dL (Neg-Trace)
[2022-08-15 22:04] LABS: Basophils Percent Auto 0.4 % (0-2); Eosinophils Absolute Auto 0.2 X10*3/uL (0.0-0.4); Eosinophils Percent Auto 2.6 % (0-4); Hematocrit 38.9 % (37.0-47.0); Hemoglobin 12.9 g/dl (12.0-16.0); Imm Gran Abs Auto 0.01 X10*3/uL (0.00-0.03); Imm Gran Pct Auto 0.1 % (0.0-0.4); Lymphocytes Absolute Auto 3.7 X10*3/uL (1.2-4.9); Lymphocytes Percent Auto 54.2 % (20-40); Mean Corpuscular HGB Conc 33.2 g/dl (31.0-35.0); Mean Corpuscular Hemoglobin 29.1 pg (27.0-33.0); Mean Corpuscular Volume 87.6 fL (80.0-98.0); Mean Platelet Volume 9.8 fL (9.4-12.3); Monocytes Absolute Auto 0.4 X10*3/uL (0.1-1.2); Monocytes Percent Auto 6.1 % (2-11); Neutrophils Absolute Auto 2.5 x10*3/uL (2.0-8.3); Neutrophils Percent Auto 36.6 % (45-73); Platelet Count 287 X10*3/uL (160-400); Red Blood Count 4.44 X10*6/uL (4.20-5.50); Red Cell Distribution Width 14.2 % (11.0-16.0); White Blood Count 6.8 X10*3/uL (4.8-10.8)
[2022-08-15 22:10] LABS: Bacteria Urine 1+ (None Seen); Hyaline Casts Urine 0-2 /LPF (0-2); RBC Urine 0-2 /HPF (0-2); WBC Urine 0-5 /HPF (0-5)
[2022-08-15 22:13] LABS: Amphetamine Screen Urine Not Detected (Not Detect); Barbiturates, Urine Not Detected (Not Detect); Benzodiazepines Screen Urine Not Detected (Not Detect); Cannabinoid Screen Urine Not Detected (Not Detect); Cocaine Screen Urine Not Detected (Not Detect); Fentanyl, urine Not Detected (Not Detect); Opiate Screen Urine Not Detected (Not Detect); Phencyclidine Screen Urine Not Detected (Not Detect)
[2022-08-15 22:13] LABS: COVID-19 Test Negative (Negative); IDNOW Serial# 6674DD1D
[2022-08-15 22:22] LABS: Alanine Aminotransferase 43 U/L (0-31); Albumin Level 3.9 g/dL (3.5-5.0); Alkaline Phosphatase 96 U/L (39-117); Anion Gap 15 (12-20); Aspartate Amino Transferase 45 U/L (5-31); Bilirubin Total 0.2 mg/dL (0.0-1.0); Blood Urea Nitrogen 7 mg/dL (9-16); Calcium 8.9 mg/dL (8.4-10.2); Carbon Dioxide 21 mmol/L (22-29); Chloride 114 mmol/L (96-108); Estimated Glomerular Filt Rate > 60; Ethanol 241 mg/dL; Glucose Random 104 mg/dL (60-115); HCG Quantitative < 2 mIU/mL; Potassium 4.1 mmol/L (3.3-5.1); Sodium 146 mmol/L (135-145); Total Protein 6.7 g/dL (6.5-8.0)
[2022-08-15] MEDS: LORazepam 1 MG TABLET PO (22:26)
--- NOTE | 2022-08-16 00:22 | ED_ITS ---
HPI - Psych General Chief Complaint: Psychiatric Symptoms Stated Complaint: Crisis Time Seen by Provider: 08/15/22 20:54 History of Present Illness HPI Narrative: Patient is a 37-year-old female presented today with having suicidal thoughts after getting kicked out of the house by her mother. Patient denies any specific plans. Is very hungry. Related Data Previous Rx's Medication Instructions Recorded lisdexamfetamine 40 mg capsule 40 mg PO DAILY 30 days #30 caps 08/12/22 (Vyvanse) ondansetron HCl 8 mg tablet 8 mg PO Q12H 7 days #14 tabs 08/12/22 tramadol 50 mg tablet 50 mg PO BID pain 15 days #30 tabs 08/12/22 Allergies Allergy/AdvReac Type Severity Reaction Status Date / Time NSAIDS (Non-Steroidal Allergy Severe BRONCHOSPAS Verified 08/12/22 15:56 Anti-Inflamma M [NSAIDS (NON-STEROIDAL ANTI-INFLAMMA] aspirin [ASA] Allergy Unknown SHORTNESS Verified 08/12/22 15:56 OF BREATH ketorolac [From TORADOL] Allergy Unknown BRONCIAL Verified 08/12/22 15:56 SPASM vancomycin [VANCOMYCIN] Allergy Unknown RASH Verified 08/12/22 15:56 gabapentin [From NEURONTIN] AdvReac Unknown TINGLING Verified 08/12/22 15:56 IN L ARM budesonide AdvReac Muscle Pain Verified 08/12/22 15:56 Bencort Allergy Unknown unknown Uncoded 05/08/22 16:32 Review of Systems Review of Systems: Positive suicidal ideation Yes all other systems are reviewed and are negative PMFSH Past Medical History Attestation statement: The following information was validated with the patient. Medical History Acute Crohn's disease Asthma Bipolar disorder Crohn's colitis Diarrhea Screening for diabetes mellitus (DM) Screening for hypothyroidism Screening for hypothyroidism TMJ (dislocation of temporomandibular joint) Surgical History History of appendectomy History of colonoscopy History of hysterectomy Hx of endoscopy Family History Family History Father Mental health disorder Mother Thyroid cancer Stomach cancer Substance use disorder Mental health disorder Family/Other Diabetes Social History Social History (Updated 08/12/22 @ 16:07 by Kike Irby PA-C) Household Members: None Housing: Condominium Do you presently have visiting nurse or other home services: No Alcohol intake: current Alcohol intake frequency: a few times a week Alcohol type: hard liquor Patient Tobacco Use Status: Current someday Tobacco user Tobacco use type: Cigarette Cigarettes Per Day: 3 Years Smoked: 20 Smoked in Last 30 Days: Yes e-Cigarette/Vaping Use: Never Used Second Hand Smoke Exposure: No Use of substances other than those prescribed or required for medical reasons: No Advance Directives: Yes Advance Directives on File: Yes Advance Directives Date on File: 07/28/20 Patient : No service: Yes Current occupational status: employed Current occupation: [employer] Current occupational exposures/hazards: No Sexual orientation: Straight/Heterosexual Cognitive needs: No Hearing needs: No Vision needs: No Physical Exam Vital Signs: Vital Signs: Last Vital Signs Temp 97.4 F 08/15/22 21:56 Pulse 98 08/15/22 21:56 Resp 18 08/15/22 21:56 BP 133/73 08/15/22 21:56 Pulse Ox 98 08/15/22 21:56 O2 Del Method Room Air 08/15/22 21:56 BMI result Body Mass Index 35.4 Appearance: Alert. Oriented X3. No acute distress. Eyes: Pupils equal, round and reactive to light. ENT: Pharynx normal. Neck: Normal inspection. Neck supple. No lymph nodes noted. No crepitus CVS: Normal heart rate and rhythm. Pulses normal. Normal S1 and S2 Respiratory: No respiratory distress. Breath sounds normal. No Wheezing. No rales Abdomen: Soft and nontender. No rigidity. No distention. good BS x4 Skin: Skin warm and dry. Normal skin color. Normal skin turgor. Extremities: No lower extremity edema. Neurovascular intact to all extremities. No Lacerations. No Rash Neuro: Oriented X 3. No motor deficit. No sensory deficit. Moving all extermities. No slurred speech. Cranial nerves grossly intact Medications Administered Discontinued Medications Generic Name Dose Route Start Last Admin Trade Name Freq PRN Reason Stop Dose Admin Lorazepam 1 mg 08/15/22 22:22 08/15/22 22:26 Lorazepam 1 Mg Tablet PO 08/15/22 22:23 1 mg ONCE ONE Administration Lorazepam 1 mg 08/16/22 03:43 08/16/22 03:48 Lorazepam 1 Mg Tablet PO 08/16/22 03:44 1 mg ONCE ONE Administration Ondansetron HCl 4 mg 08/16/22 04:02 08/16/22 04:04 Ondansetron Odt 4 Mg Tab.Franco NOVOAU 08/16/22 04:03 4 mg ONCE ONE Administration Medical Decision Making Medical Decision Making MDM Narrative: Well-appearing no acute distress. Question suicidal ideation will get crisis to evaluate patient patient is currently home in no distress. Awaiting sobriety for crisis to evaluate patient Differential Diagnosis Alcohol intoxication, bipolar, suicidal ideation Lab Data 08/15/22 21:49 08/15/22 21:49 Labs: Lab Results 08/15/22 08/15/22 08/15/22 Range/Units 21:15 21:15 21:16 WBC (4.8-10.8) X10*3/uL RBC (4.20-5.50) X10*6/uL Hgb (12.0-16.0) g/dl Hct (37.0-47.0) % MCV (80.0-98.0) fL MCH (27.0-33.0) pg MCHC (31.0-35.0) g/dl RDW (11.0-16.0) % Plt Count (160-400) X10*3/uL MPV (9.4-12.3) fL Immature Gran % (Auto) (0.0-0.4) % Neut % (Auto) (45-73) % Lymph % (Auto) (20-40) % [place] % (Auto) (2-11) % Eos % (Auto) (0-4) % Baso % (Auto) (0-2) % Lymph # (Auto) (1.2-4.9) X10*3/uL [place] # (Auto) (0.1-1.2) X10*3/uL Eos # (Auto) (0.0-0.4) X10*3/uL Baso # (Auto) (0.0-0.2) X10*3/uL Abs Immat Gran (auto) (0.00-0.03) X10*3/uL Absolute Neuts (auto) (2.0-8.3) x10*3/uL Absolute Nucleated RBC (0.0-0.012) X10*3/uL Nucleated RBC % (auto) (0.0-0.2) /100WBC Sodium (135-145) mmol/L Potassium (3.3-5.1) mmol/L Chloride (96-108) mmol/L Carbon Dioxide (22-29) mmol/L Anion Gap (12-20) BUN (9-16) mg/dL Creatinine (0.5-1.4) mg/dL Estim Creat Clear Calc Estimated GFR Random Glucose (60-115) mg/dL Calcium (8.4-10.2) mg/dL Total Bilirubin (0.0-1.0) mg/dL AST (5-31) U/L ALT (0-31) U/L Alkaline Phosphatase (39-117) U/L Total Protein (6.5-8.0) g/dL Albumin (3.5-5.0) g/dL Beta HCG, Quant mIU/mL Urine Color Yellow Urine Appearance Clear Urine pH 6.5 (5.0-9.0) Ur Specific [place] 1.015 (1.005-1.025) Urine Protein 30 (1+) H (Neg-Trace) mg/dL Urine Glucose (UA) Negative (Negative) mg/dL Urine Ketones Negative (Negative) mg/dL Urine Blood Moderate (2+) H (Negative) Urine Nitrite Negative (Negative) Ur Leukocyte Esterase Negative (Negative) Urine RBC 0-2 (0-2) /HPF Urine WBC 0-5 (0-5) /HPF Ur Squamous Epith Cells 3-5 (0-2) /HPF Urine Bacteria 1+ (None Seen) Hyaline Casts 0-2 (0-2) /LPF Urine Opiates Screen Not Detected (Not Detect) Urine Fentanyl Screen Not Detected (Not Detect) Ur Barbiturates Screen Not Detected (Not Detect) Ur Phencyclidine Scrn Not Detected (Not Detect) Ur Amphetamines Screen Not Detected (Not Detect) U Benzodiazepines Scrn Not Detected (Not Detect) Urine Cocaine Screen Not Detected (Not Detect) U Marijuana (THC) Screen Not Detected (Not Detect) Ethyl Alcohol mg/dL COVID-19 (ROGELIO) Negative (Negative) COVID-19 Clin Com See Note 08/15/22 08/15/22 Range/Units 21:49 21:49 WBC 6.8 (4.8-10.8) X10*3/uL RBC 4.44 (4.20-5.50) X10*6/uL Hgb 12.9 (12.0-16.0) g/dl Hct 38.9 (37.0-47.0) % MCV 87.6 (80.0-98.0) fL MCH 29.1 (27.0-33.0) pg MCHC 33.2 (31.0-35.0) g/dl RDW 14.2 (11.0-16.0) % Plt Count 287 (160-400) X10*3/uL MPV 9.8 (9.4-12.3) fL Immature Gran % (Auto) 0.1 (0.0-0.4) % Neut % (Auto) 36.6 L (45-73) % Lymph % (Auto) 54.2 H (20-40) % [place] % (Auto) 6.1 (2-11) % Eos % (Auto) 2.6 (0-4) % Baso % (Auto) 0.4 (0-2) % Lymph # (Auto) 3.7 (1.2-4.9) X10*3/uL [place] # (Auto) 0.4 (0.1-1.2) X10*3/uL Eos # (Auto) 0.2 (0.0-0.4) X10*3/uL Baso # (Auto) 0.0 (0.0-0.2) X10*3/uL Abs Immat Gran (auto) 0.01 (0.00-0.03) X10*3/uL Absolute Neuts (auto) 2.5 (2.0-8.3) x10*3/uL Absolute Nucleated RBC 0.000 (0.0-0.012) X10*3/uL Nucleated RBC % (auto) 0.0 (0.0-0.2) /100WBC Sodium 146 H (135-145) mmol/L Potassium 4.1 (3.3-5.1) mmol/L Chloride 114 H (96-108) mmol/L Carbon Dioxide 21 L (22-29) mmol/L Anion Gap 15 (12-20) BUN 7 L (9-16) mg/dL Creatinine 0.68 (0.5-1.4) mg/dL Estim Creat Clear Calc 121.0 Estimated GFR > 60 Random Glucose 104 (60-115) mg/dL Calcium 8.9 (8.4-10.2) mg/dL Total Bilirubin 0.2 (0.0-1.0) mg/dL AST 45 H (5-31) U/L ALT 43 H (0-31) U/L Alkaline Phosphatase 96 (39-117) U/L Total Protein 6.7 (6.5-8.0) g/dL Albumin 3.9 (3.5-5.0) g/dL Beta HCG, Quant < 2 mIU/mL Urine Color Urine Appearance Urine pH (5.0-9.0) Ur Specific [place] (1.005-1.025) Urine Protein (Neg-Trace) mg/dL Urine Glucose (UA) (Negative) mg/dL Urine Ketones (Negative) mg/dL Urine Blood (Negative) Urine Nitrite (Negative) Ur Leukocyte Esterase (Negative) Urine RBC (0-2) /HPF Urine WBC (0-5) /HPF Ur Squamous Epith Cells (0-2) /HPF Urine Bacteria (None Seen) Hyaline Casts (0-2) /LPF Urine Opiates Screen (Not Detect) Urine Fentanyl Screen (Not Detect) Ur Barbiturates Screen (Not Detect) Ur Phencyclidine Scrn (Not Detect) Ur Amphetamines Screen (Not Detect) U Benzodiazepines Scrn (Not Detect) Urine Cocaine Screen (Not Detect) U Marijuana (THC) Screen (Not Detect) Ethyl Alcohol 241 mg/dL COVID-19 (ROGELIO) (Negative) COVID-19 Clin Com Discharge Plan Discharge Clinical Impression: Alcohol intoxication, Suicidal ideation Patient Disposition: Still a Patient Prescriptions: No Action Vyvanse 40 mg capsule 40 mg PO DAILY 30 Days Qty: 30 0RF Rx Instructions: Partial Fill upon patient request. tramadol 50 mg tablet 50 mg PO BID 15 Days Qty: 30 0RF ondansetron HCl 8 mg tablet 8 mg PO Q12H 7 Days Qty: 14 3RF Interventions: [place]-Suicide Risk Severity Scale Last Done: 08/16/22 06:00
--- NOTE | 2022-08-16 02:35 | PC.NURSE ---
Pt aox4 resting at the bedside in no apparent distress. Continues to state SI statements. Pending care team eval in the am. Req and provided with liquids. Pt aware of plan of care. Will continue to monitor.
--- NOTE | 2022-08-16 03:46 | PC.NURSE ---
Pt aox4 requesting medication for increased anxiety. Increased shaking and pacing noted at the bedside. Requests and provided liquids. notified. New orders placed in MAY.
[2022-08-16] MEDS: LORazepam 1 MG TABLET PO ×3 (03:48→17:36)
[2022-08-16] MEDS: Ondansetron ODT 4 MG TAB.RAPDIS TRANSLINGU (04:04)
[2022-08-16 06:41] VITALS: BP 131/65; PULSE 88; RESP 17; TEMP 37.4; O2SAT 96
--- NOTE | 2022-08-16 10:20 | PC.NURSE ---
Mother in for visit. Pt to desk, tearful, would like anxiety med. notified.
[2022-08-16 10:39] VITALS: BP 134/91; PULSE 93; RESP 20; O2SAT 96
--- NOTE | 2022-08-16 17:08 | PC.ADMIT ---
Manju is a 37-year-old female admitted from [facility] to [facility] 08/16/22 at 1630 for treatment of bipolar disorder and suicidal ideation, CV signed. Tox screen negative. Medical dx: crohn's disease, asthma, endometriosis. Pt endorses drinking once a week and last drink was prior to admission. Pt was unable to identify a clear precipitant for exacerbation of anxiety and SI. Pt mentioned that she's being kicked out of her condo and has to move to [place] but did not elaborate. Per crisis eval, pt's condo is in horrible condition and she was given a 6 month notice to move out. Pt has been hoarding items, not taking care of herself or paying bills. She's been fired from multiple places of employment and hasn't been able to maintain a job. Pt has had minimal contact with her 14-year old daughter. Skin check complete upon admission. During assessment, pt was pleasant, cooperative, but visibly anxious. Pt was crying at times and said I just feel really overwhelmed. Pt reports poor sleep and weight gain due to medication. Pt denies HI/AH/VH, reports vague SI but does not have a plan while on the unit. Pt states she will reach out to staff if thoughts occur.
[2022-08-16] MEDS: QUEtiapine Fumarate 100 MG TABLET PO ×2 (17:36→20:58)
[2022-08-16] MEDS: Nicotine Polacrilex 2 MG GUM 4 MG BUCCAL (17:43)
[2022-08-16 20:50] VITALS: BP 135/63; PULSE 92; RESP 16; TEMP 36.4; O2SAT 96
[2022-08-16] MEDS: traMADoL HCL 50 MG TABLET PO (20:58)
[2022-08-17] MEDS: traMADoL HCL 50 MG TABLET PO ×2 (08:24→20:54)
[2022-08-17] MEDS: QUEtiapine Fumarate 100 MG TABLET PO ×3 (08:24→20:53)
[2022-08-17 08:33] VITALS: BP 115/71; PULSE 89; TEMP 36.4; O2SAT 95
[2022-08-17 09:12] LABS: Alanine Aminotransferase 33 U/L (0-31); Albumin Level 3.8 g/dL (3.5-5.0); Alkaline Phosphatase 85 U/L (39-117); Anion Gap 12 (12-20); Aspartate Amino Transferase 27 U/L (5-31); Bilirubin Total 0.3 mg/dL (0.0-1.0); Blood Urea Nitrogen 7 mg/dL (9-16); Calcium 9.5 mg/dL (8.4-10.2); Carbon Dioxide 24 mmol/L (22-29); Chloride 108 mmol/L (96-108); Cholesterol 202 mg/dL; Creatinine Clr Calc Pharmacy 126.7; Estimated Glomerular Filt Rate > 60; Glucose Fasting 101 mg/dL (60-99); HDL Cholesterol 85 mg/dL; LDL Cholesterol Calculated 84 mg/dl; Potassium 3.8 mmol/L (3.3-5.1); Sodium 140 mmol/L (135-145); Total Protein 6.6 g/dL (6.5-8.0); Triglycerides 166 mg/dL
[2022-08-17 09:15] LABS: Estimated Average Glucose 91 mg/dL; Hemoglobin A1c % 4.8 %
[2022-08-17 09:40] LABS: Free T4 (Free Thyroxine) 0.82 ng/dL (0.71-1.85); Thyroid Stimulating Hormone 1.63 uIU/mL (0.32-4.0)
[2022-08-17 10:35] LABS: Folate 13.4 ng/mL (> or = 4.0); Vitamin B12 253 pg/mL (200-900)
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
[2022-08-17] MEDS: Nicotine Polacrilex 2 MG GUM 4 MG BUCCAL (18:39)
[2022-08-17 20:15] VITALS: BP 132/88; PULSE 96; RESP 18; TEMP 36.6; O2SAT 95
[2022-08-17] MEDS: traZODone HCL 50 MG TABLET PO (20:53)
[2022-08-17] MEDS: Prazosin HCL 1 MG CAPSULE PO (20:54)
[2022-08-17] MEDS: clomiPRAMINE HCl 25 MG CAPSULE PO (20:54)
[2022-08-17] MEDS: QUEtiapine Fumarate 200 MG TABLET PO (20:54)
[2022-08-18 06:00] VITALS: BP 121/64; PULSE 91; RESP 18; TEMP 36.8; O2SAT 95
[2022-08-18] MEDS: QUEtiapine Fumarate 100 MG TABLET PO ×3 (09:11→21:10)
[2022-08-18] MEDS: traMADoL HCL 50 MG TABLET PO ×2 (09:11→21:10)
--- NOTE | 2022-08-18 12:59 | P.PNPSI_ITS ---
Subjective Subjective Date of Service: 08/18/22 Reason For Visit: depression Interim History: calm, cooperative, pleasant, able to laugh and make jokes. states she slept a tad better last night, interested in increasing prazosin to 2 mg tonight. agreeable to plan to increase anafranil to 50 mg tomorrow night. per staff, pleasant, tearful. poor sleep. med and meal compliant. denies SI/HI/AVH. anxious and depressed. +ADLs. slept well overnight. Mental Status Exam Mental Status Exam Narrative: Pleasant. Engaged. Appropriately dressed. cooperative. speech nml rate, amount, loudness, tone, latency. thoughts linear and logical. affect full range, normo-intense, non-labile. mood Depressed and anxious. no SI/HI/AVH expressed. no agitation or psychosis. Insight and judgment okay Diagnostics Vital Signs (24Hr): Vital Signs - 24 hr 08/17/22 20:15 08/18/22 06:00 Temperature 97.9 F 98.3 F Pulse Rate 96 91 Respiratory Rate 18 18 Blood Pressure 132/88 121/64 Pulse Oximetry 95 95 Oxygen Delivery Method Room Air Room Air BMI result Body Mass Index 35.4 Labs 08/15/22 21:49 08/17/22 08:09 Labs: Laboratory Results - last 48 hr 08/17/22 08/17/22 08/17/22 08:09 08:09 09:41 Sodium 140 Potassium 3.8 Chloride 108 Carbon Dioxide 24 Anion Gap 12 BUN 7 L Creatinine 0.65 Estim Creat Clear Calc 126.7 Estimated GFR > 60 Fasting Glucose 101 H Estimat Average Glucose 91 Hemoglobin A1c % 4.8 Calcium 9.5 D Total Bilirubin 0.3 AST 27 ALT 33 H Alkaline Phosphatase 85 Total Protein 6.6 Albumin 3.8 Triglycerides 166 Cholesterol 202 LDL Cholesterol, Calc 84 HDL Cholesterol 85 Vitamin B12 Cancelled 253 Folate Cancelled 13.4 TSH 1.63 Free T4 0.82 Medications Medications Current Medications Acetaminophen (Acetaminophen 325 Mg Tablet) 650 mg PO Q6H PRN PRN Reason: Headache/Pain Mild Scale (1-3) Al Hydroxide/Mg Hydroxide (Magnesium Hydrox/Alum Hydrox 30 Ml Oral.Susp) 30 ml PO Q6H PRN PRN Reason: Heartburn/Nausea Clomipramine HCl (Clomipramine Hcl 25 Mg Capsule) 25 mg PO BEDTIME BRADY Last Admin: 08/17/22 20:54 Dose: 25 mg Hydroxyzine HCl (Hydroxyzine Hcl 25 Mg Tablet) 25 mg PO Q6H PRN PRN Reason: Anxiety Magnesium Hydroxide (Milk Of Magnesia 30 Ml Oral.Susp) 30 ml PO DAILY PRN PRN Reason: Constipation Nicotine Polacrilex (Nicotine Polacrilex 2 Mg Gum) 4 mg BUCCAL Q2H PRN PRN Reason: Nicotine Cravings Last Admin: 08/17/22 18:39 Dose: 4 mg Non-Formulary Medication (Lisdexamfetamine [Vyvanse]) 40 mg PO DAILY [facility] Ondansetron HCl (Ondansetron Odt 4 Mg Tab.Rapdis) 8 mg TRANSLINGU Q12H PRN PRN Reason: nausea Prazosin HCl (Prazosin Hcl 1 Mg Capsule) 2 mg PO BEDTIME [facility]; Protocol Quetiapine Fumarate (Quetiapine Fumarate 100 Mg Tablet) 100 mg PO TID [facility] Last Admin: 08/18/22 09:11 Dose: 100 mg Quetiapine Fumarate (Quetiapine Fumarate 200 Mg Tablet) 200 mg PO BEDTIME [facility] Last Admin: 08/17/22 20:54 Dose: 200 mg Tramadol HCl (Tramadol Hcl 50 Mg Tablet) 50 mg PO BID [facility] Last Admin: 08/18/22 09:11 Dose: 50 mg Trazodone HCl (Trazodone Hcl 50 Mg Tablet) 50 mg PO BEDTIME MRX1 PRN PRN Reason: Insomnia Last Admin: 08/17/22 20:53 Dose: 50 mg Allergies Allergies Allergy/AdvReac Type Severity Reaction Status Date / Time NSAIDS (Non-Steroidal Allergy Severe BRONCHOSPAS Verified 08/12/22 15:56 Anti-Inflamma M [NSAIDS (NON-STEROIDAL ANTI-INFLAMMA] aspirin [ASA] Allergy Unknown SHORTNESS Verified 08/16/22 15:06 OF BREATH ketorolac [From TORADOL] Allergy Unknown BRONCIAL Verified 08/16/22 15:06 SPASM vancomycin [VANCOMYCIN] Allergy Unknown RASH Verified 08/16/22 15:06 gabapentin [From NEURONTIN] AdvReac Unknown TINGLING Verified 08/16/22 15:06 IN L ARM budesonide AdvReac Muscle Pain Verified 08/16/22 15:06 Bencort Allergy Unknown unknown Uncoded 08/16/22 15:06 Assessment & Plan Assessment & Plan (1) ADHD: Qualifiers: Attention deficit-hyperactivity disorder type: combined inattentive- hyperactive Qualified Code(s): F90.2 - Attention-deficit hyperactivity disorder, combined type Status: Acute Code(s): F90.9 - Attention-deficit hyperactivity disorder, unspecified type (2) MDD (major depressive disorder), recurrent episode, moderate: Status: Acute Code(s): F33.1 - Major depressive disorder, recurrent, moderate (3) Chronic post-traumatic stress disorder (PTSD): Status: Acute Code(s): F43.12 - Post-traumatic stress disorder, chronic Plan 08/17: continue home meds. add prazosin 1 mg at HS for insomnia. add clomipramine 25 mg for dep/anx. 08/18: slept a bit better. increase prazosin to 2 mg QHS. plan for clomipramine dose increase to 50 tomorrow NOC. full affect, able to joke. Reason for continued inpatient stay Substantial Risk for: rapid decompensation Time Spent With Patient Time: Total time managing care of this patient today __25__ minutes.
[2022-08-18] MEDS: LORazepam 1 MG TABLET PO (20:00)
[2022-08-18 20:25] VITALS: BP 130/67; PULSE 97; RESP 18; TEMP 35.8; O2SAT 97
[2022-08-18] MEDS: QUEtiapine Fumarate 200 MG TABLET PO (21:10)
[2022-08-18] MEDS: clomiPRAMINE HCl 25 MG CAPSULE PO (21:10)
[2022-08-18] MEDS: Prazosin HCL 1 MG CAPSULE 2 MG PO (21:12)
[2022-08-18 21:30] VITALS: BP 131/82; PULSE 92
[2022-08-19] MEDS: traZODone HCL 50 MG TABLET PO ×2 (01:09→22:00)
[2022-08-19 07:00] VITALS: BMI 37.5
[2022-08-19] MEDS: traMADoL HCL 50 MG TABLET PO ×2 (09:42→21:53)
[2022-08-19] MEDS: QUEtiapine Fumarate 100 MG TABLET PO ×3 (09:42→21:53)
[2022-08-19 09:43] VITALS: BP 125/58; PULSE 105; RESP 16; TEMP 36.7; O2SAT 95
[2022-08-19] MEDS: LORazepam 1 MG TABLET PO (11:05)
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
[2022-08-19] MEDS: LORazepam 0.5 MG TABLET PO (15:25)
[2022-08-19] MEDS: hydrOXYzine HCL 25 MG TABLET PO (15:25)
[2022-08-19 18:00] VITALS: BP 133/69; PULSE 112; RESP 18; TEMP 36.2; O2SAT 97
[2022-08-19] MEDS: Prazosin HCL 1 MG CAPSULE 2 MG PO (21:51)
[2022-08-19] MEDS: clomiPRAMINE HCl 25 MG CAPSULE 50 MG PO (21:51)
[2022-08-19] MEDS: QUEtiapine Fumarate 200 MG TABLET PO (21:52)
--- NOTE | 2022-08-20 02:58 | PC.NURSE ---
Assumed Manju's care at 1930. She was alert and oriented X'4. She was tearful about missing her daughter graduation but was encouraged to look at the brighter side of life by RN. She requested and was administered PRN Trazodone for sleep at bed time which was effective as she appeared to be sleeping. Pt is schedule for discharge today 08/20 at 1230 and was excited about her D/C plan. No behavioral issues noted throughout the night.
[2022-08-20 08:31] VITALS: BP 119/73; PULSE 101; TEMP 36.4; O2SAT 96
[2022-08-20] MEDS: traMADoL HCL 50 MG TABLET PO (08:34)
[2022-08-20] MEDS: QUEtiapine Fumarate 100 MG TABLET PO (08:35)
--- NOTE | 2022-08-20 10:18 | PC.NURSE ---
Reviewed discharge information with pt. Pt verbalized understanding and received a copy of discharge instructions. Pt plans to attend appointments as scheduled and take medications as directed. Pt denies SI/HI/AH/VH.
== END 2022-08-20 12:35 | disposition home or self-care (01) | DRG 751 ==
LOC: HO.ED 08-16 06:43 → HO.PADLT16 08-16 16:01
PROVIDERS: Physician Assistant; Admitting Provider Psychiatry & Neurology Psychiatry; Emergency Provider Emergency Medicine Emergency Medical Services; Visit Provider Psychiatry & Neurology Psychiatry
DX: F33.1 Major depressive disorder, recurrent, moderate (principal); R45.851 Suicidal ideations; F17.210 Nicotine dependence, cigarettes, uncomplicated; F10.129 Alcohol abuse with intoxication, unspecified; F90.2 Attention-deficit hyperactivity disorder, combined type; Z71.6 Tobacco abuse counseling; Z20.811 Contact with and (suspected) exposure to meningococcus; Y90.8 Blood alcohol level of 240 mg/100 ml or more; F43.12 Post-traumatic stress disorder, chronic; Z62.810 Personal history of physical and sexual abuse in childhood; Z79.899 Other long term (current) drug therapy
CPT/HCPCS: 36415; 80053; 80061; 80307; 81001; 82607; 82746; 83036; 84439; 84443; 84702; 85025; 87635; 99285; S9485

== ENCOUNTER 2024-05-30 14:55 | Outpatient (AMB) | payer OTHER, SELFPAY ==
--- NOTE | 2024-05-30 15:05 | MHC.PC.OV ---
Vital Signs 05/30/24 15:06 Height 5 ft 3 in Weight 195 lb BMI 34.5 BP 142/92 H Blood Pressure Location Lt brachial Position Sitting Pulse 112 H Pulse Source Pulse Oximeter Temp 97.1 F Temp Source Temporal Artery Scan Pulse Oximetry (%) 97 Oxygen Delivery Method Room Air Intake Visit Reasons: Overdue for PE/Urgent referrals Heel Shaper Required: No Accompanied by: Self / Same As Patient Allergies NSAIDS (Non-Steroidal Anti-Inflamma [NSAIDS (NON-STEROIDAL ANTI-INFLAMMA] Allergy (Severe, Verified 05/30/24 15:29) BRONCHOSPASM aspirin [ASA] Allergy (Unknown, Verified 05/30/24 15:29) SHORTNESS OF BREATH ketorolac [From TORADOL] Allergy (Unknown, Verified 05/30/24 15:29) BRONCIAL SPASM vancomycin [VANCOMYCIN] Allergy (Unknown, Verified 05/30/24 15:29) RASH duloxetine [From Cymbalta] Adverse Reaction (Intermediate, Verified 05/30/24 15:36) paranoia gabapentin [From NEURONTIN] Adverse Reaction (Unknown, Verified 05/30/24 15:29) TINGLING IN L ARM budesonide Adverse Reaction (Verified 05/30/24 15:29) Muscle Pain Bencort Allergy (Unknown, Uncoded 05/30/24 15:29) unknown Medication List - Last Reconciled 05/30/24 by Kike Irby PA-C No Known Home Meds Tobacco use date assessed: 05/30/24 Dental Screening Dental Screen Date: 05/30/24 Did you have a dental visit in the last 12 months?: No Did you have a dental problem in the last 6 months where you did not have access to dental care?: No Was dental information given to patient?: Patient has dentist HPI Overdue for PE/Urgent referrals HPI Details Patient is a 39-year-old female here today for routine annual physical and reestablishing care. Patient received [place] of [place]. Patient's past medical history significant for ADHD, major depressive disorder, inflammatory bowel disease, generalized anxiety disorder, major depressive disorder. ..Inflammatory bowel disease:? She was followed by a local gastroenterology though has not been seen in quite some time.? She previously was getting injection ( Entyvio) therapy for her inflammatory bowel disease which has made her have joint pain and stiffness thus will take tramadol on a p.r.n. basis for her pain. -->She reports a history of Crohn's Disease, which has become increasingly uncontrolled, leading to significant bowel symptoms. Additionally, she experienced acute systemic symptoms presenting as a possible rheumatoid condition, which resulted in hospitalization. Laboratory tests indicated high inflammatory markers, though Lyme disease and rheumatoid arthritis were excluded as diagnoses.. ADHD:? Regarding psychiatric history, she has diagnoses of major depressive disorder and ADHD. Historical management included Adderall, though SSRIs were not tolerated. Cymbalta treatment exacerbated her depressive disorder, leading to withdrawal. Past management with Vyvanse was noted to be more effective. .. Class 1 obesity: patient has gained weight since last office visit. She has been on a lot of prednisone recently due to her inflammatory bowel disease flares. Vaccines: Up-to-date with tetanus Medicaid Analyst: needs obstetrician and gynaecologist Pap [facility] Medical History Acute Crohn's disease Asthma Bipolar disorder Crohn's colitis Diarrhea Screening for diabetes mellitus (DM) Screening for hypothyroidism Screening for hypothyroidism TMJ (dislocation of temporomandibular joint) Surgical History History of hysterectomy History of appendectomy History of colonoscopy Hx of endoscopy Family History Father Mental health disorder Mother Thyroid cancer Stomach cancer Substance use disorder Mental health disorder Family/Other Diabetes Social History Household Members: None Housing: Condominium Do you presently have visiting nurse or other home services: No Alcohol intake: current Alcohol intake frequency: a few times a week Alcohol type: hard liquor Patient Tobacco Use Status: Current someday Tobacco user Tobacco use type: Cigarette Cigarettes Per Day: 0.5 Years Smoked: 20 e-Cigarette/Vaping Use: Currently Using Second Hand Smoke Exposure: Yes Advance Directives Date on File: 07/28/20 service: No Current occupational status: employed Current occupation: [employer] Current occupational exposures/hazards: No Sexual orientation: Straight/Heterosexual Cognitive needs: No Hearing needs: No Vision needs: No Questionnaire PHQ-9 Over the last 2 weeks, how often have you been bothered by any of the following problems? 1. Little interest or pleasure in doing things: nearly every day 2. Feeling down, depressed, or hopeless: nearly every day 3. Trouble falling or staying asleep, or sleeping too much: nearly every day 4. Feeling tired or having little energy: nearly every day 5. Poor appetite or overeating: nearly every day 6. Feeling bad about yourself - or that you are a failure or have let yourself or your family down: nearly every day 7. Trouble concentrating on things, such as reading the newspaper or watching television: nearly every day 8. Moving or speaking so slowly that other people could have noticed. Or the opposite - being so fidgety or restless that you have been moving around a lot more than usual: nearly every day 9. Thoughts that you would be better off or of hurting yourself in some way: several days Total score: 25 Depression Screening Interpretation: Positive Depression Screening Follow-up: Existing condition and Community Mental Health Worker F/U Depression Screening Done: Yes 13779 - PHQ-9 Billing: Yes Source: Developed by Drs. Simon Sow, Betzaida Jackson, Jean Lujan and colleagues, with an educational yanelis from [employer]. Thrive Questionnaire Date Thrive assessed: 05/30/24 I am a: Patient What is your living situation today?: I have a place to live, but I am worried about losing it in the future Within the past 12 months, did the food you bought not last and you didn't have the money to get more?: I choose not to answer this question Within the past 12 months, did you worry whether your food would run out before you got money to buy more?: I choose not to answer this question Do you have trouble paying for medicines?: No Do you have trouble getting transportation to medical appointments?: No Do you have trouble paying your heating and electricity bill?: Yes Do you have trouble taking care of your child, family member or friend?: No Do you have trouble with day-to-day activities such as bathing, preparing meals, shopping, managing finances, etc.?: Yes Are you currently unemployed and looking for a job?: Yes Are you interested in more education?: No Please select the resources that you would like help with: Housing/Senior Care, Food, Paying for medicine, Utilities, Daily support and Job search/training Currently or been in a relationship where the following occur: No concerns reported THRIVE Score: 2 AUDIT C Alcohol Use Questionnaire (AUDIT-C) 1. How often do you have a drink containing alcohol?: 4 or more times a week 2. How many drinks containing alcohol do you have on a typical day when you are drinking?: 1 or 2 3. How often do you have six or more drinks on one occasion?: Monthly Total Score: 6 AVE-7 AMB Questionnaire AVE-7 Date AVE - 7 assessed: 05/30/24 Feeling nervous, anxious, or on edge: 3 = Nearly every day Not being able to stop or control worryin = Nearly every day Worrying too much about different things: 3 = Nearly every day Trouble relaxin = Nearly every day Being so restless that it is hard to sit still: 3 = Nearly every day Becoming easily annoyed or irritable: 3 = Nearly every day Feeling afraid as if something awful might happen: 2 = More than half the days Total AVE-7 score (0-4 normal; 5-9 mild; 10-14 moderate; 15-21 severe): 20 Source: Developed by Drs. Simon Sow, Betzaida Jackson, Jean Lujan and colleagues, with an educational yanelis from [employer]. AVE-7 Assessment Billing AVE-7 Assessment Tool: AVE-7 Assessment 90034 Review of Systems Const Denies body aches, Denies chills, Denies excessive sweating, Reports fatigue, Denies fever(s) and Denies headache(s) Eyes Denies blurry vision ENT Denies dysphagia, Denies vertigo, Denies dizziness, Denies headache(s), Denies hearing loss and Denies tinnitus Card Denies chest pain, Denies chest pain with activity, Denies syncope, Denies irregular heart rhythm and Denies dyspnea Resp Denies chest congestion, Denies cough, Denies hemoptysis, Denies dyspnea and Denies wheezing GI Reports abdominal pain, Denies melena, Reports bloating, Denies hematochezia, Reports change in stool character, Denies coffee ground emesis, Denies dysphagia, Denies diarrhea, Denies nausea and Denies vomiting Denies urinary frequency, Denies dysuria, Denies urinary hesitancy and Denies urinary urgency Musc Reports back pain, Reports arthralgias, Reports limited range of motion, Reports muscle cramps and Reports muscle weakness Skin/Breast Denies rash and Denies skin ulcer Neuro Denies Abnormal speech present, Denies confusion, Denies vertigo, Denies dizziness, Denies syncope, Denies headache(s), Denies memory loss and Denies seizure-like activity Psych Reports anxiety, Denies confusion, Reports depression, Denies memory loss, Denies panic attacks and Denies paranoia Endo Denies excessive sweating, Reports fatigue, Denies flushing, Denies polydipsia and Denies polyuria Aller/Immun Denies wheezing Physical exam (Primary Care) Vital Signs: Last Vital Signs Temp 97.1 F 05/30/24 15:06 Pulse 112 H 05/30/24 15:06 BP 142/92 H 05/30/24 15:06 Pulse Ox 97 05/30/24 15:06 Oxygen Delivery Method Room Air 05/30/24 15:06 BMI result Body Mass Index 34.5 BMI Assessment/Plan discussion: High BMI High, discussed plan: lifestyle, weight reduction, dietary and physical activity Tobacco/Smoking Status: Tobacco use Status Tobacco use date assessed 05/30/24 05/30/24 15:17 Patient Tobacco Use Status Current someday Tobacco 05/30/24 15:07 Tobacco use type Cigarette 05/30/24 15:07 e-Cigarette/Vaping Use Currently Using 05/30/24 15:17 PHQ-9: PHQ-9 Score PHQ-9: Total score 05/30/24 15:32 Depression Screening Interpretation: Positive Depression Screening Follow-up: Existing condition and Community Mental Health Worker F/U Thrive Assessment: Date of Thrive Assessment Date Thrive assessed 05/30/24 05/30/24 15:17 Currently or been in a relationship where the following occur: No concerns reported Const General: cooperative, comfortable, no acute distress, alert and awake; No confusion Orientation/consciousness: oriented to person, oriented to place, patient oriented x3 and No confusion HENMT Head: Yes normocephalic Ears: external ears normal and TM's normal bilaterally Face and sinus: No sinus tenderness Mouth: Normal oral and palatal mucosa present and tongue normal Teeth and gingiva: dentition normal and gingiva normal Throat: Yes posterior oropharynx normal, Yes tonsils normal and Yes uvula midline Eyes Conjunctivae: conjunctivae normal Sclerae: sclerae normal Pupils: Equal, round and reactive pupils present EOM: EOMs intact bilaterally Direct Ophthalmoscopy: No no photophobia Neck Neck: Yes no lymphadenopathy, No tender and Yes no JVD Thyroid: Thyroid normal Carotids: no bruits Chest Chest palpation & inspection: no tenderness Resp Effort & Inspection: normal respiratory effort, no audible wheezes, not labored and no stridor Auscultation: no crackles, no rales, no rhonchi and no wheezes Cardio Jugular venous distension: no JVD Rate: regular rate, not bradycardic and not tachycardic Rhythm: regular rhythm Bruits: no carotid bruits Peripheral pulses: Peripheral pulses 2+ throughout GI Inspection: Yes normal to inspection, No abdominal wall ecchymosis and No visible herniation Palpation (GI): Soft to palpation, nontender, no guarding, not rigid and No hepatosplenomegaly present Auscultation: normoactive bowel sounds General: Yes no CVA tenderness Back/Spine/Pelvis Back: no CVA tenderness and No back tenderness Cervical Spine: cervical ROM normal Thoracic/Lumbar Spine: thoracic and lumbar spine normal to inspection, straight leg raise negative bilaterally, No thoraco-lumbar ROM limited and No lumbar spinal tenderness Skin Lesions: no lesions Rashes: no rashes Wounds: no wounds Neuro General: oriented to person, oriented to place, patient oriented x3, CN's II-XI intact bilaterally and No confusion Cranial nerves: Yes Equal, round and reactive pupils present and Yes Normal accommodation reflex present Cognition (Neuro): normal cognition Speech: No Abnormal speech present Gait exam (Neuro): Normal gait present Motor exam (neuro): 5/5 motor strength present throughout Extrem Right upper extremity: full ROM; no cyanosis Left upper extremity: full ROM; no cyanosis Right lower extremity: no edema Left lower extremity: no edema Psych Appearance: grossly normal Mental Status: mental status grossly normal Affect: normal affect Attitude: cooperative Thought process: Normal thought process present Coding Level of Care Code Est Pt Prev Care 18-39y(71078) Diagnoses Annual physical exam Z00.00 MDD (major depressive disorder), recurrent episode, moderate F33.1 Acute Crohn's disease with complication K50.919 Digestive disease complication type: unspecified complication Class 1 obesity E66.811 Polyarthralgia M25.50 Attention deficit hyperactivity disorder (ADHD), combined type F90.2 Attention deficit-hyperactivity disorder type: combined inattentive-hyperactive Tachycardia R00.0 Primary hypertension I10 Hypertension type: primary hypertension Additional Codes AVE-7 Assessment Billing - AVE-7 Assessment Tool: AVE-7 Assessment 77824 ([id number]) PHQ-9 - 27442 - PHQ-9 Billing: Yes ([id number]) Assessment & Plan Assessment & Plan (1) Annual physical exam: Code(s): Z00.00 - Encounter for general adult medical examination without abnormal findings Category: Medical Plan: as per HPI (2) MDD (major depressive disorder), recurrent episode, moderate: Code(s): F33.1 - Major depressive disorder, recurrent, moderate Category: Medical Plan: patient's PHQ-9 score positive for major depression which has been existing condition for her. She continues to bray with inflammatory bowel disease flare-ups which caused her not to be able to work. She will like to establish care back with a receiving and processing supervisor for continue treatment. (3) Acute Crohn's disease: Code(s): K50.90 - Crohn's disease, unspecified, without complications Category: Medical Qualifiers: Digestive disease complication type: unspecified complication Qualified Code(s): K50.919 - Crohn's disease, unspecified, with unspecified complications Plan: The patient will re-engage with gastroenterology for management, considering re-starting Antibio therapy. (4) Class 1 obesity: Code(s): E66.811 - Obesity, class 1 Category: Medical Plan: Patient does understand her BMI is over 30 will work on trying to be more physically active and adapting to better eating habits to reduce her weight. Of note patient has been on a lot of prednisone due to her inflammatory bowel flares which has caused her a lot of weight gain. (5) Polyarthralgia: Code(s): M25.50 - Pain in unspecified joint Category: Medical Plan: As per HPI patient was treated for her IBS in the past with Entyvio which did reduce her generalized joint pains as well. She has been tested for rheumatoid arthritis in [place] in the past which were negative though does have inflammatory markers that are elevated. Is quite possible that her inflammatory bowel disease causes a lot of for joint pain. Further evaluation by a pipeline dispatch operator has been initiated to explore inflammatory causes and optimize management. (6) ADHD: Code(s): F90.9 - Attention-deficit hyperactivity disorder, unspecified type Category: Medical Qualifiers: Attention deficit-hyperactivity disorder type: combined inattentive-hyperactive Qualified Code(s): F90.2 - Attention-deficit hyperactivity disorder, combined type Plan: Vyvanse will be employed, considering its past effectiveness and potential side effects. Patient is interested in establishing care with a psychiatrist for further med management and recommendations. She was previously on Adderall which was helpful for her attention focus though had switch to Vyvanse which also was effective. Has tried other medications in the past though were not effective For her attention focus and caused side effects. (7) Tachycardia: Code(s): R00.0 - Tachycardia, unspecified Category: Medical Plan: has noted elevated heart rates as of late, unclear if this is physiological response due to pain from her polyarthralgia in her inflammatory bowel flares. will send for a 12 lead EKG to evaluate for any arrhythmia. Will consider beta-vaishali help reduce heart rate. Regular monitoring will be conducted, especially in synergy with Crohn's management. (8) HTN (hypertension): Code(s): I10 - Essential (primary) hypertension Category: Medical Qualifiers: Hypertension type: primary hypertension Qualified Code(s): I10 - Essential (primary) hypertension Plan: patient's blood pressure elevated today in office. She is willing to start low-dose blood pressure medication and monitor blood pressure at home, goal blood pressures to be below 140/90 Orders: Orders ECG 12 lead EKG 05/30/24 R00.0 - Tachycardia, unspecified Complete Blood Count no Diff 05/30/24 R00.0 - Tachycardia, unspecified Microalbumin, Random (w Creat) 05/30/24 I10 - Essential (primary) hypertension Vitamin D 25-OH Total 05/30/24 M25.50 - Pain in unspecified joint Comprehensive [place]. Panel Fast 05/30/24 I10 - Essential (primary) hypertension ERIKA Reflex Titer and Pattern 05/30/24 M25.50 - Pain in unspecified joint DNA Double Stranded-Crithidia 05/30/24 M25.50 - Pain in unspecified joint Rheumatoid Factor 05/30/24 M25.50 - Pain in unspecified joint Referrals Rheumatology Referral M25.50 - Pain in unspecified joint Psychiatry Outpatient Consultation Service F90.2 - Attention-deficit hyperactivity disorder, combined type Medications: New lisdexamfetamine (Vyvanse) Partial Fill upon patient request. 40 mg PO DAILY 28 caps 0RF 28 days F90.2 - Attention-deficit hyperactivity disorder, combined type lisinopril 5 mg PO DAILY 30 tabs 2RF 30 days I10 - Essential (primary) hypertension
[2024-05-30 15:06] VITALS: BP 142/92; PULSE 112; TEMP 36.2; O2SAT 97; BMI 34.5
== END 2024-05-30 15:52 | disposition home or self-care (01) ==
LOC: HO.HMCH 14:56
PROVIDERS: PCP Physician Assistant; Visit Provider Physician Assistant
DX: Z00.00 Encounter for general adult medical examination without abnormal findings (principal); F33.1 Major depressive disorder, recurrent, moderate; K50.919 Crohn's disease, unspecified, with unspecified complications; E66.811 Obesity, class 1; Z68.34 Body mass index [BMI] 34.0-34.9, adult; M25.50 Pain in unspecified joint; F90.2 Attention-deficit hyperactivity disorder, combined type; R00.0 Tachycardia, unspecified; I10 Essential (primary) hypertension

== ENCOUNTER → 2024-05-30 14:55 | Outpatient (REF) | payer OTHER, SELFPAY ==
--- NOTE | 2024-05-30 16:01 | ECG_ITS ---
Test Reason : TACHY Blood Pressure : */* mmHG Vent. Rate : 103 BPM Atrial Rate : 103 BPM P-R Int : 116 ms QRS Dur : 86 ms QT Int : 354 ms P-R-T Axes : 50 29 19 degrees QTcB Int : 463 ms Sinus tachycardia T wave abnormality, consider anterior ischemia Abnormal ECG When compared with ECG of 09-Nov-2012 15:22, Premature ventricular complexes are no longer Present Premature supraventricular complexes are no longer Present Nonspecific T wave abnormality has replaced inverted T waves in Inferior leads Nonspecific T wave abnormality, worse in Lateral leads Referred By: Kike Irby Electronically Signed By: ASAD GALVAN MD
--- OUTSIDE RECORDS SUMMARY | 2024-05-30 18:51 | XMS_ITS | Clinical Summary ---
Author Organization [facility] it Address [address] [place] [address] Care Team Providers Care Military Pay Technician Name Role Phone Kike Irby Primary Care Provider Social History Tobacco Use Types Packs/Day Years Used Date Smoking Tobacco: Never Assessed Comments Unknown Sex and Gender Information Value Date Recorded Sex Assigned at Not on file Legal Sex Female 6:54 PM EST Gender Identity Not on file Sexual Orientation Not on file Plan of Treatment Health Maintenance Due Date Last Done Comments DTaP,Tdap,and Td Vaccines (1 - Tdap) 2004 Hepatitis B Vaccines (1 of 3 - 19+ 3-dose series) 2004 Cervical Cancer Screening: P ap Smear 2006 COVID-19 Vaccine (2023-2 5 season) 2023 Influenza Vaccine (#1) 2023 HIB Vaccines Aged Out No longer eligi ble based on patient's age to complete this topic HPV Vaccines Aged Out No longer eligi ble based on patient's age to complete this topic Hepatitis A Vaccines Aged Out No long er eligible based on patient's age to complete this topic IPV Vaccines Aged Out No longer eligi ble based on patient's age to complete this topic MMR Vaccines Aged Out No longer eligi ble based on patient's age to complete this topic Meningococcal ACWY Vaccine Aged Out N o longer eligible based on patient's age to complete this topic Meningococcal B Vacine Aged Out No lo nger eligible based on patient's age to complete this topic Pneumococcal Vaccine: Pediat rics (0 to 5 Years) and At-Risk Patients (6 to 64 Years) Aged Out No longer eligible b ased on patient's age to complete this topic RSV Immunization Patients Un diego 20 months Aged Out No longer eligible b ased on patient's age to complete this topic Varicella Vaccines Aged Out No longer eligible based on patient's age to complete this topic Care Teams Military Pay Technician Relationship Specialty Start Date End Date Kike Irby PA PCP - General Physician Bead Filler 06/10/17
== END ==
LOC: HO.CARD 14:55
PROVIDERS: PCP Physician Assistant; Visit Provider Physician Assistant
DX: R00.0 Tachycardia, unspecified (principal)
CPT/HCPCS: 93005

== ENCOUNTER → 2024-05-30 16:01 | Outpatient (BNV) | payer OTHER, SELFPAY | PROVIDERS: PCP Physician Assistant; Visit Provider Internal Medicine Cardiovascular Disease | DX: R00.0 Tachycardia, unspecified (principal) | CPT/HCPCS: 93010 ==

== ENCOUNTER 2024-06-08 09:47 | Outpatient (AMB) | payer OTHER, SELFPAY ==
--- NOTE | 2024-06-08 09:56 | MHC.OFFVIS ---
Vital Signs 06/08/24 09:58 Height 5 ft 3 in Weight 191 lb 12.835 oz BMI 34.0 Intake Visit Reasons: Re-Establish Care Intake Note: Carries presents in the office as a new patient to re estabblish care. CC: She states that she has diarrhea a lot and she states a new symptom is that she has hemorrhoids and when she has a BM she will have a pool of blood in the toilet. States that it happens at least once a day. Feels like she is due for a colonoscopy. Crew Attendant Required: No Allergies NSAIDS (Non-Steroidal Anti-Inflamma [NSAIDS (NON-STEROIDAL ANTI-INFLAMMA] Allergy (Severe, Verified 06/08/24 09:58) BRONCHOSPASM aspirin [ASA] Allergy (Unknown, Verified 06/08/24 09:58) SHORTNESS OF BREATH ketorolac [From TORADOL] Allergy (Unknown, Verified 06/08/24 09:58) BRONCIAL SPASM vancomycin [VANCOMYCIN] Allergy (Unknown, Verified 06/08/24 09:58) RASH duloxetine [From Cymbalta] Adverse Reaction (Intermediate, Verified 06/08/24 09:58) paranoia gabapentin [From NEURONTIN] Adverse Reaction (Unknown, Verified 06/08/24 09:58) TINGLING IN L ARM budesonide Adverse Reaction (Verified 06/08/24 09:58) Muscle Pain Bencort Allergy (Unknown, Uncoded 06/08/24 09:58) unknown HPI HPI Re-Establish Care: Details: HPI 39-year-old female w hx of endometriosis s/p hysterectomy, ADHD with suspected Crohn's disease, who I am seeing for re establishment of care RECAP: Last seen 2020 as inpatient She had been having recurring attacks on and off for a long while of diarrhea with diffuse abdominal pain with several presentations to ED dept at [facility] and [facility] with constant watery diarrhea all day long, abdominal cramping in left lower quadrant, 8/10 in severity, nonradiating, associated with nausea but no vomiting. I had tried her on pred 40 mg for 1 week and she was also on abx from [facility] after [facility] there revealed acute on chronic colitis, suspicious IBD, fluid filled loops of jejunum LUQ I then switched her to budesonide with plan for entyvio which she received for a few months with good effect She was unable to keep up and had various psych issues and problems with f/u She then went to [place] 2 yrs ago She had issues with accessing care Now : She has ongoing cramps LLQ, consistent feels like period cramps diarrhea -can be worse with food no blood noted has hemorrhoids nausea, no vomiting she has also noted joints are stiff and swollen, ankles, hands denies skin rash or eye issues Endoscopy: Colonoscopy done--tubular adeoma removed, duodenitis noted capsule endoscopy--normal, but rapid emptying noted IMaging: CT scan 10/29/19 ---Chronic changes of the ascending colon demonstrating submucosal fat--unchanged since prior CAT scan of 2016. nonspecific however, can be seen as sequela of prior inflammatory bowel disease. 01/24--pelvic us--small ovary cyst, hysterectomy GES 02/23--rapid gastric emptying Mre--no small bowel inflammation, mild fatty liver ROS: Constitutional : No Weight loss, No Fever, No Chills ENT/Mouth : No sore throat, No Rhinorrhea Eyes: No Swelling, No Redness Cardiovascular : No Chest Pain, No SOB, No Edema Respiratory : No Cough, No Sputum, No Wheezing Gastrointestinal : see HPI Genitourinary : NO Dysuria, No Urinary Frequency, No Hematuria, No Urgency Musculoskeletal : + joint pain, No Myalgias, No Joint Swelling Skin : No Skin Lesions, No rash Neuro : No Weakness, No Numbness, No Dizziness, No Headache Psych : No Anxiety/Panic, No Depression Heme/Lymph: No Bruising, No Lymphadenopathy Endocrine : No Polyuria, No Polydipsia All other systems reviewed and are negative. MEDICAL Hx: Acute Crohn's disease Asthma Bipolar disorder Crohn's colitis Diarrhea TMJ (dislocation of temporomandibular joint) Surgical History History of hysterectomy History of appendectomy History of colonoscopy Hx of endoscopy Family History Father Mental health disorder Mother Thyroid cancer Stomach cancer Substance use disorder Mental health disorder Family/Other Diabetes Social History vaping no alcohol or drugs not working EXAM: GENERAL: The patient is well developed and nontoxic. VITAL SIGNS:see workflow HEENT: Nonicteric sclerae, PERRLA, EOMI. Oropharynx clear. Moist mucous membranes. Conjunctivae appear well perfused. No thyroid mass. CHEST: Chest wall is nontender. HEART: Regular rate and rhythm without murmurs. LUNGS: Clear to auscultation bilaterally. ABDOMEN: Soft, positive bowel sounds, tender LLQ, no organomegaly.no flank tenderness SKIN: No rash, no excessive bruising, petechiae, or purpura. NEUROLOGIC: Cranial nerves II-XII intact without motor/sensory deficit. Psych: normal affect A/P: 1/ Relapsing and remitting crohsn based on prior history, sx seem more constant now and also involving joints PLAN: /1 -- labs, incl lactoferrin 2/ Ct enterogram 3/ rept EGD and colo 4/ will attempt to get her humira instead of entyvio this time, get TB spot and Hep profile--hold on steroids for now- 5/ advised to f/u PCP will need mammograms, also annual skin exam [facility] Medical History Bipolar disorder Asthma Screening for hypothyroidism Crohn's colitis Acute Crohn's disease Screening for hypothyroidism Screening for diabetes mellitus (DM) TMJ (dislocation of temporomandibular joint) Diarrhea Surgical History History of hysterectomy History of appendectomy History of colonoscopy Hx of endoscopy Family History Father Mental health disorder Mother Thyroid cancer Stomach cancer Substance use disorder Mental health disorder Family/Other Diabetes Social History Household Members: None Housing: Condominium Do you presently have visiting nurse or other home services: No Alcohol intake: current Alcohol intake frequency: a few times a week Alcohol type: hard liquor Patient Tobacco Use Status: Current someday Tobacco user Tobacco use type: Cigarette Cigarettes Per Day: 0.5 Years Smoked: 20 e-Cigarette/Vaping Use: Currently Using Second Hand Smoke Exposure: Yes Advance Directives Date on File: 07/28/20 service: No Current occupational status: employed Current occupation: [employer] Current occupational exposures/hazards: No Sexual orientation: Straight/Heterosexual Cognitive needs: No Hearing needs: No Vision needs: No Physical Exam Vital Signs: BMI result Body Mass Index 34.0 Assessment & Plan Assessment & Plan (1) IBD (inflammatory bowel disease): Code(s): K52.9 - Noninfective gastroenteritis and colitis, unspecified Category: Medical Plan: as above Orders: Orders C Reactive Protein Today K52.9 - Noninfective gastroenteritis and colitis, unspecified Vitamin A Today K52.9 - Noninfective gastroenteritis and colitis, unspecified Vitamin D 25-OH Total Today K52.9 - Noninfective gastroenteritis and colitis, unspecified Ferritin Today K52.9 - Noninfective gastroenteritis and colitis, unspecified Hepatitis A,B,C Profile Today K52.9 - Noninfective gastroenteritis and colitis, unspecified Erythrocyte Sedimentation Rate Today K52.9 - Noninfective gastroenteritis and colitis, unspecified T Spot TB Today K52.9 - Noninfective gastroenteritis and colitis, unspecified Vitamin B12 and Folate Today K52.9 - Noninfective gastroenteritis and colitis, unspecified CT enterography Today K52.9 - Noninfective gastroenteritis and colitis, unspecified Lactoferrin, Fecal, Quant. Today K51.50 - Left sided colitis without complications Medications: New sodium,potassium,mag sulfates 17.5-3.13-1.6 gram (Suprep Bowel Prep Kit) DILUTE; drink 1/2 at 6-8 pm and half at 11 PM- 1AM 354 mL 0RF Coding Level of Care Code New Pt Level 4 (53955) Diagnoses IBD (inflammatory bowel disease) K52.9
[2024-06-08 09:58] VITALS: BMI 34.0
--- OUTSIDE RECORDS SUMMARY | 2024-06-08 10:57 | XMS_ITS | Clinical Summary ---
Author Organization [facility] it Address [address] [place] [address] Care Team Providers Care Director Of Programming Name Role Phone Kike Irby Primary Care [...] Screening: P ap Smear 2006 COVID-19 Vaccine ( - 2023-2 5 season) 2023 Influenza Vaccine (Season Ended) 2024 HIB Vaccines Aged Out No longer eligi [...] age to complete this topic Care Teams Director Of Programming Relationship Specialty Start Date End Date Kike Irby PA PCP - General Physician Sheriff Officer 06/10/17
== END 2024-06-08 11:37 | disposition home or self-care (01) ==
LOC: HO.HGI 09:48
PROVIDERS: PCP Physician Assistant; Visit Provider Internal Medicine Gastroenterology
DX: K52.9 Noninfective gastroenteritis and colitis, unspecified (principal)
CPT/HCPCS: 99204

== ENCOUNTER 2024-06-08 09:47 | Outpatient (REF) | payer OTHER, SELFPAY ==
[2024-06-08 12:09] LABS: Erythrocyte Sedimentation Rate 11 MM/HR (0-20)
--- OUTSIDE RECORDS SUMMARY | 2024-06-08 12:19 | XMS_ITS | Clinical Summary ---
Author Organization [facility] it Address [address] [place] [address] Care Team Providers Care Solar Business Developer Name Role Phone Kike Irby Primary Care [...] age to complete this topic Care Teams Solar Business Developer Relationship Specialty Start Date End Date Kike Irby PA PCP - General Physician Shear Tender 06/10/17
[2024-06-08 12:27] LABS: Folate 11.2 ng/mL (> or = 4.0); Vitamin B12 480 pg/mL (200-900)
[2024-06-08 12:41] LABS: HBS Num1 140.67 mIU/mL (0-7.99); HBc Num1 0.08 S/CO (0.00-0.79); HBsAGNum1 0.28 S/CO (0.00-0.99); Hepatitis A Antibody IgM 0.14 Index (0-0.79); Hepatitis B Core Antibody Nonreactive (Nonreactive); Hepatitis B Surface Antigen Negative (Negative); ~HepC Num1 0.17 S/CO (0.00-0.79); ~Hepatitis A Antibody IgM Nonreactive (Nonreactive); ~Hepatitis B Surface Antibody REACTIVE (Nonreactive); ~Hepatitis C Antibody Nonreactive (Nonreactive)
[2024-06-08 13:01] LABS: C Reactive Protein 0.59 mg/dL (< or = 0.50)
[2024-06-08 13:31] LABS: Ferritin 93 ng/mL (10-122); Vitamin D 25-OH Total 23.9 ng/mL (>30)
[2024-06-11 12:48] LABS: TS Negative Control Passed; TS Panel A 0; TS Panel B 0; TS Positive Control Passed; TSpotTB Negative (Negative)
[2024-06-13 13:34] LABS: Vitamin A 46 mcg/dL (38-98)
== END 2024-06-08 09:48 | disposition home or self-care (01) ==
LOC: HO.LAB 09:47
PROVIDERS: Absent Provider Physician Assistant; PCP Physician Assistant; Visit Provider Internal Medicine Gastroenterology
DX: K52.9 Noninfective gastroenteritis and colitis, unspecified (principal); Z76.89 Persons encountering health services in other specified circumstances
CPT/HCPCS: 36415; 82306; 82607; 82728; 82746; 84590; 85652; 86140; 86481; 86704; 86706; 86709; 86803; 87340; 99202

== ENCOUNTER 2024-06-12 13:35 | Outpatient (AMB) | payer OTHER, SELFPAY ==
--- NOTE | 2024-06-12 13:50 | MHC.OFFVIS ---
Vital Signs 06/12/24 13:51 Height 5 ft 3 in Weight 213 lb 6.519 oz BMI 37.8 BP 130/92 H Blood Pressure Location Lt brachial Position Sitting Pulse 83 Pulse Source Monitor Intake Visit Reasons: REQUIREMENTS ENGINEER/gregor/ tachy/abn ekg Intake Note: REQUIREMENTS ENGINEER/Bolivar/Tachy/abn ekg Director Of Government Sales Required: No Accompanied by: Self / Same As Patient Allergies NSAIDS (Non-Steroidal Anti-Inflamma [NSAIDS (NON-STEROIDAL ANTI-INFLAMMA] Allergy (Severe, Verified 06/08/24 09:58) BRONCHOSPASM aspirin [ASA] Allergy (Unknown, Verified 06/08/24 09:58) SHORTNESS OF BREATH ketorolac [From TORADOL] Allergy (Unknown, Verified 06/08/24 09:58) BRONCIAL SPASM vancomycin [VANCOMYCIN] Allergy (Unknown, Verified 06/08/24 09:58) RASH duloxetine [From Cymbalta] Adverse Reaction (Intermediate, Verified 06/08/24 09:58) paranoia gabapentin [From NEURONTIN] Adverse Reaction (Unknown, Verified 06/08/24 09:58) TINGLING IN L ARM budesonide Adverse Reaction (Verified 06/08/24 09:58) Muscle Pain Bencort Allergy (Unknown, Uncoded 06/08/24 09:58) unknown Medication List - Last Reconciled 06/12/24 by Stef Lozoya MD adalimumab (Humira(CF) Pen Crohn's-[facility] Colitis-Hid Sup Strt) inject two - 80 mg/0.8 mL pens on Day 1; inject one - 80 mg/0.8 mL pen on Day 15 of therapy subcut lisdexamfetamine (Vyvanse) 40 mg PO DAILY 28 days lisinopril 5 mg PO DAILY 30 days sodium,potassium,mag sulfates 17.5-3.13-1.6 gram (Suprep Bowel Prep Kit) DILUTE; drink 1/2 at 6-8 pm and half at 11 PM- 1AM HPI Comments Details: Pleasant 39 year female who is here for 1st office visit. She has been referred to us for abnormal ECG and palpitations. Manju just returned from [place] after spending 1-1/2 year there. While she was in [place] she had ER visit where she was noticed to have significantly elevated blood pressure and she is describing blood pressure in systolic 190s. She has been getting abdominal complaints for long time but recently got diagnosed with Crohn's disease and we will be starting Humira. She takes Vyvanse for ADHD which she started few weeks ago. She was not on that during ER visit in [place]. She is taking lisinopril 5 mg daily. She is saying palpitations are off and on but they do not last long and are for few sec. she has some dyspnea with activities but blames that on weight gain which has happened over the last 2 years and she has gained approximately 20 lb in this time. She was also taking some prednisone because of poorly arthralgia and is getting workup for that through rheumatology at this stage. Reviewing her EKGs even going back to 2011 she had precordial T-wave inversions present. She never had any syncopal episode (ECGs do not have epsilon wave with precordial T-wave inversions) and does not recall having any pulmonary embolism in the past. Denying any chest discomfort. [facility] Medical History Bipolar disorder Asthma Screening for hypothyroidism Crohn's colitis Acute Crohn's disease Screening for hypothyroidism Screening for diabetes mellitus (DM) TMJ (dislocation of temporomandibular joint) Diarrhea Surgical History History of hysterectomy History of appendectomy History of colonoscopy Hx of endoscopy Family History Father Mental health disorder Mother Thyroid cancer Stomach cancer Substance use disorder Mental health disorder Family/Other Diabetes Social History Household Members: None Housing: Condominium Do you presently have visiting nurse or other home services: No Alcohol intake: current Alcohol intake frequency: a few times a week Alcohol type: hard liquor Patient Tobacco Use Status: Current someday Tobacco user Tobacco use type: Cigarette Cigarettes Per Day: 0.5 Years Smoked: 20 e-Cigarette/Vaping Use: Currently Using Second Hand Smoke Exposure: Yes Advance Directives Date on File: 07/28/20 service: No Current occupational status: employed Current occupation: [email or web address] Current occupational exposures/hazards: No Sexual orientation: Straight/Heterosexual Cognitive needs: No Hearing needs: No Vision needs: No Review of Systems Const Denies chills, Denies fatigue, Denies fever(s), Denies frequent falls, Denies weakness, Denies weight gain and Denies weight loss ENT Denies dizziness Card Denies chest pain, Denies leg edema, Denies lightheadedness, Denies palpitations, Denies dyspnea, Denies dyspnea on exertion and Denies orthopnea Resp Denies cough, Denies dyspnea and Denies dyspnea on exertion GI Denies bloating and Denies change in bowel habits Musc Denies muscle weakness, Denies numbness and Denies tingling Neuro Denies dizziness, Denies frequent falls, Denies numbness, Denies tingling and Denies weakness Endo Denies fatigue and Denies palpitations Physical Exam Vital Signs: Last Vital Signs Pulse 83 06/12/24 13:51 BP 130/92 H 06/12/24 13:51 BMI result Body Mass Index 37.8 GENERAL APPEARANCE: in no acute distress, pleasant. NECK: no carotid bruit, no jugular venous distention. SKIN: no suspicious lesions, warm and dry. HEART: no murmurs, regular rate and rhythm. LUNGS: clear to auscultation bilaterally. ABDOMEN: soft, nontender. EXTREMITIES: no edema. PERIPHERAL PULSES: equal. NEUROLOGIC: No gross deficits, AAO X 3 Office Procedures EKG Details: Sinus rhythm 83 beats per minute, normal axis, nonspecific T-wave changes, QTC 453 milliseconds. [id number], Complete Assessment & Plan Assessment & Plan (1) Electrocardiogram showing T wave abnormalities: Code(s): R94.31 - Abnormal electrocardiogram [ECG] [EKG] Category: Medical (2) HTN (hypertension): Code(s): I10 - Essential (primary) hypertension Category: Medical Qualifiers: Hypertension type: primary hypertension Qualified Code(s): I10 - Essential (primary) hypertension Plan Pleasant 39-year-old lady who is here for 1st office visit. She is referred for abnormal ECG showing precordial T-wave inversions. Reviewing her EKGs going back to 2008 she had these changes present. 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 Other differential include left ventricular hypertrophy which we can rule out with echocardiography. Sometime T-wave inversions are a sign of arrhythmogenic right ventricular dysplasia but in most cases you can see epsilon waves and clinical story is also concerning with the episodes of syncope. She does not have any of those features currently. She does not have any significant symptoms currently other than GI complaints and weight gain due to polyarthralgia and steroid use. She was hypertensive and has been started on lisinopril 5 mg daily. She may need titration in blood pressure medications. Agree with doing echocardiography and exercise stress test although I have explained to her the T-wave changes are not new and has been present since 2008 (when she was about 23 years old). It is possible they have been present even before that but we do not have any ECGs before 2008. She will get a fasting lipid panel. She will continue to follow up with rheumatology and GI. Thank you for allowing me to participate in the care of your patient. Please feel free to contact me if you have any questions. Orders: Orders Lipid Panel Today I10 - Essential (primary) hypertension Coding Level of Care Code New Pt Level 5 (95106) Diagnoses Electrocardiogram showing T wave abnormalities R94.31 Primary hypertension I10 Hypertension type: primary hypertension CPT Codes EKG - CPT: 70168-[id number], Complete ([id number])
[2024-06-12 13:51] VITALS: BP 130/92; PULSE 83; BMI 37.8
--- OUTSIDE RECORDS SUMMARY | 2024-06-12 16:32 | XMS_ITS | Clinical Summary ---
Author Organization [facility] Address [address] [place] [address] Care Team Providers Care Brooch Maker Novelty Name Role Phone Kike Irby Primary Care [...] age to complete this topic Meningococcal B Vaccine Aged Out No l onger eligible based on patient's age to complete [...] age to complete this topic Care Teams Brooch Maker Novelty Relationship Specialty Start Date End Date Kike Irby PA PCP - General Physician Language Assistant 06/10/17
== END 2024-06-12 14:12 | disposition home or self-care (01) ==
LOC: HO.HCS 13:36
PROVIDERS: PCP Physician Assistant; Visit Provider Internal Medicine Cardiovascular Disease
DX: R94.31 Abnormal electrocardiogram [ECG] [EKG] (principal); I10 Essential (primary) hypertension
CPT/HCPCS: 93010; 99204

== ENCOUNTER → 2024-06-12 13:35 | Outpatient (BNVA) | payer OTHER, SELFPAY | PROVIDERS: PCP Physician Assistant; Visit Provider Internal Medicine Cardiovascular Disease | DX: R94.31 Abnormal electrocardiogram [ECG] [EKG] (principal); I10 Essential (primary) hypertension | CPT/HCPCS: 93005; 99202 ==

== ENCOUNTER 2024-06-20 13:45 | Outpatient (AMB) | payer OTHER, SELFPAY ==
--- NOTE | 2024-06-20 13:46 | A.OFFPC_ITS ---
Vital Signs 06/20/24 13:50 Height 5 ft 3 in Weight 195 lb 8 oz BMI 34.6 BP 140/94 H Blood Pressure Location Lt brachial Position Sitting Pulse 97 Pulse Source Pulse Oximeter Temp 97.1 F Temp Source Temporal Artery Scan Pulse Oximetry (%) 98 Oxygen Delivery Method Room Air Intake Visit Reasons: f/u ADHD Yarn Salvager Required: No Accompanied by: Self / Same As Patient Allergies NSAIDS (Non-Steroidal Anti-Inflamma [NSAIDS (NON-STEROIDAL ANTI-INFLAMMA] Allergy (Severe, Verified 06/20/24 13:58) BRONCHOSPASM aspirin [ASA] Allergy (Unknown, Verified 06/20/24 13:58) SHORTNESS OF BREATH ketorolac [From TORADOL] Allergy (Unknown, Verified 06/20/24 13:58) BRONCIAL SPASM vancomycin [VANCOMYCIN] Allergy (Unknown, Verified 06/20/24 13:58) RASH duloxetine [From Cymbalta] Adverse Reaction (Intermediate, Verified 06/20/24 13:58) paranoia gabapentin [From NEURONTIN] Adverse Reaction (Unknown, Verified 06/20/24 13:58) TINGLING IN L ARM budesonide Adverse Reaction (Verified 06/20/24 13:58) Muscle Pain Bencort Allergy (Unknown, Uncoded 06/20/24 13:58) unknown Medication List - Last Reconciled 06/20/24 by Kike Irby PA-C adalimumab (Humira(CF) Pen Crohn's-[facility] [place] Colitis-Hid Sup Strt) inject two - 80 mg/0.8 mL pens on Day 1; inject one - 80 mg/0.8 mL pen on Day 15 of therapy subcut lisdexamfetamine (Vyvanse) 40 mg PO DAILY 28 days lisinopril 5 mg PO DAILY 30 days sodium,potassium,mag sulfates 17.5-3.13-1.6 gram (Suprep Bowel Prep Kit) DILUTE; drink 1/2 at 6-8 pm and half at 11 PM- 1AM Tobacco use date assessed: 05/30/24 Dental Screening Dental Screen Date: 05/30/24 HPI f/u ADHD HPI Details Patient is a 39-year-old female here today for follow-up visit Patient received [place] out of state. Patient's past medical history significant for ADHD, major depressive disorder, inflammatory bowel disease, generalized anxiety disorder, major depressive disorder. Patient was found to have T-wave inversions in the setting heart palpitations, did see [facility] whom recommend titrating antihypertensive medication lisinopril. They note that her T-wave inversions her actually a chronic finding on EKG per. She is due for echocardiogram and cardiac stress test. She is due for a lipid panel as well ..Inflammatory bowel disease:? She was followed by a local gastroenterology though has not been seen in quite some time.? She previously was getting injection ( Entyvio) therapy for her inflammatory bowel disease which has made her have joint pain and stiffness thus will take tramadol on a p.r.n. basis for her pain. --she has reestablish care with [facility] and will be sent for CT angiogram and further workup. Has been started on Humira in hopes to both treat her inflammatory bowel disease and her polyarthralgia. She has an upcoming appointment with Rheumatology as well. She describes her joint pain as severe, with difficulty performing daily activities and significant functional limitations. Her symptoms are exacerbated by hypokalemia, leading to episodes with locked fingers and arms. Management with Tylenol has been required every four hours due to an allergy to NSAIDs. The patient recently began Humira therapy with the expectation of improvement in symptoms. .. Hypertension: Patient's blood pressure remains slightly elevated today in office. Will increase her lisinopril dose to 10 mg for better blood pressure control. ADHD:? Has been restarted on Vyvanse for her ADHD symptoms reports her ADHD symptoms have much improved. 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 .. Class 1 obesity: BMI at 34. She hopes to lose weight since being off of prednisone and getting better control over polyarthralgia. [facility] Medical History (Updated 06/20/24 @ 14:21 by Kike Irby PA-C) Crohn's colitis Bipolar disorder Asthma Screening for hypothyroidism Acute Crohn's disease Screening for hypothyroidism Screening for diabetes mellitus (DM) TMJ (dislocation of temporomandibular joint) Diarrhea Surgical History History of hysterectomy History of appendectomy History of colonoscopy Hx of endoscopy Family History Father Mental health disorder Mother Thyroid cancer Stomach cancer Substance use disorder Mental health disorder Family/Other Diabetes Social History Household Members: None Housing: Condominium Do you presently have visiting nurse or other home services: No Alcohol intake: current Alcohol intake frequency: a few times a week Alcohol type: hard liquor Patient Tobacco Use Status: Current someday Tobacco user Tobacco use type: Cigarette Cigarettes Per Day: 0.5 Years Smoked: 20 e-Cigarette/Vaping Use: Currently Using Second Hand Smoke Exposure: Yes Advance Directives Date on File: 07/28/20 service: No Current occupational status: employed Current occupation: [employer] Current occupational exposures/hazards: No Sexual orientation: Straight/Heterosexual Cognitive needs: No Hearing needs: No Vision needs: No Questionnaire Thrive Questionnaire Date Thrive assessed: 05/30/24 I am a: Patient What is your living situation today?: I have a place to live, but I am worried about losing it in the future Within the past 12 months, did the food you bought not last and you didn't have the money to get more?: I choose not to answer this question Within the past 12 months, did you worry whether your food would run out before you got money to buy more?: I choose not to answer this question Do you have trouble paying for medicines?: No Do you have trouble getting transportation to medical appointments?: No Do you have trouble paying your heating and electricity bill?: Yes Do you have trouble taking care of your child, family member or friend?: No Do you have trouble with day-to-day activities such as bathing, preparing meals, shopping, managing finances, etc.?: Yes Are you currently unemployed and looking for a job?: Yes Are you interested in more education?: No Currently or been in a relationship where the following occur: No concerns reported THRIVE Score: 2 AVE-[address]B [address] A[address]-7 Date AVE - 7 assessed: 05/30/24 Source: Developed by Drs. Simon Sow, Betzaida Jackson, Jean Lujan and colleagues, with an educational yanelis from [employer] Review of Systems Const Denies headache(s) Eyes Denies loss of vision ENT Denies vertigo, Denies dizziness, Denies headache(s) and Denies sore throat Card Denies chest pain, Denies leg edema and Denies lightheadedness Resp Denies cough, Denies hemoptysis and Denies wheezing GI Denies abdominal pain, Denies melena, Denies constipation, Denies diarrhea and Denies vomiting Denies urinary frequency, Denies dysuria and Denies urinary urgency Musc Reports back pain, Reports arthralgias, Denies joint swelling, Reports limited range of motion, Reports muscle weakness, Denies numbness, Reports stiffness and Denies tingling Neuro Denies Abnormal speech present, Denies behavioral changes, Denies vertigo, Denies dizziness, Denies headache(s), Denies loss of vision, Denies memory loss, Denies numbness and Denies tingling Psych Denies anxiety, Denies behavioral changes, Denies depression, Denies memory loss and Denies panic attacks Darrick/Lymph Denies easy bleeding and Denies easy bruising Aller/Immun Denies wheezing Physical exam (Primary Care) Vital Signs: Last Vital Signs Temp 97.1 F 06/20/24 13:50 Pulse 97 06/20/24 13:50 BP 140/94 H 06/20/24 13:50 Pulse Ox 98 06/20/24 13:50 Oxygen Delivery Method Room Air 06/20/24 13:50 BMI result Body Mass Index 34.6 Tobacco/Smoking Status: Tobacco use Status Tobacco use date assessed 05/30/24 06/20/24 13:48 Patient Tobacco Use Status Current someday Tobacco 06/20/24 13:48 Tobacco use type Cigarette 06/20/24 13:48 e-Cigarette/Vaping Use Currently Using 06/20/24 13:48 Thrive Assessment: Date of Thrive Assessment Date Thrive assessed 05/30/24 06/20/24 13:48 Currently or been in a relationship where the following occur: No concerns reported Const General: healthy appearing, no acute distress, alert and awake Nutritional Appearance: well nourished Orientation/consciousness: oriented to person, oriented to place and oriented to time HENMT Ears: TM's normal bilaterally General nose exam: Normal nasal mucous membranes and turbinates present Eyes Conjunctivae: conjunctivae normal Sclerae: sclerae normal Pupils: Equal, round and reactive pupils present Neck Neck: Yes no lymphadenopathy and Yes no JVD Thyroid: Thyroid normal Carotids: no bruits Resp Effort & Inspection: normal respiratory effort and not tachypneic Auscultation: no crackles, no rales, no rhonchi and no wheezes Cardio Rate: regular rate Rhythm: regular rhythm Heart sounds: no murmurs and normal S1 and S2 GI Palpation (GI): Soft to palpation, nontender, no hepatomegaly and no splenomegaly Auscultation: normal bowel sounds Skin General skin exam: no rashes or lesions noted and dry skin Neuro General: oriented to person, oriented to place and oriented to time Cranial nerves: Yes Equal, round and reactive pupils present Speech: No Abnormal speech present Gait exam (Neuro): Normal gait present Motor exam (neuro): no tremor noted Extrem Right upper extremity: full ROM Left upper extremity: full ROM Right lower extremity: full ROM; no edema Left lower extremity: full ROM; no edema Psych Mental Status: mental status grossly normal Speech and movement: Normal speech and movement present Affect: normal affect Attitude: cooperative Thought process: Normal thought process present Coding Level of Care Code Est Pt Level 4 (58198) Diagnoses Primary hypertension I10 Hypertension type: primary hypertension Crohn's colitis K50.10 Digestive disease complication type: without complication Class 1 obesity E66.811 Polyarthralgia M25.50 Attention deficit hyperactivity disorder (ADHD), combined type F90.2 Attention deficit-hyperactivity disorder type: combined inattentive- hyperactive Tachycardia R00.0 Assessment & Plan Assessment & Plan (1) HTN (hypertension): Code(s): I10 - Essential (primary) hypertension Category: Medical Qualifiers: Hypertension type: primary hypertension Qualified Code(s): I10 - Essential (primary) hypertension Plan: patient's blood pressure elevated today in office. She continues on lisinopril 5 mg. Will increase her lisinopril 10 mg and up titrate per response for blood pressure. She will work on lifestyle and dietary modifications to help reduce her blood pressure as well. Goal blood pressure to be below 140/90 (2) Crohn's colitis: Code(s): K50.10 - Crohn's disease of large intestine without complications Category: Medical Qualifiers: Digestive disease complication type: without complication Qualified Code(s): K50.10 - Crohn's disease of large intestine without complications Plan: Humira initiated for Crohn's due to additional joint involvement. Progress monitored for therapeutic efficacy. (3) Class 1 obesity: Code(s): E66.811 - Obesity, class 1 Category: Medical Plan: Patient does understand her BMI is over 30 will work on trying to be more physically active and adapting to better eating habits to reduce her weight. Of note patient has been on a lot of prednisone due to her inflammatory bowel flares which has caused her a lot of weight gain. (4) Polyarthralgia: Code(s): M25.50 - Pain in unspecified joint Category: Medical Plan: Initiated Humira for rheumatoid arthritis to reduce inflammation and manage pain, considering allergy to NSAIDs. Tramadol prescribed as interim pain management. (5) ADHD: Code(s): F90.9 - Attention-deficit hyperactivity disorder, unspecified type Category: Medical Qualifiers: Attention deficit-hyperactivity disorder type: combined inattentive- hyperactive Qualified Code(s): F90.2 - Attention-deficit hyperactivity disor diego, combined type Plan: She will continue Vyvanse 40 mg for her ADHD symptoms. 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 (6) Tachycardia: Code(s): R00.0 - Tachycardia, unspecified Category: Medical Plan: As per HPI patient was found to have T-wave inversions and tachycardia on most recent EKG. It was found that her T-wave inversions is actually a chronic EKG finding for her. Medications: New lisinopril 10 mg PO DAILY 30 days 30 tabs 3RF I10 - Essential (primary) hypertension tramadol 50 mg PO BID 7 days 14 tabs 0RF pain M25.50 - Pain in unspecified joint Discontinued lisinopril Discontinued Reason: Doctor's Order 5 mg PO DAILY 30 days 30 tabs 2RF I10 - Essential (primary) hypertension
[2024-06-20 13:50] VITALS: BP 140/94; PULSE 97; TEMP 36.2; O2SAT 98; BMI 34.6
--- OUTSIDE RECORDS SUMMARY | 2024-06-20 16:24 | XMS_ITS | Clinical Summary ---
Author Organization [facility] Address [address] [place] [address] Care Team Providers Care Chestnut Tanner Name Role Phone Kike Irby Primary Care [...] age to complete this topic Care Teams Chestnut Tanner Relationship Specialty Start Date End Date Kike Irby PA PCP - General Physician Ophthalmic Nurse 06/10/17
== END 2024-06-20 14:12 | disposition home or self-care (01) ==
LOC: HO.HMCH 13:46
PROVIDERS: PCP Physician Assistant; Visit Provider Physician Assistant
DX: I10 Essential (primary) hypertension (principal); K50.10 Crohn's disease of large intestine without complications; Z68.34 Body mass index [BMI] 34.0-34.9, adult; E66.811 Obesity, class 1; M25.50 Pain in unspecified joint; F90.2 Attention-deficit hyperactivity disorder, combined type; R00.0 Tachycardia, unspecified

== ENCOUNTER → 2024-06-20 13:45 | Outpatient (BNVA) | payer OTHER, SELFPAY | PROVIDERS: PCP Physician Assistant; Visit Provider Physician Assistant | DX: F90.2 Attention-deficit hyperactivity disorder, combined type (principal); I10 Essential (primary) hypertension; K50.10 Crohn's disease of large intestine without complications; E66.811 Obesity, class 1; Z68.34 Body mass index [BMI] 34.0-34.9, adult; M25.50 Pain in unspecified joint; R00.0 Tachycardia, unspecified; Z79.899 Other long term (current) drug therapy | CPT/HCPCS: 99212 ==

== ENCOUNTER → 2024-07-02 08:55 | Outpatient (REF) | payer OTHER, SELFPAY ==
--- NOTE | 2024-07-02 08:57 | CA_ITS ---
Acquisition Time: 2024-07-02 10:00:21 Total Exercise Time: 00:06:17 Test Indications: Abnormal ECG,Palpitations Medications: HUMIRA VYVANSE LISINOPRIL Protocol: HODAN Max HR: 166 BPM 91% of Pred: 181 BPM Max BP: 130/80 mmHG Max Work Load: 7.4 METS Exercise stress test with exercise 6 mins 17 secs of Hodan Protocol, achieving 81% MPHR- submaximal HR, requesting to stop due to severe SOB and mild dizziness, no chest pain, without any arrythmias, with normotensive response to exercise. Without EKG changes meeting criteria for ischemia at the achieved workload. In recovery, breathing returned to baseline and dizziness resolved. Test reviewed with Dr. Lozoya. Referred By: Kike Irby Electronically Signed By: Samuel Ortiz
--- NOTE | 2024-07-02 08:57 | CA_ITS ---
Transthoracic Echocardiogram Patient (Last, First, Middle): Manju Sanchez L Gender: Female Date of : 1985 Age: 39 Procedure Date: 07/02/2024 Procedure Type: Transthoracic Echocardiogram Location: OP Height: 160.02 cm Weight: 88.45 kg BSA: 1.91 m2 Heart Rate: bpm BP: 140 / 95 mmHg Team Assistant: ARASH Referring MD: Kike Irby PA-C Symptoms: R00.0 - Tachycardia, unspecified Study Quality: Fair, contrast ECG Rhythm: Sinus Conclusions: - The left ventricular systolic function is normal. The calculated ejection fraction is 62% by biplane method. - No obvious valvular pathology seen on this study. Findings Procedure Information Contrast agent, definity, is being given per protocol without apparent complications. Left Ventricle Normal left ventricular cavity size. There is normal left ventricular wall thickness. The left ventricular systolic function is normal. The calculated ejection fraction is 62% by biplane method. There is no evidence of regional wall motion abnormalities. Diastolic function is normal for age. Right Ventricle Normal right ventricular cavity size and systolic function. Atria The left atrium is mildly dilated. The right atrium is normal in size. Aortic Valve The aortic valve structure and function is likely normal. There is no aortic valve stenosis. There is no aortic valve regurgitation. Mitral Valve The mitral valve appears normal. There is no mitral valve regurgitation. There is no mitral valve stenosis. Pulmonic Valve The pulmonic valve is likely normal. Tricuspid Valve There is trace tricuspid valve regurgitation. There is no evidence of pulmonary hypertension. Great Vessels The asc aorta is normal in size. Venous The inferior vena cava is normal in size and collapses greater than 50% with inspiration. Pericardium/Pleural There is no evidence of pericardial effusion. Prior Study Comparison No significant change compared to prior study dated: 12/24/2011. Recommendations, Care & Conclusions No obvious valvular pathology seen on this study. Measurements 2D Linear Measurements IVSd: 0.83 0.6-0.9/0.6-1.0 cm LVIDd: 4.89 3.9-5.3/4.2-5.9 cm LVIDd Index: 2.56 2.4-3.2/2.2-3.1 cm/m2 LVIDs: 3.22 2.0-3.6 cm LVPWd: 0.84 0.7-1.1 cm LA Diam: 3.60 2.7-3.8/3.0-4.0 cm LAIDs Index: 1.88 1.5-2.3 cm/m2 LV Mass: 171.85 67-162/88-224 g LV Mass Index: 89.97 43-95/49-115 g/m2 LVOT Diam: 2.30 3.0+(-)1.3 cm 2D Systolic Function EF 4C: 61.50 >55% EF 2C: 61.40 >55% EF BiP: 61.80 >55% Mitral Valve MV Pk E: 0.85 MV PK A: 0.72 MV Decel Time: 167.00 E/A: 1.20 E'Lateral: 9.36 E'Medial: 9.57 E/E' Med: 8.90 E/E' Lat: 9.10 PHT: 49.00 MVA PHT: 4.49 Decel Caswell: 5.07 Aortic Valve AoV Pk Fritz: 1.44 AoV Mn Fritz: 0.98 AoV VTI: 0.26 AoV Pk Grad: 8.00 Aov Mn Grad: 4.00 GAIL Cont.VTI: 2.97 LVOT LVOT Pk Fritz: 1.01 LVOT Mn Fritz: 0.69 LVOT VTI: 0.19 LVOT Pk Grad: 4.00 LVOT Mn Grad: 2.00 LVOT Diam: 2.30 LVOT Area: 4.15 Diastolic Function MV Pk E: 0.85 MV Pk A: 0.72 E/A: 1.20 E'Medial: 9.57 E/E' Med: 8.90 E' Laterial: 9.36 E/E' Lat: 9.10 Right Ventricle TAPSE (mm): 23.00 TVS' Fritz: 13.00 Tricuspid Valve TR Pk Fritz: 2.00 TR Pk Grad: 16.00 RA Press: 3.00 RVSP: 19.00 Great Vessels Aorta Ao Asc: 2.70 2.1-3.4 cm Updated in Other Vendor System with Status of Final Ruiz Brambila MD electronically signed on 07/02/2024 12:02:40 PM with status of Final
--- OUTSIDE RECORDS SUMMARY | 2024-07-02 09:38 | XMS_ITS | Clinical Summary ---
Author Organization [facility] Address [address] [place] [address] Care Team Providers Care Baker Bench Name Role Phone Kike Irby Primary Care [...] age to complete this topic Care Teams Baker Bench Relationship Specialty Start Date End Date Kike Irby PA PCP - General Physician Insurance Policy Issue Clerk 06/10/17
== END ==
LOC: HO.CARD 08:55
PROVIDERS: PCP Physician Assistant; Visit Provider Physician Assistant
DX: R00.0 Tachycardia, unspecified (principal); R94.31 Abnormal electrocardiogram [ECG] [EKG]
CPT/HCPCS: 93017; 93306; Q9957

== ENCOUNTER → 2024-07-02 08:57 | Outpatient (BNV) | payer OTHER, SELFPAY | PROVIDERS: PCP Physician Assistant | DX: R94.31 Abnormal electrocardiogram [ECG] [EKG] (principal); R06.02 Shortness of breath | CPT/HCPCS: 93016; 93018; 93320; 93350; 93352 ==

== ENCOUNTER 2024-08-02 07:36 | Day surgery (SDC) | payer OTHER, SELFPAY ==
--- OUTSIDE RECORDS SUMMARY | 2024-07-11 15:14 | XMS_ITS | Clinical Summary ---
Author Organization [facility] Address [address] [place] [address] Care Team Providers Care Raw Stock Machine Feeder Name Role Phone Kike Irby Primary Care [...] Vaccine (2023-2 5 season) 2023 Influenza Vaccine (Season Ended) [...] age to complete this topic Care Teams Raw Stock Machine Feeder Relationship Specialty Start Date End Date Kike Irby PA PCP - General Physician Quilting Machine Operator 06/10/17
--- NOTE | 2024-08-01 12:34 | HO.ANESPROP2 ---
Documented by User: Akosua Rosales NP 08/01/24 12:37 HPI - Anesthesia Eval Consult details Narrative: 39yo F for Upper Endoscopy and Colonoscopy Abnormal EKG - echo and stress ordered by PCP [facility]NL [facility] Active Problems Active Problems: All Active Problems Crohn's colitis (Acute) Electrocardiogram showing T wave abnormalities (Acute) Annual physical exam (Acute) HTN (hypertension) (Acute) Tachycardia (Acute) Polyarthralgia (Acute) Class 1 obesity (Acute) Chronic post-traumatic stress disorder (PTSD) (Acute) GERD (gastroesophageal reflux disease) (Acute) Screening for diabetes mellitus (DM) (Acute) Screening for hypothyroidism (Acute) ADHD (Acute) Migraine (Acute) COVID-19 (Acute) Insomnia (Acute) MDD (major depressive disorder), recurrent episode, moderate (Acute) Strain of muscle, fascia and tendon of lower back, initial encounter (Acute) Nausea & vomiting (Acute) Abdominal pain (Acute) Diarrhea (Acute) ADHD (attention deficit hyperactivity disorder) (Acute) Endometriosis (Acute) Early satiety (Acute) IBD (inflammatory bowel disease) (Acute) AVE (generalized anxiety disorder) (Acute) IBS (irritable bowel syndrome) (Acute) Elevated liver enzymes (Acute) Fatty liver disease, nonalcoholic (Acute) Arthralgia (Acute) Acute Crohn's disease (Acute) Past Medical History Medical History Crohn's colitis Bipolar disorder Asthma Screening for hypothyroidism Acute Crohn's disease Screening for hypothyroidism Screening for diabetes mellitus (DM) TMJ (dislocation of temporomandibular joint) Diarrhea Family History Family History Father Mental health disorder Mother Thyroid cancer Stomach cancer Substance use disorder Mental health disorder Family/Other Diabetes Surgical History Surgical History History of hysterectomy History of appendectomy History of colonoscopy Hx of endoscopy Social History Social History Household Members: None Household Members Other:: mother and stepfather Housing: Condominium Are you a primary child care centre director to a significant other at home: No Do you presently have visiting nurse or other home services: No Alcohol intake: current Alcohol intake frequency: a few times a week Alcohol type: hard liquor Patient Tobacco Use Status: Current everyday Tobacco user Tobacco use type: Cigarette Cigarettes Per Day: 0.5 Years Smoked: 20 Smoked in Last 30 Days: Yes e-Cigarette/Vaping Use: Currently Using Patient Interested in Nicotine Replacement: No Second Hand Smoke Exposure: Yes Have you been hit, kicked, punched, or otherwise hurt by someone within the past year? If so, by whom?: No Are you DNR?: No Advance Directives: No Advance Directives Information Provided: Yes Advance Directives Date on File: 07/28/20 Poor oral hygiene: No service: No Current occupational status: employed Current occupation: [employer] Current occupational exposures/hazards: No Sexual orientation: Straight/Heterosexual Cognitive needs: No Hearing needs: No Vision needs: No Meds Allergies Allergy/AdvReac Type Severity Reaction Status Date / Time NSAIDS (Non-Steroidal Allergy Severe BRONCHOSPAS Verified 08/02/24 08:13 Anti-Inflamma M [NSAIDS (NON-STEROIDAL ANTI-INFLAMMA] aspirin [ASA] Allergy Unknown SHORTNESS Verified 08/02/24 08:13 OF BREATH ketorolac [From TORADOL] Allergy Unknown BRONCIAL Verified 08/02/24 08:13 SPASM vancomycin [VANCOMYCIN] Allergy Unknown RASH Verified 08/02/24 08:13 duloxetine [From Cymbalta] AdvReac Intermediate paranoia Verified 08/02/24 08:13 gabapentin [From NEURONTIN] AdvReac Unknown TINGLING Verified 08/02/24 08:13 IN L ARM budesonide AdvReac Muscle Pain Verified 08/02/24 08:13 Bencort Allergy Unknown unknown Uncoded 08/02/24 08:13 Exam Narrative Narrative: EKG 06/2024 NSR @ 83 Low voltage QRS Nonspecific T wave changes ECHO 2024 Conclusions: - The left ventricular systolic function is normal. The calculated ejection fraction is 62% by biplane method. - No obvious valvular pathology seen on this study. Exercise Stress 2024 Protocol: TURNER Max HR: 166 BPM 91% of Pred: 181 BPM Max BP: 130/80 mmHG Max Work Load: 7.4 METS Exercise stress test with exercise 6 mins 17 secs of Turner Protocol, achieving 81% MPHR- submaximal HR, requesting to stop due to severe SOB and mild dizziness, no chest pain, without any arrythmias, with normotensive response to exercise. Without EKG changes meeting criteria for ischemia at the achieved workload. In recovery, breathing returned to baseline and dizziness resolved. Test reviewed with Dr. Lozoya. Assessment and Plan Assessment Anesthesia Assessment: Chart Reviewed Documented by User: Hector Hess MD 08/02/24 09:44 PMFSH Past Medical History Medical History Crohn's colitis Bipolar disorder Asthma Screening for hypothyroidism Acute Crohn's disease Screening for hypothyroidism Screening for diabetes mellitus (DM) TMJ (dislocation of temporomandibular joint) Diarrhea Family History Family History Father Mental health disorder Mother Thyroid cancer Stomach cancer Substance use disorder Mental health disorder Family/Other Diabetes Family history of problems with anesthesia: No Surgical History Surgical History History of hysterectomy History of appendectomy History of colonoscopy Hx of endoscopy History of Problems with Anesthesia: No Social History Social History Household Members: None Household Members Other:: mother and stepfather Housing: Condominium Are you a primary child care centre director to a significant other at home: No Do you presently have visiting nurse or other home services: No Alcohol intake: current Alcohol intake frequency: a few times a week Alcohol type: hard liquor Patient Tobacco Use Status: Current everyday Tobacco user Tobacco use type: Cigarette Cigarettes Per Day: 0.5 Years Smoked: 20 Smoked in Last 30 Days: Yes e-Cigarette/Vaping Use: Currently Using Patient Interested in Nicotine Replacement: No Second Hand Smoke Exposure: Yes Have you been hit, kicked, punched, or otherwise hurt by someone within the past year? If so, by whom?: No Are you DNR?: No Advance Directives: No Advance Directives Information Provided: Yes Advance Directives Date on File: 07/28/20 Poor oral hygiene: No service: No Current occupational status: employed Current occupation: [employer] Current occupational exposures/hazards: No Sexual orientation: Straight/Heterosexual Cognitive needs: No Hearing needs: No Vision needs: No Meds Allergies Allergy/AdvReac Type Severity Reaction Status Date / Time NSAIDS (Non-Steroidal Allergy Severe BRONCHOSPAS Verified 08/02/24 08:13 Anti-Inflamma M [NSAIDS (NON-STEROIDAL ANTI-INFLAMMA] aspirin [ASA] Allergy Unknown SHORTNESS Verified 08/02/24 08:13 OF BREATH ketorolac [From TORADOL] Allergy Unknown BRONCIAL Verified 08/02/24 08:13 SPASM vancomycin [VANCOMYCIN] Allergy Unknown RASH Verified 08/02/24 08:13 duloxetine [From Cymbalta] AdvReac Intermediate paranoia Verified 08/02/24 08:13 gabapentin [From NEURONTIN] AdvReac Unknown TINGLING Verified 08/02/24 08:13 IN L ARM budesonide AdvReac Muscle Pain Verified 08/02/24 08:13 Bencort Allergy Unknown unknown Uncoded 08/02/24 08:13 Exam Airway Mallampati Class: I TM Dist: <=3cm Neck ROM: Full Loose/Missing/Broken Teeth: No Heart: ok Lungs: ok Assessment and Plan Assessment Anesthesia Assessment: Anesthesia Plan Discussed Final Anesthetic Review Family History of Problems with Anesthesia: No History of Problems with Anesthesia: No NPO: Yes ASA Class: II Final Preanesthetic Review: No Changes in Pt Med Stat, Meds/Allgs Chart Reviewed, Consent Obtained/Reviewed and Anes Risks/Benef Reviewed Patient Risk: Intermediate Procedure Risk: Intermediate Anesthetic Plan Anesthetic Plan: Agree w/ Assess. and Plan and TIVA Disposition: Standard PACU
[2024-08-02 07:56] VITALS: BMI 33.3
[2024-08-02 08:08] VITALS: BP 131/79; PULSE 96; RESP 18; TEMP 36.6; O2SAT 96
[2024-08-02] MEDS: Lactated Ringers 1,000 ML 100 ML IVCONT (08:08)
--- NOTE | 2024-08-02 09:11 | MHC.SHP ---
Pre-Procedural Eval Section A - 24 Hr Update-Section A only Date of Service: 08/02/24 Section B - Complete if H&P > 30 days Chief Complaint: Noninfective gastroenteritis and colitis, unspecif Relevant Family History (Specify if Yes): No Relevant Social History: Other (specify) (vape) Present Medications: see Short Stay Collaborative assessment Medical History: Significant History (Bipolar disorder Asthma Screening for hypothyroidism Crohn's colitis Acute Crohn's disease Screening for hypothyroidism Screening for diabetes mellitus (DM) TMJ (dislocation of temporomandibular joint) Diarrhea) History of Previous Operations: Relevant previous surgery/procedure and date(s) (History of hysterectomy History of appendectomy History of colonoscopy Hx of endoscopy) Allergies: Allergies Allergy/AdvReac Type Severity Reaction Status Date / Time NSAIDS (Non-Steroidal Allergy Severe BRONCHOSPAS Verified 08/02/24 08:13 Anti-Inflamma M [NSAIDS (NON-STEROIDAL ANTI-INFLAMMA] aspirin [ASA] Allergy Unknown SHORTNESS Verified 08/02/24 08:13 OF BREATH ketorolac [From TORADOL] Allergy Unknown BRONCIAL Verified 08/02/24 08:13 SPASM vancomycin [VANCOMYCIN] Allergy Unknown RASH Verified 08/02/24 08:13 duloxetine [From Cymbalta] AdvReac Intermediate paranoia Verified 08/02/24 08:13 gabapentin [From NEURONTIN] AdvReac Unknown TINGLING Verified 08/02/24 08:13 IN L ARM budesonide AdvReac Muscle Pain Verified 08/02/24 08:13 Bencort Allergy Unknown unknown Uncoded 08/02/24 08:13 Review of Systems Sugical H&P ROS: Negative: Constitution, Cardiovascular, Respiratory, Neurological, Psychiatric, Hem-Onc, Allergic/Immunologic, Gastrointestinal, Genitourinary, Musculoskeletal, Integumentary, Endocrine and Eyes/Ears/Nose/Throat Exam Surgical H&P Exam: Normal: HEENT, Normal: Heart, Normal: Lungs, Normal: Extremities, Normal: Abdomen, Normal: Skin and Normal: Neurological Plan Diagnosis/Plan: Unchanged I have reviewed the history and physical and performed a pertinent physical examination on my patient. No changes have occurred unless specified. Time Spent With Patient Time: Total time managing care of this patient today ____ minutes.
--- NOTE | 2024-08-02 09:46 | HO.OPN-COLON ---
Colonoscopy Operative Note Operative Note Date of Service: 08/02/24 Narrative: Operative Information Procedure Description: EGD, Colonoscopy Indication: crohns Anesthesia: MAC FLEXIBLE TRANSORAL UPPER GASTROINTESTINAL ENDOSCOPY AND COLONOSCOPY PROCEDURE NOTE UPPER ENDOSCOPY Consent: Indications for the procedure and potential complications of bleeding, perforation, reaction to medications and missed diagnosis were discussed with the patient and informed consent was obtained. Instrument: Olympus GIF H 190 J mid size upper endoscope Monitoring: Vital signs and clinical assessment, continuous EKG monitoring, Pulse oximetry, Carbon Dioxide monitoring and blood pressure monitoring were done throughout the procedure. Procedure: The patient was placed in the left lateral decubitis position and pre-procedure medications were administered and a bite block was placed. The endoscope was inserted into the mouth and advanced under direct vision to the third part of duodenum. A careful inspection was made as the upper endoscope was withdrawn including a retroflexed examination of the proximal stomach; Findings and interventions are described below. Findings: Larynx:normal Esophagus: GE junction at 37 cm, diaphragm hiatus at 37 cm, normal mucosa Stomach: patchy erythema and nodular mucosa leigha at antrum. Biopsies were obtained. Grade 2 flap valve on retroflexed examination of the cardia. Duodenum: Normal bulb and descending duodenum, bx taken Intervention: Biopsies as noted above, COLONOSCOPY Instrument: Olympus variable stiffness pediatric scope 190L Colonoscopy Monitoring: Vital signs and clinical assessment, continuous EKG monitoring, Pulse oximetry, Carbon Dioxide monitoring and blood pressure monitoring were done throughout the procedure. Colon withdrawal time was 10 minutes. Procedure: The patient was placed in the left lateral decubitis position and pre-procedure medications were administered. After a digital rectal examination of the ano-rectum, the video colonoscope was inserted into the rectum and advanced through the colon to the cecum/TI. The colonoscope was slowly withdrawn in a retrograde panoramic fashion and the colon mucosa was carefully examined including a retroflexed view of the rectum. Findings and interventions are described below. Procedure Difficulty: easy Findings: random bx taken from ileum, right colo, transverse, left and rectum Terminal Ileum-normal Cecum:normal Ascending Colon: normal Transverse Colon -normal Descending Colon:normal Sigmoid Colon: 8-9 mm sessile polyp removed with cold snare Rectum: Retroflexion with small internal hemorrhoids, grade I Anorectum - normal Colon preparation: [place] Bowel Preparation Scale Right colon; 2 Transverse colon: 2 Left colon; 2 (0 = Unprepared colon segment with mucosa not seen due to solid stool that cannot be cleared. 1 = Portion of mucosa of the colon segment seen, but other areas of the colon segment not well seen due to staining, residual stool and/or opaque liquid. 2 = Minor amount of residual staining, small fragments of stool and/or opaque liquid, but mucosa of colon segment seen well. 3 = Entire mucosa of colon segment seen well with no residual staining, small fragments of stool or opaque liquid) Impression and Post Procedure Diagnosis: Endoscopy Findings: gastritis Colonoscopy Findings: colon polyp internal hemorrhoids Plan: Await Pathology results Repeat Colonoscopy in 1-2 years due to IBD or earlier if clinically indicated High fiber diet leaflet avoid straining at stool, epsom salts and sitz bath, anusol supps or cream cont with hakeem Above findings were reviewed with the patient and relevant handouts were provided if indicated.
[2024-08-02 09:54] VITALS: BP 110/72; PULSE 86; RESP 20; TEMP 36.1; O2SAT 99
[2024-08-02 09:58] VITALS: BP 124/65; PULSE 87; RESP 20; RESP 22; O2SAT 99
[2024-08-02] MEDS: fentaNYL citrate/PF 100 MCG/2 ML VIAL 50 MCG IVPUSH ×2 (09:58→10:03)
[2024-08-02 10:03] VITALS: BP 112/59; PULSE 79; RESP 20; O2SAT 98
[2024-08-02 10:08] VITALS: BP 105/51; PULSE 85; RESP 20; O2SAT 95
[2024-08-02 10:15] VITALS: BP 115/65; PULSE 78; RESP 20; TEMP 36.4; O2SAT 98
== END 2024-08-02 10:55 | disposition home or self-care (01) ==
PROVIDERS: PCP Physician Assistant; Visit Provider Internal Medicine Gastroenterology
PROC: (CPT 45385; principal; 2024-08-02 09:30)
DX: K52.9 Noninfective gastroenteritis and colitis, unspecified (principal); D12.5 Benign neoplasm of sigmoid colon; K64.0 First degree hemorrhoids; Z86.0101 Personal history of adenomatous and serrated colon polyps; K51.50 Left sided colitis without complications; K29.60 Other gastritis without bleeding; J45.909 Unspecified asthma, uncomplicated; F17.210 Nicotine dependence, cigarettes, uncomplicated
CPT/HCPCS: 45385; 45380; 43239; 88305; 88313; 88342; J2003; J2704; J3010

== ENCOUNTER → 2024-08-02 07:36 | Outpatient (BNV) | payer OTHER, SELFPAY | PROVIDERS: PCP Physician Assistant; Visit Provider Internal Medicine Gastroenterology | DX: K29.70 Gastritis, unspecified, without bleeding (principal); D12.5 Benign neoplasm of sigmoid colon; K64.0 First degree hemorrhoids | CPT/HCPCS: 43239; 45385 ==

== ENCOUNTER 2024-08-02 13:12 | Outpatient (AMB) | payer OTHER, SELFPAY ==
--- NOTE | 2024-08-02 13:09 | A.OFFPC_ITS ---
Intake Visit Reasons: Med f/u-video Chargeback Analyst Required: No Information Interpreted: non-clinical & clinical Machine Milker: Not Required per policy Allergies NSAIDS (Non-Steroidal Anti-Inflamma [NSAIDS (NON-STEROIDAL ANTI-INFLAMMA] Allergy (Severe, Verified 08/02/24 13:22) BRONCHOSPASM aspirin [ASA] Allergy (Unknown, Verified 08/02/24 13:22) SHORTNESS OF BREATH ketorolac [From TORADOL] Allergy (Unknown, Verified 08/02/24 13:22) BRONCIAL SPASM vancomycin [VANCOMYCIN] Allergy (Unknown, Verified 08/02/24 13:22) RASH duloxetine [From Cymbalta] Adverse Reaction (Intermediate, Verified 08/02/24 13:22) paranoia gabapentin [From NEURONTIN] Adverse Reaction (Unknown, Verified 08/02/24 13:22) TINGLING IN L ARM budesonide Adverse Reaction (Verified 08/02/24 13:22) Muscle Pain Bencort Allergy (Unknown, Uncoded 08/02/24 13:22) unknown Medication List - Last Reconciled 08/02/24 by Kike Irby PA-C adalimumab (Humira(CF) Pen [facility]'s[facility] Colitis-Hid Sup Strt) inject two - 80 mg /0.8 mL pens on Day 1; inject one - 80 mg/0.8 mL pen on Day 15 of therapy subcut adalimumab (Humira(CF) Pen) inject one - 40 mg/0.4 mL pen every 2 weeks subcut lisdexamfetamine (Vyvanse) 40 mg PO DAILY 28 days lisinopril 10 mg PO DAILY 30 days tramadol 50 mg PO BID 7 days Tobacco use date assessed: 05/30/24 Dental Screening Dental Screen Date: 05/30/24 HPI Med f/u-video HPI Details Patient is a 39-year-old female being evaluated today via video conference. Patient's past medical history significant for ADHD, major depressive disorder, inflammatory bowel disease, generalized anxiety disorder, major depressive disorder. Concern--> she has discouraged about not losing much weight. She has lost a small amount of weight since getting off prednisone. She has had weight issues her entire life. She is considering GLP 1 though due to her GI issues already establish will hold off on this for now. She reports she has been a bit more physically active since working though does not do any dedicated workouts. ..Inflammatory bowel disease:? Recently underwent endoscopy and colonoscopy. --she has reestablish care with [facility] and will be sent for CT angiogram and further workup. Has been started on Humira in hopes to both treat her inflammatory bowel disease and her polyarthralgia. She has an upcoming appointment with Rheumatology as well. She describes her joint pain as severe, with difficulty performing daily activities and significant functional limitations. Her symptoms are exacerbated by hypokalemia, leading to episodes with locked fingers and arms. Management with Tylenol has been required every four hours due to an allergy to NSAIDs. The patient recently began Humira therapy with the expectation of improvement in symptoms. ADHD:? Has been restarted on Vyvanse for her ADHD symptoms reports her ADHD symptoms have much improved. 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 BEDS AT THE [facility] Medical History Crohn's colitis Bipolar disorder Asthma Screening for hypothyroidism Acute Crohn's disease Screening for hypothyroidism Screening for diabetes mellitus (DM) TMJ (dislocation of temporomandibular joint) Diarrhea Surgical History History of hysterectomy History of appendectomy History of colonoscopy Hx of endoscopy Family History Father Mental health disorder Mother Thyroid cancer Stomach cancer Substance use disorder Mental health disorder Family/Other Diabetes Social History Household Members: None Household Members Other:: mother and stepfather Housing: Condominium Are you a primary career development coordinator to a significant other at home: No Do you presently have visiting nurse or other home services: No Alcohol intake: current Alcohol intake frequency: a few times a week Alcohol type: hard liquor Patient Tobacco Use Status: Current everyday Tobacco user Tobacco use type: Cigarette Cigarettes Per Day: 0.5 Years Smoked: 20 e-Cigarette/Vaping Use: Currently Using Second Hand Smoke Exposure: Yes Advance Directives Date on File: 07/28/20 service: No Current occupational status: employed Current occupation: [employer] Current occupational exposures/hazards: No Sexual orientation: Straight/Heterosexual Cognitive needs: No Hearing needs: No Vision needs: No Questionnaire Thrive Questionnaire Date Thrive assessed: 05/30/24 A[address]-7 AMB Questionnaire AVE-7 Date AVE - 7 assessed: 05/30/24 Source: Developed by Drs. Simon Sow, Betzaida Jackson, Jean Lujan and colleagues, with an educational yanelis from [employer]. Review of Systems Const Reports fatigue and Denies headache(s) Eyes Denies loss of vision ENT Denies vertigo, Denies dizziness, Denies headache(s) and Denies sore throat Card Denies chest pain, Denies leg edema and Denies lightheadedness Resp Denies cough, Denies hemoptysis and Denies wheezing GI Reports abdominal pain, Denies melena, Denies constipation, Reports GI cramping, Denies diarrhea and Denies vomiting Denies urinary frequency, Denies dysuria and Denies urinary urgency Musc Denies arthralgias, Denies joint swelling, Denies numbness and Denies tingling Neuro Denies behavioral changes, Denies vertigo, Denies dizziness, Denies headache(s), Denies loss of vision, Denies memory loss, Denies numbness and Denies tingling Psych Denies anxiety, Denies behavioral changes, Denies depression, Denies memory loss and Denies panic attacks Endo Reports fatigue Darrick/Lymph Denies easy bleeding and Denies easy bruising Aller/Immun Denies wheezing Physical exam (Primary Care) Tobacco/Smoking Status: Tobacco use Status Tobacco use date assessed 05/30/24 08/02/24 13:10 Patient Tobacco Use Status Current everyday Tobacco 08/02/24 13:10 Tobacco use type Cigarette 08/02/24 13:10 e-Cigarette/Vaping Use Currently Using 08/02/24 13:10 Thrive Assessment: Date of Thrive Assessment Date Thrive assessed 05/30/24 08/02/24 13:10 Telehealth Telehealth Telehealth Platform: [facility] Location of provider rendering services: practice address Location of patient: address on file Patient Identification confirmed using: Name, : Yes Telehealth method: video Patient verbally consented to treatment: Yes Patient verbally consented to billing insurance company: Yes Patient informed of any privacy concerns related to visit: Yes Minutes spent on Phone/Video with Pt.: 11 Coding Level of Care Code Tele Est Pt Level 4 (13443) Diagnoses Crohn's colitis K50.10 Digestive disease complication type: without complication Polyarthralgia M25.50 Attention deficit hyperactivity disorder (ADHD), combined type F90.2 Attention deficit-hyperactivity disorder type: combined inattentive- hyperactive Assessment & Plan Assessment & Plan (1) Crohn's colitis: Code(s): K50.10 - Crohn's disease of large intestine without complications Category: Medical Qualifiers: Digestive disease complication type: without complication Qualified Code(s): K50.10 - Crohn's disease of large intestine without complications Plan: Currently on Humira and followed by gastroenterology. Recently underwent endoscopy and colonoscopy in awaiting results. She does report still having some GI discomfort though feels that Humira slowly working. Good news is her joint pains have resolved. (2) Polyarthralgia: Code(s): M25.50 - Pain in unspecified joint Category: Medical Plan: Initiated Humira for rheumatoid arthritis to reduce inflammation and manage pain, considering allergy to NSAIDs. Tramadol prescribed as interim pain management. (3) ADHD: Code(s): F90.9 - Attention-deficit hyperactivity disorder, unspecified type Category: Medical Qualifiers: Attention deficit-hyperactivity disorder type: combined inattentive- hyperactive Qualified Code(s): F90.2 - Attention-deficit hyperactivity disorder, combined type Plan: She will continue Vyvanse 40 mg for her ADHD symptoms. 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
--- OUTSIDE RECORDS SUMMARY | 2024-08-02 13:14 | XMS_ITS | Clinical Summary ---
Author Organization [facility] Address [address] [place] [address] Care Team Providers Care Jet Inspector Name Role Phone Kike Irby Primary Care [...] age to complete this topic Care Teams Jet Inspector Relationship Specialty Start Date End Date Kike Irby PA PCP - General Physician Transmission Supervisor 06/10/17
== END 2024-08-02 14:08 | disposition home or self-care (01) ==
LOC: HO.HMCH 13:12
PROVIDERS: PCP Physician Assistant; Visit Provider Physician Assistant
DX: K50.10 Crohn's disease of large intestine without complications (principal); M25.50 Pain in unspecified joint; F90.2 Attention-deficit hyperactivity disorder, combined type

== ENCOUNTER 2024-08-21 17:17 | Outpatient (REF) | payer OTHER, SELFPAY ==
--- OUTSIDE RECORDS SUMMARY | 2024-08-21 18:42 | XMS_ITS | Clinical Summary ---
Author Organization [facility] Address [address] [place] [address] Care Team Providers Care Director Nurses' Registry Name Role Phone Kike Irby Primary Care [...] to complete this topic Care Teams Director Nurses' Registry Relationship Specialty Start Date End Date Kike Irby PA PCP - General Physician [place] Hydraulic Press Operator 06/10/17
[2024-08-29 22:53] LABS: Lactoferrin, Fecal, Quant. <6.25 mcg/mL (<7.25)
== END 2024-08-21 17:18 | disposition home or self-care (01) ==
LOC: HO.LNP 17:17
PROVIDERS: Visit Provider Internal Medicine Gastroenterology
DX: K51.50 Left sided colitis without complications (principal)
CPT/HCPCS: 83631

== ENCOUNTER 2024-08-23 08:30 | Outpatient (REF) | payer OTHER, SELFPAY ==
--- NOTE | ~2024-08-23 | CT_ITS ---
CLINICAL HISTORY: K52.9 - Noninfective gastroenteritis and colitis, unspecified CT abdomen and pelvis with contrast Comparison: None provided Findings: The lung bases are clear. Unremarkable gallbladder and solid organs. No urolithiasis. No bowel obstruction, pneumoperitoneum, or pneumatosis. The patient is status post hysterectomy. The patient is status post appendectomy. The rest of the GI tract is unremarkable. There is no definite evidence of gastroenteritis or colitis. The bones are intact. IMPRESSION: No acute findings. This document has been electronically signed by: Chuy Mckenzie MD on 08/23/2024 12:57:33
--- OUTSIDE RECORDS SUMMARY | 2024-08-23 08:46 | XMS_ITS | Clinical Summary ---
Author Organization [facility] Address [address] [place] [address] Care Team Providers Care Custodial Worker Name Role Phone Kike Irby Primary Care [...] age to complete this topic Care Teams Custodial Worker Relationship Specialty Start Date End Date Kike Irby PA PCP - General Physician Field Crop Harvest Contractor 06/10/17
[2024-08-23] MEDS: iohexoL 350 MG/ML 100 ML INFUS..BTL IV (10:01)
[2024-08-23] MEDS: Sorbitol/Mannit/Xanth Imaging 500 ML LIQUID 1500 ML PO (10:02)
== END 2024-08-23 08:31 | disposition home or self-care (01) ==
LOC: HO.CT 08:30
PROVIDERS: PCP Physician Assistant; Visit Provider Internal Medicine Gastroenterology
DX: K52.9 Noninfective gastroenteritis and colitis, unspecified (principal)
CPT/HCPCS: 74177; Q9967

== ENCOUNTER → 2024-08-23 08:32 | Outpatient (BNV) | payer OTHER, SELFPAY | PROVIDERS: PCP Physician Assistant; Visit Provider Radiology Diagnostic Radiology | DX: K52.9 Noninfective gastroenteritis and colitis, unspecified (principal) | CPT/HCPCS: 74177 ==

== ENCOUNTER 2024-09-16 12:05 | Emergency (ER) | payer OTHER, SELFPAY ==
--- NOTE | ~2024-09-16 | CT_ITS ---
CLINICAL HISTORY: LLQ ABD pain, nausea, diarrhea, hx crohns CT abdomen and pelvis with contrast Comparison: CT - CT ABDOMEN PELVIS W IV CON - 09/16/24 15:[address]/SR - CT ENTEROGRAPHY - 08/23/24 09:38 EDT Findings: The lung bases are clear. Unremarkable gallbladder and solid organs. No urolithiasis. Mildly distended and thickened small bowel loops within the left hemiabdomen are present. Pelvic contents unremarkable. Appendix is not seen. No acute fracture. IMPRESSION: 1. Thickened and distended small bowel loops. Differential considerations include ischemia, infection, and inflammation. Early obstruction can not be excluded. This document has been electronically signed by: Ahsan Gomez MD on 09/16/2024 16:59:18
[2024-09-16 13:10] VITALS: BP 125/86; PULSE 87; RESP 20; TEMP 35.9; O2SAT 98; BMI 33.4
--- NOTE | 2024-09-16 13:15 | ED.GENADULT ---
HPI - General Adult General Chief complaint: Abdominal Pain Stated complaint: abd pain Time Seen by Provider: 09/16/24 15:04 Source: patient Mode of arrival: ambulatory Limitations: no limitations History of Present Illness ED Provider: goyo giles np HPI narrative: Patient is a 39-year-old female past medical history of endometriosis s/p hysterectomy, ADHD, bipolar disorder, asthma, Crohn's disease on Humira with recent colonoscopy August of 2024 presents emergency department for evaluation of intermittent abdominal cramping and concern for flare of her Crohn's. Endorses has a coming to the fingers of her left hand, acute on chronic, endorsing chronic arthralgias to the ankles and hands intermittently. She follows with gastroenterology at [facility]; Dr. Sierra. She has been experiencing worsening to her pain in her left lower quadrant described as a severe cramping/spasming, nausea but no vomiting, 15-20 episodes of nonbloody diarrhea over the past few days. She previously taking Humira, she began developing red rashes to her extremities and patches concerning for potential bruising, I spoke with spinning lathe operator hydraulic and was advised to skip 2 cycles of Humira, she last took a dose 3 weeks ago she does state that these skin symptoms have decreased, however she is now having the aforementioned symptoms. Denies fevers, chills, chest pain, vomiting, hematemesis, diarrhea, constipation, hematochezia, melena, dysuria, urinary frequency, urinary urgency, urinary hesitancy, hematuria. denies pelvic pain or abnormal vaginal discharge. Denies concern for sexually transmitted infection. No concern for , prior hysterectomy Related Data Previous Rx's ?Medication ?Instructions ?Recorded adalimumab 80 mg/0.8 mL See Rx Instructions subcut 06/08/24 subcutaneous pen kit (Humira(CF) .COMPLEX #3 ea Pen Crohn's-[facility] Colitis-Hid Sup Strt) hyoscyamine sulfate 0.125 mg 0.125 mg PO BID-QID PRN dyspepsia 08/21/24 sublingual tablet #60 tabs tramadol 50 mg tablet 50 mg PO BID pain 7 days #14 tabs 09/11/24 lisdexamfetamine 40 mg capsule 40 mg PO DAILY 28 days #28 caps 09/14/24 (Vyvanse) oxycodone 5 mg tablet 5 mg PO Q6H PRN pain #10 tabs 09/16/24 prednisone 20 mg tablet 40 mg (2 x 20 mg) PO DAILY #10 tabs 09/16/24 Allergies Allergy/AdvReac Type Severity Reaction Status Date / Time NSAIDS (Non-Steroidal Allergy Severe BRONCHOSPAS Verified 09/16/24 13:15 Anti-Inflamma (NSAIDS M (NON-STEROIDAL ANTI-INFLAMMA) aspirin (ASA) Allergy Unknown SHORTNESS Verified 09/16/24 13:15 OF BREATH ketorolac (From TORADOL) Allergy Unknown BRONCIAL Verified 09/16/24 13:15 SPASM vancomycin (VANCOMYCIN) Allergy Unknown RASH Verified 09/16/24 13:15 duloxetine (From Cymbalta) AdvReac Intermediate paranoia Verified 09/16/24 13:15 gabapentin (From NEURONTIN) AdvReac Unknown TINGLING Verified 09/16/24 13:15 IN L ARM budesonide AdvReac Muscle Pain Verified 09/16/24 13:15 Bencort Allergy Unknown unknown Uncoded 08/20/24 14:20 Review of Systems Review of Systems: Yes all other systems are reviewed and are negative PMFSH Past Medical History Attestation statement: The following information was validated with the patient. Source: old records reviewed Medical History Crohn's colitis Bipolar disorder Asthma Screening for hypothyroidism Acute Crohn's disease Screening for hypothyroidism Screening for diabetes mellitus (DM) TMJ (dislocation of temporomandibular joint) Diarrhea Surgical History History of hysterectomy History of appendectomy History of colonoscopy Hx of endoscopy Family History Family History Father Mental health disorder Mother Thyroid cancer Stomach cancer Substance use disorder Mental health disorder Family/Other Diabetes Social History Social History Household Members: None Household Members Other:: mother and stepfather Housing: Condominium Are you a primary career developer to a significant other at home: No Do you presently have visiting nurse or other home services: No Alcohol intake: current Alcohol intake frequency: a few times a week Alcohol type: hard liquor Patient Tobacco Use Status: Current everyday Tobacco user Tobacco use type: Cigarette Cigarettes Per Day: 0.5 Years Smoked: 20 e-Cigarette/Vaping Use: Currently Using Second Hand Smoke Exposure: Yes Advance Directives Date on File: 07/28/20 service: No Current occupational status: employed Current occupation: [employer] Current occupational exposures/hazards: No Sexual orientation: Straight/Heterosexual Cognitive needs: No Hearing needs: No Vision needs: No Physical Exam ED Vital Signs: Vital Signs - 24 hr 09/16/24 13:10 09/16/24 15:24 09/16/24 18:38 Temperature 96.7 F L 98.2 F 98.3 F Pulse Rate 87 89 74 Respiratory Rate 20 18 16 Blood Pressure 125/86 141/93 H 122/56 L Pulse Oximetry 98 97 96 Oxygen Delivery Method Room Air Room Air Room Air BMI result Body Mass Index 33.4 Appearance: Alert.?Oriented to person, place and time. No acute distress.?Normal affect.?? Neck: Normal inspection.? Neck supple.?? CVS: Heart sounds normal. Normal heart rate and rhythm.? Pulses normal.?? Respiratory: No respiratory distress.? Lung sounds clear to auscultation bilaterally?? Abdomen: Soft with left lower quadrant tenderness upon palpation. No rebound tenderness at McBurney's point. Negative psoas sign. Negative Rovsing sign. Negative Lerma sign. No CVAT. Normoactive bowel sounds. No pulsatile mass.?? Skin: Skin warm and dry.? Normal skin color.? Extremities: No lower extremity edema.? Neuro: Moves all extremities spontaneously. Sensation intact bilaterally. Ambulates with normal steady gait. Course Course Course Narrative: Medical screening exam performed. Please refer to detailed history, exam, evaluation, and management by primary provider. 39-year-old female with a history of Crohn's, reporting flare. Drinking large amounts of water. Also reporting spasming in her left fingers. Labs ordered. Reevaluation(s) Reevaluation #1: CT of the abdomen and pelvis reveals thickened and distended small bowel loops differential induration, inflammation with early obstruction not excluded Clinically have lower suspicion for obstruction at this time, will consult Gastroenterology. [facility], feels that she would benefit from course of steroid, has reported allergy to budesonide resulting in muscle pain but she has taken prednisone in the past, advises hydrocortisone 100 mg IV and prednisone 40 mg daily to start tomorrow and outpatient follow-up with her spinning lathe operator hydraulic regarding tapering instructions of steroid. Will attempt to send stool specimen for fecal calprotectin level, C difficile, and GI panel. He additionally advises that she can resume the Humira orspeak with Dr. Mariela her, however this is not going to begin working immediately. Patient is prescribed tramadol, she states that this has not provided her any relief from pain. I have agreed to send a short prescription for oxycodone to the pharmacy with strict advised him that she can not take the tramadol while taking this medication and she is in agreeance with this. Patient is agreeable with this plan of care. Time: 17:49 Medications Administered Discontinued Medications Generic Name Dose Route Start Last Admin Trade Name Joseq PRN Reason Stop Dose Admin Hydrocortisone Sodium Succinate 100 mg 09/16/24 18:10 09/16/24 18:35 Hydrocortisone Sod Succ/Pf 100 Mg Vial IVPUSH 09/16/24 18:11 100 mg ONCE ONE Administration Sodium Chloride 1,000 mls @ 999 mls/hr 09/16/24 15:45 09/16/24 17:16 Ns IV 09/16/24 16:45 Infused .Q1H1M BRADY Infusion Iohexol 100 ml 09/16/24 15:49 09/16/24 15:53 Iohexol 350 Mg/Ml 100 Ml Infus..Btl IV 09/16/24 15:50 85 ml ONCE ONE Administration Morphine Sulfate 4 mg 09/16/24 15:33 09/16/24 15:39 Morphine Sulfate 4 Mg/Ml Cartridge IVPUSH 09/16/24 15:34 4 mg ONCE ONE Administration Protocol Morphine Sulfate 4 mg 09/16/24 16:58 09/16/24 17:16 Morphine Sulfate 4 Mg/Ml Cartridge IVPUSH 09/16/24 16:59 4 mg ONCE ONE Administration Protocol Ondansetron HCl 4 mg 09/16/24 15:33 09/16/24 15:39 Ondansetron Hcl 4 Mg/2 Ml Vial IVPUSH 09/16/24 15:34 4 mg ONCE ONE Administration Ondansetron HCl 4 mg 09/16/24 17:59 09/16/24 18:11 Ondansetron Hcl 4 Mg/2 Ml Vial IVPUSH 09/16/24 18:00 4 mg ONCE ONE Administration Medical Decision Making Medical Decision Making [facility] Narrative: Patient is a 39-year-old female past medical history of endometriosis s/p hysterectomy, ADHD, bipolar disorder, asthma, Crohn's disease on Humira with recent colonoscopy August of 2024 presents emergency department for evaluation of progressive abdominal pain for tingling in the left lower quadrant nausea and multiple bouts of diarrhea as per HPI. Denying any hematochezia or melena. On examination she has notable tenderness in the left lower quadrant however she is nontoxic in appearance, without overt signs of systemic toxicity afebrile no tachycardia no hypotension, no rigidity or guarding, does not have rebound tenderness. No upper abdominal pain to suggest pancreatitis and has no history of alcohol use nor diabetes. Concern at this time for Crohn's flare, diverticulitis, bowel obstruction, colitis, or simply symptoms consistent with Crohn's as she is currently untreated given her recent stopping of Humira. Will obtain CT of the abdomen and pelvis for further evaluation, patient will receive morphine IV for pain, Zofran IV for nausea. No associated symptoms, lower suspicion for UTI/pyelonephritis/hydronephrosis/renal colic. Prior hysterectomy, hCG was obtained prior to my assumption of care and is negative an appy consistent with . Denies known history of ovarian cysts, lower suspicion for TOA/torsion no concern for sexually transmitted infections or abnormal vaginal discharge/bleeding. Differential Diagnosis Differential Diagnoses: The differential diagnosis associated with the presentation includes (See narrative above) Admission/Observation Consideration of admission/observation: Escalation of care including admission/observation considered (See narrative above ) Consult Healthcare Provider Management of the patient was discussed with: Local Delivery Driver (See course narrative) Lab Data [facility] Lab Attestation statement: I reviewed the patient's lab results. CBC is without leukocytosis anemia or thrombocytopenia. Significant electrolyte derangement; mild hypernatremia 147, chloride of 114 suspect secondary to dehydration in the setting of multiple bouts of diarrhea.. No REGINA. Mildly elevated LFTs AST/ALT 54/42 without pulse, 24 as seen on prior. CRP below detectable range. Urinalysis without signs of infection, trace microscopic hematuria. 09/16/24 13:50 09/16/24 13:50 Labs: Lab Results 09/16/24 09/16/24 Range/Units 13:50 16:19 WBC 7.5 (4.8-10.8) X10*3/uL RBC 4.62 (4.20-5.50) X10*6/uL Hgb 14.2 (12.0-16.0) g/dl Hct 40.8 (37.0-47.0) % MCV 88.3 (80.0-98.0) fL MCH 30.7 (27.0-33.0) pg MCHC 34.8 (31.0-35.0) g/dl RDW 14.7 (11.0-16.0) % Plt Count 264 (160-400) X10*3/uL MPV 9.0 L (9.4-12.3) fL Immature Gran % (Auto) 0.1 (0.0-0.4) % Neut % (Auto) 42.4 L (45-73) % Lymph % (Auto) 50.8 H (20-40) % Charles % (Auto) 5.5 (2-11) % Eos % (Auto) 0.8 (0-4) % Baso % (Auto) 0.4 (0-2) % Lymph # (Auto) 3.8 (1.2-4.9) X10*3/uL Charles # (Auto) 0.4 (0.1-1.2) X10*3/uL Eos # (Auto) 0.1 (0.0-0.4) X10*3/uL Baso # (Auto) 0.0 (0.0-0.2) X10*3/uL Abs Immat Gran (auto) 0.01 (0.00-0.03) X10*3/uL Absolute Neuts (auto) 3.2 (2.0-8.3) x10*3/uL Absolute Nucleated RBC 0.000 (0.0-0.012) X10*3/uL Nucleated RBC % (auto) 0.0 (0.0-0.2) /100WBC Sodium 147 H (135-145) mmol/L Potassium 3.9 (3.3-5.1) mmol/L Chloride 114 H (96-108) mmol/L Carbon Dioxide 22 (22-29) mmol/L Anion Gap 15 (12-20) BUN 13 (9-16) mg/dL Creatinine 0.65 (0.5-1.4) mg/dL Estim Creat Clear Calc 120.4 Estimated GFR > 60 Random Glucose 112 (60-115) mg/dL Calcium 8.9 D (8.4-10.2) mg/dL Magnesium 1.9 (1.6-2.6) mg/dL Total Bilirubin 0.3 (0.0-1.0) mg/dL AST 54 H (5-31) U/L ALT 42 H (0-31) U/L Alkaline Phosphatase 124 H (39-117) U/L C-Reactive Protein < 0.10 (< or = 0.50) mg/dL Total Protein 6.9 (6.5-8.0) g/dL Albumin 4.4 (3.5-5.0) g/dL Lipase 24 (8-78) U/L TSH 0.83 (0.32-4.0) uIU/mL Beta HCG, Quant < 2 mIU/mL Urine Color Yellow Urine Appearance Clear Urine pH 6.5 (5.0-9.0) Ur Specific [place] >= 1.030 H (1.005-1.025) Urine Protein Negative (Neg-Trace) mg/dL Urine Glucose (UA) Negative (Negative) mg/dL Urine Ketones Negative (Negative) mg/dL Urine Blood Trace H (Negative) Urine Nitrite Negative (Negative) Ur Leukocyte Esterase Negative (Negative) Urine RBC 3-5 H (0-2) /HPF Urine WBC 0-5 (0-5) /HPF Ur Squamous Epith Cells 0-2 (0-2) /HPF Urine Bacteria Trace (None Seen) Hyaline Casts 0-2 (0-2) /LPF Radiology Impression Discussion of test interpretation with radiology: I have reviewed the radiologist's reading. Radiologist Impression: CT abdomen and pelvis with contrast Comparison: CT - CT ABDOMEN PELVIS W IV CON - 09/16/24 15:[address]/SR - CT ENTEROGRAPHY - 08/23/24 09:38 EDT Findings: The lung bases are clear. Unremarkable gallbladder and solid organs. No urolithiasis. Mildly distended and thickened small bowel loops within the left hemiabdomen are present. Pelvic contents unremarkable. Appendix is not seen. No acute fracture. IMPRESSION: 1. Thickened and distended small bowel loops. Differential considerations include ischemia, infection, and inflammation. Early obstruction can not be excluded. External Record Review External record reviewed: Outpatient record and Other I attest that I have reviewed patients [place], and at the time prescribing the patient a controlled substance is appropriate based off of patients diagnosis and treatment plan. Chronic Conditions Patient?s care impacted by: Other (See narrative above) Discharge Plan Discharge Clinical Impression: Acute Crohn's disease Qualifiers: Digestive disease complication type: unspecified complication Qualified Code(s): K50.919 - Crohn's disease, unspecified, with unspecified complications Patient Disposition: Home, Self-Care Instructions: Crohn Disease (ED) Additional Instructions: You are being treated today for a flare of your Crohn's disease. You received the initial dose of steroids through the IV in the emergency department. Prescription for prednisone has been sent to your pharmacy to begin taking tomorrow. Take this with food to prevent stomach upset. I have sent 5 days' worth of the prescription to the pharmacy, please speak with Gastroenterology regarding tapering instructions of the steroid I have additionally sent a short prescription for oxycodone to the pharmacy, this is a narcotic medication which can be addicting. It may make you drowsy. You should not drive, drink alcohol, or work while taking this medication. You must discontinue usage of the tramadol while you are on this medication as they can not be taken together Follow a low residue diet. Contact Gastroenterology tomorrow to arrange for a follow-up appointment. As discussed, you may consider restarting your Humira, would not begin working right away, but if you would rather wait until seeing Dr. Sierra, it is appropriate as well. Return with any new or worsening symptoms or concerns. Prescriptions: New oxycodone 5 mg tablet 5 mg PO Q6H PRN (Reason: pain) Qty: 10 0RF Rx Instructions: Partial Fill upon patient request. prednisone 20 mg tablet 40 mg PO DAILY Qty: 10 0RF No Action Humira(CF) Pen [id number]-LF 80 mg/0.8 mL pen injector kit See Rx Instructions subcut .COMPLEX Qty: 3 0RF Rx Instructions: inject two - 80 mg/0.8 mL pens on Day 1; inject one - 80 mg/0.8 mL pen on Day 15 of therapy subcut hyoscyamine sulfate 0.125 mg tablet, sublingual 0.125 mg PO BID-QID PRN (Reason: dyspepsia) Qty: 60 3RF tramadol 50 mg tablet 50 mg PO BID 7 Days Qty: 14 0RF lisdexamfetamine [Vyvanse] 40 mg capsule 40 mg PO DAILY 28 Days Qty: 28 0RF Rx Instructions: Partial Fill upon patient request. Referrals: Kike Irby PA-C [Primary Care Provider, Internal Medicine] Kaitlin Sierra MD [Physician, Gastroenterology] Discharge Date/Time: 09/16/24 18:53 Print Language: Iranian
[2024-09-16 13:55] LABS: MANUAL DIFF FLAG NO
[2024-09-16 13:56] LABS: Hematocrit 40.8 % (37.0-47.0); Hemoglobin 14.2 g/dl (12.0-16.0); Imm Gran Abs Auto 0.01 X10*3/uL (0.00-0.03); Imm Gran Pct Auto 0.1 % (0.0-0.4); Lymphocytes Absolute Auto 3.8 X10*3/uL (1.2-4.9); Mean Corpuscular HGB Conc 34.8 g/dl (31.0-35.0); Mean Corpuscular Hemoglobin 30.7 pg (27.0-33.0); Mean Corpuscular Volume 88.3 fL (80.0-98.0); NRBC Abs Auto 0.000 X10*3/uL (0.0-0.012); NRBC Pct Auto 0.0 /100WBC (0.0-0.2); Platelet Count 264 X10*3/uL (160-400); Red Blood Count 4.62 X10*6/uL (4.20-5.50); White Blood Count 7.5 X10*3/uL (4.8-10.8)
[2024-09-16 14:15] LABS: Alanine Aminotransferase 42 U/L (0-31); Albumin Level 4.4 g/dL (3.5-5.0); Alkaline Phosphatase 124 U/L (39-117); Anion Gap 15 (12-20); Aspartate Amino Transferase 54 U/L (5-31); Blood Urea Nitrogen 13 mg/dL (9-16); Calcium 8.9 mg/dL (8.4-10.2); Carbon Dioxide 22 mmol/L (22-29); Chloride 114 mmol/L (96-108); Creatinine Clr Calc Pharmacy 120.4; Estimated Glomerular Filt Rate > 60; Lipase 24 U/L (8-78); Magnesium 1.9 mg/dL (1.6-2.6); Potassium 3.9 mmol/L (3.3-5.1); Sodium 147 mmol/L (135-145); Total Protein 6.9 g/dL (6.5-8.0)
--- OUTSIDE RECORDS SUMMARY | 2024-09-16 15:22 | XMS_ITS | Clinical Summary ---
Author Organization [facility] Address [address] [place] [address] Care Team Providers Care Core Piler Name Role Phone Kike Irby Primary Care [...] - 2023-2 5 season) 2023 Influenza Vaccine (#1) 2024 HIB Vaccines Aged Out No longer [...] 5 Years) and At-Risk Patients (6 to 49 Years) Aged Out No longer eligible b ased on patient's age to complete this topic RSV Immunization Patients Un diego 20 months Aged Out No longer eligible b ased on patient's age to complete this topic Varicella Vaccines Aged Out No longer eligible based on patient's age to complete this topic Care Teams Core Piler Relationship Specialty Start Date End Date Kike Irby PA PCP - General Physician Extras Casting Director 06/10/17
[2024-09-16 15:24] VITALS: BP 141/93; PULSE 89; RESP 18; TEMP 36.8; O2SAT 97
--- NOTE | 2024-09-16 15:45 | PC.NURSE ---
Patient reporting loose stools 15-20 times a day over last 203 days, with llq cramping and pain. Reports last took ji 3 weeks ago and was told by GI to stop for 2 cycles. Reports 20lb weight loss over last 3 months despite not trying to lose weight and having the same appetite. Decontamination Worker aware
[2024-09-16] MEDS: iohexoL 350 MG/ML 100 ML INFUS..BTL IV (15:53)
[2024-09-16 16:25] LABS: Appearance Urine Clear; Glucose Urine UA Negative (Negative); PH 6.5 (5.0-9.0); Specific Gravity - Urine >= 1.030 (1.005-1.025); UMIC TRIGGER UA YES
[2024-09-16] MEDS: Hydrocortisone Sod Succ/PF 100 MG VIAL IVPUSH (18:35)
[2024-09-16 18:38] VITALS: BP 122/56; PULSE 74; RESP 16; TEMP 36.8; O2SAT 96
== END 2024-09-16 18:53 | disposition home or self-care (01) ==
PROVIDERS: Nurse Practitioner Family; Physician Assistant; Emergency Provider Emergency Medicine; PCP Physician Assistant
DX: R10.32 Left lower quadrant pain (principal); R11.0 Nausea; F17.210 Nicotine dependence, cigarettes, uncomplicated; Z79.899 Other long term (current) drug therapy
CPT/HCPCS: 36415; 74177; 80053; 81001; 83690; 83735; 84443; 84702; 85025; 86140; 96361; 96374; 96375; 96376; 99284; J1720; J2270; J2405; Q9967

== ENCOUNTER → 2024-09-16 15:33 | Outpatient (BNV) | payer OTHER, SELFPAY | PROVIDERS: Emergency Provider Emergency Medicine; PCP Physician Assistant; Visit Provider Radiology Diagnostic Radiology | DX: R14.0 Abdominal distension (gaseous) (principal); K63.89 Other specified diseases of intestine | CPT/HCPCS: 74177 ==

== ENCOUNTER 2024-10-14 08:34 | Inpatient (IN) | payer OTHER, SELFPAY ==
[2024-10-14] VITALS (9 sets, daily range): BP systolic 113–139; BP diastolic 63–92; PULSE 80–108; RESP 15–22; TEMP 36.6–36.8; O2SAT 96–99; BMI 33.3
--- NOTE | ~2024-10-14 | CT_ITS ---
CLINICAL HISTORY: LLQ pain, hx of chrons CT abdomen and pelvis with contrast Comparison: CT/SR - CT ABDOMEN PELVIS W IV CON - 09/16/24 15:46 EDT Findings: CT abdomen: No infiltrates within the lung bases. Scattered degenerative change throughout the visualized thoracolumbar spine without acute bony abnormality. No focal lesions identified within the liver. Main portal vein is patent. Spleen, pancreas, gallbladder, adrenal glands, and kidneys are unremarkable for acute findings. Small bowel loops are of normal caliber. No free fluid or free air. CT pelvis: Uterus is surgically absent. Diffuse wall thickening of the colon extending from the cecum to the rectum. Mild pericolonic inflammatory stranding, especially adjacent to the ascending colon and proximal transverse colon. Creeping fat is seen within the wall of the ascending colon. No free air or free fluid. Appendix is surgically absent. IMPRESSION: Proctitis with pancolitis. This is likely infectious or inflammatory in etiology. No findings to suggest obstruction or perforation. This document has been electronically signed by: Axel Rivera MD on 10/14/2024 12:08:46
[2024-10-14 09:16] LABS: MANUAL DIFF FLAG NO
[2024-10-14 09:32] LABS: Alanine Aminotransferase 30 U/L (0-31); Albumin Level 4.5 g/dL (3.5-5.0); Alkaline Phosphatase 116 U/L (39-117); Anion Gap 15 (12-20); Aspartate Amino Transferase 26 U/L (5-31); Blood Urea Nitrogen 8 mg/dL (9-16); Calcium 8.7 mg/dL (8.4-10.2); Carbon Dioxide 23 mmol/L (22-29); Chloride 112 mmol/L (96-108); Creatinine Clr Calc Pharmacy 134.3; Estimated Glomerular Filt Rate > 60; Potassium 3.5 mmol/L (3.3-5.1); Sodium 146 mmol/L (135-145); Total Protein 7.1 g/dL (6.5-8.0)
--- NOTE | 2024-10-14 09:38 | ED_ITS ---
HPI - Abdominal Pain General Chief Complaint: Abdominal Pain Stated Complaint: Crohns flare Time Seen by Provider: 10/14/24 08:56 Source: patient and RN notes reviewed Mode of arrival: ambulatory Limitations: no limitations History of Present Illness ED Provider: Margarette Sethi PA-C HPI narrative: This is a 39-year-old female with a past medical history of Crohn's disease and ADHD presenting to the emergency room with a with a chief concern of Crohn's flare. 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 The pain is at a constant 3/10 and can progress to a 7 to 8/10. The cramping is accompanied by nausea as well as diarrhea. The patient endorses at least 15 bowel movements in the past 8 hours accompanied by incontinence of stool. The patient describes this episode similar to previous Crohn's flares however this has progressed more rapidly. No bloody or black stool. Patient denies urinary symptoms, fevers, chills, chest pain, shortness of breath, as well as any systemic symptoms. Patient took ondansetron, hyoscyamine and tramadol at home without relief. Denies chance of as she had a total hysterectomy. No other complaints or concerns at this time. MD elicited complaint: abdominal pain Pain Consistency: constant Location: LLQ Severity: moderate Related Data Previous Rx's ?Medication ?Instructions ?Recorded adalimumab 80 mg/0.8 mL See Rx Instructions subcut 0 06/08/24 subcutaneous pen kit (Jvira(CF) .COMPLEX #3 ea Pen Crohn's-[facility] Colitis-Hid Sup Strt) hyoscyamine sulfate 0.125 mg 0.125 mg PO BID-QID PRN d yspepsia 08/21/24 sublingual tablet #60 tabs lisdexamfetamine 40 mg capsule 40 mg PO DAILY 28 days #28 caps 09/14/24 (Vyvanse) prednisone 20 mg tablet 40 mg (2 x 20 mg) PO DAILY # 10 tabs 09/16/24 tramadol 50 mg tablet 50 mg PO BID pain 7 days #14 tabs 10/08/24 Allergies Allergy/AdvReac Type Severity Reaction Status Date / Time NSAIDS (Non-Steroidal Allergy Severe BRONCHOSPAS Verified 10/14/24 08:40 Anti-Inflamma (NSAIDS M (NON-STEROIDAL ANTI-INFLAMMA) aspirin (ASA) Allergy Unknown SHORTNESS Verified 10/14/24 08:40 OF BREATH ketorolac (From TORADOL) Allergy Unknown BRONCIAL Verified 10/14/24 08:40 SPASM vancomycin (VANCOMYCIN) Allergy Unknown RASH Verified 10/14/24 08:40 duloxetine (From Cymbalta) AdvReac Intermediate paranoia Verified 10/14/24 08:40 gabapentin (From NEURONTIN) AdvReac Unknown TINGLING Verified 10/14/24 08:40 IN L ARM budesonide AdvReac Muscle Pain Verified 10/14/24 08:40 Bencort Allergy Unknown unknown Uncoded 10/14/24 08:40 Review of Systems Constitutional: Denies body ache(s), Denies chills and Denies fever(s) Reports Normal hearing present Cardiovascular: Denies chest pain and Denies dyspnea Respiratory: Denies dyspnea Gastrointestinal: Reports abdominal pain, Denies melena, Denies hematochezia, Reports fecal incontinence, Reports loose stools and Reports nausea Genitourinary: Reports no additional female genitourinary complaints Musculoskeletal: Reports arthralgias Reports Normal hearing present [facility], [facility] Past Medical History Medical History Crohn's colitis Bipolar disorder Asthma Screening for hypothyroidism Acute Crohn's disease Screening for hypothyroidism Screening for diabetes mellitus (DM) TMJ (dislocation of temporomandibular joint) Diarrhea Surgical History History of hysterectomy History of appendectomy History of colonoscopy Hx of endoscopy Family History Family History Father Mental health disorder Mother Thyroid cancer Stomach cancer Substance use disorder Mental health disorder Family/Other Diabetes Social History Social History Household Members: None Household Members Other:: mother and stepfather Housing: Condominium Are you a primary spiritual care coordinator to a significant other at home: No Do you presently have visiting nurse or other home services: No Alcohol intake: current Alcohol intake frequency: a few times a week Alcohol type: hard liquor Patient Tobacco Use Status: Current everyday Tobacco user Tobacco use type: Cigarette Cigarettes Per Day: 0.5 Years Smoked: 20 Smoked in Last 30 Days: No e-Cigarette/Vaping Use: Currently Using Second Hand Smoke Exposure: Yes Use of substances other than those prescribed or required for medical reasons: No Advance Directives: Yes Advance Directives on File: Yes Advance Directives Date on File: 07/28/20 Patient : No service: No Current occupational status: employed Current occupation: [employer] Current occupational exposures/hazards: No Sexual orientation: Straight/Heterosexual Cognitive needs: No Hearing needs: No Vision needs: No Physical Exam ED Vital Signs: Vital Signs - 24 hr 10/14/24 08:37 10/14/24 09:33 10/14/24 10:01 Temperature 97.9 F 97.8 F Pulse Rate 108 H 87 Respiratory Rate 22 H 15 22 H Blood Pressure 121/69 113/69 Pulse Oximetry 96 99 Oxygen Delivery Method Room Air Room Air 10/14/24 10:35 10/14/24 10:46 Temperature Pulse Rate 91 Respiratory Rate 17 20 Blood Pressure 114/71 Pulse Oximetry 97 Oxygen Delivery Method Room Air BMI result Body Mass Index 33.3 Const General: alert and in distress Orientation/consciousness: patient oriented x3 Limitations: no limitations HENMT Head: Yes normal to inspection, Yes normocephalic and Yes atraumatic Ears: hearing grossly normal bilaterally General nose exam: Normal external nose present Eyes General: appearance normal, both eyes and all related structures Eyelids: Yes eyelids normal Conjunctivae: conjunctivae normal Sclerae: sclerae normal Resp Effort & Inspection: normal respiratory effort GI Other: Abdomen is soft, nondistended, she does have tenderness palpation along the left upper or left lower quadrant, no rebound or guarding. No rigidity. Inspection: Yes normal to inspection and No distended Palpation (GI): Soft to palpation, Tenderness to palpation present (GI), no guarding and not rigid Auscultation: normoactive bowel sounds Neuro General: patient oriented x3 Cranial nerves: Yes Normal hearing present Extrem General: Yes normal to inspection Right upper extremity: normal to inspection Left upper extremity: normal to inspection Left lower extremity: normal to inspection Medical Decision Making Medical Decision Making MDM Narrative: 39-year-old female with PMHx of Crohn's disease and ADHD presents to the emergency department with an 8 hour history of abdominal cramping, loose stools, and incontinence of stool. Patient describes experiencing these symptoms previously related to a Crohn's disease flare, which responded to IV corticosteroids as well as opioid pain medication. Patient denies any urinary or systemic symptoms, as well as any chest pain or shortness of breath. On exam, patient's abdomen is soft and nondistended, with significant tenderness to the lower left quadrant without rigidity or guarding. Based on the patient's presentation there is suspicion for Crohn's disease flare, though rapid onset may indicate alternate pathology. Will medicate with ondansetron, pain medication, and order CT scan of abdomen with contrast we will consider steroid all treatment however will await the report prior to doing this. May have to have GI input in regards to management. Continue to closely monitor. Course: Patient's pain did not alleviate after morphine 4 mg. Will medicate with Dilaudid 1 mg IV. Patient has nausea is much better after receiving IV Reglan. Labs returned, she has no leukocytosis, H&H stable. Chemistry revealing slight hypernatremia at 146 chloride 112. No evidence of REGINA. Patient able to provide stool sample, pending at this time. 1300 - cat scan returns revealing proctitis and hamilton colitis, likely infectious or inflammatory in etiology. No findings to suggest obstruction or perforation. I consulted with Dr. Gamble, from Gastroenterology. He states that the CT scan does look impressive, labs are okay, hard to say if this is secondary to Crohn's flare or infectious. He does not recommend steroids if this is an infection, Dr. Gamble states that if her symptoms were fine and acutely changed for worse, then infectious is probably more likely however this is difficult to discern. Recommended getting stool samples for C diff, GI panel, wbc's and calprotectin. Also recommending IVs, clear liquids, and continuing any outpatient Crohn's meds that she is on, stool panel returns, no virus detected at this time, C diff gene is positive, awaiting toxin. Also awaiting wbc's stool, and calprotectin. Dr. Gamble recommends holding off on any antibiotics, and IV steroids. Will await further stool studies to discern whether or not she needs IV steroids or antibiotics. Will touch base with hospitalist later on in the afternoon when these return. Recommending putting consult in for Dr. Sierra in the morning, but will be available to discuss later if need for abx/steroids. Patient re-evaluated, still appears to be uncomfortable, with nausea. She has received IV morphine, IV Dilaudid, Reglan, IV Zofran and IV Tylenol. Continues to be uncomfortable therefore it would be in patient's best interest to be admitted for further management. We will also add on blood cultures, lactic, and will medicate with IV Zosyn. Patient is agreeable for admission. Differential Diagnosis Crohn's disease flare Diverticulitis Gastroenteritis Infectious diarrhea Invasive diarrhea Lab Data [facility] Lab Attestation statement: I reviewed the patient's lab results. See MDM and course 10/14/24 09:12 10/14/24 09:12 Labs: Lab Results 10/14/24 10/14/24 Range/Units 09:12 10:50 WBC 7.3 (4.8-10.8) X10*3/uL RBC 4.42 (4.20-5.50) X10*6/uL Hgb 13.5 (12.0-16.0) g/dl Hct 39.4 (37.0-47.0) % MCV 89.1 (80.0-98.0) fL MCH 30.5 (27.0-33.0) pg MCHC 34.3 (31.0-35.0) g/dl RDW 14.4 (11.0-16.0) % Plt Count 270 (160-400) X10*3/uL MPV 9.2 L (9.4-12.3) fL Immature Gran % (Auto) 0.1 (0.0-0.4) % Neut % (Auto) 48.2 (45-73) % Lymph % (Auto) 45.8 H (20-40) % Clark % (Auto) 5.3 (2-11) % Eos % (Auto) 0.3 (0-4) % Baso % (Auto) 0.3 (0-2) % Lymph # (Auto) 3.4 (1.2-4.9) X10*3/uL Clark # (Auto) 0.4 (0.1-1.2) X10*3/uL Eos # (Auto) 0.0 (0.0-0.4) X10*3/uL Baso # (Auto) 0.0 (0.0-0.2) X10*3/uL Abs Immat Gran (auto) 0.01 (0.00-0.03) X10*3/uL Absolute Neuts (auto) 3.5 (2.0-8.3) x10*3/uL Absolute Nucleated RBC 0.000 (0.0-0.012) X10*3/uL Nucleated RBC % (auto) 0.0 (0.0-0.2) /100WBC Sodium 146 H (135-145) mmol/L Potassium 3.5 (3.3-5.1) mmol/L Chloride 112 H (96-108) mmol/L Carbon Dioxide 23 (22-29) mmol/L Anion Gap 15 (12-20) BUN 8 L (9-16) mg/dL Creatinine 0.56 (0.5-1.4) mg/dL Estim Creat Clear Calc 134.3 Estimated GFR > 60 Random Glucose 98 (60-115) mg/dL Calcium 8.7 (8.4-10.2) mg/dL Total Bilirubin 0.4 (0.0-1.0) mg/dL AST 26 (5-31) U/L ALT 30 (0-31) U/L Alkaline Phosphatase 116 (39-117) U/L C-Reactive Protein 0.10 (< or = 0.50) mg/dL Total Protein 7.1 (6.5-8.0) g/dL Albumin 4.5 (3.5-5.0) g/dL Stl C. cayetanensis PCR Not Detected (Not Detect.) Stool Rotavirus A PCR Not Detected (Not Detect.) Stl Adenov F 40/41 PCR Not Detected (Not Detect.) Stool Astrovirus (PCR) Not Detected (Not Detect.) Stool Campylobacter PCR Not Detected (Not Detect.) Stool Cryptosporidium PCR Not Detected (Not Detect.) Stl Sh Tox Pr E STEC PCR Not Detected (Not Detect.) Stool E coli O157 PCR Not applicable (Not Detect.) Stl Enterotoxigenic E PCR Not Detected (Not Detect.) Stool EPEC (PCR) Not Detected (Not Detect.) Stool EAEC (PCR) Not Detected (Not Detect.) Stl E. histolytica PCR Not Detected (Not Detect.) Stool Giardia Lamblia PCR Not Detected (Not Detect.) Stl P. shigelloides PCR Not Detected (Not Detect.) Stool Salmonella PCR Not Detected (Not Detect.) Stool Sapovirus (PCR) Not Detected (Not Detect.) Stl Shigella/EIEC PCR Not Detected (Not Detect.) St Y.enterocolitica PCR Not Detected (Not Detect.) Stool Vibrio (PCR) Not Detected (Not Detect.) Stl Vibrio cholerae PCR Not Detected (Not Detect.) Stl Norovirus GI/GII PCR Not Detected (Not Detect.) C. difficile Tox B Gene POSITIVE A* (Negative) Radiology Impression Discussion of test interpretation with radiology: I have reviewed the radiologist's reading. Radiologist Impression: Findings: CT abdomen: No infiltrates within the lung bases. Scattered degenerative change throughout the visualized thoracolumbar spine without acute bony abnormality. No focal lesions identified within the liver. Main portal vein is patent. Spleen, pancreas, gallbladder, adrenal glands, and kidneys are unremarkable for acute findings. Small bowel loops are of normal caliber. No free fluid or free air. CT pelvis: Uterus is surgically absent. Diffuse wall thickening of the colon extending from the cecum to the rectum. Mild pericolonic inflammatory stranding, especially adjacent to the ascending colon and proximal transverse colon. Creeping fat is seen within the wall of the ascending colon. No free air or free fluid. Appendix is surgically absent. IMPRESSION: Proctitis with pancolitis. This is likely infectious or inflammatory in etiology. No findings to suggest obstruction or perforation. This document has been electronically signed by: Axel Rivera MD on 10/14/2024 12:08:46 Dictated By: Axel Rivera MD Chronic Conditions Patient?s care impacted by: Other (Crohn's) Medications Administered Discontinued Medications Generic Name Dose Route Start Last Admin Trade Name Freq PRN Reason Stop Dose Admin Hydromorphone HCl 1 mg 10/14/24 10:39 10/14/24 10:46 Hydromorphone Hcl 1 Mg/Ml Syringe IVPUSH 10/14/24 10:40 1 mg ONCE ONE Administration Protocol Sodium Chloride 1,000 mls @ 999 mls/hr 10/14/24 09:28 10/14/24 12:40 Ns IV 10/14/24 10:28 Infused .Q1H1M ONE Infusion Lactated Ringer's 1,000 mls @ 999 mls/hr 10/14/24 12:34 10/14/24 12:40 Lr IV 10/14/24 13:34 999 mls/hr .Q1H1M ONE Administration Iohexol 85 ml 10/14/24 11:12 10/14/24 11:13 Iohexol 350 Mg/Ml 100 Ml Infus..Btl IV 10/14/24 11:13 85 ml ONCE ONE Administration Metoclopramide HCl 10 mg 10/14/24 09:27 10/14/24 10:01 Metoclopramide Hcl 10 Mg/2 Ml Vial IVPUSH 10/14/24 09:28 10 mg ONCE ONE Administration Morphine Sulfate 4 mg 10/14/24 09:27 10/14/24 10:01 Morphine Sulfate 4 Mg/Ml Cartridge IVPUSH 10/14/24 09:28 4 mg ONCE ONE Administration Protocol Critical Care Time Critical Care Time Critical Care Time: Yes Total Critical Care Time: 68 Attestation: I have personally provided critical care time exclusive of time spent on separately billable procedures. Time includes review of lab data, radiology results, discussion with consultants, and monitoring for potential decompensation. Intervention performed as documented. Discharge Plan Discharge Clinical Impression: Pancolitis Prescriptions: No Action Humira(CF) Pen Adonik-FN-AW 80 mg/0.8 mL pen injector kit See Rx Instructions subcut .COMPLEX Qty: 3 0RF Rx Instructions: inject two - 80 mg/0.8 mL pens on Day 1; inject one - 80 mg/0.8 mL pen on Day 15 of therapy subcut hyoscyamine sulfate 0.125 mg tablet, sublingual 0.125 mg PO BID-QID PRN (Reason: dyspepsia) Qty: 60 3RF lisdexamfetamine [Vyvanse] 40 mg capsule 40 mg PO DAILY 28 Days Qty: 28 0RF Rx Instructions: Partial Fill upon patient request. tramadol 50 mg tablet 50 mg PO BID 7 Days Qty: 14 0RF prednisone 20 mg tablet 40 mg PO DAILY Qty: 10 0RF Print Language: Occitan
[2024-10-14 09:47] LABS: Hematocrit 39.4 % (37.0-47.0); Hemoglobin 13.5 g/dl (12.0-16.0); Imm Gran Abs Auto 0.01 X10*3/uL (0.00-0.03); Imm Gran Pct Auto 0.1 % (0.0-0.4); Lymphocytes Absolute Auto 3.4 X10*3/uL (1.2-4.9); Mean Corpuscular HGB Conc 34.3 g/dl (31.0-35.0); Mean Corpuscular Hemoglobin 30.5 pg (27.0-33.0); Mean Corpuscular Volume 89.1 fL (80.0-98.0); NRBC Abs Auto 0.000 X10*3/uL (0.0-0.012); NRBC Pct Auto 0.0 /100WBC (0.0-0.2); Platelet Count 270 X10*3/uL (160-400); Red Blood Count 4.42 X10*6/uL (4.20-5.50); White Blood Count 7.3 X10*3/uL (4.8-10.8)
[2024-10-14] MEDS: iohexoL 350 MG/ML 100 ML INFUS..BTL 85 ML IV (11:13)
[2024-10-14] MEDS: Lactated Ringers 1,000 ML 999 ML IV (12:40)
[2024-10-14 12:58] LABS: E. coli EAEC Not Detected (Not Detect.); E. coli EPEC Not Detected (Not Detect.); E. coli ETEC Not Detected (Not Detect.); E. coli STEC Not Detected (Not Detect.); Shigella sp./EIEC Not Detected (Not Detect.)
[2024-10-14 14:06] LABS: CDIFF Internal ctrl Dots and bkg OK (V); CDiff Toxin Negative (Negative)
[2024-10-14 14:07] LABS: CDiff Gene PCR POSITIVE (Negative)
--- NOTE | 2024-10-14 14:32 | P.HPHOSP_ITS ---
History of Present Illness Date of Service: 10/14/24 Attending physician on admission: Timmy Santana Chief Complaint: Diarrhea, abdominal pain This is a 39-year-old female with history of Crohn's disease who presents to the emergency department with abdominal pain and diarrhea. She was seen in the emergency department September 16 with similar symptoms her CAT scan at that time showed thickened and distended small bowel loops. She was discharged home on a course of oral antibiotics. Overall she improved after completing treatment. Last evening she had sudden onset of left-sided abdominal pain with diffuse watery diarrhea. For this reason she returned to the emergency department today for evaluation. In the emergency department she had no leukocytosis, she was afebrile. She underwent repeat CAT scan of the abdomen and pelvis which showed hamilton colitis. Emergency room provider discussed the case with on-call GI doctor recommended stool studies in admitting for further management. GI panel negative, C diff PCR positive, toxin a and B negative. Patient reports associated nausea but no vomiting. She reports that her diarrhea is nonbloody. She denies any recent travel, any recent sick contacts, no recent antibiotic treatment or hospitalizations. She does have 1 previous episode of C diff in 2021. She will be admitted for further management of pancolitis. Review of Systems 2 Review of Systems: Yes all other systems are reviewed and are negative Constitutional: Constitutional: Denies chills and Denies fever(s) Cardiovascular: Cardiovascular: Denies chest pain and Denies palpitations Endocrine: Endocrine: Denies palpitations [facility] Medical History Crohn's colitis Bipolar disorder Asthma Screening for hypothyroidism Acute Crohn's disease Screening for hypothyroidism Screening for diabetes mellitus (DM) TMJ (dislocation of temporomandibular joint) Diarrhea Family History Father Mental health disorder Mother Thyroid cancer Stomach cancer Substance use disorder Mental health disorder Family/Other Diabetes Surgical History History of hysterectomy History of appendectomy History of colonoscopy Hx of endoscopy Social History Household Members: None Household Members Other:: mother and stepfather Housing: House Are you a primary manager progressive care to a significant other at home: No Do you presently have visiting nurse or other home services: No Alcohol intake: current Alcohol intake frequency: a few times a week Alcohol type: hard liquor Patient Tobacco Use Status: Never used Tobacco Tobacco use type: Cigarette Cigarettes Per Day: 0.5 Years Smoked: 20 Smoked in Last 30 Days: No e-Cigarette/Vaping Use: Currently Using Frequency of e-Cigarette/Vaping Use: daily Second Hand Smoke Exposure: Yes Use of substances other than those prescribed or required for medical reasons: No Have you been hit, kicked, punched, or otherwise hurt by someone within the past year? If so, by whom?: No Do you feel safe in your current relationship?: No Current Relationship Is there a partner from a previous relationship who is making you feel unsafe now?: No Are you made to feel afraid or neglected: No Advance Directives: Yes Advance Directives on File: Yes Advance Directives Date on File: 07/28/20 Do you have a plan to hurt others: No Plan Recently lost weight without trying: No How much weight loss: Not applicable Eating poorly because of decreased appetite: No Nutrition screen score: 0 Nutrition Risks: No Nutritional Risk Patient : No : No Poor oral hygiene: No service: No Current occupational status: employed Current occupation: [employer] Current occupational exposures/hazards: No Sexual orientation: Straight/Heterosexual Cognitive needs: No Hearing needs: No Vision needs: No Meds Allergies Allergy/AdvReac Type Severity Reaction Status Date / Time NSAIDS (Non-Steroidal Allergy Severe BRONCHOSPAS Verified 10/14/24 08:40 Anti-Inflamma (NSAIDS M (NON-STEROIDAL ANTI-INFLAMMA) aspirin (ASA) Allergy Unknown SHORTNESS Verified 10/14/24 08:40 OF BREATH ketorolac (From TORADOL) Allergy Unknown BRONCIAL Verified 10/14/24 08:40 SPASM vancomycin (VANCOMYCIN) Allergy Unknown RASH Verified 10/14/24 08:40 duloxetine (From Cymbalta) AdvReac Intermediate paranoia Verified 10/14/24 08:40 gabapentin (From NEURONTIN) AdvReac Unknown TINGLING Verified 10/14/24 08:40 IN L ARM budesonide AdvReac Muscle Pain Verified 10/14/24 08:40 Bencort Allergy Unknown unknown Uncoded 10/14/24 08:40 Home Medications ?Medication ?Instructions ?Recorded ?Confirmed ?Last Taken ?Type risankizumab-rzaa 60 mg/mL 600 mg IV Q4W 10/14/2410/0510/08/24 History intravenous solution Physical Exam 2 Vital Signs and Narrative: Vital Signs: Last Vital Signs Temp 97.8 F 10/14/24 09:33 Pulse 91 10/14/24 10:35 Resp 20 10/14/24 13:48 BP 114/71 10/14/24 10:35 Pulse Ox 97 10/14/24 10:35 O2 Del Method Room Air 10/14/24 10:35 BMI result Body Mass Index 33.3 Const: General: cooperative, comfortable, no acute distress, alert and awake Nutritional Appearance: overweight Orientation/consciousness: patient oriented x3 Resp: Effort & Inspection: normal respiratory effort, able to speak in complete sentences, no respiratory distress and no use of accessory muscles A uscultation: clear to auscultation bilaterally Cardio: Rate: regular rate GI: Other: Abdomen is soft, nondistended, no guarding, no rebound, no rigidity, mild left lower quadrant tenderness Neuro: General: patient oriented x3, moves all extremities and CN's II-XI intact bilaterally Results Labs 10/14/24 09:12 10/15/24 04:36 Labs: Laboratory Results - last 24 hr 10/14/24 10/14/24 09:12 10:50 MCV 89.1 MCH 30.5 MCHC 34.3 RDW 14.4 Plt Count 270 MPV 9.2 L Immature Gran % (Auto) 0.1 Neut % (Auto) 48.2 Lymph % (Auto) 45.8 H [place] % (Auto) 5.3 Eos % (Auto) 0.3 Baso % (Auto) 0.3 Lymph # (Auto) 3.4 [place] # (Auto) 0.4 Eos # (Auto) 0.0 Baso # (Auto) 0.0 Abs Immat Gran (auto) 0.01 Absolute Neuts (auto) 3.5 Absolute Nucleated RBC 0.000 Nucleated RBC % (auto) 0.0 ESR 3 Anion Gap 15 Estim Creat Clear Calc 134.3 Estimated GFR > 60 Random Glucose 98 Calcium 8.7 Total Bilirubin 0.4 AST 26 ALT 30 Alkaline Phosphatase 116 C-Reactive Protein 0.10 Total Protein 7.1 Albumin 4.5 Stl C. cayetanensis PCR Not Detected Stool Rotavirus A PCR Not Detected Stl Adenov F 40/41 PCR Not Detected Stool Astrovirus (PCR) Not Detected Stool Campylobacter PCR Not Detected Stool Cryptosporidium PCR Not Detected Stl Sh Tox Pr E STEC PCR Not Detected Stool E coli O157 PCR Not applicable Stl Enterotoxigenic E PCR Not Detected Stool EPEC (PCR) Not Detected Stool EAEC (PCR) Not Detected Stl E. histolytica PCR Not Detected Stool Giardia Lamblia PCR Not Detected Stl P. shigelloides PCR Not Detected Stool Salmonella PCR Not Detected Stool Sapovirus (PCR) Not Detected Stl Shigella/EIEC PCR Not Detected St Y.enterocolitica PCR Not Detected Stool Vibrio (PCR) Not Detected Stl Vibrio cholerae PCR Not Detected Stl Norovirus GI/GII PCR Not Detected C. difficile Tox B Gene POSITIVE A* C. difficile Toxin A&B Negative C. difficile Interpret SEE NOTE Assessment and Plan (1) Pancolitis: Status: Acute Plan This is a 39-year-old female with history of Crohn's disease who recently started Skyrizi (first dose 10/08), depression who presents to the emergency department with abdominal pain found to have hamilton colitis and PCR positive for C diff Pancolitis no sepsis Possibly due to C diff, PCR positive/toxic A&B negative possible Crohns flare d/w GI, hold off on steroids for now will treat with p.o. vanco clear liquid diet, IVF, pain control GI consult Blood cultures pending Mild hyponatremia Sodium 46 Likely due to volume depletion IV fluid Follow BMP Mood Continue baseline medication when med rec completed DVT prophylaxis-low risk, mechanical devices, encourage early ambulation Patient will likely require 2 midnight stay in the hospital for management of hamilton colitis requiring specialist evaluation and close monitoring to prevent deterioration Quality Stroke Does the patient have a stroke diagnosis?: No VTE Prior VTE?: No VTE Risk Level:: Medical - moderate - high VTE Device Contraindication: N/A - Device Ordered VTE Drug Contraindication: Treatment Not Indicated
--- NOTE | 2024-10-14 14:54 | PHA.MEDREC ---
Addendum entered by Abdelrahman Lziama PharmD 10/14/24 15:17: reviewed Original Note: Pharmacy Consult ? Medication Reconciliation Pharmacy has completed the medication reconciliation. Spoke to patient to confirm med list. Patient states she just started Skyrizi 600 mg Tuesday10/08/24. Patient had her medications yesterday.
[2024-10-14] MEDS: Lactated Ringers 1,000 ML 125 ML IVCONT ×2 (15:07→23:05)
[2024-10-14 22:26] LABS: UPreg QC Valid YES
[2024-10-15 00:43] VITALS: BP 145/95; PULSE 73; RESP 16; TEMP 37.1; O2SAT 100
[2024-10-15 03:49] VITALS: BP 132/94; PULSE 92; RESP 16; TEMP 36.6; O2SAT 99
[2024-10-15 05:18] LABS: Anion Gap 14 (12-20); Blood Urea Nitrogen 8 mg/dL (9-16); Calcium 7.9 mg/dL (8.4-10.2); Carbon Dioxide 22 mmol/L (22-29); Chloride 109 mmol/L (96-108); Creatinine Clr Calc Pharmacy 123.3; Estimated Glomerular Filt Rate > 60; Potassium 3.8 mmol/L (3.3-5.1); Sodium 141 mmol/L (135-145)
[2024-10-15] MEDS: Lactated Ringers 1,000 ML 125 ML IVCONT (06:43)
[2024-10-15 08:50] VITALS: BP 140/82; PULSE 86; RESP 16
[2024-10-15 09:12] VITALS: BP 163/95; PULSE 75; RESP 16; TEMP 36.6; O2SAT 100
--- NOTE | 2024-10-15 10:24 | P.CNGI_ITS ---
History of Present Illness Data of Consult Service Date: 10/15/24 Requesting physician: Timmy Santana Primary Care Provider: Kike Irby PA-C HPI Reason for consult: Proctocolitis This is a 39-year-old female with possible Crohn's disease recently started on Humira, and then switched to Skyrizi last week due to side effects (first induction dose 10/08) who presented to the hospital for abd pain and diarrhea. History obtained from the patient, who states that the day before admission, she was doing well up until nighttime when she had sudden onset of lower abdominal cramping with multiple episodes of loose watery nonbloody diarrhea. Not associated with any fevers or chills. No sick contacts. No report of outside food. She suspected another flare-up of her IBD and therefore presented to the hospital. On initial evaluation, she was noted to be tachycardic but otherwise with stable blood pressure. Labs were significant for normal CRP. Negative GI PCR. Possible C diff colonization. CT abdomen and pelvis with IV contrast shows diffuse proctocolitis. Recent colonoscopy: 08/02/2024 (Dr. Sierra): Normal colon and terminal ileum mucosa on endoscopic and histologic eval. Sigmoid colon tubular adenoma. She was started on p.o. vancomycin 10/14. On with set evaluation today, she reports improvement in her abdominal cramping and bowel movement frequency. Although not completely back to baseline, requests to be discharged, as has pets at home that do not have any other stonecutter besides her. Review of Systems 2 Review of Systems: Yes all other systems are reviewed and are negative PMFSH Past Medical History Medical History Crohn's colitis Bipolar disorder Asthma Screening for hypothyroidism Acute Crohn's disease Screening for hypothyroidism Screening for diabetes mellitus (DM) TMJ (dislocation of temporomandibular joint) Diarrhea Family History Family History Father Mental health disorder Mother Thyroid cancer Stomach cancer Substance use disorder Mental health disorder Family/Other Diabetes Surgical History Surgical History History of hysterectomy History of appendectomy History of colonoscopy Hx of endoscopy Social History Social History Household Members: None Household Members Other:: mother and stepfather Housing: House Are you a primary health care attorney to a significant other at home: No Do you presently have visiting nurse or other home services: No Alcohol intake: current Alcohol intake frequency: a few times a week Alcohol type: hard liquor Patient Tobacco Use Status: Never used Tobacco Tobacco use type: Cigarette Cigarettes Per Day: 0.5 Years Smoked: 20 e-Cigarette/Vaping Use: Currently Using Second Hand Smoke Exposure: Yes Advance Directives Date on File: 07/28/20 service: No Current occupational status: employed Current occupation: [employer] Current occupational exposures/hazards: No Sexual orientation: Straight/Heterosexual Cognitive needs: No Hearing needs: No Vision needs: No Meds Allergies Allergy/AdvReac Type Severity Reaction Status Date / Time NSAIDS (Non-Steroidal Allergy Severe BRONCHOSPAS Verified 10/14/24 08:40 Anti-Inflamma (NSAIDS M (NON-STEROIDAL ANTI-INFLAMMA) aspirin (ASA) Allergy Unknown SHORTNESS Verified 10/14/24 08:40 OF BREATH ketorolac (From TORADOL) Allergy Unknown BRONCIAL Verified 10/14/24 08:40 SPASM vancomycin (VANCOMYCIN) Allergy Unknown RASH Verified 10/14/24 08:40 duloxetine (From Cymbalta) AdvReac Intermediate paranoia Verified 10/14/24 08:40 gabapentin (From NEURONTIN) AdvReac Unknown TINGLING Verified 10/14/24 08:40 IN L ARM budesonide AdvReac Muscle Pain Verified 10/14/24 08:40 Bencort Allergy Unknown unknown Uncoded 10/14/24 08:40 Active Medications: Current Medications Acetaminophen (Acetaminophen 325 Mg Tablet) 650 mg PO Q6H PRN PRN Reason: Pain, Mild 1-3,fever,headache Lactated Ringer's (Lr) 1,000 mls @ 125 mls/hr IVCONT .Q8H BRADY Last Admin: 10/15/24 06:43 Dose: 125 mls/hr Magnesium Hydroxide (Milk Of Magnesia 30 Ml Oral.Susp) 30 ml PO DAILY PRN PRN Reason: Constipation Melatonin (Melatonin 3 Mg Tablet) 6 mg PO BEDTIME PRN PRN Reason: Insomnia Morphine Sulfate (Morphine Sulfate 4 Mg/Ml Cartridge) 4 mg IVPUSH Q4H PRN; Protocol PRN Reason: Pain, Severe (Pain Scale 7-10) Last Admin: 10/15/24 08:48 Dose: 4 mg Ondansetron HCl (Ondansetron Hcl 4 Mg/2 Ml Vial) 4 mg IVPUSH Q8H PRN PRN Reason: Nausea and Vomiting Last Admin: 10/14/24 20:46 Dose: 4 mg Oxycodone HCl (Oxycodone Hcl Immed Release 5 Mg Tablet) 5 mg PO Q6H PRN PRN Reason: Pain, Moderate(Pain Scale 4-6) Sodium Chloride (0.9 % Sodium Chloride Flush 3 Ml Syringe) 3 ml IVFLUSH QSHIFT [facility] Last Admin: 10/15/24 08:50 Dose: Not Given Vancomycin HCl (Vancomycin Hcl 125 Mg Capsule) 125 mg PO Q6H [facility] Last Admin: 10/15/24 08:48 Dose: 125 mg Home Medications ?Medication ?Instructions ?Recorded ?Confirmed ?Last Taken ?Type risankizumab-rzaa 60 mg/mL 600 mg IV Q4W 10/14/2410/0510/08/24 History intravenous solution Physical Exam 2 Exam: Exam: No acute distress Nonicteric Abdomen soft, mildly tender to palpation, no guarding, no rebound No overt respiratory distress No pitting edema in lower extremities Alert and oriented x3, no focal deficits Vital Signs: Vital Signs: Last Vital Signs Temp 97.8 F 10/15/24 09:12 Pulse 75 10/15/24 09:12 Resp 16 10/15/24 09:12 BP 163/95 H 10/15/24 09:12 Pulse Ox 100 10/15/24 09:12 O2 Del Method Room Air 10/15/24 09:12 BMI result Body Mass Index 33.3 Results Labs 10/14/24 09:12 10/15/24 04:36 Labs: BMP 10/15/24 04:36 Sodium 141 Potassium 3.8 Chloride 109 H Carbon Dioxide 22 BUN 8 L Creatinine 0.61 Calcium 7.9 L D Assessment and Plan (1) IBD (inflammatory bowel disease): Status: Acute (2) Pancolitis: Status: Acute (3) Abdominal pain: Status: Acute (4) Diarrhea: Status: Acute Plan Differentials include Crohn's flare versus infectious colitis. Colon ischemia less likely in the absence of any blood in stool. Plan: - CRP and fecal calpro - Serial abd exams - Monitor GI output - Cont PO vanc for possible CDI. - patient requests to be discharged. She was advised that if she does not continue to improve at home over the next 1-2 days, to call office. Low threshold to proceed with flex sig to r/o Crohns flare vs CMV colitis vs HSV colitis (to recall pt was in deep remission in 07/2024 but switch to Skyrizi last week). Thank you for allowing me to participate in her care. Please do not hesitate to reach out for any questions or concerns. Procedures Date of Service Date of Service: 10/15/24
[2024-10-15 11:56] LABS: Leukocytes Stool Qualitative NEGATIVE (NEGATIVE)
--- NOTE | 2024-10-15 12:55 | P.DS_ITS ---
DS: Providers Provider Date of Service: 10/15/24 Date of admission: 10/14/24 14:10 Date of discharge: 10/15/24 Primary care physician: Kike Irby PA-C Consults: 10/15/24 07:24 Consult to Gastroenterology Routine Consulting Provider: [facility] Reason for consultation: Crohns pancolitis DS: Diagnosis Discharge Diagnosis (1) Pancolitis: Status: Acute (2) Clostridium difficile infection: Status: Acute (3) Crohn's colitis: Status: Acute DS: Summary Hospital Course Hospital Course: From the history and physical by the admitting hospitalist, ADONAY Solis, 10/14/24: This is a 39-year-old female with history of Crohn's disease who presents to the emergency department with abdominal pain and diarrhea. She was seen in the emergency department September 16 with similar symptoms her CAT scan at that time showed thickened and distended small bowel loops. She was discharged home on a course of oral antibiotics. Overall she improved after completing treatment. Last evening she had sudden onset of left-sided abdominal pain with diffuse watery diarrhea. For this reason she returned to the emergency department today for evaluation. In the emergency department she had no leukocytosis, she was afebrile. She underwent repeat CAT scan of the abdomen an d pelvis which showed hamilton colitis. Emergency room provider discussed the case with on-call GI doctor recommended stool studies in admitting for further management. GI panel negative, C diff PCR positive, toxin a and B negative. Patient reports associated nausea but no vomiting. She reports that her diarrhea is nonbloody. She denies any recent travel, any recent sick contacts, no recent antibiotic treatment or hospitalizations. She does have 1 previous episode of C diff in 2021. She will be admitted for further management of pancolitis. 39yo F with Crohn's disease recently started on Skyrizi presenting with abdominal pain and diarrhea and found to have pancolitis. Admitted to the medical-surgical unit with Gastroenterology consultation. GI panel negative; C. difficile PCR positive but toxin negative; given symptoms, colonization, and past infection, treated with vancomycin. WBC count normal, CRP low, and stool calprotectin pending. Diet was advanced and she was discharged on vancomycin, total course 14 days. She will follow up with [facility] within 1 week. Time Attestation Discharge Coordination Time (in mins): 35 Quality: Safe Use of Opioids Does Pt have an Active Cancer Diagnosis on the Problem List?: No Quality: Stroke Does the patient have a stroke diagnosis?: No Physical Exam Vital Signs: Vital Signs: Last Vital Signs Temp 97.8 F 10/15/24 09:12 Pulse 75 10/15/24 09:12 Resp 16 10/15/24 09:12 BP 163/95 H 10/15/24 09:12 Pulse Ox 100 10/15/24 09:12 O2 Del Method Room Air 10/15/24 09:12 BMI result Body Mass Index 33.3 Gen: in no acute distress HEENT: sclera anicteric, moist mucus membranes Neck: supple Lungs: clear to auscultation bilaterally Heart: regular rate and rhythm, no murmurs Abd: soft, non-tender, non-distended Ext: no edema Skin: warm/well-perfused Neuro: alert and oriented x3, no focal findings Psych: appropriate affect DS: Data Data Completed and Pending Completed studies during hospitalization [Text1]: Laboratory Results WBC 7.3 X10*3/uL (4.8-10.8) 10/14/24 09:12 RBC 4.42 X10*6/uL (4.20-5.50) 10/14/24 09:12 Hgb 13.5 g/dl (12.0-16.0) 10/14/24 09:12 Hct 39.4 % (37.0-47.0) 10/14/24 09:12 MCV 89.1 fL (80.0-98.0) 10/14/24 09:12 MCH 30.5 pg (27.0-33.0) 10/14/24 09:12 MCHC 34.3 g/dl (31.0-35.0) 10/14/24 09:12 RDW 14.4 % (11.0-16.0) 10/14/24 09:12 Plt Count 270 X10*3/uL (160-400) 10/14/24 09:12 MPV 9.2 fL (9.4-12.3) L 10/14/24 09:12 Immature Gran % (Auto) 0.1 % (0.0-0.4) 10/14/24 09:12 Neut % (Auto) 48.2 % (45-73) 10/14/24 09:12 Lymph % (Auto) 45.8 % (20-40) H 10/14/24 09:12 [place] % (Auto) 5.3 % (2-11) 10/14/24 09:12 Eos % (Auto) 0.3 % (0-4) 10/14/24 09:12 Baso % (Auto) 0.3 % (0-2) 10/14/24 09:12 Lymph # (Auto) 3.4 X10*3/uL (1.2-4.9) 10/14/24 09:12 [place] # (Auto) 0.4 X10*3/uL (0.1-1.2) 10/14/24 09:12 Eos # (Auto) 0.0 X10*3/uL (0.0-0.4) 10/14/24 09:12 Baso # (Auto) 0.0 X10*3/uL (0.0-0.2) 10/14/24 09:12 Abs Immat Gran (auto) 0.01 X10*3/uL (0.00-0.03) 10/14/24 09:12 Absolute Neuts (auto) 3.5 x10*3/uL (2.0-8.3) 10/14/24 09:12 Absolute Nucleated RBC 0.000 X10*3/uL (0.0-0.012) 10/14/24 09:12 Nucleated RBC % (auto) 0.0 /100WBC (0.0-0.2) 10/14/24 09:12 ESR 3 MM/HR (0-20) 10/14/24 09:12 Sodium 141 mmol/L (135-145) 10/15/24 04:36 Potassium 3.8 mmol/L (3.3-5.1) 10/15/24 04:36 Chloride 109 mmol/L (96-108) H 10/15/24 04:36 Carbon Dioxide 22 mmol/L (22-29) 10/15/24 04:36 Anion Gap 14 (12-20) 10/15/24 04:36 BUN 8 mg/dL (9-16) L 10/15/24 04:36 Creatinine 0.61 mg/dL (0.5-1.4) 10/15/24 04:36 Estim Creat Clear Calc 123.3 10/15/24 04:36 Estimated GFR > 60 10/15/24 04:36 Random Glucose 79 mg/dL (60-115) 10/15/24 04:36 Lactic Acid 1.7 mmol/L (0.5-2.0) 10/14/24 14:15 Calcium 7.9 mg/dL (8.4-10.2) L D 10/15/24 04:36 Total Bilirubin 0.4 mg/dL (0.0-1.0) 10/14/24 09:12 AST 26 U/L (5-31) 10/14/24 09:12 ALT 30 U/L (0-31) 10/14/24 09:12 Alkaline Phosphatase 116 U/L (39-117) 10/14/24 09:12 C-Reactive Protein < 0.10 mg/dL (< or = 0.50) 10/15/24 10:45 Total Protein 7.1 g/dL (6.5-8.0) 10/14/24 09:12 Albumin 4.5 g/dL (3.5-5.0) 10/14/24 09:12 Urine Test NEGATIVE (NEGATIVE) 10/14/24 22:17 Stool Leukocytes, Qual NEGATIVE (NEGATIVE) 10/15/24 10:33 Stool Calprotectin Cancelled 10/15/24 10:33 Stl C. cayetanensis PCR Not Detected (Not Detect.) 10/14/24 10:50 Stool Rotavirus A PCR Not Detected (Not Detect.) 10/14/24 10:50 Stl Adenov F 40/41 PCR Not Detected (Not Detect.) 10/14/24 10:50 Stool Astrovirus (PCR) Not Detected (Not Detect.) 10/14/24 10:50 Stool Campylobacter PCR Not Detected (Not Detect.) 10/14/24 10:50 Stool Cryptosporidium PCR Not Detected (Not Detect.) 10/14/24 10:50 Stl Sh Tox Pr E STEC PCR Not Detected (Not Detect.) 10/14/24 10:50 Stool E coli O157 PCR Not applicable (Not Detect.) 10/14/24 10:50 Stl Enterotoxigenic E PCR Not Detected (Not Detect.) 10/14/24 10:50 Stool EPEC (PCR) Not Detected (Not Detect.) 10/14/24 10:50 Stool EAEC (PCR) Not Detected (Not Detect.) 10/14/24 10:50 Stl E. histolytica PCR Not Detected (Not Detect.) 10/14/24 10:50 Stool Giardia Lamblia PCR Not Detected (Not Detect.) 10/14/24 10:50 Stl P. shigelloides PCR Not Detected (Not Detect.) 10/14/24 10:50 Stool Salmonella PCR Not Detected (Not Detect.) 10/14/24 10:50 Stool Sapovirus (PCR) Not Detected (Not Detect.) 10/14/24 10:50 Stl Shigella/EIEC PCR Not Detected (Not Detect.) 10/14/24 10:50 St Y.enterocolitica PCR Not Detected (Not Detect.) 10/14/24 10:50 Stool Vibrio (PCR) Not Detected (Not Detect.) 10/14/24 10:50 Stl Vibrio cholerae PCR Not Detected (Not Detect.) 10/14/24 10:50 Stl Norovirus GI/GII PCR Not Detected (Not Detect.) 10/14/24 10:50 C. difficile Tox B Gene POSITIVE (Negative) A* 10/14/24 10:50 C. difficile Toxin A&B Negative (Negative) 10/14/24 10:50 C. difficile Interpret SEE NOTE 10/14/24 10:50 Discharge Plan Discharge Anticipated Discharge Date/Time: 10/15/24 12:52 Patient Disposition: Home, Self-Care Discharge Diagnosis: colitis, Clostridium difficile infection, Crohn's disease Referrals: Kike Irby PA-C [Primary Care Provider, Internal Medicine] - 1 Week Kaitlin Sierra MD [Physician, Gastroenterology] - 1 Week Discharge Medications: New vancomycin 125 mg Capsule 125 mg PO Q6H Qty: 52 0RF Continued lisdexamfetamine [Vyvanse] 40 mg capsule 40 mg PO DAILY 28 Days Qty: 28 0RF Rx Instructions: Partial Fill upon patient request. tramadol 50 mg tablet 50 mg PO BID 7 Days Qty: 14 0RF risankizumab-rzaa 60 mg/mL Solution 600 mg IV Q4W Rx Instructions: administer at weeks 0, 4, and 8 of treatment Discharge Orders: Discharge Order (Routine); Ordered 10/15/24 Ordered By: Timmy Santana Diet: Advance to usual diet Activity on Discharge: As tolerated Stand Alone Forms: Patient Portal Discharge page Print Language: Romanian Care Plan Goals: GI health Health Concerns: colitis, Clostridium difficile infection, Crohn's disease Plan of Treatment: vancomycin 125 mg 4x a day for 13 days follow up with Dr Sierra in 1 week Please follow up with your primary care doctor within 1 week. Return to the hospital if you experience recurrent or worsening symptoms. Assessment: See Discharge Summary.
--- NOTE | 2024-10-15 15:15 | MHC.CM.PN ---
Patient lives in an apartment alone. Functionally indepenedent. Denies use of DME or services. PCP Kike URIAS HCP on file and verified. DP: Medically cleared for dc home self care. Car in lot for self transport. RN aware.
[2024-10-15 15:38] VITALS: BP 146/73; PULSE 95; RESP 14; TEMP 36.7; O2SAT 97
[2024-10-20 18:19] LABS: Calprotectin, Fecal 18 mcg/g
== END 2024-10-15 16:20 | disposition home or self-care (01) | DRG 245 ==
LOC: HO.ED 13:59 → HO.EDOVER 14:11 → HO.S3 10-15 07:22
PROVIDERS: Internal Medicine; Physician Assistant Medical; Admitting Provider Physician Assistant Medical; Emergency Provider Emergency Medicine; PCP Physician Assistant; Visit Provider Family Medicine
DX: K50.90 Crohn's disease, unspecified, without complications (principal); E87.1 Hypo-osmolality and hyponatremia; K52.9 Noninfective gastroenteritis and colitis, unspecified; Z22.1 Carrier of other intestinal infectious diseases; Z79.620 Long term (current) use of immunosuppressive biologic; Z79.899 Other long term (current) drug therapy
CPT/HCPCS: 36415; 74177; 80048; 80053; 81025; 83605; 83993; 85025; 85652; 86140; 87040; 87324; 87493; 87507; 89055; 99221; 99285; J0131; J1171; J2270; J2405; J2765; J7120; Q9967

== ENCOUNTER → 2024-10-14 09:29 | Outpatient (BNV) | payer OTHER, SELFPAY | PROVIDERS: Emergency Provider Emergency Medicine; PCP Physician Assistant; Visit Provider Radiology Diagnostic Radiology | DX: R10.32 Left lower quadrant pain (principal) | CPT/HCPCS: 74177 ==

== ENCOUNTER → 2024-10-14 14:10 | Outpatient (BNV) | payer OTHER, SELFPAY | PROVIDERS: Admitting Provider Physician Assistant Medical; Emergency Provider Emergency Medicine; PCP Physician Assistant; Visit Provider Internal Medicine | DX: K52.9 Noninfective gastroenteritis and colitis, unspecified (principal); R10.9 Unspecified abdominal pain | CPT/HCPCS: 99232 ==

== ENCOUNTER → 2024-10-14 14:10 | Outpatient (BNV) | payer OTHER, SELFPAY | PROVIDERS: Admitting Provider Physician Assistant Medical; Emergency Provider Emergency Medicine; PCP Physician Assistant; Visit Provider Physician Assistant Medical | DX: K52.9 Noninfective gastroenteritis and colitis, unspecified (principal); A49.8 Other bacterial infections of unspecified site; K50.10 Crohn's disease of large intestine without complications | CPT/HCPCS: 99223; 99239 ==

== ENCOUNTER 2024-10-24 12:00 | Outpatient (AMB) | payer OTHER, SELFPAY ==
--- NOTE | 2024-10-24 12:02 | MHC.OFFVIS ---
Vital Signs 10/24/24 12:07 Height 5 ft 2 in Weight 185 lb BMI 33.8 BP 136/84 Blood Pressure Location Rt brachial Position Sitting Pulse 82 Pulse Source Pulse Oximeter Pulse Oximetry (%) 97 Oxygen Delivery Method Room Air Intake Visit Reasons: binu pt Intake Note: Est pt for mgmt of IBD/Crohn's disease mgmt. CC: C.O. L side abd pain, both upper and lower quadrants, as well as severe diarrhea. Pt denies any additional concerns at this time. Visitor Services Associate Required: No Accompanied by: Self / Same As Patient Allergies NSAIDS (Non-Steroidal Anti-Inflamma (NSAIDS (NON-STEROIDAL ANTI-INFLAMMA) Allergy (Severe, Verified 10/24/24 12:02) BRONCHOSPASM aspirin (ASA) Allergy (Unknown, Verified 10/24/24 12:02) SHORTNESS OF BREATH ketorolac (From TORADOL) Allergy (Unknown, Verified 10/24/24 12:02) BRONCIAL SPASM vancomycin (VANCOMYCIN) Allergy (Unknown, Verified 10/24/24 12:02) RASH duloxetine (From Cymbalta) Adverse Reaction (Intermediate, Verified 10/24/24 12:02) paranoia gabapentin (From NEURONTIN) Adverse Reaction (Unknown, Verified 10/24/24 12:02) TINGLING IN L ARM budesonide Adverse Reaction (Verified 10/24/24 12:02) Muscle Pain Bencort Allergy (Unknown, Uncoded 10/24/24 12:02) unknown HPI HPI binu pt: Details: COLONOSCOPY 08/02/2024 Findings: random bx taken from ileum, right colo, transverse, left and rectum Terminal Ileum-normal Cecum:normal Ascending Colon: normal Transverse Colon -normal Descending Colon:normal Sigmoid Colon: 8-9 mm sessile polyp removed with cold snare Rectum: Retroflexion with small internal hemorrhoids, grade I Anorectum - normal Colon preparation: Oxford Bowel Preparation Scale Right colon; 2 Transverse colon: 2 Left colon; 2 (0 = Unprepared colon segment with mucosa not seen due to solid stool that cannot be cleared. 1 = Portion of mucosa of the colon segment seen, but other areas of the colon segment not well seen due to staining, residual stool and/or opaque liquid. 2 = Minor amount of residual staining, small fragments of stool and/or opaque liquid, but mucosa of colon segment seen well. 3 = Entire mucosa of colon segment seen well with no residual staining, small fragments of stool or opaque liquid) Impression and Post Procedure Diagnosis: Endoscopy Findings: gastritis Colonoscopy Findings: colon polyp internal hemorrhoids Plan: Await Pathology results Repeat Colonoscopy in 1-2 years due to IBD or earlier if clinically indicated High fiber diet leaflet avoid straining at stool, epsom salts and sitz bath, anusol supps or cream cont with humira HOSPITALIZATION CONSULT WITH DR. KELLY LINK Reason for consult: Proctocolitis This is a 39-year-old female with possible Crohn's disease recently started on Humira, and then switched to Skyrizi last week due to side effects (first induction dose 10/08) who presented to the hospital for abd pain and diarrhea. History obtained from the patient, who states that the day before admission, she was doing well up until nighttime when she had sudden onset of lower abdominal cramping with multiple episodes of loose watery nonbloody diarrhea. Not associated with any fevers or chills. No sick contacts. No report of outside food. She suspected another flare-up of her IBD and therefore presented to the hospital. On initial evaluation, she was noted to be tachycardic but otherwise with stable blood pressure. Labs were significant for normal CRP. Negative GI PCR. Possible C diff colonization. CT abdomen and pelvis with IV contrast shows diffuse proctocolitis. Recent colonoscopy: 08/02/2024 (Dr. Sierra): Normal colon and terminal ileum mucosa on endoscopic and histologic eval. Sigmoid colon tubular adenoma. She was started on p.o. vancomycin 10/14. On with set evaluation today, she reports improvement in her abdominal cramping and bowel movement frequency. Although not completely back to baseline, requests to be discharged, as has pets at home that do not have any other supervisor calibration besides her. Plan Differentials include Crohn's flare versus infectious colitis. Colon ischemia less likely in the absence of any blood in stool. Plan: - CRP and fecal calpro - Serial abd exams - Monitor GI output - Cont PO vanc for possible CDI. - patient requests to be discharged. She was advised that if she does not continue to improve at home over the next 1-2 days, to call office. Low threshold to proceed with flex sig to r/o Crohns flare vs CMV colitis vs HSV colitis (to recall pt was in deep remission in 07/2024 but switch to Skyrizi last week). TODAY'S VISIT Patient is here today for requested visit. Patient normally sees Dr. Sierra. Admitted to hospital with abdominal pain over 1 week ago, possible Crohn's versus colitis. Negative for leukocytosis despite CT scan showing possible proctitis. Normal CRP and fecal calprotectin. Patient reports that since discharge she continues to have loose stools. No matter what she eats she has to run to the bathroom to have a bowel movement. Currently patient is taking fiber, Cipro and also night. Patient continues with left lower quadrant pain and loose stools. Denies the melena, hematochezia, mucus in the stool. Denies any fever or chills. PCP gave patient tramadol to help with the pain. Patient reports that it is working to some extent. [facility] Medical History Crohn's colitis Bipolar disorder Asthma Screening for hypothyroidism Acute Crohn's disease Screening for hypothyroidism Screening for diabetes mellitus (DM) TMJ (dislocation of temporomandibular joint) Diarrhea Surgical History History of hysterectomy History of appendectomy History of colonoscopy Hx of endoscopy Family History Father Mental health disorder Mother Thyroid cancer Stomach cancer Substance use disorder Mental health disorder Family/Other Diabetes Social History Household Members: None Household Members Other:: mother and stepfather Housing: House Are you a primary intensive care ambulance paramedic to a significant other at home: No Do you presently have visiting nurse or other home services: No Alcohol intake: current Alcohol intake frequency: a few times a week Alcohol type: hard liquor Patient Tobacco Use Status: Never used Tobacco Tobacco use type: Cigarette Cigarettes Per Day: 0.5 Years Smoked: 20 e-Cigarette/Vaping Use: Currently Using Second Hand Smoke Exposure: Yes Advance Directives Date on File: 07/28/20 service: No Current occupational status: employed Current occupation: [employer] Current occupational exposures/hazards: No Sexual orientation: Straight/Heterosexual Cognitive needs: No Hearing needs: No Vision needs: No Review of Systems Const Denies weight gain and Denies weight loss ENT Reports no additional complaints, Denies dysphagia and Denies odynophagia Card Reports no additional complaints Resp Reports no additional complaints GI Reports abdominal pain (LLQ), Denies belching, Denies melena, Reports bloating, Denies change in bowel habits, Denies dysphagia, Denies excessive flatus, Denies dyspepsia, Denies heartburn, Denies diarrhea, Reports loose stools, Denies nausea, Denies odynophagia and Denies vomiting Musc Reports no additional complaints Neuro Reports no additional complaints Psych Reports no additional complaints Endo Reports no additional complaints Physical Exam Const General: healthy appearing, no acute distress and well developed Nutritional Appearance: well nourished Orientation/consciousness: patient oriented x3 Resp Effort & Inspection: normal respiratory effort, able to speak in complete sentences, no tracheal deviation and symmetric chest movement Auscultation: clear to auscultation bilaterally Cardio Rate: regular rate GI Inspection: Yes normal to inspection and No distended Palpation (GI): Soft to palpation, not firm, nontender and No hepatosplenomegaly present Auscultation: normal bowel sounds General: Yes no CVA tenderness Back/Spine/Pelvis Back: no CVA tenderness Skin General skin exam: elasticity normal, turgor normal and dry skin Neuro General: patient oriented x3 Psych Speech and movement: Normal speech and movement present Affect: normal affect Attitude: cooperative Thought process: Normal thought process present Thought content: Normal thought content present Insight: Good insight present (Psych) Judgement: Good judgement present (Psych) Results Reviewed Results Reviewed: CT SCAN OF ABDOMEN AND PELVIS IMPRESSION: Proctitis with pancolitis. This is likely infectious or inflammatory in etiology. No findings to suggest obstruction or perforation. Assessment & Plan Assessment & Plan (1) Diarrhea: Code(s): R19.7 - Diarrhea, unspecified Category: Medical Qualifiers: Diarrhea type: functional diarrhea Qualified Code(s): K59.1 - Functional diarrhea (2) Acute Crohn's disease: Code(s): K50.90 - Crohn's disease, unspecified, without complications Category: Medical Qualifiers: Digestive disease complication type: unspecified complication Qualified Code(s): K50.919 - Crohn's disease, unspecified, with unspecified complications (3) IBD (inflammatory bowel disease): Code(s): K52.9 - Noninfective gastroenteritis and colitis, unspecified Category: Medical (4) Crohn's colitis: Code(s): K50.10 - Crohn's disease of large intestine without complications Category: Medical Qualifiers: Digestive disease complication type: without complication Qualified Code(s): K50.10 - Crohn's disease of large intestine without complications (5) Pancolitis: Code(s): K52.9 - Noninfective gastroenteritis and colitis, unspecified Category: Medical (6) Abdominal pain: Code(s): R10.9 - Unspecified abdominal pain Category: Medical Qualifiers: Abdominal location: left lower quadrant Qualified Code(s): R10.32 - Left lower quadrant pain Plan Given that patient had normal CRP, normal fecal calprotectin most likely, no leukocytosis diarrhea is most likely noninfectious. Patient also had normal colonoscopy in July. Patient will be sent for sigmoidoscopy to recheck as diagnosed with proctitis on CT scan. Patient was encouraged to increase fiber intake as well as fluid intake. May take dicyclomine for pain this should help also with diarrhea. Most likely patient is not completely emptying and has not enough fiber intake. Patient will follow-up with Dr. Sierra when he returns. Patient has appointment set with him in November. She will call our office if she will continue to have symptoms. Patient is agreeable to current plan of care and verbalizes understanding of instructions. She was given the opportunity to ask questions and all questions answered. Thank you for allowing me to participate in her care Medications: New sodium phosphates 19-7 gram/118 mL (Fleet Enema) 118 mL [place] BEDTIME PRN 133 mL 1RF constipation dicyclomine 10 mg PO BID PRN 60 caps 2RF abdominal discomfort K58.9 - Irritable bowel syndrome, unspecified Coding Level of Care Code Est Pt Level 4 (13117) Complex EM visit Add On G2211 Diagnoses Functional diarrhea K59.1 Diarrhea type: functional diarrhea Acute Crohn's disease with complication K50.919 Digestive disease complication type: unspecified complication IBD (inflammatory bowel disease) K52.9 Crohn's colitis K50.10 Digestive disease complication type: without complication Pancolitis K52.9 Left lower quadrant abdominal pain R10.32 Abdominal location: left lower quadrant Time Spent (min) 40 Comment 35 minutes spent with patient and additional 15 minutes spent reviewing her records
[2024-10-24 12:07] VITALS: BP 136/84; PULSE 82; O2SAT 97; BMI 33.8
--- OUTSIDE RECORDS SUMMARY | 2024-10-24 13:09 | XMS_ITS | Clinical Summary ---
Author Organization [facility] Address [address] [place] [address] Care Team Providers Care Audio Narrator Name Role Phone Kike Irby Primary Care [...] Vaccine ( - 2023-2 5 season) 2023 Depression Screening 03/07/2024 Influenza Vaccine (#1) 2024 HIB Vaccines Aged [...] age to complete this topic Care Teams Audio Narrator Relationship Specialty Start Date End Date Kike Irby PA PCP - General Physician Warehouse Operations Manager 06/10/17
== END 2024-10-24 12:26 | disposition home or self-care (01) ==
LOC: HO.HGI 12:01
PROVIDERS: PCP Physician Assistant; Visit Provider Nurse Practitioner Family
DX: K50.10 Crohn's disease of large intestine without complications (principal); K52.9 Noninfective gastroenteritis and colitis, unspecified; R10.32 Left lower quadrant pain
CPT/HCPCS: 99214

== ENCOUNTER → 2024-10-24 12:00 | Outpatient (BNVA) | payer OTHER, SELFPAY | PROVIDERS: PCP Physician Assistant; Visit Provider Nurse Practitioner Family | DX: R19.7 Diarrhea, unspecified (principal); R10.32 Left lower quadrant pain; K50.919 Crohn's disease, unspecified, with unspecified complications; K50.10 Crohn's disease of large intestine without complications | CPT/HCPCS: 99212 ==

== ENCOUNTER 2024-10-29 08:57 | Outpatient (AMB) | payer OTHER, SELFPAY ==
--- OUTSIDE RECORDS SUMMARY | 2024-10-29 09:35 | XMS_ITS | Clinical Summary ---
Author Organization [facility] Address [address] [place] [address] Care Team Providers Care Wellness Spa Manager Name Role Phone Kike Irby Primary Care [...] age to complete this topic Care Teams Wellness Spa Manager Relationship Specialty Start Date End Date Kike Irby PA PCP - General Physician Lawyer 06/10/17
--- NOTE | 2024-10-29 12:16 | MHC.OFFVISWM ---
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* Allergies NSAIDS (Non-Steroidal Anti-Inflamma (NSAIDS (NON-STEROIDAL ANTI-INFLAMMA) Allergy (Severe, Verified 10/29/24 12:16) BRONCHOSPASM aspirin (ASA) Allergy (Unknown, Verified 10/29/24 12:16) SHORTNESS OF BREATH ketorolac (From TORADOL) Allergy (Unknown, Verified 10/29/24 12:16) BRONCIAL SPASM vancomycin (VANCOMYCIN) Allergy (Unknown, Verified 10/29/24 12:16) RASH duloxetine (From Cymbalta) Adverse Reaction (Intermediate, Verified 10/29/24 12:16) paranoia gabapentin (From NEURONTIN) Adverse Reaction (Unknown, Verified 10/29/24 12:16) TINGLING IN L ARM budesonide Adverse Reaction (Verified 10/29/24 12:16) Muscle Pain Bencort Allergy (Unknown, Uncoded 10/29/24 12:16) unknown Medication List - Last Reconciled 10/29/24 by Ashish Mata MD budesonide DR-ER 9 mg (3 x 3 mg) PO DAILY 3 weeks ciprofloxacin HCl 500 mg PO BID dicyclomine 10 mg PO BID PRN lisdexamfetamine (Vyvanse) 40 mg PO DAILY 28 days prednisolone sodium phosphate 10 mg PO DAILY risankizumab-rzaa 600 mg IV Q4W sodium phosphates 19-7 gram/118 mL (Fleet Enema) [address] BEDTIME PRN tramadol 50 mg PO BID 7 days HPI HPI 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*: Details: Start time: 12.02pm, End time: 12.47pm ?I spent 40 minutes speaking with the patient on the phone plus an additional 5 minutes reviewing and updating records for a total of 45 minutes HPI Comments Details: Previous weight loss efforts: self diets and exercise Wakes up: 6.30am, Sleeps: 8pm Breakfast: skips Lunch: 12pm (sandwich, broth, soups) Dinner: 6pm (pasta) Snacks: 4pm (chips), eating in the middle of the night Exercise: Mom has a stationary bike Beverages: Coffee: none, Tea: Iced tea 6/d, Soda: none, Juice: none, ETOH: 2/wk (Whiskey) [facility] Medical History (Updated 10/29/24 @ 12:43 by Ashish Mata MD) BMI 33.0-33.9,adult Obesity Crohn's colitis Bipolar disorder Asthma Screening for hypothyroidism Acute Crohn's disease Screening for hypothyroidism Screening for diabetes mellitus (DM) TMJ (dislocation of temporomandibular joint) Diarrhea Surgical History History of hysterectomy History of appendectomy History of colonoscopy Hx of endoscopy Family History Father Mental health disorder Mother Thyroid cancer Stomach cancer Substance use disorder Mental health disorder Family/Other Diabetes Social History Household Members: None Household Members Other:: mother and stepfather Housing: House Are you a primary rn homecare to a significant other at home: No Do you presently have visiting nurse or other home services: No Alcohol intake: current Alcohol intake frequency: a few times a week Alcohol type: hard liquor Patient Tobacco Use Status: Never used Tobacco Tobacco use type: Cigarette Cigarettes Per Day: 0.5 Years Smoked: 20 e-Cigarette/Vaping Use: Currently Using Second Hand Smoke Exposure: Yes Advance Directives Date on File: 07/28/20 service: No Current occupational status: employed Current occupation: [employer] Current occupational exposures/hazards: No Sexual orientation: Straight/Heterosexual Cognitive needs: No Hearing needs: No Vision needs: No Telehealth Telehealth Telehealth Platform: Telephone Location of provider rendering services: practice address Location of patient: address on file Patient Identification confirmed using: Name, : Yes Telehealth method: voice only Patient verbally consented to treatment: Yes Patient verbally consented to billing insurance company: Yes Patient informed of any privacy concerns related to visit: Yes Minutes spent on Phone/Video with Pt.: 45 Assessment & Plan Assessment & Plan (1) Obesity: Code(s): E66.9 - Obesity, unspecified Category: Medical Qualifiers: Obesity type: due to excess calories Obesity classification: adult class 1 (BMI 30 - 34.9) Serious obesity comorbidity presence: with serious comorbidity Body mass index: BMI 33.0-33.9 Qualified Code(s): E66.811 - Obesity, class 1; E66.09 - Other obesity due to excess calories; Z68.33 - Body mass index [BMI] 33.0-33.9, adult Plan: 1.? Nutritional counseling. Start with one premade ORGAIN protein (buy at [employer] or [employer]) shake (mix 4oz of Orgain mixed with 4oz low fat unsweetened almond milk each) at 8am-10am, one protein bar (ORGAIN protein bar) at 11am-1pm, another premade ORGAIN protein shake (mix 4oz of Orgain mixed with 4oz low fat unsweetened almond milk each) at 2pm-4pm, dinner at 5pm (6 forks of protein and 6 forks of salad/vegetables), and another Orgain protein bar at 7pm-9pm. So you do 2 protein shakes, 2 protein bars and one meal per day. Meal to include lean meat (beef, fish, pork, turkey, chicken), or serbian yogurt, or egg whites, or beans with a salad with olive oil and fruits (berries, pears, apples, kiwi). Avoid salt, breads, potatoes, rice, pasta, desserts. 2. Each shake would be drunk slowly, like coffee in a period of 2 hours. 3. Cut each bar in 4 pieces and eat each piece in 30min ?to make each bar last 2 hours. 4. I emphasized the importance of measuring accurately the food portion and measure it when serving the food in plate 5. The meal portions include 6 full-size forks of meat and 6 full-size forks of salad. You always eat the meat portion but you can replace up to 3 forks for salad/vegetables with rice, potatoes or pasta, or a fruit ?if you like. The less you do it the better weight loss will be. 6. One full-size fork is what it can be scooped on the fork without falling aside and not what can be bit with the fork. Use regular forks like those you find in a typical restaurant. 7.? Please buy the body composition scale we discussed and send me weight measurements as soon as possible and then once a week. Always include your diet and exercise plan. 8. Start stationary bike at a resistance level of 4.0 Increase level by 1.0 every 3 min to a max level of 10.0. Stay at this level for 3 min and then return to level 4.0 and repeat same steps until 300 calories are burned. Goal is to burn 2000 calories per week on exercise 9. Goal is to lose at least 1.5-2lbs per week 10. Goal to lose 10% of your weight before surgery, which is about 20lbs. Ultimate weight goal: 174lbs before surgery 11. Please follow the diet plan exactly without any change. If you don't like something about the plan or you feel hungry you need to communicate with me so I can help you revise the plan. You should not change the plan yourself
== END 2024-10-29 12:48 | disposition home or self-care (01) ==
LOC: HO.HBS 08:57
PROVIDERS: PCP Physician Assistant; Visit Provider Surgery
DX: E66.811 Obesity, class 1 (principal); E66.09 Other obesity due to excess calories; Z68.33 Body mass index [BMI] 33.0-33.9, adult
CPT/HCPCS: 99204

== ENCOUNTER 2024-11-10 01:23 | Emergency (ER) | payer OTHER, SELFPAY ==
--- NOTE | ~2024-11-10 | CT_ITS ---
CLINICAL HISTORY: L Abd Pain; Tenderness; Diarrhea; Hx Crohns --- Additional Notes or Special Instructions: No IV @ 03:00 - Notified RN CT Abdomen and Pelvis W Contrast COMPARISON: CT/REG/SR - CT ABDOMEN PELVIS W IV CON - 10/14/24 11:10 EDT FINDINGS: Hepatomegaly. Normal spleen. Normal kidneys. Normal adrenal glands. Normal pancreas. No visible cholelithiasis. No biliary dilation. No evidence of bowel obstruction. Mild thickening of the neil of the majority of the colon. No pneumatosis. Status post appendectomy. Poorly distended bladder with mild wall thickening. Status post hysterectomy. No ascites. No pneumoperitoneum. No lymphadenopathy. No acute fracture. Mild degenerative changes in the spine. No abdominal aortic aneurysm. IMPRESSION: Colonic wall thickening, which could be due to colitis. Bladder wall thickening, which could be due to underdistention or cystitis. This document has been electronically signed by: Shashi Puri MD on 11/10/2024 05:00:09
[2024-11-10 01:26] VITALS: BP 143/78; PULSE 110; RESP 20; TEMP 36.7; O2SAT 97; BMI 33.8
[2024-11-10 01:42] LABS: Hematocrit 39.2 % (37.0-47.0); Hemoglobin 13.9 g/dl (12.0-16.0); Imm Gran Abs Auto 0.01 X10*3/uL (0.00-0.03); Imm Gran Pct Auto 0.1 % (0.0-0.4); Lymphocytes Absolute Auto 5.5 X10*3/uL (1.2-4.9); MANUAL DIFF FLAG SCAN; Mean Corpuscular HGB Conc 35.5 g/dl (31.0-35.0); Mean Corpuscular Hemoglobin 30.9 pg (27.0-33.0); Mean Corpuscular Volume 87.1 fL (80.0-98.0); NRBC Abs Auto 0.000 X10*3/uL (0.0-0.012); NRBC Pct Auto 0.0 /100WBC (0.0-0.2); Platelet Count 256 X10*3/uL (160-400); Red Blood Count 4.50 X10*6/uL (4.20-5.50); SCAN SMEAR FLAG 1; White Blood Count 9.1 X10*3/uL (4.8-10.8)
--- NOTE | 2024-11-10 01:52 | ED.GENADULT ---
HPI - General Adult General Chief complaint: Nausea/Vomiting/Diarrhea Stated complaint: Crohn disease flare up Time Seen by Provider: 11/10/24 01:48 Source: patient Mode of arrival: ambulatory Limitations: no limitations History of Present Illness ED Provider: Luis Miguel URIAS HPI narrative: The patient is a 39-year-old female with a history of Crohn's disease, hypertension, PTSD, GERD, ADHD, depression, endometriosis, anxiety, and IBS presenting to the ED for evaluation of worsening left sided abdominal pain with tenderness and worsening frequency and severity of painful but nonbloody diarrhea. The patient was seen at this facility in September, and also in October for similar presentation of Crohn's flare, patient is following with GI and is currently scheduled for her 2nd dose of Skyrizi next Tuesday but presents to the ED due to worsening symptoms which he states are now interfering with her ability to work or participate in most her of her ADLs. Patient denies associated fever/chills, vomiting, chest pain, shortness of breath, urinary symptoms, recent sick contacts, or recent trauma. The patient reports she is gaining weight again after being placed on low-dose chronic steroids by GI, but denies any improvement in her symptoms with these interventions. Related Data Home Medications ?Medication ?Instructions ?Recorded ?Confirmed risankizumab-rzaa 60 mg/mL 600 mg IV Q4W 10/14/24 10/29/24 intravenous solution Previous Rx's ?Medication ?Instructions ?Recorded budesonide 3 mg 9 mg (3 x 3 mg) PO DAILY 3 weeks 10/19/24 capsule,delayed,extended release #63 ea ciprofloxacin HCl 500 mg tablet 500 mg PO BID #14 tabs 10/22/24 dicyclomine 10 mg capsule 10 mg PO BID PRN abdominal 10/24/24 discomfort #60 caps sodium phosphates 19 gram-7 118 ml DC BEDTIME PRN constipation 10/24/24 gram/118 mL enema (Fleet Enema) #133 mL prednisone 10 mg tablet 10 mg PO DIRECTED #50 tabs 10/29/24 amoxicillin 875 mg tablet 875 mg PO Q12H #14 tabs 11/01/24 tramadol 50 mg tablet 50 mg PO BID pain 7 days #14 tabs 11/06/24 lisdexamfetamine 40 mg capsule 40 mg PO DAILY 28 days #28 caps 11/07/24 (Vyvanse) oxycodone 5 mg tablet 5 mg PO TID PRN pain (scale score 11/10/24 7-10) #10 tabs oxycodone 5 mg tablet 5 mg PO TID PRN pain (scale score 11/10/24 7-10) #10 tabs Allergies Allergy/AdvReac Type Severity Reaction Status Date / Time NSAIDS (Non-Steroidal Allergy Severe BRONCHOSPAS Verified 11/10/24 01:29 Anti-Inflamma (NSAIDS M (NON-STEROIDAL ANTI-INFLAMMA) aspirin (ASA) Allergy Unknown SHORTNESS Verified 11/10/24 01:29 OF BREATH ketorolac (From TORADOL) Allergy Unknown BRONCIAL Verified 11/10/24 01:29 SPASM vancomycin (VANCOMYCIN) Allergy Unknown RASH Verified 11/10/24 01:29 duloxetine (From Cymbalta) AdvReac Intermediate paranoia Verified 11/10/24 01:29 gabapentin (From NEURONTIN) AdvReac Unknown TINGLING Verified 11/10/24 01:29 IN L ARM Bencort Allergy Unknown unknown Uncoded 11/10/24 01:29 Review of Systems Review of Systems: Yes all other systems are reviewed and are negative [facility] Past Medical History Medical History (Updated 11/10/24 @ 05:49 by Luis Miguel Carlin PA-C) BMI 33.0-33.9,adult Obesity Crohn's colitis Bipolar disorder Asthma Screening for hypothyroidism Acute Crohn's disease Screening for hypothyroidism Screening for diabetes mellitus (DM) TMJ (dislocation of temporomandibular joint) Diarrhea Surgical History History of hysterectomy History of appendectomy History of colonoscopy Hx of endoscopy Family History Family History Father Mental health disorder Mother Thyroid cancer Stomach cancer Substance use disorder Mental health disorder Family/Other Diabetes Social History Social History Household Members: None Household Members Other:: mother and stepfather Housing: House Are you a primary before and after school daycare worker to a significant other at home: No Do you presently have visiting nurse or other home services: No Alcohol intake: current Alcohol intake frequency: a few times a week Alcohol type: hard liquor Patient Tobacco Use Status: Never used Tobacco Tobacco use type: Cigarette Cigarettes Per Day: 0.5 Years Smoked: 20 e-Cigarette/Vaping Use: Currently Using Second Hand Smoke Exposure: Yes Advance Directives: Yes Advance Directives on File: Yes Advance Directives Date on File: 07/28/20 Do you have a plan to hurt others: No Plan service: No Current occupational status: employed 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 Current occupational exposures/hazards: No Sexual orientation: Straight/Heterosexual Cognitive needs: No Hearing needs: No Vision needs: No Physical Exam ED Vital Signs: Vital Signs - 24 hr 11/10/24 01:26 11/10/24 03:15 11/10/24 04:49 Temperature 98.0 F Pulse Rate 110 H Respiratory Rate 20 16 18 Blood Pressure 143/78 H Pulse Oximetry 97 Oxygen Delivery Method Room Air 11/10/24 04:53 Temperature 98.4 F Pulse Rate 83 Respiratory Rate 16 Blood Pressure 121/77 Pulse Oximetry 98 Oxygen Delivery Method Room Air BMI result Body Mass Index 33.8 CONSTITUTIONAL: The patient appears non-toxic, well nourished and in no acute distress. Vital signs as documented. HEAD: Atraumatic, normocephalic. EYES: EOMs grossly intact, pupils equal, conjunctiva clear, no exudate. ENT: Nares patent, no discharge. Airway patent, no audible stridor, visible mucosa is pink and moist without noted lesions. NECK: Trachea is midline, no obvious masses or gross abnormalities. CHEST: Symmetric movement, normal appearance. LUNGS: LS present and CTAB, no w/r/r. Non-labored work of breathing. CARDIAC: Regular Rhythm, S1/S2 appreciated, no murmurs, rubs or gallops. ABDOMEN: Abdomen soft x4 quadrants, positive tenderness to palpation of the left upper and lower quadrants, negative rebound, no palpable masses or organomegaly. : Deferred. EXTREMITIES: Normal tone, moves all extremities spontaneously without reported pain. No obvious acute injury or deformity noted. NEURO: Alert and oriented x3, CN II-XII appear grossly intact. Cerebellar Functioning grossly intact. No obvious sensory or motor deficits. Speech clear and appropriate. PSYCH: Tearful affect, appropriate eye contact, fluid speech, with appropriate response to questioning. No reported suicidality or homicidality. SKIN: Warm, dry, color appropriate, normal turgor. No rashes noted. Medications Administered Discontinued Medications Generic Name Dose Route Start Last Admin Trade Name Juan PRN Reason Stop Dose Admin Diphenhydramine HCl 12.5 mg 11/10/24 02:57 11/10/24 03:16 Diphenhydramine Hcl 50 Mg/Ml Vial IVPUSH 11/10/24 02:58 12.5 mg ONCE ONE Administration Hydromorphone HCl 1 mg 11/10/24 04:43 11/10/24 04:49 Hydromorphone Hcl 1 Mg/Ml Syringe IVPUSH 11/10/24 04:44 1 mg ONCE ONE Administration Protocol Sodium Chloride 1,000 mls @ 999 mls/hr 11/10/24 03:00 11/10/24 04:41 Ns IV 11/10/24 04:00 Infused .Q1H1M BRADY Infusion Iohexol 85 ml 11/10/24 04:04 11/10/24 04:04 Iohexol 350 Mg/Ml 100 Ml Infus..Btl IV 11/10/24 04:05 85 ml ONCE ONE Administration Methylprednisolone Sodium Succinate 125 mg 11/10/24 02:57 11/10/24 03:15 Methylprednisolone Sod Succ 125 Mg/2 Ml Vial IVPUSH 11/10/24 02:58 125 mg ONCE ONE Administration Morphine Sulfate 4 mg 11/10/24 02:57 11/10/24 03:15 Morphine Sulfate 4 Mg/Ml Cartridge IVPUSH 11/10/24 02:58 4 mg ONCE ONE Administration Protocol Medical Decision Making Medical Decision Making MDM Narrative: 3:05 AM 11/10/2024 (Leonel URIAS): The patient is a 39-year-old female with a history of Crohn's disease, hypertension, PTSD, GERD, ADHD, depression, endometriosis, anxiety, and IBS presenting to the ED for evaluation of worsening left sided abdominal pain with tenderness and worsening frequency and severity of painful but nonbloody diarrhea consistent with her recent flares of Crohn's disease. The patient is currently on prednisone and Skyrizi, scheduled for her 2nd dose of scattered received this coming Tuesday, but presents to the ED for worsening symptoms. In the ED patient is afebrile, but in obvious discomfort, tachycardic, and abdominal exam shows tenderness of the left upper and lower quadrants. There was no rebound. Patient's laboratory evaluation shows no leukocytosis, significant anemia, electrolyte abnormality, or REGINA. We will treat with IV fluid hydration, pain control, and Solu-Medrol. We will also obtain repeat CT abdomen and pelvis to rule out other acute intra-abdominal pathology. Pending unremarkable CT abdomen and pelvis we will reassess symptoms to determine appropriateness for discharge with outpatient follow up versus repeat admission. 5:42 AM 11/10/2024 (Leonel URIAS): Patient's CT abdomen and pelvis shows mild colonic wall thickening largely unchanged from previous, there was also some bladder wall thickening question underdistention versus cystitis, patient is having no urinary symptoms. The patient's CT is otherwise unremarkable for acute process. The patient reports symptoms have improved following Dilaudid. The patient's vital signs have improved, tachycardia has resolved. Patient reports she prefers to be discharged home to follow up outpatient with GI for her Skyrizi injection on Tuesday. Patient has been admitted instructed to increase her prednisone to 40 mg daily for the next 5 days and follow up with PCP and GI. Patient requesting medication for breakthrough pain, we will provide a short course of oxycodone. Patient has been instructed not to take Ultram and oxycodone at the same time. Admission/Observation Consideration of admission/observation: Escalation of care including admission/observation considered Lab Data MDM Lab Attestation statement: I reviewed the patient's lab results. 11/10/24 01:37 11/10/24 01:37 Labs: Lab Results 11/10/24 Range/Units 01:37 WBC 9.1 (4.8-10.8) X10*3/uL RBC 4.50 (4.20-5.50) X10*6/uL Hgb 13.9 (12.0-16.0) g/dl Hct 39.2 (37.0-47.0) % MCV 87.1 (80.0-98.0) fL MCH 30.9 (27.0-33.0) pg MCHC 35.5 H (31.0-35.0) g/dl RDW 13.6 (11.0-16.0) % Plt Count 256 (160-400) X10*3/uL MPV 9.2 L (9.4-12.3) fL Immature Gran % (Auto) 0.1 (0.0-0.4) % Neut % (Auto) 31.2 L (45-73) % Lymph % (Auto) 60.4 H (20-40) % [place] % (Auto) 7.0 (2-11) % Eos % (Auto) 0.9 (0-4) % Baso % (Auto) 0.4 (0-2) % Lymph # (Auto) 5.5 H (1.2-4.9) X10*3/uL [place] # (Auto) 0.6 (0.1-1.2) X10*3/uL Eos # (Auto) 0.1 (0.0-0.4) X10*3/uL Baso # (Auto) 0.0 (0.0-0.2) X10*3/uL Abs Immat Gran (auto) 0.01 (0.00-0.03) X10*3/uL Absolute Neuts (auto) 2.8 (2.0-8.3) x10*3/uL Absolute Nucleated RBC 0.000 (0.0-0.012) X10*3/uL Nucleated RBC % (auto) 0.0 (0.0-0.2) /100WBC Smear Tech's Comments VERIFIED Sodium 144 (135-145) mmol/L Potassium 3.3 (3.3-5.1) mmol/L Chloride 113 H (96-108) mmol/L Carbon Dioxide 19 L (22-29) mmol/L Anion Gap 15 (12-20) BUN 9 (9-16) mg/dL Creatinine 0.57 (0.5-1.4) mg/dL Estim Creat Clear Calc 133.0 Estimated GFR > 60 Random Glucose 103 (60-115) mg/dL Calcium 8.9 D (8.4-10.2) mg/dL Total Bilirubin 0.6 (0.0-1.0) mg/dL AST 38 H (5-31) U/L ALT 47 H (0-31) U/L Alkaline Phosphatase 102 (39-117) U/L Total Protein 7.2 (6.5-8.0) g/dL Albumin 4.5 (3.5-5.0) g/dL Radiology Impression Discussion of test interpretation with radiology: I have reviewed the radiologist's reading. Radiologist Impression: CT Abdomen and Pelvis W Contrast COMPARISON: CT/REG/SR - CT ABDOMEN PELVIS W IV CON - 10/14/24 11:10 EDT FINDINGS: Hepatomegaly. Normal spleen. Normal kidneys. Normal adrenal glands. Normal pancreas. No visible cholelithiasis. No biliary dilation. No evidence of bowel obstruction. Mild thickening of the neil of the majority of the colon. No pneumatosis. Status post appendectomy. Poorly distended bladder with mild wall thickening. Status post hysterectomy. No ascites. No pneumoperitoneum. No lymphadenopathy. No acute fracture. Mild degenerative changes in the spine. No abdominal aortic aneurysm. IMPRESSION: Colonic wall thickening, which could be due to colitis. Bladder wall thickening, which could be due to underdistention or cystitis. This document has been electronically signed by: Shashi Puri MD on 11/10/2024 05:00:09 External Record Review External record reviewed: Outpatient record Prescription Management I considered prescription management with: Pain Medication and Antibiotic Discharge Plan Discharge Clinical Impression: Crohn's colitis Qualifiers: Digestive disease complication type: without complication Qualified Code(s): K50.10 - Crohn's disease of large intestine without complications Patient Disposition: Home, Self-Care Instructions: Crohn Disease (ED) Additional Instructions: Thank you for choosing [facility]'s Emergency Department for your care today. Your laboratory evaluation and CT today showed no evidence of any acute bowel obstruction, bacterial infection, or other emergent cause for your symptoms. At this time there is no indication for admission to the hospital or continued ED observation, and it is safe to discharge you home. It is extremely important that you take 40 mg of your already prescribed prednisone daily for the next 5 days to treat your acute exacerbation of symptoms. Please follow up with the your GI physician for re-evaluation and additional management of your symptoms. You should take Tylenol 1000mg every 4 hours as needed for any additional pain. Please stay well hydrated and get plenty of rest. As a part of your care plan, you have also been prescribed an opiate based pain medication called oxycodone. Please take this medication only for severe pain that is not relieved by ibuprofen and/or Tylenol. Opiate based medications have a high risk of unintentional addiction and abuse. Take this medication only as directed and only if absolutely necessary. This medicine can make you drowsy, you are not allowed to drive, operate heavy machinery, or be the sole care provider for children while taking this medication. Do NOT take oxycodone and Ultram within 24 hours of each other. Please also follow up with your primary care physician for re-evaluation, additional management of your symptoms, and continued preventative care. If you do not have a primary care physician, please call the [facility] at [phone] to establish a new primary care physician. While waiting to establish your new primary care physician, you can call our [facility] at [phone] for non-emergency needs. Please return to the emergency department if you develop a severe or sudden change in your symptoms, a fever over 100.4 that does not improve with Tylenol or Ibuprofen, recurrent vomiting, or any other new or worsening symptoms or concerns. Prescriptions: New oxycodone 5 mg tablet 5 mg PO TID PRN (Reason: pain (scale score 7-10)) Qty: 10 0RF Rx Instructions: Partial Fill upon patient request. oxycodone 5 mg tablet 5 mg PO TID PRN (Reason: pain (scale score 7-10)) Qty: 10 0RF Rx Instructions: Partial Fill upon patient request. No Action budesonide 3 mg capsule,delayed,extend.release 9 mg PO DAILY 21 Days Qty: 63 0RF ciprofloxacin HCl 500 mg tablet 500 mg PO BID Qty: 14 0RF prednisone 10 mg tablet 10 mg PO DIRECTED Qty: 50 0RF Rx Instructions: see taper instructions: 40mg x 5 days, 30mg x 5 days, 20mg x 5 days then 10mg x 5 days amoxicillin 875 mg tablet 875 mg PO Q12H Qty: 14 0RF tramadol 50 mg tablet 50 mg PO BID 7 Days Qty: 14 0RF lisdexamfetamine [Vyvanse] 40 mg capsule 40 mg PO DAILY 28 Days Qty: 28 0RF Rx Instructions: Partial Fill upon patient request. risankizumab-rzaa 60 mg/mL Solution 600 mg IV Q4W Rx Instructions: administer at weeks 0, 4, and 8 of treatment Fleet Enema 19-7 gram/118 mL enema 118 ml DC BEDTIME PRN (Reason: constipation) Qty: 133 1RF dicyclomine 10 mg capsule 10 mg PO BID PRN (Reason: abdominal discomfort) Qty: 60 2RF Referrals: Kike Irby PA-C [Primary Care Provider, Internal Medicine] Clinical Impression: Crohn's colitis Print Language: Lebanese
[2024-11-10 02:02] LABS: Alanine Aminotransferase 47 U/L (0-31); Albumin Level 4.5 g/dL (3.5-5.0); Alkaline Phosphatase 102 U/L (39-117); Anion Gap 15 (12-20); Aspartate Amino Transferase 38 U/L (5-31); Blood Urea Nitrogen 9 mg/dL (9-16); Calcium 8.9 mg/dL (8.4-10.2); Carbon Dioxide 19 mmol/L (22-29); Chloride 113 mmol/L (96-108); Creatinine Clr Calc Pharmacy 133.0; Estimated Glomerular Filt Rate > 60; Potassium 3.3 mmol/L (3.3-5.1); Sodium 144 mmol/L (135-145); Total Protein 7.2 g/dL (6.5-8.0)
[2024-11-10 03:15] VITALS: RESP 16
[2024-11-10] MEDS: iohexoL 350 MG/ML 100 ML INFUS..BTL 85 ML IV (04:04)
[2024-11-10 04:49] VITALS: RESP 18
[2024-11-10 04:53] VITALS: BP 121/77; PULSE 83; RESP 16; TEMP 36.9; O2SAT 98
[2024-11-10 06:19] VITALS: BP 121/77; PULSE 83; RESP 16; TEMP 36.9; O2SAT 98
== END 2024-11-10 06:19 | disposition home or self-care (01) ==
PROVIDERS: Emergency Provider Emergency Medicine; PCP Physician Assistant
DX: K50.10 Crohn's disease of large intestine without complications (principal); R10.816 Epigastric abdominal tenderness; R35.0 Frequency of micturition; R10.2 Pelvic and perineal pain; R11.0 Nausea; Z79.899 Other long term (current) drug therapy
CPT/HCPCS: 36415; 74177; 80053; 85025; 96361; 96374; 96375; 99284; 99285; J1171; J1200; J2270; J2919; Q9967

== ENCOUNTER → 2024-11-10 04:08 | Outpatient (BNV) | payer OTHER, SELFPAY | PROVIDERS: Emergency Provider Emergency Medicine; PCP Physician Assistant; Visit Provider Radiology Diagnostic Radiology | DX: K52.9 Noninfective gastroenteritis and colitis, unspecified (principal) | CPT/HCPCS: 74177 ==

== ENCOUNTER 2024-11-14 07:21 | Day surgery (SDC) | payer OTHER, SELFPAY ==
[2024-11-12 15:17] VITALS: BMI 33.8
--- NOTE | 2024-11-13 08:57 | HO.ANESPROP2 ---
Documented by User: Samai Gupta NP 11/13/24 08:59 HPI - Anesthesia Eval Consult details Narrative: 39 yr old female for Sigmoidoscopy Flexible Crohn's/IBS: seen at [facility] 11/10/24 for flare, on prednisone, Skyrizi; ?chronic/intermittent steroid use s/p upper endoscopy/colonoscopy with TIVA 07/2024 [facility] Active Problems Active Problems: All Active Problems (Updated 11/10/24 @ 05:49 by Luis Miguel Carlin PA-C) BMI 33.0-33.9,adult (Acute) Obesity (Acute) Clostridium difficile infection (Acute) Pancolitis (Acute) Crohn's colitis (Acute) Electrocardiogram showing T wave abnormalities (Acute) Annual physical exam (Acute) HTN (hypertension) (Acute) Tachycardia (Acute) Polyarthralgia (Acute) Class 1 obesity (Acute) Chronic post-traumatic stress disorder (PTSD) (Acute) GERD (gastroesophageal reflux disease) (Acute) Screening for diabetes mellitus (DM) (Acute) Screening for hypothyroidism (Acute) ADHD (Acute) Migraine (Acute) COVID-19 (Acute) Insomnia (Acute) MDD (major depressive disorder), recurrent episode, moderate (Acute) Strain of muscle, fascia and tendon of lower back, initial encounter (Acute) Nausea & vomiting (Acute) Abdominal pain (Acute) Diarrhea (Acute) ADHD (attention deficit hyperactivity disorder) (Acute) Endometriosis (Acute) Early satiety (Acute) IBD (inflammatory bowel disease) (Acute) AVE (generalized anxiety disorder) (Acute) IBS (irritable bowel syndrome) (Acute) Elevated liver enzymes (Acute) Fatty liver disease, nonalcoholic (Acute) Arthralgia (Acute) Acute Crohn's disease (Acute) Past Medical History Medical History (Updated 11/10/24 @ 05:49 by Luis Miguel Carlin PA-C) BMI 33.0-33.9,adult Obesity Crohn's colitis Bipolar disorder Asthma Screening for hypothyroidism Acute Crohn's disease Screening for hypothyroidism Screening for diabetes mellitus (DM) TMJ (dislocation of temporomandibular joint) Diarrhea Family History Family History Father Mental health disorder Mother Thyroid cancer Stomach cancer Substance use disorder Mental health disorder Family/Other Diabetes Family history of problems with anesthesia: No Surgical History Surgical History History of hysterectomy History of appendectomy History of colonoscopy Hx of endoscopy History of Problems with Anesthesia: No Social History Social History Household Members: None Household Members Other:: mother and stepfather Housing: House Are you a primary campground caretaker to a significant other at home: No Do you presently have visiting nurse or other home services: No Alcohol intake: current Alcohol intake frequency: a few times a week Alcohol type: hard liquor Patient Tobacco Use Status: Current everyday Tobacco user Tobacco use type: Smokeless Tobacco Cigarettes Per Day: 0.5 Years Smoked: 20 e-Cigarette/Vaping Use: Currently Using Second Hand Smoke Exposure: Yes Advance Directives Date on File: 07/28/20 service: No Current occupational status: employed Current occupation: [employer] Current occupational exposures/hazards: No Sexual orientation: Straight/Heterosexual Cognitive needs: No Hearing needs: No Vision needs: No Meds Allergies Allergy/AdvReac Type Severity Reaction Status Date / Time NSAIDS (Non-Steroidal Allergy Severe BRONCHOSPAS Verified 11/10/24 01:29 Anti-Inflamma (NSAIDS M (NON-STEROIDAL ANTI-INFLAMMA) aspirin (ASA) Allergy Unknown SHORTNESS Verified 11/10/24 01:29 OF BREATH ketorolac (From TORADOL) Allergy Unknown BRONCIAL Verified 11/10/24 01:29 SPASM vancomycin (VANCOMYCIN) Allergy Unknown RASH Verified 11/10/24 01:29 duloxetine (From Cymbalta) AdvReac Intermediate paranoia Verified 11/10/24 01:29 gabapentin (From NEURONTIN) AdvReac Unknown TINGLING Verified 11/10/24 01:29 IN L ARM Home Medications ?Medication ?Instructions ?Recorded ?Confirmed ?Last Taken ?Type risankizumab-rzaa 60 mg/mL 600 mg IV Q4W 10/14/24 11/14/24 10/08/24 History intravenous solution Exam Height,Weight and Vital Signs: Height 5 ft 2 in Weight 83.915 kg Assessment and Plan Final Anesthetic Review Family History of Problems with Anesthesia: No History of Problems with Anesthesia: No Documented by User: Lolis Rahman MD 11/14/24 08:12 [facility] Past Medical History Medical History (Updated 11/10/24 @ 05:49 by Luis Miguel Carlin PA-C) BMI 33.0-33.9,adult Obesity Crohn's colitis Bipolar disorder Asthma Screening for hypothyroidism Acute Crohn's disease Screening for hypothyroidism Screening for diabetes mellitus (DM) TMJ (dislocation of temporomandibular joint) Diarrhea Family History Family History Father Mental health disorder Mother Thyroid cancer Stomach cancer Substance use disorder Mental health disorder Family/Other Diabetes Surgical History Surgical History History of hysterectomy History of appendectomy History of colonoscopy Hx of endoscopy Social History Social History Household Members: None Household Members Other:: mother and stepfather Housing: House Are you a primary campground caretaker to a significant other at home: No Do you presently have visiting nurse or other home services: No Alcohol intake: current Alcohol intake frequency: a few times a week Alcohol type: hard liquor Patient Tobacco Use Status: Current everyday Tobacco user Tobacco use type: Smokeless Tobacco Cigarettes Per Day: 0.5 Years Smoked: 20 e-Cigarette/Vaping Use: Currently Using Second Hand Smoke Exposure: Yes Advance Directives Date on File: 07/28/20 service: No Current occupational status: employed Current occupation: [employer] Current occupational exposures/hazards: No Sexual orientation: Straight/Heterosexual Cognitive needs: No Hearing needs: No Vision needs: No Meds Allergies Allergy/AdvReac Type Severity Reaction Status Date / Time NSAIDS (Non-Steroidal Allergy Severe BRONCHOSPAS Verified 11/10/24 01:29 Anti-Inflamma (NSAIDS M (NON-STEROIDAL ANTI-INFLAMMA) aspirin (ASA) Allergy Unknown SHORTNESS Verified 11/10/24 01:29 OF BREATH ketorolac (From TORADOL) Allergy Unknown BRONCIAL Verified 11/10/24 01:29 SPASM vancomycin (VANCOMYCIN) Allergy Unknown RASH Verified 11/10/24 01:29 duloxetine (From Cymbalta) AdvReac Intermediate paranoia Verified 11/10/24 01:29 gabapentin (From NEURONTIN) AdvReac Unknown TINGLING Verified 11/10/24 01:29 IN L ARM Home Medications ?Medication ?Instructions ?Recorded ?Confirmed ?Last Taken ?Type risankizumab-rzaa 60 mg/mL 600 mg IV Q4W 10/14/24 11/14/24 10/08/24 History intravenous solution Exam Airway Mallampati Class: II TM Dist: >3cm Neck ROM: Full Heart: rrr Lungs: cta Assessment and Plan Final Anesthetic Review NPO: Yes ASA Class: II Final Preanesthetic Review: No Changes in Pt Med Stat, Meds/Allgs Chart Reviewed and Consent Obtained/Reviewed Patient Risk: Low Procedure Risk: Low Anesthetic Plan Anesthetic Plan: MAC: Disposition: Standard PACU
[2024-11-14] VITALS (7 sets, daily range): BP systolic 109–156; BP diastolic 56–99; PULSE 89–109; RESP 16–22; TEMP 36.2–36.3; O2SAT 96–98
[2024-11-14] MEDS: Lactated Ringers 1,000 ML 100 ML IVCONT (08:00)
--- NOTE | 2024-11-14 08:35 | MHC.SHP ---
Pre-Procedural Eval Section A - 24 Hr Update-Section A only Date of Service: 11/14/24 Section B - Complete if H&P > 30 days Chief Complaint: Crohn's disease of small intestine Relevant Family History (Specify if Yes): No Relevant Social History: Tobacco Use Present Medications: see Short Stay Collaborative assessment Medical History: Significant History (BMI 33.0-33.9,adult Obesity Crohn's colitis Bipolar disorder Asthma Screening for hypothyroidism Acute Crohn's disease Screening for hypothyroidism Screening for diabetes mellitus (DM) TMJ (dislocation of temporomandibular joint) Diarrhea) History of Previous Operations: Relevant previous surgery/procedure and date(s) (History of hysterectomy History of appendectomy History of colonoscopy Hx of endoscopy) Allergies: Allergies Allergy/AdvReac Type Severity Reaction Status Date / Time NSAIDS (Non-Steroidal Allergy Severe BRONCHOSPAS Verified 11/10/24 01:29 Anti-Inflamma (NSAIDS M (NON-STEROIDAL ANTI-INFLAMMA) aspirin (ASA) Allergy Unknown SHORTNESS Verified 11/10/24 01:29 OF BREATH ketorolac (From TORADOL) Allergy Unknown BRONCIAL Verified 11/10/24 01:29 SPASM vancomycin (VANCOMYCIN) Allergy Unknown RASH Verified 11/10/24 01:29 duloxetine (From Cymbalta) AdvReac Intermediate paranoia Verified 11/10/24 01:29 gabapentin (From NEURONTIN) AdvReac Unknown TINGLING Verified 11/10/24 01:29 IN L ARM Review of Systems Sugical H&P ROS: Negative: Constitution, Cardiovascular, Respiratory, Neurological, Psychiatric, Hem-Onc, Allergic/Immunologic, Gastrointestinal, Genitourinary, Musculoskeletal, Integumentary, Endocrine and Eyes/Ears/Nose/Throat Exam Surgical H&P Exam: Normal: HEENT, Normal: Heart, Normal: Lungs, Normal: Extremities, Normal: Abdomen, Normal: Skin and Normal: Neurological Plan Diagnosis/Plan: Unchanged I have reviewed the history and physical and performed a pertinent physical examination on my patient. No changes have occurred unless specified. Time Spent With Patient Time: Total time managing care of this patient today ____ minutes.
--- NOTE | 2024-11-14 09:00 | W.PM.OPN ---
Operative Note Operative Note Date of Service: 11/14/24 Narrative: Procedure Description: sigmoidoscopy Indication: hx of IBD, symptomatic Anesthesia: MAC Sigmoidoscopy Instrument: Upper endoscope Colonoscopy Monitoring: Vital signs and clinical assessment, continuous EKG monitoring, Pulse oximetry, Carbon Dioxide monitoring and blood pressure monitoring were done throughout the procedure. Procedure: The patient was placed in the left lateral decubitis position and pre-procedure medications were administered. After a digital rectal examination of the ano-rectum, the video colonoscope was inserted into the rectum and advanced through the colon to the sigmoid colon The scope was slowly withdrawn in a retrograde panoramic fashion and the colon mucosa was carefully examined . Findings and interventions are described below. Procedure Difficulty: easy Findings: TI- mild erythema, bx taken Transverse Colon- normal appearing Sigmoid Colon: patchy erythema, mild Rectum: Normal , retroflexion with small internal hemorrhoids Anorectum - normal Colon preparation: fair Impression and Post Procedure Diagnosis: mild colitis, possibly resolving Plan: await bx stool samples also sent for lactoferrin and c diff, stool PCR Above findings were reviewed with the patient and relevant handouts were provided if indicated.
[2024-11-14 10:56] LABS: CDiff Gene PCR NEGATIVE (Negative)
[2024-11-21 00:58] LABS: Lactoferrin, Fecal, Quant. <6.25 mcg/mL (<7.25)
== END 2024-11-14 10:07 | disposition home or self-care (01) ==
PROVIDERS: PCP Physician Assistant; Visit Provider Internal Medicine Gastroenterology
PROC: 0DJD8ZZ Inspection of Lower Intestinal Tract, Via Natural or Artificial Opening Endoscopic (ICD-10-PCS; CPT 45330; principal; 2024-11-14 08:30)
DX: K52.9 Noninfective gastroenteritis and colitis, unspecified (principal); K29.60 Other gastritis without bleeding; K64.0 First degree hemorrhoids; I10 Essential (primary) hypertension; J45.909 Unspecified asthma, uncomplicated; Z79.899 Other long term (current) drug therapy
CPT/HCPCS: 45331; 83631; 87493; 88305; J2003; J2704; J3010

== ENCOUNTER → 2024-11-14 07:21 | Outpatient (BNV) | payer OTHER, SELFPAY | PROVIDERS: PCP Physician Assistant; Visit Provider Internal Medicine Gastroenterology | DX: K52.9 Noninfective gastroenteritis and colitis, unspecified (principal) | CPT/HCPCS: 45331 ==

== ENCOUNTER 2024-11-26 13:59 | Outpatient (AMB) | payer OTHER, SELFPAY ==
--- NOTE | 2024-11-26 14:06 | A.OFFVIS_ITS ---
Vital Signs 11/26/24 14:09 Weight 188 lb BP 112/64 Blood Pressure Location Lt brachial Position Sitting Pulse 89 Intake Visit Reasons: 5 month f/u Intake Note: Manju presents in the office as a follow up sigmoidoscopy. CC: Results to that and follow up! States she feels better since having her second dose of skyrizi. 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 Allergies NSAIDS (Non-Steroidal Anti-Inflamma (NSAIDS (NON-STEROIDAL ANTI-INFLAMMA) Allergy (Severe, Verified 11/26/24 14:11) BRONCHOSPASM aspirin (ASA) Allergy (Unknown, Verified 11/26/24 14:11) SHORTNESS OF BREATH ketorolac (From TORADOL) Allergy (Unknown, Verified 11/26/24 14:11) BRONCIAL SPASM vancomycin (VANCOMYCIN) Allergy (Unknown, Verified 11/26/24 14:11) RASH duloxetine (From Cymbalta) Adverse Reaction (Intermediate, Verified 11/26/24 14:11) paranoia gabapentin (From NEURONTIN) Adverse Reaction (Unknown, Verified 11/26/24 14:11) TINGLING IN L ARM HPI HPI 5 month f/u: Details: 39-year-old female w hx of endometriosis s/p hysterectomy, ADHD with suspected Crohn's disease, who I am seeing for re establishment of care RECAP: Last seen 2020 as inpatient She had been having recurring attacks on and off for a long while of diarrhea with diffuse abdominal pain with several presentations to ED dept at [facility] and [facility] with constant watery diarrhea all day long, abdominal cramping in left lower quadrant, 8/10 in severity, nonradiating, associated with nausea but no vomiting. I had tried her on pred 40 mg for 1 week and she was also on abx from [place] after Ct there revealed acute on chronic colitis, suspicious IBD, fluid filled loops of jejunum LUQ I then switched her to budesonide with plan for entyvio which she received for a few months with good effect She was unable to keep up and had various psych issues and problems with f/u She then went to [place] 2 yrs ago She had issues with accessing care Now : I put her on skyrizi, she had arthropathy with humira she had rept endoscopy due to cramps and diarrhea markers neg and path on bx neg she feesl skyrizi is working well verona eugene had x 2 doses no n/v denies skin rash or eye issues Endoscopy: Colonoscopy done--tubular adeoma removed, duodenitis noted capsule endoscopy--normal, but rapid emptying noted Sig- 11/29- nml appearing IMaging: CT scan 10/29/19 ---Chronic changes of the ascending colon demonstrating submucosal fat--unchanged since prior CAT scan of 2016. nonspecific however, can be seen as sequela of prior inflammatory bowel disease. 01/24--pelvic us--small ovary cyst, hysterectomy GES 02/23--rapid gastric emptying Mre--no small bowel inflammation, mild fatty liver EXAM: GENERAL: The patient is well developed and nontoxic. VITAL SIGNS:see workflow HEENT: Nonicteric sclerae, PERRLA, EOMI. Oropharynx clear. Moist mucous membranes. Conjunctivae appear well perfused. No thyroid mass. CHEST: Chest wall is nontender. HEART: Regular rate and rhythm without murmurs. LUNGS: Clear to auscultation bilaterally. ABDOMEN: Soft, positive bowel sounds, tender LLQ, no organomegaly.no flank tenderness SKIN: No rash, no excessive bruising, petechiae, or purpura. NEUROLOGIC: Cranial nerves II-XII intact without motor/sensory deficit. Psych: normal affect A/P: 1/ Relapsing and remitting crohsn based on prior history, now on skyrizi PLAN: / -- cont skyrizi, labs as needed 2/ ok to use levsin prn for cramps PFSH Medical History BMI 33.0-33.9,adult Obesity Crohn's colitis Bipolar disorder Asthma Screening for hypothyroidism Acute Crohn's disease Screening for hypothyroidism Screening for diabetes mellitus (DM) TMJ (dislocation of temporomandibular joint) Diarrhea Surgical History History of hysterectomy History of appendectomy History of colonoscopy Hx of endoscopy Family History Father Mental health disorder Mother Thyroid cancer Stomach cancer Substance use disorder Mental health disorder Family/Other Diabetes Social History Household Members: None Household Members Other:: mother and stepfather Housing: House Are you a primary home care companion to a significant other at home: No Do you presently have visiting nurse or other home services: No Alcohol intake: current Alcohol intake frequency: a few times a week Alcohol type: hard liquor Patient Tobacco Use Status: Current everyday Tobacco user Tobacco use type: Smokeless Tobacco Cigarettes Per Day: 0.5 Years Smoked: 20 e-Cigarette/Vaping Use: Currently Using Second Hand Smoke Exposure: Yes Advance Directives Date on File: 07/28/20 service: No Current occupational status: employed Current occupation: [employer] Current occupational exposures/hazards: No Sexual orientation: Straight/Heterosexual Cognitive needs: No Hearing needs: No Vision needs: No Physical Exam Vital Signs: Last Vital Signs Pulse 89 11/26/24 14:09 BP 112/64 11/26/24 14:09 Assessment & Plan Assessment & Plan (1) Crohn's colitis: Code(s): K50.10 - Crohn's disease of large intestine without complications Category: Medical Qualifiers: Digestive disease complication type: without complication Qualified Code(s): K50.10 - Crohn's disease of large intestine without complications Plan: as above Medications: New hyoscyamine sulfate 0.125 mg PO BID-QID PRN 60 tabs 2RF dyspepsia Discontinued budesonide DR-ER Discontinued Reason: Doctor's Order 9 mg (3 x 3 mg) PO DAILY 3 weeks 63 ea 0RF K50.90 - Crohn's disease, unspecified, without complications, K52.9 - Noninfective gastroenteritis and colitis, unspecified Coding Level of Care Code Est Pt Level 3 (87451) Diagnoses Crohn's colitis K50.10 Digestive disease complication type: without complication
[2024-11-26 14:09] VITALS: BP 112/64; PULSE 89
== END 2024-11-26 14:33 | disposition home or self-care (01) ==
LOC: HO.HGI 14:00
PROVIDERS: PCP Physician Assistant; Visit Provider Internal Medicine Gastroenterology
DX: K50.10 Crohn's disease of large intestine without complications (principal)
CPT/HCPCS: 99213

== ENCOUNTER → 2024-11-26 13:59 | Outpatient (BNVA) | payer OTHER, SELFPAY | PROVIDERS: PCP Physician Assistant; Visit Provider Internal Medicine Gastroenterology | DX: K50.10 Crohn's disease of large intestine without complications (principal) | CPT/HCPCS: 99212 ==

== ENCOUNTER 2024-11-30 08:23 | Outpatient (REF) | payer OTHER, SELFPAY ==
[2024-11-30 09:58] LABS: Hematocrit 42.5 % (37.0-47.0); Hemoglobin 14.3 g/dl (12.0-16.0); Mean Corpuscular HGB Conc 33.6 g/dl (31.0-35.0); Mean Corpuscular Hemoglobin 30.2 pg (27.0-33.0); Mean Corpuscular Volume 89.7 fL (80.0-98.0); NRBC Abs Auto 0.000 X10*3/uL (0.0-0.012); NRBC Pct Auto 0.0 /100WBC (0.0-0.2); Platelet Count 314 X10*3/uL (160-400); Red Blood Count 4.74 X10*6/uL (4.20-5.50); White Blood Count 5.6 X10*3/uL (4.8-10.8)
[2024-11-30 10:34] LABS: Alanine Aminotransferase 38 U/L (0-31); Albumin Level 4.7 g/dL (3.5-5.0); Alkaline Phosphatase 114 U/L (39-117); Anion Gap 14 (12-20); Aspartate Amino Transferase 30 U/L (5-31); Blood Urea Nitrogen 11 mg/dL (9-16); Calcium 9.0 mg/dL (8.4-10.2); Carbon Dioxide 25 mmol/L (22-29); Chloride 110 mmol/L (96-108); Estimated Glomerular Filt Rate > 60; Potassium 3.7 mmol/L (3.3-5.1); Sodium 145 mmol/L (135-145); Total Protein 7.2 g/dL (6.5-8.0)
[2024-12-05 09:07] LABS: DNAds, Crithidia Antibody Negative (Negative)
[2024-12-05 21:47] LABS: Anti Nuclear Antibody Pattern Nuclear, Speckled; Anti Nuclear Antibody Screen POSITIVE (NEGATIVE); Anti Nuclear Antibody Titer 1:40 titer
== END 2024-11-30 08:24 | disposition home or self-care (01) ==
LOC: HO.LAB 08:23
PROVIDERS: PCP Physician Assistant; Visit Provider Physician Assistant
DX: I10 Essential (primary) hypertension (principal); M25.50 Pain in unspecified joint; R00.0 Tachycardia, unspecified
CPT/HCPCS: 36415; 80053; 82306; 85027; 86038; 86039; 86255; 86431

== ENCOUNTER 2024-12-01 19:39 | Emergency (ER) | payer OTHER, SELFPAY ==
--- NOTE | ~2024-12-01 | CT_ITS ---
CLINICAL HISTORY: LLQ pain, hx crohns CT abdomen and pelvis with contrast Comparison: CT - CT ABDOMEN PELVIS W IV CON - 11/10/24 21:13 EDT Findings: No consolidation or effusion. The gallbladder and solid organs are within normal limits. No renal stones. No bowel obstruction, pneumoperitoneum, or pneumatosis. Re-identified is deposition of fat between the inner mucosa and Aleida layer (halo sign). Prior appendectomy. Prior hysterectomy. No acute fracture. IMPRESSION: 1. Halo sign of the colon; associated with inflammatory bowel disease/Crohn's disease. 2. Prior appendectomy and hysterectomy. This document has been electronically signed by: Isreal Green MD on 12/01/2024 22:44:08
[2024-12-01 19:45] VITALS: BP 139/80; PULSE 109; RESP 20; TEMP 36.8; O2SAT 98; BMI 32.4
--- NOTE | 2024-12-01 19:45 | ED.GENADULT ---
HPI - General Adult General Chief complaint: Nausea/Vomiting/Diarrhea Stated complaint: n+v abd pain Time Seen by Provider: 12/01/24 21:01 Source: patient Mode of arrival: ambulatory Limitations: no limitations History of Present Illness ED Provider: Dr. Narcisa Minor HPI narrative: Patient comes to the emergency room complaining of nausea vomiting and diarrhea for 3 days. Patient states that she recently started a new diet but does not believe that has anything to do with her current symptoms. Patient has history of Crohn's and states that the last exacerbation, started out the same, with nausea vomiting and diarrhea. Patient denies any chest pain, denies hematuria or dysuria or flank pain, denies fever chills Related Data Home Medications ?Medication ?Instructions ?Recorded ?Confirmed risankizumab-rzaa 60 mg/mL 600 mg IV Q4W 10/14/24 11/14/24 intravenous solution Previous Rx's ?Medication ?Instructions ?Recorded dicyclomine 10 mg capsule 10 mg PO BID PRN abdominal 10/24/24 discomfort #60 caps lisdexamfetamine 40 mg capsule 40 mg PO DAILY 28 days #28 caps 11/07/24 (Vyvanse) hyoscyamine sulfate 0.125 mg 0.125 mg PO BID-QID PRN dyspepsia 11/26/24 disintegrating tablet #60 tabs tramadol 50 mg tablet 50 mg PO BID pain 7 days #14 tabs 11/26/24 cefuroxime axetil 250 mg tablet 250 mg PO BID #14 tabs 12/01/24 Allergies Allergy/AdvReac Type Severity Reaction Status Date / Time NSAIDS (Non-Steroidal Allergy Severe BRONCHOSPAS Verified 12/01/24 19:50 Anti-Inflamma (NSAIDS M (NON-STEROIDAL ANTI-INFLAMMA) aspirin (ASA) Allergy Unknown SHORTNESS Verified 12/01/24 19:50 OF BREATH ketorolac (From TORADOL) Allergy Unknown BRONCIAL Verified 12/01/24 19:50 SPASM vancomycin (VANCOMYCIN) Allergy Unknown RASH Verified 12/01/24 19:50 duloxetine (From Cymbalta) AdvReac Intermediate paranoia Verified 12/01/24 19:50 gabapentin (From NEURONTIN) AdvReac Unknown TINGLING Verified 12/01/24 19:50 IN L ARM Review of Systems Review of Systems: Constitutional : No Weight loss, No Fever, No Chills, No Night Sweats, No Fatigue, No Malaise ENT/Mouth : No Hearing loss, No Ear Pain, No Nasal Congestion, No Sinus Pain, No Hoarseness, No sore throat, No Rhinorrhea, No Swallowing Difficulty Eyes: No Eye Pain, No Swelling, No Redness, No Foreign Body, No Discharge, No Vision Changes Cardiovascular : No Chest Pain, No SOB, No Dyspnea on Exertion, No Orthopnea, No Edema, No Palpitations Respiratory : No Cough, No Sputum, No Wheezing, No Smoke Exposure, No Dyspnea Gastrointestinal : complaining of nausea vomiting and diarrhea, complaining of bilateral lower quadrant pain, worse in the left lower quadrant, no melena hematochezia Genitourinary : no irregular bleeding, No Dysuria, No Urinary Frequency, No Hematuria, No Urinary Incontinence, No Urgency, No Flank Pain, No Urinary Flow Changes, No Hesitancy Musculoskeletal : No joint pain, No Myalgias, No Joint Swelling Skin : No Skin Lesions, No rash Neuro : No Weakness, No Numbness, No Paresthesias, No Loss of Consciousness, No Dizziness, No Headache Psych : No Anxiety/Panic, No Depression, No SI/HI/AH/VH, No Social Issues, Heme/Lymph: No Bruising, No Bleeding,No Lymphadenopathy Endocrine : No Polyuria, No Polydipsia, No Temperature Intolerance [facility] Past Medical History Medical History (Updated 12/01/24 @ 23:19 by Narcisa Minor MD) ADHD (attention deficit hyperactivity disorder) BMI 33.0-33.9,adult Obesity Crohn's colitis Bipolar disorder Asthma Screening for hypothyroidism Acute Crohn's disease Screening for hypothyroidism Screening for diabetes mellitus (DM) TMJ (dislocation of temporomandibular joint) Diarrhea Surgical History History of hysterectomy History of appendectomy History of colonoscopy Hx of endoscopy Family History Family History Father Mental health disorder Mother Thyroid cancer Stomach cancer Substance use disorder Mental health disorder Family/Other Diabetes Social History Social History Household Members: None Household Members Other:: mother and stepfather Housing: House Are you a primary direct care staffer to a significant other at home: No Do you presently have visiting nurse or other home services: No Alcohol intake: current Alcohol intake frequency: holidays/special occasions only Alcohol type: hard liquor Patient Tobacco Use Status: Current everyday Tobacco user Tobacco use type: Smokeless Tobacco Cigarettes Per Day: 0.5 Years Smoked: 20 Smoked in Last 30 Days: No e-Cigarette/Vaping Use: Currently Using Second Hand Smoke Exposure: Yes Use of substances other than those prescribed or required for medical reasons: No Advance Directives: Yes Advance Directives on File: Yes Advance Directives Date on File: 07/28/20 Patient : No service: No Current occupational status: employed Current occupation: [employer] Current occupational exposures/hazards: No Sexual orientation: Straight/Heterosexual Cognitive needs: No Hearing needs: No Vision needs: No Physical Exam ED Exam Exam: Appearance: Alert. Oriented X3. well-appearing but uncomfortable Eyes: Pupils equal, round and reactive to light. ENT: Pharynx normal. Neck: Normal inspection. Neck supple. No lymph nodes noted. No crepitus CVS: Normal heart rate and rhythm. Pulses normal. Normal S1 and S2 Respiratory: No respiratory distress. Breath sounds normal. No Wheezing. No rales Abdomen: Soft , tenderness to palpation in left lower quadrant, suprapubic area and right lower quadrant without rebound or guarding, No rigidity. No distention. Skin: Skin warm and dry. Normal skin color. Normal skin turgor. Extremities: No lower extremity edema. No Lacerations. No Rash Neuro: Oriented X 3. No motor deficit. No sensory deficit. Moving all extremities. No slurred speech. CN 2 through 12 grossly intact Psych: calm, cooperative, normal affect Vital Signs: Vital Signs - 24 hr 12/01/24 19:45 12/01/24 21:35 Temperature 98.3 F Pulse Rate 109 H Respiratory Rate 20 18 Blood Pressure 139/80 Pulse Oximetry 98 Oxygen Delivery Method Room Air BMI result Body Mass Index 32.4 Course Course Course Narrative: This is a rapid medical exam performed by Celeste Dwyer NP: Additional HPI, ROS, PE not included below will be deferred to primary provider. Patient is a 39y/o F with history of Crohns, IBD, IBS, HTN, GERD, ADHD, migraines, polyarthralgia, C. diff in the past presenting with complaint of nausea, vomiting and diarrhea since Tuesday. Went to weight management appointment Tuesday and started new diet. Plan: labs, UA, GI/C diff Medications Administered Discontinued Medications Generic Name Dose Route Start Last Admin Trade Name Juan PRN Reason Stop Dose Admin Lactated Ringer's 1,000 mls @ 999 mls/hr 12/01/24 21:15 12/01/24 22:14 Lr IV 12/01/24 23:15 999 mls/hr .Q1H1M BRADY Administration Iohexol 85 ml 12/01/24 21:28 12/01/24 21:29 Iohexol 350 Mg/Ml 100 Ml Infus..Btl IV 12/01/24 21:29 85 ml ONCE ONE Administration Morphine Sulfate 2 mg 12/01/24 21:12 12/01/24 21:35 Morphine Sulfate 2 Mg/Ml Cartridge IVPUSH 12/01/24 21:13 2 mg ONCE ONE Administration Protocol Ondansetron HCl 4 mg 12/01/24 20:57 12/01/24 21:00 Ondansetron Hcl 4 Mg/2 Ml Vial IVPUSH 12/01/24 20:58 4 mg ONCE ONE Administration Prochlorperazine Edisylate 10 mg 12/01/24 21:12 12/01/24 21:35 Prochlorperazine Edisylate 10 Mg/2 Ml Vial IVPUSH 12/01/24 21:13 10 mg ONCE ONE Administration Medical Decision Making Medical Decision Making [facility] Narrative: my interpretation of labs: No significant abnormality in patient's hematology or chemistry, magnesium normal, LFTs normal, hCG negative, serology negative for COVID and influenza. C diff negative CT scan shows signs of Crohn's but no acute abnormality. Patient does have a UTI. First dose of cefuroxime given in the emergency room. Patient's urine has a same appearance then the urinalysis from May of 2022, patient grew E coli, sensitive to all antibiotics after the above-mentioned medication, patient feels better Differential Diagnosis Differential Diagnoses: The differential diagnosis associated with the presentation includes ( Crohn's disease, small bowel obstruction, perforation pyelonephritis, UTI, gastritis, gastroenteritis) Admission/Observation Consideration of admission/observation: Escalation of care including admission/observation considered ( given patient's past medical history and presentation, observation / admission was considered) Lab Data [facility] Lab Attestation statement: I reviewed the patient's lab results. 12/01/24 19:56 12/01/24 19:56 Labs: Lab Results 12/01/24 12/01/24 Range/Units 19:56 20:50 WBC 7.3 (4.8-10.8) X10*3/uL RBC 4.49 (4.20-5.50) X10*6/uL Hgb 13.6 (12.0-16.0) g/dl Hct 39.4 (37.0-47.0) % MCV 87.8 (80.0-98.0) fL MCH 30.3 (27.0-33.0) pg MCHC 34.5 (31.0-35.0) g/dl RDW 13.2 (11.0-16.0) % Plt Count 299 (160-400) X10*3/uL MPV 9.1 L (9.4-12.3) fL Immature Gran % (Auto) 0.1 (0.0-0.4) % Neut % (Auto) 36.4 L (45-73) % Lymph % (Auto) 53.8 H (20-40) % Hendricks % (Auto) 7.8 (2-11) % Eos % (Auto) 1.5 (0-4) % Baso % (Auto) 0.4 (0-2) % Lymph # (Auto) 3.9 (1.2-4.9) X10*3/uL Hendricks # (Auto) 0.6 (0.1-1.2) X10*3/uL Eos # (Auto) 0.1 (0.0-0.4) X10*3/uL Baso # (Auto) 0.0 (0.0-0.2) X10*3/uL Abs Immat Gran (auto) 0.01 (0.00-0.03) X10*3/uL Absolute Neuts (auto) 2.6 (2.0-8.3) x10*3/uL Absolute Nucleated RBC 0.000 (0.0-0.012) X10*3/uL Nucleated RBC % (auto) 0.0 (0.0-0.2) /100WBC Sodium 146 H (135-145) mmol/L Potassium 3.8 (3.3-5.1) mmol/L Chloride 115 H (96-108) mmol/L Carbon Dioxide 21 L (22-29) mmol/L Anion Gap 14 (12-20) BUN 15 (9-16) mg/dL Creatinine 0.72 (0.5-1.4) mg/dL Estim Creat Clear Calc 107.0 Estimated GFR > 60 Random Glucose 102 (60-115) mg/dL Calcium 9.0 (8.4-10.2) mg/dL Magnesium 1.8 (1.6-2.6) mg/dL Total Bilirubin 0.2 (0.0-1.0) mg/dL AST 38 H (5-31) U/L ALT 40 H (0-31) U/L Alkaline Phosphatase 108 (39-117) U/L Total Protein 6.9 (6.5-8.0) g/dL Albumin 4.4 (3.5-5.0) g/dL Beta HCG, Quant < 2 mIU/mL Urine Color Yellow Urine Appearance Clear Urine pH 5.5 (5.0-9.0) Ur Specific Mcintosh 1.020 (1.005-1.025) Urine Protein 30 (1+) H (Neg-Trace) mg/dL Urine Glucose (UA) Negative (Negative) mg/dL Urine Ketones Negative (Negative) mg/dL Urine Blood Small (1+) H (Negative) Urine Nitrite Negative (Negative) Ur Leukocyte Esterase Trace H (Negative) Urine RBC 0-2 (0-2) /HPF Urine WBC 0-5 (0-5) /HPF Ur Squamous Epith Cells 6-10 (0-2) /HPF Urine Bacteria 1+ (None Seen) Hyaline Casts 0-2 (0-2) /LPF C. difficile Tox B Gene NEGATIVE (Negative) COVID-19 (ROGELIO) Negative (Negative) COVID-19 Clin Com See Note Influenza Type A (EDVIN) Negative (Negative) Influenza Type B (EDVIN) Negative (Negative) Influenza A & B Note See Note Independent Interpretation I performed an independent interpretation of an: CT Scan Radiology Impression Discussion of test interpretation with radiology: I have reviewed the radiologist's reading. Radiologist Impression: No consolidation or effusion. The gallbladder and solid organs are within normal limits. No renal stones. No bowel obstruction, pneumoperitoneum, or pneumatosis. Re-identified is deposition of fat between the inner mucosa and Aleida layer (halo sign). Prior appendectomy. Prior hysterectomy. No acute fracture. IMPRESSION: 1. Halo sign of the colon; associated with inflammatory bowel disease/Crohn's disease. 2. Prior appendectomy and hysterectomy. Critical Care Time Critical Care Time Critical Care Time: Yes Total Critical Care Time: 45 Attestation: I have personally provided critical care time. Time includes review of lab data, radiology results, discussion with consultants, and monitoring for potential decompensation. Intervention performed as documented. Discharge Plan Discharge Clinical Impression: Abdominal pain, Nausea vomiting and diarrhea, UTI (urinary tract infection) Patient Disposition: Home, Self-Care Instructions: Urinary Tract Infection in Women (ED), Acute Diarrhea (ED), Abdominal Pain (ED) Additional Instructions: Please follow-up with your primary care physician tomorrow. If you have any worsening or new symptoms, please return to the emergency room or call 911 Prescriptions: New cefuroxime axetil 250 mg tablet 250 mg PO BID Qty: 14 0RF No Action lisdexamfetamine [Vyvanse] 40 mg capsule 40 mg PO DAILY 28 Days Qty: 28 0RF Rx Instructions: Partial Fill upon patient request. tramadol 50 mg tablet 50 mg PO BID 7 Days Qty: 14 0RF risankizumab-rzaa 60 mg/mL Solution 600 mg IV Q4W Rx Instructions: administer at weeks 0, 4, and 8 of treatment hyoscyamine sulfate 0.125 mg tablet,disintegrating 0.125 mg PO BID-QID PRN (Reason: dyspepsia) Qty: 60 2RF dicyclomine 10 mg capsule 10 mg PO BID PRN (Reason: abdominal discomfort) Qty: 60 2RF Print Language: Wolof
[2024-12-01 20:04] LABS: Hematocrit 39.4 % (37.0-47.0); Hemoglobin 13.6 g/dl (12.0-16.0); Imm Gran Abs Auto 0.01 X10*3/uL (0.00-0.03); Imm Gran Pct Auto 0.1 % (0.0-0.4); Lymphocytes Absolute Auto 3.9 X10*3/uL (1.2-4.9); MANUAL DIFF FLAG NO; Mean Corpuscular HGB Conc 34.5 g/dl (31.0-35.0); Mean Corpuscular Hemoglobin 30.3 pg (27.0-33.0); Mean Corpuscular Volume 87.8 fL (80.0-98.0); NRBC Abs Auto 0.000 X10*3/uL (0.0-0.012); NRBC Pct Auto 0.0 /100WBC (0.0-0.2); Platelet Count 299 X10*3/uL (160-400); Red Blood Count 4.49 X10*6/uL (4.20-5.50); White Blood Count 7.3 X10*3/uL (4.8-10.8)
[2024-12-01 20:25] LABS: Alanine Aminotransferase 40 U/L (0-31); Albumin Level 4.4 g/dL (3.5-5.0); Alkaline Phosphatase 108 U/L (39-117); Anion Gap 14 (12-20); Aspartate Amino Transferase 38 U/L (5-31); Blood Urea Nitrogen 15 mg/dL (9-16); Calcium 9.0 mg/dL (8.4-10.2); Carbon Dioxide 21 mmol/L (22-29); Chloride 115 mmol/L (96-108); Creatinine Clr Calc Pharmacy 107.0; Estimated Glomerular Filt Rate > 60; Magnesium 1.8 mg/dL (1.6-2.6); Potassium 3.8 mmol/L (3.3-5.1); Sodium 146 mmol/L (135-145); Total Protein 6.9 g/dL (6.5-8.0)
[2024-12-01 20:30] LABS: COVID-19 Test Negative (Negative); IDNOW Serial# 152EDE1D; IDNOW Serial# 16C4AD1C; Influenza B2 Negative (Negative)
--- NOTE | 2024-12-01 20:31 | PC.NURSE ---
pt a&ox4, respirations even and unlabored. pt reports x3 days of lower abdominal cramping, nausea, vomiting and diarrhea. pt reports poor po intake due to new medication she has started. pt denies cp and sob. 20g placed in left wrist. nsr on tele. pt given ua cup and hate for samples and pt was instructed on use. pt independent to the bathoom
[2024-12-01 20:59] LABS: Appearance Urine Clear; Glucose Urine UA Negative (Negative); PH 5.5 (5.0-9.0); Specific Gravity - Urine 1.020 (1.005-1.025); UMIC TRIGGER UACC YES
[2024-12-01] MEDS: iohexoL 350 MG/ML 100 ML INFUS..BTL 85 ML IV (21:29)
[2024-12-01 21:35] VITALS: RESP 18
[2024-12-01] MEDS: Lactated Ringers 1,000 ML 999 ML IV ×2 (21:35→22:14)
[2024-12-01 21:45] LABS: CDiff Gene PCR NEGATIVE (Negative)
[2024-12-01 23:32] VITALS: BP 118/51; PULSE 83; RESP 19; TEMP 36.6; O2SAT 98
[2024-12-02 01:14] VITALS: BP 101/61; PULSE 81; RESP 16; TEMP 36.5; O2SAT 98
[2024-12-02 09:25] LABS: E. coli EAEC Not Detected (Not Detect.); E. coli EPEC Not Detected (Not Detect.); E. coli ETEC Not Detected (Not Detect.); E. coli STEC Not Detected (Not Detect.); Shigella sp./EIEC Not Detected (Not Detect.)
== END 2024-12-02 01:15 | disposition home or self-care (01) ==
PROVIDERS: Registered Nurse Emergency; Emergency Provider Emergency Medicine; PCP Physician Assistant
DX: N39.0 Urinary tract infection, site not specified (principal); R11.2 Nausea with vomiting, unspecified; R19.7 Diarrhea, unspecified; R10.2 Pelvic and perineal pain; Z11.52 Encounter for screening for COVID-19; Z79.899 Other long term (current) drug therapy
CPT/HCPCS: 74177; 80053; 81001; 81003; 83735; 84702; 85025; 87493; 87502; 87507; 87635; 96361; 96374; 96375; 99284; 99285; J0737; J2270; J2405; J7120; Q9967

== ENCOUNTER → 2024-12-01 21:12 | Outpatient (BNV) | payer OTHER, SELFPAY | PROVIDERS: Emergency Provider Emergency Medicine; PCP Physician Assistant; Visit Provider Radiology Diagnostic Radiology | DX: K63.89 Other specified diseases of intestine (principal); Z90.49 Acquired absence of other specified parts of digestive tract; Z90.710 Acquired absence of both cervix and uterus | CPT/HCPCS: 74177 ==

== ENCOUNTER 2024-12-07 09:25 | Outpatient (AMB) | payer OTHER, SELFPAY ==
--- NOTE | 2024-12-07 09:28 | MHC.PC.OV ---
Vital Signs 12/07/24 09:29 Height 5 ft 3 in Weight 183 lb BMI 32.4 BP 110/70 Blood Pressure Location Lt brachial Position Sitting Pulse 97 Pulse Source Pulse Oximeter Pulse Oximetry (%) 97 Oxygen Delivery Method Room Air Intake Visit Reasons: anxiety Clother In Required: No Accompanied by: Self / Same As Patient Allergies NSAIDS (Non-Steroidal Anti-Inflamma (NSAIDS (NON-STEROIDAL ANTI-INFLAMMA) Allergy (Severe, Verified 12/07/24 09:32) BRONCHOSPASM aspirin (ASA) Allergy (Unknown, Verified 12/07/24 09:32) SHORTNESS OF BREATH ketorolac (From TORADOL) Allergy (Unknown, Verified 12/07/24 09:32) BRONCIAL SPASM vancomycin (VANCOMYCIN) Allergy (Unknown, Verified 12/07/24 09:32) RASH duloxetine (From Cymbalta) Adverse Reaction (Intermediate, Verified 12/07/24 09:32) paranoia gabapentin (From NEURONTIN) Adverse Reaction (Unknown, Verified 12/07/24 09:32) TINGLING IN L ARM Medication List - Last Reconciled 12/07/24 by Adali Blair PA-C cefuroxime axetil 250 mg PO BID cholecalciferol (vitamin D3) 50 mcg PO DAILY 90 days dicyclomine 10 mg PO BID PRN hyoscyamine sulfate 0.125 mg PO BID-QID PRN lisdexamfetamine (Vyvanse) 40 mg PO DAILY 28 days risankizumab-rzaa 600 mg IV Q4W tramadol 50 mg PO BID 7 days Tobacco use date assessed: 12/07/24 Dental Screening Dental Screen Date: 12/07/24 Did you have a dental visit in the last 12 months?: No Did you have a dental problem in the last 6 months where you did not have access to dental care?: No Was dental information given to patient?: No HPI anxiety HPI Details 39-year-old female with past medical history of Crohn's disease, fatty liver disease, generalized anxiety disorder, ADHD, depression, GERD, hypertension last seen by Mahamed 07/2024 coming in for acute problem. Presenting with acute anxiety and possible manic episode. She reports severe anxiety and fear upon waking, worsening over the past two weeks, with symptoms of forgetfulness and compulsive shopping. The patient denies depression but experiences nausea and restlessness, with a history of anxiety and bipolar disorder. She reports episodes of impulsivity and lack of sleep. She has previously been diagnosed with bipolar but has not had severe manic episodes in the past. She denies current self-harm thoughts but has a past history of such thoughts. She has been working on establishing care with Psychiatry. [facility] Medical History (Updated 12/07/24 @ 11:56 by Adali Blair PA-C) Bipolar disorder ADHD (attention deficit hyperactivity disorder) BMI 33.0-33.9,adult Obesity Crohn's colitis Asthma Screening for hypothyroidism Acute Crohn's disease Screening for hypothyroidism Screening for diabetes mellitus (DM) TMJ (dislocation of temporomandibular joint) Diarrhea Surgical History History of hysterectomy History of appendectomy History of colonoscopy Hx of endoscopy Family History Father Mental health disorder Mother Thyroid cancer Stomach cancer Substance use disorder Mental health disorder Family/Other Diabetes Social History Household Members: None Household Members Other:: mother and stepfather Housing: House Are you a primary career technical supervisor to a significant other at home: No Do you presently have visiting nurse or other home services: No Alcohol intake: current Alcohol intake frequency: holidays/special occasions only Alcohol type: hard liquor Patient Tobacco Use Status: Current everyday Tobacco user Tobacco use type: Smokeless Tobacco Cigarettes Per Day: 0.5 Years Smoked: 20 e-Cigarette/Vaping Use: Currently Using Second Hand Smoke Exposure: Yes Advance Directives Date on File: 07/28/20 service: No Current occupational status: employed Current occupation: [employer] Current occupational exposures/hazards: No Sexual orientation: Straight/Heterosexual Cognitive needs: No Hearing needs: No Vision needs: No Questionnaire Thrive Questionnaire Date Thrive assessed: 05/30/24 AUDIT C Alcohol Use Questionnaire (AUDIT-C) 1. How often do you have a drink containing alcohol?: 4 or more times a week 2. How many drinks containing alcohol do you have on a typical day when you are drinking?: 1 or 2 3. How often do you have six or more drinks on one occasion?: Monthly Total Score: 6 AVE-[address] - 7 assessed: 12/07/24 Feeling nervous, anxious, or on edge: 1 = Several days Not being able to stop or control worryin = Not at all Worrying too much about different things: 0 = Not at all Trouble relaxin = Nearly every day Being so restless that it is hard to sit still: 3 = Nearly every day Becoming easily annoyed or irritable: 0 = Not at all Feeling afraid as if something awful might happen: 0 = Not at all Total AVE-7 score (0-4 normal; 5-9 mild; 10-14 moderate; 15-21 severe): 7 Source: Developed by Drs. Simon Sow, Betzaida Jackson, Jean Lujan and colleagues, with an educational yanelis from [employer]. Review of Systems Const Denies body aches, Denies chills, Denies fever(s), Denies headache(s) and Denies poor appetite Eyes Reports no additional complaints ENT Denies dizziness and Denies headache(s) Card Denies chest pain, Denies lightheadedness and Denies dyspnea Resp Denies dyspnea Neuro Denies dizziness and Denies headache(s) Psych Reports as per HPI Physical exam (Primary Care) Vital Signs: Oxygen Delivery Method Room Air 12/07/24 09:29 BMI result Body Mass Index 32.4 Tobacco/Smoking Status: Tobacco use Status Tobacco use date assessed 05/30/24 08/02/24 13:10 Patient Tobacco Use Status Current everyday Tobacco 11/14/24 09:02 Tobacco use type Smokeless Tobacco 11/14/24 07:39 e-Cigarette/Vaping Use Currently Using 10/15/24 09:45 Thrive Assessment: Date of Thrive Assessment Date Thrive assessed 05/30/24 10/24/24 09:17 Const General: cooperative, healthy appearing, comfortable and no acute distress Orientation/consciousness: patient oriented x3 HENMT Head: Yes normocephalic Ears: hearing grossly normal bilaterally General nose exam: Normal external nose present Eyes General: appearance normal, both eyes and all related structures Conjunctivae: conjunctivae normal Neck Neck: Yes full ROM and Yes no lymphadenopathy Resp Effort & Inspection: normal respiratory effort Auscultation: clear to auscultation bilaterally, no crackles, no rales, no rhonchi and no wheezes Cardio Rate: regular rate Rhythm: regular rhythm Skin General skin exam: no rashes or lesions noted Neuro General: patient oriented x3 Gait exam (Neuro): Normal gait present Extrem General: Yes normal to inspection, Yes full ROM and No edema Psych Affect: normal affect Attitude: cooperative Insight: Good insight present (Psych) Judgement: Good judgement present (Psych) Coding Level of Care Code Est Pt Level 4 (45868) Diagnoses Bipolar disorder F31.9 Assessment & Plan Assessment & Plan (1) Bipolar disorder: Comment: Provisional; symptoms could be attributed to PTSD/Borderline traits Code(s): F31.9 - Bipolar disorder, unspecified Category: Medical Plan: I do believe this patient may be experiencing a manic episode related to her bipolar disorder. I consulted with Psychiatry provider Aure Diaz NP who recommened starting patient on olanzapine 10mg BID and Depakote ER started at 500mg at bedtime. An appointment will be made for Tuesday in the outpatient psych clinic for this patient to follow up with Aure. In the meantime during this episode I do advised patient to abstain from driving given impulsivity as well as lack of prescription lenses. Patient reports she does have reliable transportation and will abstain from driving. She is excuse from work today and maybe excused further if symptoms do not remain under control. She is given strict protocol on when to reach out to the office and when to present to the ED. I will be following closely with this patient's case until she can be established with Psychiatry. Medications: New divalproex ER (Depakote ER) 500 mg PO BEDTIME 14 tabs 0RF olanzapine 10 mg PO BID 28 tabs 0RF
[2024-12-07 09:29] VITALS: BP 110/70; PULSE 97; O2SAT 97; BMI 32.4
== END 2024-12-07 11:03 | disposition home or self-care (01) ==
LOC: HO.HMCH 09:25
PROVIDERS: PCP Physician Assistant
DX: F31.9 Bipolar disorder, unspecified (principal)

== ENCOUNTER → 2024-12-07 09:25 | Outpatient (BNVA) | payer OTHER, SELFPAY | PROVIDERS: PCP Physician Assistant | DX: R11.0 Nausea (principal); F41.9 Anxiety disorder, unspecified; R45.1 Restlessness and agitation; F31.9 Bipolar disorder, unspecified | CPT/HCPCS: 99212 ==

== ENCOUNTER 2024-12-13 12:40 | Outpatient (AMB) | payer OTHER, SELFPAY ==
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
== END 2024-12-13 13:41 | disposition home or self-care (01) ==
LOC: HO.HOP 12:40
PROVIDERS: PCP Physician Assistant; Visit Provider Clinical Nurse Specialist Psychiatric/Mental Health, Adult
DX: F31.9 Bipolar disorder, unspecified (principal); F90.2 Attention-deficit hyperactivity disorder, combined type; F43.12 Post-traumatic stress disorder, chronic
CPT/HCPCS: 90792

== ENCOUNTER → 2024-12-13 12:40 | Outpatient (BNVA) | payer OTHER, SELFPAY | PROVIDERS: PCP Physician Assistant; Visit Provider Clinical Nurse Specialist Psychiatric/Mental Health, Adult | DX: F43.12 Post-traumatic stress disorder, chronic (principal); F90.2 Attention-deficit hyperactivity disorder, combined type; F31.9 Bipolar disorder, unspecified | CPT/HCPCS: 90792 ==

== ENCOUNTER 2024-12-18 12:49 | Outpatient (REF) | payer OTHER, SELFPAY ==
[2024-12-18 13:03] LABS: MANUAL DIFF FLAG NO
[2024-12-18 14:03] LABS: Hematocrit 38.1 % (37.0-47.0); Hemoglobin 12.8 g/dl (12.0-16.0); Imm Gran Abs Auto 0.01 X10*3/uL (0.00-0.03); Imm Gran Pct Auto 0.2 % (0.0-0.4); Lymphocytes Absolute Auto 2.0 X10*3/uL (1.2-4.9); Mean Corpuscular HGB Conc 33.6 g/dl (31.0-35.0); Mean Corpuscular Hemoglobin 30.3 pg (27.0-33.0); Mean Corpuscular Volume 90.3 fL (80.0-98.0); NRBC Abs Auto 0.000 X10*3/uL (0.0-0.012); NRBC Pct Auto 0.0 /100WBC (0.0-0.2); Platelet Count 246 X10*3/uL (160-400); Red Blood Count 4.22 X10*6/uL (4.20-5.50); White Blood Count 5.2 X10*3/uL (4.8-10.8)
[2024-12-18 14:39] LABS: Alanine Aminotransferase 42 U/L (0-31); Albumin Level 4.2 g/dL (3.5-5.0); Alkaline Phosphatase 75 U/L (39-117); Anion Gap 11 (12-20); Aspartate Amino Transferase 24 U/L (5-31); Blood Urea Nitrogen 11 mg/dL (9-16); Calcium 9.4 mg/dL (8.4-10.2); Carbon Dioxide 24 mmol/L (22-29); Chloride 113 mmol/L (96-108); Estimated Glomerular Filt Rate > 60; Potassium 3.8 mmol/L (3.3-5.1); Sodium 144 mmol/L (135-145); Total Protein 6.6 g/dL (6.5-8.0)
== END 2024-12-18 12:50 | disposition home or self-care (01) ==
LOC: HO.LAB 12:49
PROVIDERS: PCP Physician Assistant; Visit Provider Clinical Nurse Specialist Psychiatric/Mental Health, Adult
DX: F31.9 Bipolar disorder, unspecified (principal)
CPT/HCPCS: 36415; 80053; 80164; 85025

== ENCOUNTER 2024-12-20 13:56 | Outpatient (AMB) | payer OTHER, SELFPAY ==
--- NOTE | 2024-12-20 14:07 | MHC.OFFVISPS ---
Intake Intake Visit Reasons: follow up Allergies NSAIDS (Non-Steroidal Anti-Inflamma (NSAIDS (NON-STEROIDAL ANTI-INFLAMMA) Allergy (Severe, Verified 12/07/24 09:32) BRONCHOSPASM aspirin (ASA) Allergy (Unknown, Verified 12/07/24 09:32) SHORTNESS OF BREATH ketorolac (From TORADOL) Allergy (Unknown, Verified 12/07/24 09:32) BRONCIAL SPASM vancomycin (VANCOMYCIN) Allergy (Unknown, Verified 12/07/24 09:32) RASH duloxetine (From Cymbalta) Adverse Reaction (Intermediate, Verified 12/07/24 09:32) paranoia gabapentin (From NEURONTIN) Adverse Reaction (Unknown, Verified 12/07/24 09:32) TINGLING IN L ARM Medication List - Last Reconciled 12/20/24 by Nela Diaz APRN cholecalciferol (vitamin D3) 50 mcg PO DAILY 90 days divalproex ER (Depakote ER) 1,000 mg (2 x 500 mg) PO DAILY hyoscyamine sulfate 0.125 mg PO BID-QID PRN lisdexamfetamine (Vyvanse) 60 mg PO DAILY lorazepam 0.5 mg PO BID PRN 5 days quetiapine (Seroquel) 100 mg PO BEDTIME risankizumab-rzaa 600 mg IV Q4W tramadol 50 mg PO BID 7 days HPI- Psychiatric Chief Complaint: follow up HPI Narrative: Pt reports some improvement in mood. On medical LAZARO during recovery. Tolerating medication regime without severe adverse SE. Sedation is present at times. Preparing to return to work, concerned about cycling which she now discusses that she has done by history. Sx of gem have decreased. Denies SI,HI,AH,VH. Sleep is beginning to regulate. Discussed her work schedule and planning a return when recovered. Discussed what treatment issues may need to be addressed prior to return. Discussed out pt history. Pt has worked with Dr. Otf Vizcarra for several years. We discussed having her reach out to his team to discuss return as pt is aware they are accepting new patients. Subjective Subjective Subjective Medication Compliance: Yes Side effects from medications: Yes (sedation at times) Review of Systems Medical Review of Systems: unchanged Review of Systems Review of Systems Sedation at times from medicine Sleep is still regulating Mental Status Exam Mental Status Exam Patient Appearance: Appropriate Patient Orientation: Person, Place, Time and Situation Level of Consciousness: Alert Patient Behavior: Talkative and Good Eye Contact Mood Description: Anxious and Expansive Affect Description: Anxious and Expansive Patient Cognition Impaired: No Ability to Follow Directions: Good Speech Pattern: Spontaneous Speech Memory Description: Intact Hallucinations: None Delusions: Not Present Thought Process: Rumination Thought Content: positive for Circumstantial, positive for Perseveration and positive for Suicidal Ideation (denies) Depressive Symptoms: Increased Anxiety Judgement: Fair Assessment and Plan Assessment & Plan (1) ADHD (attention deficit hyperactivity disorder): Status: Acute Qualifiers: Attention deficit-hyperactivity disorder type: combined inattentive-hyperactive Qualified Code(s): F90.2 - Attention-deficit hyperactivity disorder, combined type Code(s): F90.9 - Attention-deficit hyperactivity disorder, unspecified type (2) Bipolar disorder: Status: Acute Code(s): F31.9 - Bipolar disorder, unspecified (3) Chronic post-traumatic stress disorder (PTSD): Status: Acute Code(s): F43.12 - Post-traumatic stress disorder, chronic Plan Pt reports some improvement in mood. On medical LAZARO during recovery. Tolerating medication regime without severe adverse SE. Sedation is present at times. Preparing to return to work, concerned about cycling which she now discusses that she has done by history. Sx of gem have decreased. Denies SI,HI,AH,VH. Sleep is beginning to regulate. Discussed her work schedule and planning a return when recovered. Discussed what treatment issues may need to be addressed prior to return. Discussed out pt history. Pt has worked with Dr. Otf Vizcarra for several years. We discussed having her reach out to his team to discuss return as pt is aware they are accepting new patients. Gem is resolving. Depakote, Seroquel, Vyvanse to continue. Medications: New quetiapine (Seroquel) 25 mg PO BID PRN 60 tabs 0RF anxiety, agitation Changed From divalproex ER 1,000 mg (2 x 500 mg) PO DAILY 14 tabs 0RF To divalproex ER (Depakote ER) 1,000 mg (2 x 500 mg) PO DAILY 60 tabs 0RF Refilled lisdexamfetamine (Vyvanse) Partial Fill upon patient request. 60 mg PO DAILY 30 caps 0RF quetiapine (Seroquel) 100 mg PO BEDTIME 30 tabs 0RF Counseling and coordination of Care Medication management counseling: Effectiveness, Side effects, Dosing range, Duration, Drug interaction and Adherence Diagnosis and Prognosis Counseling: Impact of diagnosis on life functions, Problematic behaviors secondary to diagnosis and Adequacy of current interventions Details: I spent [] minutes reviewing the record, seeing the patient and documenting in the medical record. Counseling provided to the patient/caregiver as outlined below. Addressed patient/caregiver concerns regarding current medication regime including effective adherence. Addressed patient/caregiver concerns regarding diagnosis and prognosis including accuracy of diagnosis, prognosis over time, impact of diagnosis. Addressed patient/caregiver concerns regarding impact of recent stressors. [facility] Medical History Bipolar disorder ADHD (attention deficit hyperactivity disorder) BMI 33.0-33.9,adult Obesity Crohn's colitis Asthma Screening for hypothyroidism Acute Crohn's disease Screening for hypothyroidism Screening for diabetes mellitus (DM) TMJ (dislocation of temporomandibular joint) Diarrhea Surgical History History of hysterectomy History of appendectomy History of colonoscopy Hx of endoscopy Family History Father Mental health disorder Mother Thyroid cancer Stomach cancer Substance use disorder Mental health disorder Family/Other Diabetes Social History Household Members: None Household Members Other:: mother and stepfather Housing: House Are you a primary home care music therapist to a significant other at home: No Do you presently have visiting nurse or other home services: No Alcohol intake: current Alcohol intake frequency: holidays/special occasions only Alcohol type: hard liquor Patient Tobacco Use Status: Current everyday Tobacco user Tobacco use type: Smokeless Tobacco Cigarettes Per Day: 0.5 Years Smoked: 20 e-Cigarette/Vaping Use: Currently Using Second Hand Smoke Exposure: Yes Advance Directives Date on File: 07/28/20 service: No Current occupational status: employed Current occupation: [employer] Current occupational exposures/hazards: No Sexual orientation: Straight/Heterosexual Cognitive needs: No Hearing needs: No Vision needs: No Coding Level of Care Code Est Pt Level 3 (80385) Diagnoses Attention deficit hyperactivity disorder (ADHD), combined type F90.2 Attention deficit-hyperactivity disorder type: combined inattentive-hyperactive Bipolar disorder F31.9 Chronic post-traumatic stress disorder (PTSD) F43.12
== END 2024-12-20 14:45 | disposition home or self-care (01) ==
LOC: HO.HOP 13:56
PROVIDERS: PCP Physician Assistant; Visit Provider Clinical Nurse Specialist Psychiatric/Mental Health, Adult
DX: F90.2 Attention-deficit hyperactivity disorder, combined type (principal); F31.9 Bipolar disorder, unspecified; F43.12 Post-traumatic stress disorder, chronic
CPT/HCPCS: 99213

== ENCOUNTER 2025-01-09 12:54 | Outpatient (AMB) | payer OTHER, SELFPAY ==
--- NOTE | 2025-01-11 10:39 | A.OFFPSYCH_ITS ---
Intake Intake Visit Reasons: f/u consultation Placement Secretary Required: No Allergies NSAIDS (Non-Steroidal Anti-Inflamma (NSAIDS (NON-STEROIDAL ANTI-INFLAMMA) Allergy (Severe, Verified 12/07/24 09:32) BRONCHOSPASM aspirin (ASA) Allergy (Unknown, Verified 12/07/24 09:32) SHORTNESS OF BREATH ketorolac (From TORADOL) Allergy (Unknown, Verified 12/07/24 09:32) BRONCIAL SPASM vancomycin (VANCOMYCIN) Allergy (Unknown, Verified 12/07/24 09:32) RASH duloxetine (From Cymbalta) Adverse Reaction (Intermediate, Verified 12/07/24 09:32) paranoia gabapentin (From NEURONTIN) Adverse Reaction (Unknown, Verified 12/07/24 09:32) TINGLING IN L ARM Medication List - Last Reconciled 01/11/25 by Nela Diaz APRN cariprazine (Vraylar) 3 mg PO DAILY cholecalciferol (vitamin D3) 50 mcg PO DAILY 90 days divalproex ER (Depakote ER) 1,000 mg (2 x 500 mg) PO DAILY hyoscyamine sulfate 0.125 mg PO BID-QID PRN lisdexamfetamine (Vyvanse) 60 mg PO DAILY quetiapine (Seroquel) 100 mg PO BEDTIME quetiapine (Seroquel) 25 mg PO BID PRN risankizumab-rzaa 600 mg IV Q4W tramadol 50 mg PO BID 7 days HPI- Psychiatric Chief Complaint: f/u consultation Intake Note: appt 01/09/25 HPI Narrative: Pt reports an increase in depressive sx, tearful during our meeting. Reports medicine compliance. Not needing prn Seroquel at this time however would like to have this available as needed which we will keep. Denies SI,HI,AH, VH. Sleep and appetite are decreased. Discussed concerns. I feel numb . Worried about her job, income, rent. Plans to meet with her HR rep this afternoon. No family resources for assistance at this time. Also reports severe hot flashes. Discussed and reviewed regime. Will add Vraylar 3 mg daily. Discussed need for increase in treatment-will ask Chen CUIREL if a [facility] referral can be made as well as [facility] for eval of current sx report of hot flashes. Subjective Subjective Medication Compliance: Yes Side effects from medications: No Review of Systems Medical Review of Systems: changed (reports hot flashes) Mental Status Exam Mental Status Exam Patient Appearance: Fatigued Patient Orientation: Person, Place, Time and Situation Level of Consciousness: Alert Patient Behavior: Talkative, Anxious, Fearful and Crying Mood Description: Depressed Affect Description: Flat Patient Cognition Impaired: No Ability to Follow Directions: Good Speech Pattern: Spontaneous Speech Memory Description: Intact Hallucinations: None Delusions: Not Present Thought Process: Rumination Thought Content: positive for Circumstantial, positive for Perseveration and positive for Suicidal Ideation (denies) Depressive Symptoms: Increased Anxiety, Difficulty Sleeping, Feelings of Worthlessness, Isolating-Friends/Family, Increased Fatigue and Loss of Energy Judgement: Good Assessment and Plan Assessment & Plan (1) ADHD (attention deficit hyperactivity disorder): Status: Acute Qualifiers: Attention deficit-hyperactivity disorder type: combined inattentive- hyperactive Qualified Code(s): F90.2 - Attention-deficit hyperactivity disorder, combined type Code(s): F90.9 - Attention-deficit hyperactivity disorder, unspecified type (2) AVE (generalized anxiety disorder): Status: Acute Code(s): F41.1 - Generalized anxiety disorder (3) Bipolar disorder: Status: Acute Code(s): F31.9 - Bipolar disorder, unspecified (4) Chronic post-traumatic stress disorder (PTSD): Status: Acute Code(s): F43.12 - Post-traumatic stress disorder, chronic Plan Increase in depressive symptoms today. Plan: Referral to [facility] for eval of hot flashes Referral to [facility] Follow up in one week Continue Valproate, Seroquel Begin Vraylar 3 mg a.m. Medications: New cariprazine (Vraylar) 3 mg PO DAILY 14 caps 0RF Orders: Orders Valproate 01/09/25 F31.9 - Bipolar disorder, unspecified Counseling and coordination of Care Medication management counseling: Effectiveness, Side effects, Dosing range, Duration, Drug interaction and Adherence Diagnosis and Prognosis Counseling: Impact of diagnosis on life functions, Problematic behaviors secondary to diagnosis and Adequacy of current interventions Details: I spent [] minutes reviewing the record, seeing the patient and documenting in the medical record. Counseling provided to the patient/caregiver as outlined below. Addressed patient/caregiver concerns regarding current medication regime including effective adherence. Addressed patient/caregiver concerns regarding diagnosis and prognosis including accuracy of diagnosis, prognosis over time, impact of diagnosis. Addressed patient/caregiver concerns regarding impact of recent stressors. [facility] Medical History Bipolar disorder ADHD (attention deficit hyperactivity disorder) BMI 33.0-33.9,adult Obesity Crohn's colitis Asthma Screening for hypothyroidism Acute Crohn's disease Screening for hypothyroidism Screening for diabetes mellitus (DM) TMJ (dislocation of temporomandibular joint) Diarrhea Surgical History History of hysterectomy History of appendectomy History of colonoscopy Hx of endoscopy Family History Father Mental health disorder Mother Thyroid cancer Stomach cancer Substance use disorder Mental health disorder Family/Other Diabetes Social History Household Members: None Household Members Other:: mother and stepfather Housing: House Are you a primary caretaker resort to a significant other at home: No Do you presently have visiting nurse or other home services: No Alcohol intake: current Alcohol intake frequency: holidays/special occasions only Alcohol type: hard liquor Patient Tobacco Use Status: Current everyday Tobacco user Tobacco use type: Smokeless Tobacco Cigarettes Per Day: 0.5 Years Smoked: 20 e-Cigarette/Vaping Use: Currently Using Second Hand Smoke Exposure: Yes Advance Directives Date on File: 07/28/20 service: No Current occupational status: employed Current occupation: [employer] Current occupational exposures/hazards: No Sexual orientation: Straight/Heterosexual Cognitive needs: No Hearing needs: No Vision needs: No Coding Level of Care Code Est Pt Level 3 (09747) Diagnoses Attention deficit hyperactivity disorder (ADHD), combined type F90.2 Attention deficit-hyperactivity disorder type: combined inattentive- hyperactive AVE (generalized anxiety disorder) F41.1 Bipolar disorder F31.9 Chronic post-traumatic stress disorder (PTSD) F43.12
== END 2025-01-09 13:32 | disposition home or self-care (01) ==
LOC: HO.HOP 12:54
PROVIDERS: PCP Physician Assistant; Visit Provider Clinical Nurse Specialist Psychiatric/Mental Health, Adult
DX: F90.2 Attention-deficit hyperactivity disorder, combined type (principal); F41.1 Generalized anxiety disorder; F31.9 Bipolar disorder, unspecified; F43.12 Post-traumatic stress disorder, chronic
CPT/HCPCS: 99213

== ENCOUNTER 2025-01-13 20:08 | Emergency (ER) | payer OTHER, SELFPAY ==
[2025-01-13 20:42] VITALS: BP 141/86; PULSE 113; RESP 18; TEMP 36.6; O2SAT 96; BMI 33.8
--- NOTE | 2025-01-13 20:46 | ED.GENADULT ---
HPI - General Adult General Chief complaint: Abdominal Pain Stated complaint: crohn's issue Time Seen by Provider: 01/13/25 23:41 Source: patient Mode of arrival: ambulatory Limitations: no limitations History of Present Illness ED Provider: Dr. Kendra Nolen HPI narrative: 39-year-old female with a history Crohn's disease on Skyrizi, hypertension, GERD, MDD, presenting with abdominal pain, cramping, burning rectal pain and feeling overwhelmed and helpless, feeling that she is in a Crohn's flare today. Admits that she missed her last dose of Skyrizi due to a in the family and since that time has had worsening pain. She is supposed to have the injection this week but feels that her symptoms are worsening to the point where she can not tolerate it anymore. Feels that she needs steroids. This happens when she has flares. Denies associated fever, vomiting, urinary complaints. Has been feeling overwhelmed with her disease and is to the point where she is ready for a colostomy bag. She is tearful as she describes difficulty having relationships and even leaving the house due to diarrhea and pain. Denies suicidal ideation. Related Data Home Medications ?Medication ?Instructions ?Recorded ?Confirmed risankizumab-rzaa 60 mg/mL 600 mg IV Q4W 10/14/24 01/11/25 intravenous solution Previous Rx's ?Medication ?Instructions ?Recorded hyoscyamine sulfate 0.125 mg 0.125 mg PO BID-QID PRN dyspepsia 11/26/24 disintegrating tablet #60 tabs cholecalciferol (vitamin D3) 50 50 mcg PO DAILY 90 days #90 caps 12/04/24 mcg (2,000 unit) capsule divalproex 500 mg tablet,extended 1,000 mg (2 x 500 mg) PO DAILY #60 12/20/24 release 24 hr (Depakote ER) tabs lisdexamfetamine 60 mg capsule 60 mg PO DAILY #30 caps 12/20/24 (Vyvanse) quetiapine 100 mg tablet (Seroquel) 100 mg PO BEDTIME #30 tabs 12/20/24 quetiapine 25 mg tablet (Seroquel) 25 mg PO BID PRN anxiety, 12/20/24 agitation #60 tabs cariprazine 3 mg capsule (Vraylar) 3 mg PO DAILY #14 caps 01/09/25 tramadol 50 mg tablet 50 mg PO BID pain 7 days #14 tabs 01/09/25 hydrocodone 5 mg-acetaminophen 325 1 tab PO Q6H PRN severe pain 01/14/25 mg tablet (scale score 7-10) 3 days #10 tabs prednisone 50 mg tablet 50 mg PO DAILY 10 days #10 tabs 01/14/25 Allergies Allergy/AdvReac Type Severity Reaction Status Date / Time NSAIDS (Non-Steroidal Allergy Severe BRONCHOSPAS Verified 01/13/25 20:45 Anti-Inflamma (NSAIDS M (NON-STEROIDAL ANTI-INFLAMMA) aspirin (ASA) Allergy Unknown SHORTNESS Verified 01/13/25 20:45 OF BREATH ketorolac (From TORADOL) Allergy Unknown BRONCIAL Verified 01/13/25 20:45 SPASM vancomycin (VANCOMYCIN) Allergy Unknown RASH Verified 01/13/25 20:45 duloxetine (From Cymbalta) AdvReac Intermediate paranoia Verified 01/13/25 20:45 gabapentin (From NEURONTIN) AdvReac Unknown TINGLING Verified 01/13/25 20:45 IN L ARM Review of Systems Review of Systems: as per HPI, full review of systems performed and negative but for the above mentioned pertinent positives and negatives. [facility] Past Medical History Medical History Bipolar disorder ADHD (attention deficit hyperactivity disorder) BMI 33.0-33.9,adult Obesity Crohn's colitis Asthma Screening for hypothyroidism Acute Crohn's disease Screening for hypothyroidism Screening for diabetes mellitus (DM) TMJ (dislocation of temporomandibular joint) Diarrhea Surgical History History of hysterectomy History of appendectomy History of colonoscopy Hx of endoscopy Family History Family History Father Mental health disorder Mother Thyroid cancer Stomach cancer Substance use disorder Mental health disorder Family/Other Diabetes Social History Social History Household Members: None Household Members Other:: mother and stepfather Housing: House Are you a primary child care cook to a significant other at home: No Do you presently have visiting nurse or other home services: No Alcohol intake: current Alcohol intake frequency: holidays/special occasions only Alcohol type: hard liquor Patient Tobacco Use Status: Current everyday Tobacco user Tobacco use type: Smokeless Tobacco Cigarettes Per Day: 0.5 Years Smoked: 20 e-Cigarette/Vaping Use: Currently Using Second Hand Smoke Exposure: Yes Advance Directives Date on File: 07/28/20 service: No Current occupational status: employed Current occupation: [employer] Current occupational exposures/hazards: No Sexual orientation: Straight/Heterosexual Cognitive needs: No Hearing needs: No Vision needs: No Physical Exam ED Exam Exam: GENERAL: Anxious, tearful. SKIN: Normal skin color for ethnicity, warm, dry, intact, no rashes noted. HEENT: Normocephalic, atraumatic, no stridor, posterior oropharynx nonerythematous, dentition intact, EOMI. NECK: Soft, supple, full ROM, midline structures nontender, no step-offs, no deformities, no lymphadenopathy. CHEST: Heart regular tachycardia, no murmurs, symmetric chest rise and fall, no crepitus. PULMONARY: Clear to auscultation bilaterally, no labored breathing, no wheezes/rhales/ rhonchi. ABDOMINAL: Softly distended, diffusely tender to palpation with voluntary guarding, positive bowel sounds in all quadrants. : Deferred. MUSCULOSKELETAL: Normal tone, full range of motion, no deformities, no peripheral edema. NEURO: Alert and oriented x3, CN II through XII intact, equal strength and sensation bilateral upper and lower extremities, no focal neurologic deficits. PSYCHIATRIC: Anxious affect, tearful, fluid speech, good eye contact and appropriate demeanor. Vital Signs: Vital Signs - 24 hr 01/13/25 20:42 01/13/25 21:00 01/14/25 02:16 Temperature 97.9 F 98.4 F 98 F Pulse Rate 113 H 109 H 97 Respiratory Rate 18 18 18 Blood Pressure 141/86 H 138/81 161/91 H Pulse Oximetry 96 97 98 Oxygen Delivery Method Room Air Room Air Room Air 01/14/25 03:17 Temperature 98 F Pulse Rate 97 Respiratory Rate 18 Blood Pressure 161/91 H Pulse Oximetry 98 Oxygen Delivery Method Room Air BMI result Body Mass Index 33.8 Course Course Course Narrative: RME: 39 yold female with pmh of crohn's presents to the ED for abdominal pain and diarrhea for the past 3 days. Patient believes she is having a Crohn's flare-up and needs IV steroids. Patient denies any blood in his stool. Medications Administered Discontinued Medications Generic Name Dose Route Start Last Admin Trade Name Juan PRN Reason Stop Dose Admin Hydromorphone HCl 1 mg 01/14/25 00:00 01/14/25 01:11 Hydromorphone Hcl 1 Mg/Ml Syringe IVPUSH 01/14/25 00:01 1 mg ONCE ONE Administration Protocol Lactated Ringer's 1,000 mls @ 999 mls/hr 01/14/25 00:00 01/14/25 03:08 Lr IV 01/14/25 01:00 Infused .Q1H1M ONE Infusion Methylprednisolone Sodium Succinate 125 mg 01/14/25 00:00 01/14/25 01:12 Methylprednisolone Sod Succ 125 Mg/2 Ml Vial IVPUSH 01/14/25 00:01 125 mg ONCE ONE Administration Ondansetron HCl 4 mg 01/14/25 00:00 01/14/25 01:12 Ondansetron Hcl 4 Mg/2 Ml Vial IVPUSH 01/14/25 00:01 4 mg ONCE ONE Administration Medical Decision Making Medical Decision Making [facility] Narrative: Patient presents today with a chief complaint of acute diarrhea severe abdominal pain. Differential diagnosis includes Crohn's flare enteritis, colitis such as ischemic or C diff, bacterial or viral diarrhea, GI bleed, hypovolemia, among others. Patient is having abdominal pain. Patient has not had recent antibiotics. Blood work is reassuring. Her vital signs have normalized with treatment. She has an appointment with Gastroenterology and for her Skyrizi infusion this week. Plan for discharge home, burst of steroids, outpatient follow up with GI. Patient understands and agrees with plan for discharge. Discharged home in stable condition. Differential Diagnosis Differential Diagnoses: The differential diagnosis associated with the presentation includes (As above) Admission/Observation Consideration of admission/observation: Escalation of care including admission/observation considered Lab Data [facility] Lab Attestation statement: I reviewed the patient's lab results. 01/13/25 20:51 01/13/25 20:51 Labs: Lab Results 01/13/25 01/13/25 Range/Units 20:51 21:33 WBC 7.0 (4.8-10.8) X10*3/uL RBC 4.45 (4.20-5.50) X10*6/uL Hgb 13.2 (12.0-16.0) g/dl Hct 38.6 (37.0-47.0) % MCV 86.7 (80.0-98.0) fL MCH 29.7 (27.0-33.0) pg MCHC 34.2 (31.0-35.0) g/dl RDW 13.2 (11.0-16.0) % Plt Count 234 (160-400) X10*3/uL MPV 9.3 L (9.4-12.3) fL Immature Gran % (Auto) 0.1 (0.0-0.4) % Neut % (Auto) 44.2 L (45-73) % Lymph % (Auto) 48.8 H (20-40) % Mccone % (Auto) 4.6 (2-11) % Eos % (Auto) 1.9 (0-4) % Baso % (Auto) 0.4 (0-2) % Lymph # (Auto) 3.4 (1.2-4.9) X10*3/uL [place]one # (Auto) 0.3 (0.1-1.2) X10*3/uL Eos # (Auto) 0.1 (0.0-0.4) X10*3/uL Baso # (Auto) 0.0 (0.0-0.2) X10*3/uL Abs Immat Gran (auto) 0.01 (0.00-0.03) X10*3/uL Absolute Neuts (auto) 3.1 (2.0-8.3) x10*3/uL Absolute Nucleated RBC 0.000 (0.0-0.012) X10*3/uL Nucleated RBC % (auto) 0.0 (0.0-0.2) /100WBC Sodium 145 (135-145) mmol/L Potassium 4.1 (3.3-5.1) mmol/L Chloride 114 H (96-108) mmol/L Carbon Dioxide 20 L (22-29) mmol/L Anion Gap 15 (12-20) BUN 8 L (9-16) mg/dL Creatinine 0.88 (0.5-1.4) mg/dL Estim Creat Clear Calc 89.5 Estimated GFR > 60 Random Glucose 106 (60-115) mg/dL Calcium 9.0 (8.4-10.2) mg/dL Total Bilirubin 0.3 (0.0-1.0) mg/dL AST 69 H (5-31) U/L ALT 101 H (0-31) U/L Alkaline Phosphatase 131 H (39-117) U/L Total Protein 7.2 (6.5-8.0) g/dL Albumin 4.6 (3.5-5.0) g/dL Lipase 22 (8-78) U/L Beta HCG, Quant < 2 mIU/mL Urine Color Yellow Urine Appearance Clear Urine pH 8.5 (5.0-9.0) Ur Specific [place] 1.015 (1.005-1.025) Urine Protein Negative (Neg-Trace) mg/dL Urine Glucose (UA) Negative (Negative) mg/dL Urine Ketones Negative (Negative) mg/dL Urine Blood Small (1+) H (Negative) Urine Nitrite Negative (Negative) Ur Leukocyte Esterase Negative (Negative) Urine RBC 6-10 H (0-2) /HPF Urine WBC 0-5 (0-5) /HPF Ur Squamous Epith Cells 0-2 (0-2) /HPF Urine Bacteria None Seen (None Seen) Hyaline Casts 0-2 (0-2) /LPF Influenza Type A (PCR) NEGATIVE (Negative) Influenza Type B (PCR) NEGATIVE (Negative) RSV RNA Qual (PCR) NEGATIVE (Negative) SARS-CoV-2 RNA (RT-PCR) NEGATIVE (Negative) External Record Review External record reviewed: Inpatient record Prescription Management I considered prescription management with: Pain Medication and Other (Steroids) Chronic Conditions Patient?s care impacted by: Hypertension and Other (Crohn's disease) Discharge Plan Discharge Clinical Impression: Crohn's colitis, Nausea & vomiting Patient Disposition: Home, Self-Care Instructions: Crohn Disease (ED) Additional Instructions: Take prednisone daily until you see your GI specialist or until you get your next Crohn's infusion. Return to the emergency department immediately with any new or worsening symptoms including: Fevers greater than 100?, worsening abdominal pain or diarrhea with blood despite medications, any new symptom that concerns you. Prescriptions: New hydrocodone-acetaminophen 5-325 mg tablet 1 tab PO Q6H PRN (Reason: severe pain (scale score 7-10)) 3 Days Qty: 10 0RF Rx Instructions: Partial Fill upon patient request. prednisone 50 mg tablet 50 mg PO DAILY 10 Days Qty: 10 0RF No Action cholecalciferol (vitamin D3) 50 mcg (2,000 unit) capsule 50 mcg PO DAILY 90 Days Qty: 90 1RF tramadol 50 mg tablet 50 mg PO BID 7 Days Qty: 14 0RF risankizumab-rzaa 60 mg/mL Solution 600 mg IV Q4W Rx Instructions: administer at weeks 0, 4, and 8 of treatment hyoscyamine sulfate 0.125 mg tablet,disintegrating 0.125 mg PO BID-QID PRN (Reason: dyspepsia) Qty: 60 2RF divalproex [Depakote ER] 500 mg tablet extended release 24 hr 1,000 mg PO DAILY Qty: 60 0RF lisdexamfetamine [Vyvanse] 60 mg capsule 60 mg PO DAILY Qty: 30 0RF Rx Instructions: Partial Fill upon patient request. quetiapine [Seroquel] 100 mg tablet 100 mg PO BEDTIME Qty: 30 0RF quetiapine [Seroquel] 25 mg tablet 25 mg PO BID PRN (Reason: anxiety, agitation) Qty: 60 0RF Vraylar 3 mg capsule 3 mg PO DAILY Qty: 14 0RF Interventions: ED Discharge Assessment Last Done: 01/14/25 03:17 Discharge Date/Time: 01/14/25 03:19 Print Language: Malawian
[2025-01-13 20:56] LABS: MANUAL DIFF FLAG NO
[2025-01-13 20:57] LABS: Hematocrit 38.6 % (37.0-47.0); Hemoglobin 13.2 g/dl (12.0-16.0); Imm Gran Abs Auto 0.01 X10*3/uL (0.00-0.03); Imm Gran Pct Auto 0.1 % (0.0-0.4); Lymphocytes Absolute Auto 3.4 X10*3/uL (1.2-4.9); Mean Corpuscular HGB Conc 34.2 g/dl (31.0-35.0); Mean Corpuscular Hemoglobin 29.7 pg (27.0-33.0); Mean Corpuscular Volume 86.7 fL (80.0-98.0); NRBC Abs Auto 0.000 X10*3/uL (0.0-0.012); NRBC Pct Auto 0.0 /100WBC (0.0-0.2); Platelet Count 234 X10*3/uL (160-400); Red Blood Count 4.45 X10*6/uL (4.20-5.50); White Blood Count 7.0 X10*3/uL (4.8-10.8)
[2025-01-13 21:00] VITALS: BP 138/81; PULSE 109; RESP 18; TEMP 36.9; O2SAT 97
[2025-01-13 21:19] LABS: Alanine Aminotransferase 101 U/L (0-31); Albumin Level 4.6 g/dL (3.5-5.0); Alkaline Phosphatase 131 U/L (39-117); Anion Gap 15 (12-20); Aspartate Amino Transferase 69 U/L (5-31); Blood Urea Nitrogen 8 mg/dL (9-16); Calcium 9.0 mg/dL (8.4-10.2); Carbon Dioxide 20 mmol/L (22-29); Chloride 114 mmol/L (96-108); Creatinine Clr Calc Pharmacy 89.5; Estimated Glomerular Filt Rate > 60; Lipase 22 U/L (8-78); Potassium 4.1 mmol/L (3.3-5.1); Sodium 145 mmol/L (135-145); Total Protein 7.2 g/dL (6.5-8.0)
--- NOTE | 2025-01-13 21:29 | PC.NURSE ---
pt with hx of Crohn's disease feels she ay be having a flare up, pt missed her skirizi infusion dose last week due to in family and is rescheduled for it tomorrow. Pt reports abdominal pain and intense pain in rectum. she feels a lot of pressure in her rectum, loose stools and urgency to use bathroom x2 days. loss of appetite.
[2025-01-13 21:33] LABS: Resp Syncy Virus RNA Qual PCR NEGATIVE (Negative); SARS COV2 PCR INHOUSE NEGATIVE (Negative)
[2025-01-13 21:42] LABS: Appearance Urine Clear; Glucose Urine UA Negative (Negative); PH 8.5 (5.0-9.0); Specific Gravity - Urine 1.015 (1.005-1.025); UMIC TRIGGER UACC YES
--- NOTE | 2025-01-14 00:53 | PC.NURSE ---
Hard stick. awaiting IV placement for medication administration.
[2025-01-14] MEDS: Lactated Ringers 1,000 ML 999 ML IV (01:06)
[2025-01-14 02:16] VITALS: BP 161/91; PULSE 97; RESP 18; TEMP 36.6; O2SAT 98
[2025-01-14 03:17] VITALS: BP 161/91; PULSE 97; RESP 18; TEMP 36.6; O2SAT 98
== END 2025-01-14 03:19 | disposition home or self-care (01) ==
PROVIDERS: Physician Assistant; Emergency Provider Emergency Medicine; PCP Physician Assistant
DX: K50.10 Crohn's disease of large intestine without complications (principal); R11.2 Nausea with vomiting, unspecified; R10.22 Pelvic and perineal pain left side; Z03.818 Encounter for observation for suspected exposure to other biological agents ruled out; Z79.899 Other long term (current) drug therapy
CPT/HCPCS: 80053; 81001; 83690; 84702; 85025; 87637; 96361; 96374; 96375; 99284; J1171; J2405; J2919; J7120

== ENCOUNTER 2025-01-16 12:19 | Outpatient (REF) | payer OTHER, SELFPAY | END 2025-01-16 12:20 | disposition home or self-care (01) | LOC: HO.LAB 12:19 | PROVIDERS: PCP Physician Assistant; Visit Provider Clinical Nurse Specialist Psychiatric/Mental Health, Adult | DX: F90.2 Attention-deficit hyperactivity disorder, combined type (principal); F41.1 Generalized anxiety disorder; F33.1 Major depressive disorder, recurrent, moderate; F43.12 Post-traumatic stress disorder, chronic; R45.89 Other symptoms and signs involving emotional state; Z79.899 Other long term (current) drug therapy | CPT/HCPCS: 36415; 80164; 99212 ==

== ENCOUNTER 2025-01-16 13:14 | Outpatient (AMB) | payer OTHER, SELFPAY ==
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
== END 2025-01-16 16:18 | disposition home or self-care (01) ==
PROVIDERS: PCP Physician Assistant; Visit Provider Clinical Nurse Specialist Psychiatric/Mental Health, Adult
DX: F90.2 Attention-deficit hyperactivity disorder, combined type (principal); F41.1 Generalized anxiety disorder; F33.1 Major depressive disorder, recurrent, moderate; F31.9 Bipolar disorder, unspecified; F43.12 Post-traumatic stress disorder, chronic; R45.89 Other symptoms and signs involving emotional state
CPT/HCPCS: 99212